=== PATIENT | female | born 1990 | race Hispanic/Latino ===

== ENCOUNTER 2022-01-20 06:42 | Emergency (ER) | payer MEDICARE, MEDICAID, SELFPAY ==
[2022-01-20 06:52] VITALS: BMI 19.4
== END 2022-01-20 08:37 | disposition left against medical advice (07) ==
PROVIDERS: Emergency Provider Emergency Medicine
CPT/HCPCS: 99281

== ENCOUNTER 2022-01-28 07:53 | Inpatient (IN) | payer MEDICARE, MEDICAID, SELFPAY ==
[2022-01-28] VITALS (86 sets, daily range): BP systolic 76–117; BP diastolic 44–73; PULSE 63–123; RESP 16–63; TEMP 35.8–38.8; O2SAT 95–100; BMI 17.4
--- NOTE | 2022-01-28 08:09 | DI.RAD.S_ITS ---
PROCEDURE: XR CHEST 1V INDICATIONS: fever TECHNIQUE: One view of the chest was acquired. COMPARISON: [facility], CR, XR CHEST 1 VIEW, 11/21/2018, 14:33. FINDINGS: Surgical changes and devices: None. Lungs and pleura: Diffuse interstitial prominence. No focal consolidation. No pneumothorax or substantial pleural effusion. Mediastinum: Mediastinal contours appear normal. Heart size is normal. Bones and chest wall: No suspicious bony lesions. Overlying soft tissues appear unremarkable. IMPRESSION: Diffuse interstitial prominence without focal consolidation. Findings are nonspecific and may represent an infectious or inflammatory process with viral etiology most likely. Recommend follow up chest radiograph 4-6 weeks after treatment to document resolution of findings and/or return to baseline examination. Dictated by: Fransisco Montez M.D. on 01/28/2022 at 9:08 Approved by: Fransisco Montez M.D. on 01/28/2022 at 9:09
[2022-01-28 08:38] LABS: Add Manual Diff / Slide Review NO; Basophils Absolute Auto 0 /uL (0-100); Basophils Percent Auto 0.5 % (0-2); Eosinophils Absolute Auto 0 /uL (0-450); Hematocrit 32.5 % (36-46); Hemoglobin 10.9 g/dL (12.0-16.0); Lymphocytes Absolute Auto 900 /uL (1100-4500); Lymphocytes Percent Auto 20.7 % (25-40); Mean Corpuscular HGB Conc 33.5 % (30-36); Mean Corpuscular Hemoglobin 28.7 PG (26-34); Mean Corpuscular Volume 85.7 fL (80-100); Monocytes Absolute Auto 500 /uL (0-900); Monocytes Percent Auto 10.1 % (3-14); Neutrophils Absolute Auto 3100 /uL (1500-7000); Neutrophils Percent Auto 68.7 % (50-75); Platelet Count 155 X10^3/uL (150-400); Red Blood Cell Count 3.79 X10^6/uL (4.0-5.2); Red Cell Distribution Width 14.1 % (11.6-14.8); White Blood Cell Count 4.5 X10^3/uL (4.5-11.0)
--- NOTE | 2022-01-28 08:38 | ED_ITS ---
HPI - Fever General Chief Complaint: Altered Mental Status Stated Complaint: she has wounds on head, not eating, mucas in nose Time Seen by Provider: 01/28/22 08:08 Source: patient Mode of arrival: Wheelchair History of Present Illness HPI Narrative: Patient is a 31-year-old female history of schizophrenia language barrier primary history is taken from mom using language line. Patient has severe poorly controled schizophrenia she has frequent itching/picking she has scratched her head so often the wounds on her head are actually getting worse and her face. They went to [facility] last week she said she got an IV, blood work and doxepin for the itching. It was recommended that patient be placed for psychiatric hospitalization but after a long wait parents reconsidered and wanted to take her home. She developed a fever last night she is not eating she continues to drink some. She started spitting more. Her behavior has changed some in regards to she is spitting more. They do not report worsening hallucinations although patient really does not seem verbal difficult to tell. They state that her communication has not changed. She sniffing. She denies any pain. Mom reports cough. Patient remote history of DVT mom states that she previously had surgery in her right leg not sure she is no longer on anticoagulation they said she only needed at for a short time and now has been off it. Related Data Previous Rx's Medication Instructions Recorded olanzapine 15 mg tablet 15 mg PO BEDTIME #90 tabs 09/13/20 Allergies Allergy/AdvReac Type Severity Reaction Status Date / Time mirtazapine AdvReac Intermediate Rash severe Verified 01/20/22 06:52 Review of Systems Review of Systems ROS Unobtainable: All systems reviewed & are unremarkable except as noted in HPI and below, Unobtainable due to medical condition and Unobtainable due to mental condition Patient History Medical History (Updated 01/28/22 @ 20:57 by Cindy Nolen DO) History of DVT (deep vein thrombosis) History of pulmonary embolism Schizophrenia Social History household members: family Smoking Status: Never smoker Smoking Status: Never smoker Substance Use Type: does not use Exam Initial Vital Signs Initial Vital Signs: Vital Signs Temperature 101.8 F H 01/28/22 08:10 Pulse Rate 121 H 01/28/22 08:10 Respiratory Rate 33 H 01/28/22 08:10 Blood Pressure 100/57 L 01/28/22 08:10 Pulse Oximetry 97 01/28/22 08:10 Oxygen Delivery Method 01/28/22 08:10 GENERAL: Thin 31-year-old female HEENT: Head atraumatic,EOMI, pupils reactive, multiple face scratches mostly on the right cheek CARDIOVASCULAR: Regular rate and rhythm without murmurs, rubs or gallops. RESPIRATORY: Breath sounds equal bilaterally, no wheezes rales or rhonchi. ABDOMEN: Soft, nontender. Normoactive bowel sounds all 4 quadrants. No gu arding or rebound. : Incontinent of urine EXTREMITIES: Normal range of motion, no clubbing or edema. Neurovascularly intact NEUROLOGICAL: Moving all extremities SKIN: Severe scalp abrasions not growing hair mild drainage erythema facial scratches Course Orders Ordered: ED Orders 01/29/22 03:00 BMP [Basic Metabolic Panel] DAILY CBC Auto Diff [Complete Blood Count AUTO DIFF] DAILY Procalcitonin Urgent 01/30/22 05:00 BMP [Basic Metabolic Panel] DAILY CBC Auto Diff [Complete Blood Count AUTO DIFF] DAILY 01/31/22 05:00 BMP [Basic Metabolic Panel] DAILY CBC Auto Diff [Complete Blood Count AUTO DIFF] DAILY Acetaminophen (Acetaminophen 325 Mg Tablet) 650 mg PO Q6H PRN PRN Reason: Fever/Mild Pain (1-3) Diphenhydramine HCl (Diphenhydramine 50 Mg/Ml Vial) 25 mg IV Q4HR PRN PRN Reason: Itching Last Admin: 01/29/22 05:27 Dose: 25 mg Documented By: Admin: 01/29/22 02:00 Dose: 25 mg Documented By: Admin: 01/28/22 23:14 Dose: 25 mg Documented By: DL Enoxaparin Sodium (Enoxaparin 40 Mg/0.4 Ml Syringe) 40 mg SUBCUT DAILY ESTEVAN Fluoxetine HCl (Fluoxetine 10 Mg Capsule) 20 mg PO DAILY ESTEVAN NOREPINEPHRINE BITARTRATE/D5W (Levophed) 4 mg in 250 mls @ 30 mls/hr IV TITRATE ESTEVAN; Protocol Last Titration: 01/29/22 02:08 Dose: 0 mcg/min, 0 mls/hr Documented By: Titration: 01/28/22 22:00 Dose: 2 mcg/min, 7.5 mls/hr Documented By: Titration: 01/28/22 13:24 Dose: 3 mcg/min, 11.25 mls/hr Documented By: Admin: 01/28/22 12:59 Dose: 2 mcg/min, 7.5 mls/hr Documented By: BRANDON Azithromycin 500 mg/ Dextrose 250 mls @ 250 mls/hr IV Q24H [facility] Last Infusion: 01/28/22 17:27 Dose: 0 mls/hr Documented By: Admin: 01/28/22 16:26 Dose: 250 mls/hr Documented By: BRANDON Vancomycin HCl (Vancomycin) 750 mg in 150 mls @ 150 mls/hr IV Q8H [facility] Last Infusion: 01/29/22 03:04 Dose: 0 mls/hr Documented By: Admin: 01/29/22 01:54 Dose: 150 mls/hr Documented By: Infusion: 01/28/22 19:45 Dose: 0 mls/hr Documented By: Admin: 01/28/22 18:30 Dose: 150 mls/hr Documented By: NORMA Piperacillin Sod/Tazobactam (Sod 3.375 gm/ Sodium Chloride) 100 mls @ 25 mls/hr IV Q8H [facility] Last Admin: 01/29/22 04:46 Dose: 25 mls/hr Documented By: Infusion: 01/29/22 02:08 Dose: 0 mls/hr Documented By: Admin: 01/28/22 21:54 Dose: 25 mls/hr Documented By: LA Influenza Virus Vaccine (Influenza Vaccine Qiv 0.5 Ml Syringe) 0.5 ml IM .ONCE ONE Stop: 01/30/22 18:57 Melatonin (Melatonin 3 Mg Tablet) 6 mg PO BEDTIME PRN PRN Reason: Insomnia Naloxone HCl (Naloxone 0.4 Mg/Ml Vial) 0.2 mg IV Q2MIN PRN PRN Reason: Opiate Reversal Olanzapine (Olanzapine Odt 10 Mg Tab) 20 mg PO BEDTIME [facility] Last Admin: 01/28/22 21:50 Dose: Not Given Documented By: LA Polyethylene Glycol (Polyethylene Glycol 3350 17 Gm Powd.Pack) 17 gm PO DAILY PRN PRN Reason: Constipation Sennosides (Sennosides 8.6 Mg Tablet) 8.6 mg PO BID PRN PRN Reason: Constipation Vancomycin HCl (Vancomycin Trough) 1 request MISC NOW ONE Stop: 01/29/22 09:31 Vancomycin HCl (Vancomycin Peak) 1 request MIS NOW ONE Stop: 01/29/22 12:01 Discontinued Medications Acetaminophen (Acetaminophen 325 Mg Tablet) 975 mg PO NOW ONE Stop: 01/28/22 11:07 Last Admin: 01/28/22 11:11 Dose: 975 mg Documented By: BRANDON Aripiprazole (Aripiprazole 10 Mg Tablet) 10 mg PO DAILY ESTEVAN Haloperidol (Haloperidol 5 Mg/Ml Vial) 5 mg IV Q4HR PRN PRN Reason: Agitation Sodium Chloride (Normal Saline 0.9%) 1,000 mls @ 1,000 mls/hr IV BOLUS ONE Stop: 01/28/22 09:44 Last Infusion: 01/28/22 09:57 Dose: 0 mls/hr Documented By: Admin: 01/28/22 09:00 Dose: 1,000 mls/hr Documented By: BRANDON Ceftriaxone Sodium 2,000 mg/ (Sodium Chloride) 100 mls @ 200 mls/hr IV NOW ONE Stop: 01/28/22 08:48 Last Infusion: 01/28/22 09:57 Dose: 0 mls/hr Documented By: Admin: 01/28/22 09:08 Dose: 200 mls/hr Documented By: BRANDON Vancomycin HCl (Vancomycin) 750 mg in 150 mls @ 150 mls/hr IV NOW ONE Stop: 01/28/22 09:48 Last Infusion: 01/28/22 11:17 Dose: 0 mls/hr Documented By: Admin: 01/28/22 09:51 Dose: 150 mls/hr Documented By: BRANDON Sodium Chloride (Normal Saline 0.9%) 1,146 mls @ 382 mls/hr 30 ml/kg infuse over 3 hr (1146 ml) IV NOW ONE Stop: 01/28/22 13:07 Last Infusion: 01/28/22 13:16 Dose: 0 mls/hr Documented By: Admin: 01/28/22 10:34 Dose: 382 mls/hr Documented By: BRANDON Ceftriaxone Sodium 1,000 mg/ (Sodium Chloride) 100 mls @ 200 mls/hr IV Q24H ESTEVAN Stop: 02/01/22 08:59 Piperacillin Sod/Tazobactam (Sod 4.5 gm/ Sodium Chloride) 100 mls @ 200 mls/hr IV NOW ONE Stop: 01/28/22 12:56 Last Infusion: 01/28/22 15:53 Dose: 0 mls/hr Documented By: Admin: 01/28/22 13:11 Dose: 200 mls/hr Documented By: BRANDON Piperacillin Sod/Tazobactam (Sod 3.375 gm/ Sodium Chloride) 100 mls @ 25 mls/hr IV Q8H ESTEVAN Piperacillin Sod/Tazobactam (Sod 4.5 gm/ Sodium Chloride) 100 mls @ 25 mls/hr IV Q8H EST[facility]AN Piperacillin Sod/Tazobactam (Sod 3.375 gm/ Sodium Chloride) 100 mls @ 25 mls/hr IV Q8H ESTEVAN Last Admin: 01/28/22 18:15 Dose: Not Given Documented By: NORMA Ketorolac Tromethamine (Ketorolac 30 Mg/Ml Vial) 15 mg IV NOW ONE Stop: 01/28/22 08:50 Last Admin: 01/28/22 09:07 Dose: 15 mg Documented By: BRANDON Olanzapine (Olanzapine Odt 10 Mg Tab) 20 mg PO NOW ONE Stop: 01/28/22 11:06 Last Admin: 01/28/22 11:11 Dose: 20 mg Documented By: BRANDON Olanzapine (Olanzapine 2.5 Mg Tablet) 5 mg PO BEDTIME ESTEVAN Vancomycin HCl (Vancomycin Per Pharmacy) 1 request MISC NOW ONE Stop: 01/28/22 11:16 Last Admin: 01/28/22 15:53 Dose: Not Given Documented By: BRANDON Vancomycin HCl (Vancomycin Per Pharmacy) 1 request MISC NOW ONE Stop: 01/28/22 15:39 Last Admin: 01/28/22 17:26 Dose: Not Given Documented By: NORMA Vital Signs Vital signs: Vital Signs - 8 hr 01/28/22 11:30 01/28/22 11:30 Temperature 100.6 F H Pulse Rate 93 H Respiratory Rate 32 H Blood Pressure 100/62 Pulse Oximetry 98 MDM - Fever Lab Data Result diagrams: 01/29/22 03:00 01/29/22 03:00 Labs: Lab Results 01/28/22 01/28/22 01/28/22 Range/Units 08:22 08:22 08:22 WBC (4.5-11.0) X10^3/uL RBC (4.0-5.2) X10^6/uL Hgb (12.0-16.0) g/dL Hct (36-46) % MCV (80-100) fL MCH (26-34) PG MCHC (30-36) % RDW (11.6-14.8) % Plt Count (150-400) X10^3/uL Neut % (Auto) (50-75) % Lymph % (Auto) (25-40) % Ness % (Auto) (3-14) % Eos % (Auto) (2-4) % Baso % (Auto) (0-2) % Neut # (Auto) (6649-3704) /uL Lymph # (Auto) (8954-0663) /uL Ness # (Auto) (0-900) /uL Eos # (Auto) (0-450) /uL Baso # (Auto) (0-100) /uL D-Dimer (<500) ng/ml Sodium (137-145) mmol/L Potassium (3.4-5.1) mmol/L Chloride (98-107) mmol/L Carbon Dioxide (22-32) mmol/L BUN (7-17) mg/dL Creatinine (0.52-1.04) mg/dL Estimated GFR (>60) mL/min BUN/Creatinine Ratio (6-22) Glucose (70-100) mg/dL Lactate (0.7-2.1) mmol/L Calcium (8.4-10.2) mg/dL Magnesium 2.1 (1.6-2.3) mg/dL Total Bilirubin (0.2-1.3) mg/dL AST (14-36) IU/L ALT (<35) IU/L Alkaline Phosphatase (38-126) U/L Total Creatine Kinase 825 H (30-135) U/L CK-MB (CK-2) 2.02 (<2.37) ng/mL CK-MB (CK-2) Rel Index 0.2 L (1.5-5.0) % Troponin I < 0.012 (0.01-0.034) ng/mL Total Protein (6.3-8.2) g/dL Albumin (3.5-5.0) g/dL Globulin (1.7-4.1) g/dL Albumin/Globulin Ratio (1.0-2.8) Procalcitonin 1.08 H (<0.5) ng/mL Urine RBC (0-5/HPF) Urine WBC (0-5/HPF) Ur Squamous Epith Cells (0-5/HPF) Ur Transition Epith Cell (0-5/HPF) Urine Bacteria (None) Ur Culture Indicated? Urine Test (Negative) U Opiates 300ng/mL cut (Negative) Ur Oxycodone Screen (Negative) Urine Methadone Screen (Negative) Ur Barbiturates Screen (Negative) U Tricyclic Antidepress (Negative) Ur Phencyclidine Scrn (Negative) Ur Amphetamines Screen (Negative) U Methamphetamines Scrn (Negative) Ur MDMA Scrn (Ecstasy) (Negative) U Benzodiazepines Scrn (Negative) Urine Cocaine Screen (Negative) U Marijuana (THC) Screen (Negative) SARS-CoV-2 (PCR) (Negative) Influenza A (RT-PCR) (NEGATIVE) Influenza B (RT-PCR) (NEGATIVE) RSV (PCR) (Negative) 01/28/22 01/28/22 01/28/22 Range/Units 08:27 08:27 08:27 WBC 4.5 (4.5-11.0) X10^3/uL RBC 3.79 L (4.0-5.2) X10^6/uL Hgb 10.9 L (12.0-16.0) g/dL Hct 32.5 L (36-46) % MCV 85.7 (80-100) fL MCH 28.7 (26-34) PG MCHC 33.5 (30-36) % RDW 14.1 (11.6-14.8) % Plt Count 155 (150-400) X10^3/uL Neut % (Auto) 68.7 (50-75) % Lymph % (Auto) 20.7 L (25-40) % Ness % (Auto) 10.1 (3-14) % Eos % (Auto) 0.0 L (2-4) % Baso % (Auto) 0.5 (0-2) % Neut # (Auto) 3100 (9198-7030) /uL Lymph # (Auto) 900 L (3924-5736) /uL Ness # (Auto) 500 (0-900) /uL Eos # (Auto) 0 (0-450) /uL Baso # (Auto) 0 (0-100) /uL D-Dimer (<500) ng/ml Sodium 134 L (137-145) mmol/L Potassium 3.6 (3.4-5.1) mmol/L Chloride 99 (98-107) mmol/L Carbon Dioxide 23 (22-32) mmol/L BUN 14 (7-17) mg/dL Creatinine 0.64 (0.52-1.04) mg/dL Estimated GFR > 60 (>60) mL/min BUN/Creatinine Ratio 21.9 (6-22) Glucose 113 H (70-100) mg/dL Lactate 1.6 (0.7-2.1) mmol/L Calcium 8.3 L (8.4-10.2) mg/dL Magnesium (1.6-2.3) mg/dL Total Bilirubin 0.5 (0.2-1.3) mg/dL AST 87 H (14-36) IU/L ALT 33 (<35) IU/L Alkaline Phosphatase 46 (38-126) U/L Total Creatine Kinase (30-135) U/L CK-MB (CK-2) (<2.37) ng/mL CK-MB (CK-2) Rel Index (1.5-5.0) % Troponin I (0.01-0.034) ng/mL Total Protein 7.9 (6.3-8.2) g/dL Albumin 3.6 (3.5-5.0) g/dL Globulin 4.3 H (1.7-4.1) g/dL Albumin/Globulin Ratio 0.8 L (1.0-2.8) Procalcitonin (<0.5) ng/mL Urine RBC (0-5/HPF) Urine WBC (0-5/HPF) Ur Squamous Epith Cells (0-5/HPF) Ur Transition Epith Cell (0-5/HPF) Urine Bacteria (None) Ur Culture Indicated? Urine Test (Negative) U Opiates 300ng/mL cut (Negative) Ur Oxycodone Screen (Negative) Urine Methadone Screen (Negative) Ur Barbiturates Screen (Negative) U Tricyclic Antidepress (Negative) Ur Phencyclidine Scrn (Negative) Ur Amphetamines Screen (Negative) U Methamphetamines Scrn (Negative) Ur MDMA Scrn (Ecstasy) (Negative) U Benzodiazepines Scrn (Negative) Urine Cocaine Screen (Negative) U Marijuana (THC) Screen (Negative) SARS-CoV-2 (PCR) (Negative) Influenza A (RT-PCR) (NEGATIVE) Influenza B (RT-PCR) (NEGATIVE) RSV (PCR) (Negative) 01/28/22 01/28/22 01/28/22 Range/Units 08:27 08:42 09:20 WBC (4.5-11.0) X10^3/uL RBC (4.0-5.2) X10^6/uL Hgb (12.0-16.0) g/dL Hct (36-46) % MCV (80-100) fL MCH (26-34) PG MCHC (30-36) % RDW (11.6-14.8) % Plt Count (150-400) X10^3/uL Neut % (Auto) (50-75) % Lymph % (Auto) (25-40) % Ness % (Auto) (3-14) % Eos % (Auto) (2-4) % Baso % (Auto) (0-2) % Neut # (Auto) (4760-7215) /uL Lymph # (Auto) (1378-6551) /uL Ness # (Auto) (0-900) /uL Eos # (Auto) (0-450) /uL Baso # (Auto) (0-100) /uL D-Dimer 2351 H (<500) ng/ml Sodium (137-145) mmol/L Potassium (3.4-5.1) mmol/L Chloride (98-107) mmol/L Carbon Dioxide (22-32) mmol/L BUN (7-17) mg/dL Creatinine (0.52-1.04) mg/dL Estimated GFR (>60) mL/min BUN/Creatinine Ratio (6-22) Glucose (70-100) mg/dL Lactate (0.7-2.1) mmol/L Calcium (8.4-10.2) mg/dL Magnesium (1.6-2.3) mg/dL Total Bilirubin (0.2-1.3) mg/dL AST (14-36) IU/L ALT (<35) IU/L Alkaline Phosphatase (38-126) U/L Total Creatine Kinase (30-135) U/L CK-MB (CK-2) (<2.37) ng/mL CK-MB (CK-2) Rel Index (1.5-5.0) % Troponin I (0.01-0.034) ng/mL Total Protein (6.3-8.2) g/dL Albumin (3.5-5.0) g/dL Globulin (1.7-4.1) g/dL Albumin/Globulin Ratio (1.0-2.8) Procalcitonin (<0.5) ng/mL Urine RBC None seen (0-5/HPF) Urine WBC 1-5/hpf (0-5/HPF) Ur Squamous Epith Cells 1-5 /hpf (0-5/HPF) Ur Transition Epith Cell 0-1/hpf (0-5/HPF) Urine Bacteria None seen (None) Ur Culture Indicated? Cult not indicated Urine Test (Negative) U Opiates 300ng/mL cut (Negative) Ur Oxycodone Screen (Negative) Urine Methadone Screen (Negative) Ur Barbiturates Screen (Negative) U Tricyclic Antidepress (Negative) Ur Phencyclidine Scrn (Negative) Ur Amphetamines Screen (Negative) U Methamphetamines Scrn (Negative) Ur MDMA Scrn (Ecstasy) (Negative) U Benzodiazepines Scrn (Negative) Urine Cocaine Screen (Negative) U Marijuana (THC) Screen (Negative) SARS-CoV-2 (PCR) Negative (Negative) Influenza A (RT-PCR) Flu a negative (NEGATIVE) Influenza B (RT-PCR) Flu b negative (NEGATIVE) RSV (PCR) Negative (Negative) 01/28/22 01/28/22 Range/Units 09:20 09:20 WBC (4.5-11.0) X10^3/uL RBC (4.0-5.2) X10^6/uL Hgb (12.0-16.0) g/dL Hct (36-46) % MCV (80-100) fL MCH (26-34) PG MCHC (30-36) % RDW (11.6-14.8) % Plt Count (150-400) X10^3/uL Neut % (Auto) (50-75) % Lymph % (Auto) (25-40) % Ness % (Auto) (3-14) % Eos % (Auto) (2-4) % Baso % (Auto) (0-2) % Neut # (Auto) (2425-4944) /uL Lymph # (Auto) (8790-3578) /uL Ness # (Auto) (0-900) /uL Eos # (Auto) (0-450) /uL Baso # (Auto) (0-100) /uL D-Dimer (<500) ng/ml Sodium (137-145) mmol/L Potassium (3.4-5.1) mmol/L Chloride (98-107) mmol/L Carbon Dioxide (22-32) mmol/L BUN (7-17) mg/dL Creatinine (0.52-1.04) mg/dL Estimated GFR (>60) mL/min BUN/Creatinine Ratio (6-22) Glucose (70-100) mg/dL Lactate (0.7-2.1) mmol/L Calcium (8.4-10.2) mg/dL Magnesium (1.6-2.3) mg/dL Total Bilirubin (0.2-1.3) mg/dL AST (14-36) IU/L ALT (<35) IU/L Alkaline Phosphatase (38-126) U/L Total Creatine Kinase (30-135) U/L CK-MB (CK-2) (<2.37) ng/mL CK-MB (CK-2) Rel Index (1.5-5.0) % Troponin I (0.01-0.034) ng/mL Total Protein (6.3-8.2) g/dL Albumin (3.5-5.0) g/dL Globulin (1.7-4.1) g/dL Albumin/Globulin Ratio (1.0-2.8) Procalcitonin (<0.5) ng/mL Urine RBC (0-5/HPF) Urine WBC (0-5/HPF) Ur Squamous Epith Cells (0-5/HPF) Ur Transition Epith Cell (0-5/HPF) Urine Bacteria (None) Ur Culture Indicated? Urine Test Negative (Negative) U Opiates 300ng/mL cut Negative (Negative) Ur Oxycodone Screen Negative (Negative) Urine Methadone Screen Negative (Negative) Ur Barbiturates Screen Negative (Negative) U Tricyclic Antidepress Negative (Negative) Ur Phencyclidine Scrn Negative (Negative) Ur Amphetamines Screen Negative (Negative) U Methamphetamines Scrn Negative (Negative) Ur MDMA Scrn (Ecstasy) Negative (Negative) U Benzodiazepines Scrn Negative (Negative) Urine Cocaine Screen Negative (Negative) U Marijuana (THC) Screen Negative (Negative) SARS-CoV-2 (PCR) (Negative) Influenza A (RT-PCR) (NEGATIVE) Influenza B (RT-PCR) (NEGATIVE) RSV (PCR) (Negative) Point of Care Testing Test Results Negative Urine Dip Bedside Urine Glucose Negative Bedside Urine Bilirubin - Negative Bedside Urine Ketone - Negative Urine Specific [place] 1.015 Bedside Urine Occult Blood - Negative Bedside Urine pH 6 Bedside Urine Protein + 30 Bedside Urine Urobilinogen - Negative Bedside Urine Nitrite - Negative Bedside Urine Leukocytes - Negative Esterase Imaging Data Chest x-ray: Radiologist's Impression: XRay Report Signed Patient: Tracey Holcomb MR#: [id number] : 1990 Acct:[id number] Age/Sex: 31 / F Date of Service: 01/28/22 Loc: ED Accession Number: [id number] ?? Procedure: XR chest 1V Ordering Provider: Cindy Nolen D.O. PROCEDURE:? XR CHEST 1V ? INDICATIONS:? fever ? TECHNIQUE:? One view of the chest was acquired.? ? COMPARISON:? [facility], , XR CHEST 1 VIEW, 11/21/2018, 14:33. ? FINDINGS:? ? Surgical changes and devices:? None.? ? Lungs and pleura:? Diffuse interstitial prominence.? No focal consolidation.? No pneumothorax or substantial pleural effusion. ? Mediastinum:? Mediastinal contours appear normal.? Heart size is normal.? ? Bones and chest wall:? No suspicious bony lesions.? Overlying soft tissues appear unremarkable.? ? IMPRESSION:? Diffuse interstitial prominence without focal consolidation.? Findings are nonspecific and may represent an infectious or inflammatory process with viral etiology most likely. ? Recommend follow up chest radiograph 4-6 weeks after treatment to document resolution of findings and/or return to baseline examination. ? ? ? Dictated by: Fransisco Montez M.D. on 01/28/2022 at 9:08 ? ? Approved by: Fransisco Montez M.D. on 01/28/2022 at 9:09 ? ECG Data Interpretation: Sinus rhythm rate 113 ME interval 132 QRS [address] changes or T-wave inversions MDM Narrative Medical decision making narrative: Patient presents today with fever, decreased appetite decreased oral intake and change in behavior. He is found to be sepsis with septic shock requiring vasopressors. Probable infection is cellulitis from her multiple sores on her scalp. Viral panel is negative no evidence of UTI or pneumonia. Central line is required anesthesia was called to place central line. She was empirically started on antibiotics Zosyn and vancomycin. No fever in the ED no leukocytosis but does have an elevated procalcitonin. She received sepsis fluids and continue to have hypotension therefore vasopressors were started. Translating services were used for consent for central line and updating on patient's condition. Code status was also discussed and she is a full code Respiratory panel is also Negative. Dr. Ragsdale updated on patient's symptoms test results and kindly accepts patient to the ICU. Critical Care Time Critical Care Time Critical Care Time: Yes Total Critical Care Time: 60 Attestation: The high probability of a clinically significant, sudden or life threatening deterioration of the [cardiovascular] system(s) required my full and direct attention, intervention and personal management. The aggregate critical care time was 60 minutes. This time is in addition to time spent performing reported procedures but includes the following: [x] Data Review and interpretation [x] Patient assessment and monitoring of vital signs [x] Documentation [x] Medication orders and management Discharge Plan Departure Patient Disposition: Admitted As Inpatient Clinical Impression: Septic shock Admit Date/Time: 01/28/22 11:54 Admit Provider: Shahriar Ragsdale
[2022-01-28 08:56] LABS: Alanine Aminotransferase 33 IU/L (<35); Albumin 3.6 g/dL (3.5-5.0); Albumin Globulin Ratio 0.8 (1.0-2.8); Alkaline Phosphatase 46 U/L (38-126); BUN Creatinine Ratio 21.9 (6-22); Bilirubin Total 0.5 mg/dL (0.2-1.3); Blood Urea Nitrogen 14 mg/dL (7-17); Calcium 8.3 mg/dL (8.4-10.2); Carbon Dioxide 23 mmol/L (22-32); Chloride 99 mmol/L (98-107); Estimated Glomerular Filt Rate > 60 mL/min (>60); Globulin 4.3 g/dL (1.7-4.1); Glucose 113 mg/dL (70-100); Sodium 134 mmol/L (137-145); Total Protein 7.9 g/dL (6.3-8.2)
[2022-01-28 08:57] LABS: Aspartate Aminotransferase 87 IU/L (14-36); HEMOLYSIS 60 (0-50); Lactate (Lactic Acid) 1.6 mmol/L (0.7-2.1); Potassium 3.6 mmol/L (3.4-5.1)
[2022-01-28] MEDS: SODIUM CHLORIDE 0.9% 1,000 ML 1000 ML IV (09:00)
[2022-01-28 09:02] LABS: Creatine Kinase 825 U/L (30-135)
[2022-01-28] MEDS: KETOROLAC 30 MG/ML VIAL 15 MG IV (09:07)
[2022-01-28] MEDS: cefTRIAXone 2,000 MG in SODIUM CHLORIDE 0.9% 100 ML 200 MG IV (09:08)
[2022-01-28 09:15] LABS: Troponin I < 0.012 ng/mL (0.01-0.034)
[2022-01-28 09:18] LABS: CKMB % Relative Index 0.2 % (1.5-5.0); Creatine Kinase MB 2.02 ng/mL (<2.37)
[2022-01-28 09:21] LABS: Procalcitonin 1.08 ng/mL (<0.5)
[2022-01-28] MEDS: VANCOMYCIN 750 MG/150 ML PIGGYBACK 150 MG IV ×2 (09:51→18:30)
[2022-01-28 09:58] LABS: Bacteria Urine None Seen; Culture Indicated Urine Cult Not Indicated; RBC Urine None Seen (0-5/HPF); Squamous Epithelial Cell Urine 1-5 /HPF (0-5/HPF); Transitional Epi Cells Urine 0-1/HPF (0-5/HPF); WBC Urine 1-5/HPF (0-5/HPF)
[2022-01-28 10:17] LABS: Influenza A - CEPHEID Flu A NEGATIVE (NEGATIVE); Influenza B - CEPHEID Flu B NEGATIVE (NEGATIVE); Respiratory Syncytial Virus Negative (Negative)
[2022-01-28 10:18] LABS: COVID-19 CEPHEID 4-PLEX PCR Negative (Negative)
[2022-01-28] MEDS: SODIUM CHLORIDE 0.9% 382 ML IV (10:34)
[2022-01-28] MEDS: ACETAMINOPHEN 325 MG TABLET 975 MG PO (11:11)
[2022-01-28] MEDS: OLANZapine ODT 10 MG TAB 20 MG PO (11:11)
[2022-01-28 12:06] LABS: Magnesium 2.1 mg/dL (1.6-2.3)
--- NOTE | 2022-01-28 12:53 | CM.SWNOTE ---
ED SW Note Patient is a 31-year-old female history of schizophrenia w/ language barrier. Primary history is taken from mom using language line. Patient has severe poorly controlled schizophrenia she has frequent itching/picking she has scratched her head so often the wounds on her head are actually getting worse and her face. Pt has Medicare A+B and Medicaid. SW consulted to complete MH assessment. SW met pt and her mother in the room and initiated assessment using phone hourly sign language interpreter. Pt's mom reports that she initially brought pt into [facility] last week due to increased itchiness on head wound that was made worse by patient's scratching. Pt's mother reports that she only scratches her head if it is itchy. Pt has learning disability in addition to schizophrenia diagnosis. Pt is unable to participate in interview due to poor medical condition. Pt is difficult to understand and has not been using full sentences in the ED. Per mother, at baseline, pt is able to dress and feed herself. Pt requires some supervision in shower because she stays in bathroom for long periods and uses too much shampoo. Pt does not drive. Pt is prescribed olanzipine for her schizophrenia. Pt's mother reports that pt is not always compliant with medication and will take on average 4-5 times a week. Pt's mother reports that pt's former psychiatrist retired and they are currently looking for a new one. Pt's mother reports that pt is connected with [facility] and gets 129 BINTA hours a month. Pt's mother is her paid [employer]IN[employer] caregiver. Pt's mother reports that pt has not been behaviorally acting out at home. Pt's mother denies that her daughter has ever been suicidal or homicidal. Pt was previously hospitalized at a psychiatric facility in [place] for approximately one year in 2009 because she was breaking things at home. Per mother, pt no longer breaks things at home. Pt's mother denies violent behaviors at home. Pt is currently laying calm in bed. Orientation, memory, and affect not tested due to poor medical condition. Plan: Pt needs to be medically cleared and then establish new outpatient psychiatrist to help manage symptoms of schizophrenia, such as skin picking. NIALL King
[2022-01-28 12:57] LABS: Adenovirus Not Detected (Not Detect); B. parapertussis Not Detected (Not Detecte); Bordetella pertussis Not Detected (Not Detecte); Chlamydophila pneumoniae Not Detected (Not Detect); Coronavirus 229E Not Detected (Not Detect); Coronavirus HKU1 Not Detected (Not Detect); Coronavirus NL 63 Not Detected (Not Detect); Coronavirus OC43 Not Detected (Not Detect); Human Metapneumovirus Not Detected (Not Detect); Human Rhinovirus/Enterovirus Not Detected (Not Detect); Influenza A Not Detected (Not Detect); Influenza B Not Detected (Not Detect); Mycoplasma pneumoniae Not Detected (Not Detect); Parainfluenza Virus 1 Not Detected (Not Detect); Parainfluenza Virus 2 Not Detected (Not Detect); Parainfluenza Virus 3 Not Detected (Not Detect); Parainfluenza Virus 4 Not Detected (Not Detect); Respiratory Syncytial Virus Not Detected (Not Detect); SARS- CoV-2 Not Detected (Not Detecte)
[2022-01-28] MEDS: NOREPINEPHRINE BITARTRATE/D5W 4 MG/250 ML PLAST..BAG 7.5 MG IV (12:59)
[2022-01-28] MEDS: PIPERACILLIN/TAZO 4.5 GM in SODIUM CHLORIDE 0.9% 100 ML IV (13:11)
[2022-01-28 13:46] LABS: Pregnancy Test Urine Negative (Negative)
--- NOTE | 2022-01-28 14:11 | DI.RAD.S_ITS ---
PROCEDURE: XR CHEST 1V INDICATIONS: central line placement TECHNIQUE: One view of the chest was acquired. COMPARISON: [facility], CR, XR CHEST 1V, 01/28/2022, 8:50. FINDINGS: Surgical changes and devices: Right internal jugular central venous catheter tip is in SVC. Lungs and pleura: There is mild pulmonary edema and pulmonary vascular congestion. No definite focal infiltrate. No pleural effusions or pneumothorax. Mediastinum: Mediastinal contours appear normal. Heart size is normal. Bones and chest wall: No suspicious bony lesions. Overlying soft tissues appear unremarkable. IMPRESSION: Right internal jugular central venous catheter tip is in SVC. Mild congestion and pulmonary edema. No definite focal infiltrate. No pneumothorax. Dictated by: Lev Ramos M.D. on 01/28/2022 at 14:47 Approved by: Lev Ramos M.D. on 01/28/2022 at 14:48
--- NOTE | 2022-01-28 14:57 | PM.PROC.1 ---
Procedures Date/Time Date of procedure: 01/28/22 Time of procedure: 13:55 Central Line Placement Time out performed: Yes Patient placed on monitor/pulse ox: Yes MD prep: mask, gown and gloves Central line prep: Chlorhexidine scrub and sterile drapes applied Local anesthesia used: lidocaine 1% Amount of anesthesia used (ml): 3 Ultrasound used for placement: Yes Central line lumen inserted: triple Post procedure: sutured in place, good blood return, all ports aspirated, flushed, capped and sterile dressing applied Post procedure x-ray: tip of catheter in good position and no pneumothorax seen Patient tolerated procedure: well and no complications Complications: none Additional comments: Patient was given procedural sedation of 50mcg fentanyl and a 75mcg/kg/min propofol infusion. ASA monitoring applied including EtCO2/O2 nasalcannula monitor.
--- NOTE | 2022-01-28 15:39 | PM.HP.1 ---
History of Present Illness History of Present Illness Date Patient Seen: 01/28/22 Time Patient Seen: 15:00 Chief complaint: she has wounds on head, not eating, mucas in nose Narrative: 31-year-old female with history of poorly controlled schizophrenia presented to ED due to development of fever last night. Patient is reportedly nonverbal at baseline secondary to schizophrenia and history was obtained from mom via [employer]. Patient is reported to have frequent itching/picking on head and face areas. She was seen at [facility] and started on cephalexin about 10 days ago. On ED evaluation, patient was tachypneic, tachycardic and febrile with temp 101.8?. Initially normotensive, got fluid bolus 30 milliliters/kilogram for sepsis protocol, and subsequently dropped her blood pressure to 87/55. She then got started on Levophed, currently on 3 mcg with map of 65. She had right IJ central line put in while in the ER. EKG showed sinus rhythm with PACs, normal intervals. Apparently she was also screaming and having uncontrollable behavior in the ER but calm down nicely after given 20 mg Zyprexa. 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 She is no longer on blood thinne and unknown whether IVC filter was removed. Family has not noticed patient having a cough, or complaining of abdominal pain. Patient History Medical History (Updated 01/28/22 @ 15:57 by Mike Dunn MD) History of DVT (deep vein thrombosis) History of pulmonary embolism Schizophrenia Family & Social History Safety & Behavioral: Feels Safe in Current Yes Environment Tobacco & Substance use: Smoking Status Never smoker Substance Use Type does not use Meds Home Medications and Allergies Home Medications Medication Instructions Recorded Confirmed Type apixaban 5 mg tablet (Eliquis) 5 mg PO BID 08/04/18 03/12/19 History fluoxetine 10 mg capsule 10 mg PO DAILY #90 caps 08/18/19 Rx olanzapine 15 mg tablet 15 mg PO BEDTIME #90 tabs 09/13/20 Rx Allergies Allergy/AdvReac Type Severity Reaction Status Date / Time mirtazapine AdvReac Intermediate Rash severe Verified 01/20/22 06:52 Review of Systems Review of Systems Narrative: Further ROS unable to obtain due to patient's baseline altered mental status Exam Vital Signs (past 8 hours): - 01/28/22 08:10 01/28/22 08:11 01/28/22 08:30 Temperature 101.8 F H Pulse Rate 121 H 117 H Respiratory Rate 33 H 36 H Blood Pressure 100/57 L 97/56 L Pulse Oximetry 97 Oxygen Delivery Method Room Air 01/28/22 08:30 01/28/22 08:41 01/28/22 08:41 Temperature Pulse Rate 110 H 110 H Respiratory Rate 37 H 37 H Blood Pressure 103/61 Pulse Oximetry 98 97 Oxygen Delivery Method 01/28/22 08:50 01/28/22 08:50 01/28/22 09:00 Temperature Pulse Rate 109 H Respiratory Rate Blood Pressure 98/61 103/63 Pulse Oximetry 97 Oxygen Delivery Method 01/28/22 09:00 01/28/22 09:20 01/28/22 09:20 Temperature Pulse Rate 111 H 104 H Respiratory Rate 46 H 35 H Blood Pressure 96/57 L Pulse Oximetry 97 97 Oxygen Delivery Method 01/28/22 09:30 01/28/22 09:40 01/28/22 09:40 Temperature 100.8 F H Pulse Rate 117 H Respiratory Rate 33 H Blood Pressure 92/55 L 95/60 Pulse Oximetry 97 Oxygen Delivery Method 01/28/22 09:50 01/28/22 09:50 01/28/22 10:00 Temperature 100.8 F H Pulse Rate 123 H Respiratory Rate Blood Pressure 103/61 87/54 L Pulse Oximetry 98 Oxygen Delivery Method 01/28/22 10:00 01/28/22 10:13 01/28/22 10:13 Temperature 101.7 F H 101.3 F H Pulse Rate 96 H 102 H Respiratory Rate Blood Pressure 100/58 L Pulse Oximetry 96 95 Oxygen Delivery Method 01/28/22 10:30 01/28/22 10:30 01/28/22 11:00 Temperature 100.8 F H Pulse Rate 112 H Respiratory Rate 31 H Blood Pressure 105/68 117/73 Pulse Oximetry 98 Oxygen Delivery Method 01/28/22 11:00 01/28/22 11:30 01/28/22 11:30 Temperature 101.1 F H 100.6 F H Pulse Rate 105 H 93 H Respiratory Rate 38 H 32 H Blood Pressure 100/62 Pulse Oximetry 98 98 Oxygen Delivery Method 01/28/22 12:00 01/28/22 12:00 01/28/22 12:30 Temperature 100.4 F H Pulse Rate 89 Respiratory Rate 34 H Blood Pressure 113/61 76/44 L Pulse Oximetry 98 Oxygen Delivery Method 01/28/22 12:30 01/28/22 12:33 01/28/22 12:33 Temperature 100.0 F H 99.9 F H Pulse Rate 79 91 H Respiratory Rate 20 28 H Blood Pressure 85/54 L Pulse Oximetry 96 98 Oxygen Delivery Method 01/28/22 12:37 01/28/22 12:37 01/28/22 12:40 Temperature 99.9 F H 99.7 F H Pulse Rate 99 H 100 H Respiratory Rate 16 17 Blood Pressure 89/56 L Pulse Oximetry 99 98 Oxygen Delivery Method 01/28/22 12:40 01/28/22 12:52 01/28/22 12:52 Temperature 99.3 F Pulse Rate 95 H Respiratory Rate Blood Pressure 90/58 L 96/58 L Pulse Oximetry 99 Oxygen Delivery Method 01/28/22 13:00 01/28/22 13:00 01/28/22 13:01 Temperature 99.1 F 99.1 F Pulse Rate 90 90 Respiratory Rate 27 H 29 H Blood Pressure 97/58 L Pulse Oximetry 98 98 Oxygen Delivery Method 01/28/22 13:01 01/28/22 13:05 01/28/22 13:05 Temperature 99.1 F Pulse Rate 89 Respiratory Rate 27 H Blood Pressure 98/59 L 98/60 Pulse Oximetry 98 Oxygen Delivery Method 01/28/22 13:10 01/28/22 13:10 01/28/22 13:15 Temperature 99.0 F 99.0 F Pulse Rate 89 80 Respiratory Rate 31 H 26 H Blood Pressure 97/59 L Pulse Oximetry 98 99 Oxygen Delivery Method 01/28/22 13:15 01/28/22 13:20 01/28/22 13:20 Temperature 98.8 F Pulse Rate 77 Respiratory Rate 30 H Blood Pressure 98/61 98/62 Pulse Oximetry 99 Oxygen Delivery Method 01/28/22 13:25 01/28/22 13:25 01/28/22 13:30 Temperature 98.8 F Pulse Rate 74 Respiratory Rate 34 H Blood Pressure 99/64 97/65 Pulse Oximetry 99 Oxygen Delivery Method 01/28/22 13:30 01/28/22 13:35 01/28/22 13:35 Temperature 98.6 F 98.6 F Pulse Rate 74 83 Respiratory Rate 18 32 H Blood Pressure 106/70 Pulse Oximetry 99 99 Oxygen Delivery Method 01/28/22 13:40 01/28/22 13:40 01/28/22 13:45 Temperature 98.4 F Pulse Rate 78 Respiratory Rate 25 H Blood Pressure 99/62 114/72 Pulse Oximetry 98 Oxygen Delivery Method 01/28/22 13:45 01/28/22 13:50 01/28/22 13:50 Temperature 98.6 F 98.6 F Pulse Rate 63 69 Respiratory Rate 36 H Blood Pressure 103/62 Pulse Oximetry 100 100 Oxygen Delivery Method 01/28/22 13:55 01/28/22 13:55 01/28/22 14:00 Temperature 98.6 F Pulse Rate 67 Respiratory Rate Blood Pressure 99/63 99/61 Pulse Oximetry 100 Oxygen Delivery Method 01/28/22 14:00 01/28/22 14:05 01/28/22 14:05 Temperature 98.6 F Pulse Rate 77 70 Respiratory Rate Blood Pressure 101/67 Pulse Oximetry 100 100 Oxygen Delivery Method 01/28/22 14:10 01/28/22 14:10 01/28/22 14:15 Temperature 98.6 F Pulse Rate 72 68 Respiratory Rate Blood Pressure 96/63 Pulse Oximetry 99 100 Oxygen Delivery Method 01/28/22 14:15 01/28/22 14:20 01/28/22 14:20 Temperature Pulse Rate 81 Respiratory Rate 31 H Blood Pressure 98/65 99/65 Pulse Oximetry 99 Oxygen Delivery Method 01/28/22 14:25 01/28/22 14:25 01/28/22 14:30 Temperature Pulse Rate 70 Respiratory Rate 28 H Blood Pressure 100/66 101/67 Pulse Oximetry 99 Oxygen Delivery Method 01/28/22 14:30 01/28/22 14:35 01/28/22 14:35 Temperature Pulse Rate 69 67 Respiratory Rate 24 29 H Blood Pressure 101/68 Pulse Oximetry 100 100 Oxygen Delivery Method 01/28/22 14:40 01/28/22 14:40 01/28/22 14:45 Temperature 98.6 F Pulse Rate 64 73 Respiratory Rate 26 H 24 Blood Pressure 102/70 Pulse Oximetry 100 100 Oxygen Delivery Method 01/28/22 14:45 Temperature Pulse Rate Respiratory Rate Blood Pressure 98/64 Pulse Oximetry Oxygen Delivery Method Oxygen Delivery Method Room Air Narrative Exam Narrative: General: Presently patient is alert, calm, nonverbal and appearing comfortable HEENT: There is extensive areas macular erythema and scabbing on the top and back of scalp, paranasal areas, nape of neck. Also there is some crusting and drainage from bilateral external ear areas. No erythema or tenderness over the mastoids. No periorbital or facial edema. Pupils equal and reactive. Conjunctiva clear. No drainage from eyes. Neck: Trachea midline, supple, no thyromegaly Lungs: Clear to auscultation Heart: Regular rate and rhythm, no murmur Abdomen: Soft and nontender, no HSM Extremities: No skin lesions on arms or legs, no edema or rash Neurological: Nonverbal, no localizing signs Objective Labs Result Diagrams: 01/28/22 08:27 01/28/22 08:27 Labs: Laboratory Results - last 24 hr 01/28/22 01/28/22 01/28/22 08:22 08:22 08:22 WBC RBC Hgb Hct MCV MCH MCHC RDW Plt Count Neut % (Auto) Lymph % (Auto) [place] % (Auto) Eos % (Auto) Baso % (Auto) Neut # (Auto) Lymph # (Auto) [place] # (Auto) Eos # (Auto) Baso # (Auto) Sodium Potassium Chloride Carbon Dioxide BUN Creatinine Estimated GFR BUN/Creatinine Ratio Glucose Lactate Calcium Magnesium 2.1 Total Bilirubin AST ALT Alkaline Phosphatase Total Creatine Kinase 825 H CK-MB (CK-2) 2.02 CK-MB (CK-2) Rel Index 0.2 L Troponin I < 0.012 Total Protein Albumin Globulin Albumin/Globulin Ratio Procalcitonin 1.08 H Urine RBC Urine WBC Ur Squamous Epith Cells Ur Transition Epith Cell Urine Bacteria Ur Culture Indicated? Urine Test Chlamy pneumoniae PCR Adenovirus (PCR) B. pertussis DNA (PCR) B.parapertussis DNA PCR Coronavirus OC43 (PCR) Coronavirus HKU1 (PCR) Coronavirus 229E (PCR) SARS-CoV-2 (PCR) Coronavirus NL63 (PCR) Human Metapneumovir PCR Influenza A (RT-PCR) Influenza Type A (PCR) Influenza B (RT-PCR) Influenza Type B (PCR) M. pneumoniae (PCR) Parainfluenza 1 (PCR) Parainfluenza 2 (PCR) Parainfluenza 3 (PCR) Parainfluenza 4 (PCR) RSV (PCR) Entero/Rhino (PCR) 01/28/22 01/28/22 01/28/22 08:27 08:27 08:27 WBC 4.5 RBC 3.79 L Hgb 10.9 L Hct 32.5 L MCV 85.7 MCH 28.7 MCHC 33.5 RDW 14.1 Plt Count 155 Neut % (Auto) 68.7 Lymph % (Auto) 20.7 L [place] % (Auto) 10.1 Eos % (Auto) 0.0 L Baso % (Auto) 0.5 Neut # (Auto) 3100 Lymph # (Auto) 900 L [place] # (Auto) 500 Eos # (Auto) 0 Baso # (Auto) 0 Sodium 134 L Potassium 3.6 Chloride 99 Carbon Dioxide 23 BUN 14 Creatinine 0.64 Estimated GFR > 60 BUN/Creatinine Ratio 21.9 Glucose 113 H Lactate 1.6 Calcium 8.3 L Magnesium Total Bilirubin 0.5 AST 87 H ALT 33 Alkaline Phosphatase 46 Total Creatine Kinase CK-MB (CK-2) CK-MB (CK-2) Rel Index Troponin I Total Protein 7.9 Albumin 3.6 Globulin 4.3 H Albumin/Globulin Ratio 0.8 L Procalcitonin Urine RBC Urine WBC Ur Squamous Epith Cells Ur Transition Epith Cell Urine Bacteria Ur Culture Indicated? Urine Test Chlamy pneumoniae PCR Adenovirus (PCR) B. pertussis DNA (PCR) B.parapertussis DNA PCR Coronavirus OC43 (PCR) Coronavirus HKU1 (PCR) Coronavirus 229E (PCR) SARS-CoV-2 (PCR) Coronavirus NL63 (PCR) Human Metapneumovir PCR Influenza A (RT-PCR) Influenza Type A (PCR) Influenza B (RT-PCR) Influenza Type B (PCR) M. pneumoniae (PCR) Parainfluenza 1 (PCR) Parainfluenza 2 (PCR) Parainfluenza 3 (PCR) Parainfluenza 4 (PCR) RSV (PCR) Entero/Rhino (PCR) 01/28/22 01/28/22 01/28/22 08:42 09:20 09:20 WBC RBC Hgb Hct MCV MCH MCHC RDW Plt Count Neut % (Auto) Lymph % (Auto) [place] % (Auto) Eos % (Auto) Baso % (Auto) Neut # (Auto) Lymph # (Auto) [place] # (Auto) Eos # (Auto) Baso # (Auto) Sodium Potassium Chloride Carbon Dioxide BUN Creatinine Estimated GFR BUN/Creatinine Ratio Glucose Lactate Calcium Magnesium Total Bilirubin AST ALT Alkaline Phosphatase Total Creatine Kinase CK-MB (CK-2) CK-MB (CK-2) Rel Index Troponin I Total Protein Albumin Globulin Albumin/Globulin Ratio Procalcitonin Urine RBC None seen Urine WBC 1-5/hpf Ur Squamous Epith Cells 1-5 /hpf Ur Transition Epith Cell 0-1/hpf Urine Bacteria None seen Ur Culture Indicated? Cult not indicated Urine Test Negative Chlamy pneumoniae PCR Adenovirus (PCR) B. pertussis DNA (PCR) B.parapertussis DNA PCR Coronavirus OC43 (PCR) Coronavirus HKU1 (PCR) Coronavirus 229E (PCR) SARS-CoV-2 (PCR) Negative Coronavirus NL63 (PCR) Human Metapneumovir PCR Influenza A (RT-PCR) Flu a negative Influenza Type A (PCR) Influenza B (RT-PCR) Flu b negative Influenza Type B (PCR) M. pneumoniae (PCR) Parainfluenza 1 (PCR) Parainfluenza 2 (PCR) Parainfluenza 3 (PCR) Parainfluenza 4 (PCR) RSV (PCR) Negative Entero/Rhino (PCR) 01/28/22 12:00 WBC RBC Hgb Hct MCV MCH MCHC RDW Plt Count Neut % (Auto) Lymph % (Auto) [place] % (Auto) Eos % (Auto) Baso % (Auto) Neut # (Auto) Lymph # (Auto) [place] # (Auto) Eos # (Auto) Baso # (Auto) Sodium Potassium Chloride Carbon Dioxide BUN Creatinine Estimated GFR BUN/Creatinine Ratio Glucose Lactate Calcium Magnesium Total Bilirubin AST ALT Alkaline Phosphatase Total Creatine Kinase CK-MB (CK-2) CK-MB (CK-2) Rel Index Troponin I Total Protein Albumin Globulin Albumin/Globulin Ratio Procalcitonin Urine RBC Urine WBC Ur Squamous Epith Cells Ur Transition Epith Cell Urine Bacteria Ur Culture Indicated? Urine Test Chlamy pneumoniae PCR Not detected Adenovirus (PCR) Not detected B. pertussis DNA (PCR) Not detected B.parapertussis DNA PCR Not detected Coronavirus OC43 (PCR) Not detected Coronavirus HKU1 (PCR) Not detected Coronavirus 229E (PCR) Not detected SARS-CoV-2 (PCR) Not detected Coronavirus NL63 (PCR) Not detected Human Metapneumovir PCR Not detected Influenza A (RT-PCR) Influenza Type A (PCR) Not detected Influenza B (RT-PCR) Influenza Type B (PCR) Not detected M. pneumoniae (PCR) Not detected Parainfluenza 1 (PCR) Not detected Parainfluenza 2 (PCR) Not detected Parainfluenza 3 (PCR) Not detected Parainfluenza 4 (PCR) Not detected RSV (PCR) Not detected Entero/Rhino (PCR) Not detected Assessment & Plan Assessment & Plan narrative: 1. Septic shock -patient presents febrile, tachycardic and tachypneic and became hypotensive in the ED after standard fluid resuscitation -possible source is bacteremia due to skin lesions on scalp and neck, no mastoid tenderness or erythema to suggest mastoiditis, no meningeal signs -chest x-ray personally reviewed and shows nonspecific diffuse interstitial infiltrate -differential diagnosis includes non infectious source of fever and hypotension such as drug overdose, serotonin syndrome or acute PE (see below) -normal urinalysis, respiratory panel PCR, normal WBC without left shift but procalcitonin is elevated -currently on low-dose Levophed to maintain map greater than 65 -right IJ central line placed in the ED -wound culture obtained from right ear drainage -blood cultures x2 pending -continue on vancomycin and Zosyn started in the ED -IV azithromycin added for atypical coverage due to interstitial infiltrates on x-ray -nasal MRSA swab -urine tox screen -reviewed case workup and management with Dr Guillermo, tele ICU 2. History of DVT/PE and IVC filter -event was reportedly in 2018, unknown whether IVC filter was ever removed, patient not currently on anticoagulant -per discussion with tele ICU, order D-dimer-if D-dimer elevated and patient meets Wells criteria then obtain angio CT -modified Wells score is 3 based on tachycardia and history of PE 3. Schizophrenia -patient got Zyprexa in the ED -per discussion with Psychiatry, increased olanzapine from 50 mg to 20 mg at bedtime and increase fluoxetine from 10 mg to 20 mg daily DVT prophylaxis: Enoxaparin Surrogate decisionmaker: Mom Code status: Full code Patient meets ICU criteria due to septic shock. Total time of at least 60 minutes in critical care management. Time Spent With Patient Critical Care time: I spent a total of [] minutes of critical care time on this patient's care today; this time is exclusive of procedural time.
[2022-01-28 16:02] LABS: D Dimer 2351 ng/ml (<500)
[2022-01-28] MEDS: AZITHROMYCIN 500 MG in DEXTROSE 5% IN WATER 250 ML 250 MG IV (16:26)
--- NOTE | 2022-01-28 17:03 | DI.CT.S_ITS ---
PROCEDURE: CT ANGIO CHEST PE PROTOCOL INDICATIONS: r/o p.e TECHNIQUE: After the administration of intravenous contrast, 2 mm thick sections acquired from the pulmonary apices to the posterior costophrenic angles. 3-dimensional maximum intensity projection (MIP) coronal and sagittal reformats were then acquired through the thorax. For radiation dose reduction, the following was used: automated exposure control, adjustment of mA and/or kV according to patient size. COMPARISON: None. FINDINGS: Image quality: Slightly motion degraded Lungs and pleura: Lung volumes are relatively low. Minimal basilar opacities. No dense consolidation or pleural effusion. Small nodules are seen on maximum intensity projection images, for example in the right Mediastinum, heart, and esophagus: Distal arteries are not well evaluated due to some motion artifact, particularly in the bases. There is a small eccentric filling defect in the right middle lobe (). Nonspecific thickening of the distal esophagus, not well evaluated on this study. No aortic dissection is identified. A right central line is seen terminating at the cavoatrial junction. No pathologic adenopathy by size criteria. Chest wall and thyroid: Small breast calcifications are present, indeterminate on CT. Prominent axillary and supraclavicular lymph nodes of uncertain etiology. Upper abdomen: No gross abnormality identified in the upper abdomen, limited evaluation on this arterial phase study. Bones: No acute or suspicious osseous abnormality. IMPRESSION: No definitely acute pulmonary embolism. There might be nonacute eccentric filling defect in the right middle lobe pulmonary artery. Evaluation of distal arteries is degraded by motion. Mild basilar pulmonary airspace disease and tiny nodules, possibly infectious or inflammatory. Fleischner follow-up criteria do not apply for this demographic. Consider future imaging surveillance to assess for resolution. Prominent supraclavicular and axillary lymph nodes, partially seen, of uncertain etiology. Other findings as above. Dictated by: Aldo Barraza M.D. on 01/28/2022 at 18:13 Approved by: Aldo Barraza M.D. on 01/28/2022 at 18:22
--- NOTE | 2022-01-28 19:23 | P.TELICUCN_ITS ---
History of Present Illness Consult details IF CAMERA ACTIVATED, patient seen via real-time interactive audiovisual communication: Camera activated Date Patient Seen: 01/28/22 Chief complaint: she has wounds on head, not eating, mucas in nose Consent obtained for tele-education general manager care: Yes Patient Location: ICU Provider location (State): [place] Other participants/roles: RN Narrative: Patient is a 31F with a PMH of Schizophrenia (non-verbal), PE (previously on AC many years ago, IVC filter - unclear if removed) who was admitted to the ICU this evening with c/f septic shock. Per Hospitalist report, patient presented with fevers and skin infection. Had recently been placed on Keflex by outside hospital/ENT? In the ER, after receiving IVFs had a drop in her BP thus was placed on Levophed. A RIJ CVC was placed. 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 Patient received Vanc, Zosyn, Azithromycin. CTA w/o PE. UA without infection. Lactate WNL. On Levophed 3 at time of ICU arrival. [facility] Medical History (Updated 01/28/22 @ 19:40 by Dayna Guillermo) History of DVT (deep vein thrombosis) History of pulmonary embolism Schizophrenia Social History household members: family Smoking Status: Never smoker Current Medications Current Medications Medications: Home Medications olanzapine 15 mg tablet 15 mg PO BEDTIME #90 tabs 09/13/20 [Rx Confirmed 01/28/22] Visit Medications (administered) Generic Name Dose Route Start Last Admin Trade Name Freq PRN Reason Stop Dose Admin NOREPINEPHRINE BITARTRATE/D5W 4 mg in 250 mls @ 30 mls/hr 01/28/22 12:34 01/28/22 13:24 Levophed IV 3 mcg/min TITRATE ESTEVAN 11.25 mls/hr Titration Protocol 8 MCG/MIN Azithromycin 500 mg/ Dextrose 250 mls @ 250 mls/hr 01/28/22 15:45 01/28/22 17:27 IV Infused Q24H ESTEVAN Infusion Vancomycin HCl 750 mg in 150 mls @ 150 mls/hr 01/28/22 18:00 01/28/22 18:30 Vancomycin IV 150 mls/hr Q8H ESTEVAN Administration Exam Vital Signs (past 8 hours): - 01/28/22 11:30 01/28/22 11:30 01/28/22 12:00 Temperature 100.6 F H Pulse Rate 93 H Respiratory Rate 32 H Blood Pressure 100/62 113/61 Pulse Oximetry 98 Oxygen Delivery Method Oxygen Flow Rate 01/28/22 12:00 01/28/22 12:30 01/28/22 12:30 Temperature 100.4 F H 100.0 F H Pulse Rate 89 79 Respiratory Rate 34 H 20 Blood Pressure 76/44 L Pulse Oximetry 98 96 Oxygen Delivery Method Oxygen Flow Rate 01/28/22 12:33 01/28/22 12:33 01/28/22 12:37 Temperature 99.9 F H 99.9 F H Pulse Rate 91 H 99 H Respiratory Rate 28 H 16 Blood Pressure 85/54 L Pulse Oximetry 98 99 Oxygen Delivery Method Oxygen Flow Rate 01/28/22 12:37 01/28/22 12:40 01/28/22 12:40 Temperature 99.7 F H Pulse Rate 100 H Respiratory Rate 17 Blood Pressure 89/56 L 90/58 L Pulse Oximetry 98 Oxygen Delivery Method Oxygen Flow Rate 01/28/22 12:52 01/28/22 12:52 01/28/22 13:00 Temperature 99.3 F Pulse Rate 95 H Respiratory Rate Blood Pressure 96/58 L 97/58 L Pulse Oximetry 99 Oxygen Delivery Method Oxygen Flow Rate 01/28/22 13:00 01/28/22 13:01 01/28/22 13:01 Temperature 99.1 F 99.1 F Pulse Rate 90 90 Respiratory Rate 27 H 29 H Blood Pressure 98/59 L Pulse Oximetry 98 98 Oxygen Delivery Method Oxygen Flow Rate 01/28/22 13:05 01/28/22 13:05 01/28/22 13:10 Temperature 99.1 F Pulse Rate 89 Respiratory Rate 27 H Blood Pressure 98/60 97/59 L Pulse Oximetry 98 Oxygen Delivery Method Oxygen Flow Rate 01/28/22 13:10 01/28/22 13:15 01/28/22 13:15 Temperature 99.0 F 99.0 F Pulse Rate 89 80 Respiratory Rate 31 H 26 H Blood Pressure 98/61 Pulse Oximetry 98 99 Oxygen Delivery Method Oxygen Flow Rate 01/28/22 13:20 01/28/22 13:20 01/28/22 13:25 Temperature 98.8 F Pulse Rate 77 Respiratory Rate 30 H Blood Pressure 98/62 99/64 Pulse Oximetry 99 Oxygen Delivery Method Oxygen Flow Rate 01/28/22 13:25 01/28/22 13:30 01/28/22 13:30 Temperature 98.8 F 98.6 F Pulse Rate 74 74 Respiratory Rate 34 H 18 Blood Pressure 97/65 Pulse Oximetry 99 99 Oxygen Delivery Method Oxygen Flow Rate 01/28/22 13:35 01/28/22 13:35 01/28/22 13:40 Temperature 98.6 F Pulse Rate 83 Respiratory Rate 32 H Blood Pressure 106/70 99/62 Pulse Oximetry 99 Oxygen Delivery Method Oxygen Flow Rate 01/28/22 13:40 01/28/22 13:45 01/28/22 13:45 Temperature 98.4 F 98.6 F Pulse Rate 78 63 Respiratory Rate 25 H 36 H Blood Pressure 114/72 Pulse Oximetry 98 100 Oxygen Delivery Method Oxygen Flow Rate 01/28/22 13:50 01/28/22 13:50 01/28/22 13:55 Temperature 98.6 F Pulse Rate 69 Respiratory Rate Blood Pressure 103/62 99/63 Pulse Oximetry 100 Oxygen Delivery Method Oxygen Flow Rate 01/28/22 13:55 01/28/22 14:00 01/28/22 14:00 Temperature 98.6 F 98.6 F Pulse Rate 67 77 Respiratory Rate Blood Pressure 99/61 Pulse Oximetry 100 100 Oxygen Delivery Method Oxygen Flow Rate 01/28/22 14:05 01/28/22 14:05 01/28/22 14:10 Temperature Pulse Rate 70 72 Respiratory Rate Blood Pressure 101/67 Pulse Oximetry 100 99 Oxygen Delivery Method Oxygen Flow Rate 01/28/22 14:10 01/28/22 14:15 01/28/22 14:15 Temperature 98.6 F Pulse Rate 68 Respiratory Rate Blood Pressure 96/63 98/65 Pulse Oximetry 100 Oxygen Delivery Method Oxygen Flow Rate 01/28/22 14:20 01/28/22 14:20 01/28/22 14:25 Temperature Pulse Rate 81 70 Respiratory Rate 31 H 28 H Blood Pressure 99/65 Pulse Oximetry 99 99 Oxygen Delivery Method Oxygen Flow Rate 01/28/22 14:25 01/28/22 14:30 01/28/22 14:30 Temperature Pulse Rate 69 Respiratory Rate 24 Blood Pressure 100/66 101/67 Pulse Oximetry 100 Oxygen Delivery Method Oxygen Flow Rate 01/28/22 14:35 01/28/22 14:35 01/28/22 14:40 Temperature Pulse Rate 67 64 Respiratory Rate 29 H 26 H Blood Pressure 101/68 Pulse Oximetry 100 100 Oxygen Delivery Method Oxygen Flow Rate 01/28/22 14:40 01/28/22 14:45 01/28/22 14:45 Temperature 98.6 F Pulse Rate 73 Respiratory Rate 24 Blood Pressure 102/70 98/64 Pulse Oximetry 100 Oxygen Delivery Method Oxygen Flow Rate 01/28/22 14:50 01/28/22 14:50 01/28/22 14:55 Temperature 98.6 F 98.6 F Pulse Rate 68 69 Respiratory Rate 28 H 26 H Blood Pressure 103/68 Pulse Oximetry 100 100 Oxygen Delivery Method Oxygen Flow Rate 01/28/22 14:55 01/28/22 15:00 01/28/22 15:00 Temperature 98.6 F Pulse Rate 71 Respiratory Rate 29 H Blood Pressure 105/71 102/71 Pulse Oximetry 100 Oxygen Delivery Method Oxygen Flow Rate 01/28/22 15:05 01/28/22 15:05 01/28/22 15:10 Temperature 98.4 F 98.4 F Pulse Rate 77 71 Respiratory Rate 30 H 28 H Blood Pressure 104/67 Pulse Oximetry 99 98 Oxygen Delivery Method Oxygen Flow Rate 01/28/22 15:10 01/28/22 15:15 01/28/22 15:15 Temperature 98.4 F Pulse Rate 69 Respiratory Rate 25 H Blood Pressure 104/67 102/67 Pulse Oximetry 98 Oxygen Delivery Method Oxygen Flow Rate 01/28/22 15:20 01/28/22 15:20 01/28/22 15:25 Temperature 98.4 F 98.4 F Pulse Rate 67 65 Respiratory Rate 25 H 20 Blood Pressure 97/66 Pulse Oximetry 98 98 Oxygen Delivery Method Oxygen Flow Rate 01/28/22 15:25 01/28/22 15:30 01/28/22 15:30 Temperature 98.4 F Pulse Rate 65 Respiratory Rate 21 Blood Pressure 97/66 98/68 Pulse Oximetry 98 Oxygen Delivery Method Oxygen Flow Rate 01/28/22 15:35 01/28/22 15:35 01/28/22 15:40 Temperature 98.4 F Pulse Rate 70 Respiratory Rate 19 Blood Pressure 99/68 103/72 Pulse Oximetry 98 Oxygen Delivery Method Oxygen Flow Rate 01/28/22 15:40 01/28/22 15:45 01/28/22 15:45 Temperature 98.4 F 98.4 F Pulse Rate 72 71 Respiratory Rate 28 H 29 H Blood Pressure 101/71 Pulse Oximetry 99 98 Oxygen Delivery Method Oxygen Flow Rate 01/28/22 15:50 01/28/22 15:50 01/28/22 15:55 Temperature 98.4 F 98.4 F Pulse Rate 72 72 Respiratory Rate 28 H 28 H Blood Pressure 103/71 Pulse Oximetry 98 98 Oxygen Delivery Method Oxygen Flow Rate 01/28/22 15:55 01/28/22 16:00 01/28/22 16:00 Temperature 98.4 F Pulse Rate 75 Respiratory Rate 30 H Blood Pressure 101/68 102/68 Pulse Oximetry 98 Oxygen Delivery Method Oxygen Flow Rate 01/28/22 16:05 01/28/22 16:05 01/28/22 16:10 Temperature 98.4 F 98.4 F Pulse Rate 73 79 Respiratory Rate 30 H 31 H Blood Pressure 104/70 Pulse Oximetry 99 98 Oxygen Delivery Method Oxygen Flow Rate 01/28/22 16:10 01/28/22 17:05 01/28/22 16:15 Temperature 99.0 F Pulse Rate 78 Respiratory Rate Blood Pressure 106/69 103/63 106/70 Pulse Oximetry 98 Oxygen Delivery Method Oxygen Flow Rate 0 01/28/22 16:15 01/28/22 16:20 01/28/22 16:20 Temperature 98.4 F 98.4 F Pulse Rate 79 79 Respiratory Rate 32 H 30 H Blood Pressure 106/69 Pulse Oximetry 99 99 Oxygen Delivery Method Oxygen Flow Rate 01/28/22 16:25 01/28/22 16:25 01/28/22 16:30 Temperature 98.4 F Pulse Rate 80 Respiratory Rate 31 H Blood Pressure 108/70 110/71 Pulse Oximetry 98 Oxygen Delivery Method Oxygen Flow Rate 01/28/22 16:30 01/28/22 16:35 01/28/22 16:35 Temperature 98.4 F 98.4 F Pulse Rate 80 79 Respiratory Rate 30 H 32 H Blood Pressure 105/72 Pulse Oximetry 98 98 Oxygen Delivery Method Oxygen Flow Rate 01/28/22 16:40 01/28/22 16:40 01/28/22 16:45 Temperature 98.4 F 98.2 F Pulse Rate 80 81 Respiratory Rate 31 H 30 H Blood Pressure 106/71 Pulse Oximetry 98 99 Oxygen Delivery Method Oxygen Flow Rate 01/28/22 16:45 01/28/22 16:50 01/28/22 16:50 Temperature 98.2 F Pulse Rate 79 Respiratory Rate 29 H Blood Pressure 106/71 103/70 Pulse Oximetry 98 Oxygen Delivery Method Oxygen Flow Rate 01/28/22 17:17 01/28/22 18:58 Temperature 98.4 F Pulse Rate 77 Respiratory Rate 26 H Blood Pressure Pulse Oximetry 98 Oxygen Delivery Method Room Air Oxygen Flow Rate Oxygen Delivery Method Room Air Oxygen Flow Rate 0 Narrative Exam Narrative: Patient is awake and alert but is non-verbal. VS are WNL, Levophed is @ 3, MAP is 70. Breathing comfortably on RA. Objective Labs Result Diagrams: 01/28/22 08:27 01/28/22 08:27 Labs: Laboratory Results - last 24 hr 01/28/22 01/28/22 01/28/22 08:22 08:22 08:22 WBC RBC Hgb Hct MCV MCH MCHC RDW Plt Count Neut % (Auto) Lymph % (Auto) [place] % (Auto) Eos % (Auto) Baso % (Auto) Neut # (Auto) Lymph # (Auto) [place] # (Auto) Eos # (Auto) Baso # (Auto) D-Dimer Sodium Potassium Chloride Carbon Dioxide BUN Creatinine Estimated GFR BUN/Creatinine Ratio Glucose Lactate Calcium Magnesium 2.1 Total Bilirubin AST ALT Alkaline Phosphatase Total Creatine Kinase 825 H CK-MB (CK-2) 2.02 CK-MB (CK-2) Rel Index 0.2 L Troponin I < 0.012 Total Protein Albumin Globulin Albumin/Globulin Ratio Procalcitonin 1.08 H Urine RBC Urine WBC Ur Squamous Epith Cells Ur Transition Epith Cell Urine Bacteria Ur Culture Indicated? Urine Test Chlamy pneumoniae PCR Adenovirus (PCR) B. pertussis DNA (PCR) B.parapertussis DNA PCR Coronavirus OC43 (PCR) Coronavirus HKU1 (PCR) Coronavirus 229E (PCR) SARS-CoV-2 (PCR) Coronavirus NL63 (PCR) Human Metapneumovir PCR Influenza A (RT-PCR) Influenza Type A (PCR) Influenza B (RT-PCR) Influenza Type B (PCR) M. pneumoniae (PCR) Parainfluenza 1 (PCR) Parainfluenza 2 (PCR) Parainfluenza 3 (PCR) Parainfluenza 4 (PCR) RSV (PCR) Entero/Rhino (PCR) 01/28/22 01/28/22 01/28/22 08:27 08:27 08:27 WBC 4.5 RBC 3.79 L Hgb 10.9 L Hct 32.5 L MCV 85.7 MCH 28.7 MCHC 33.5 RDW 14.1 Plt Count 155 Neut % (Auto) 68.7 Lymph % (Auto) 20.7 L [place] % (Auto) 10.1 Eos % (Auto) 0.0 L Baso % (Auto) 0.5 Neut # (Auto) 3100 Lymph # (Auto) 900 L [place] # (Auto) 500 Eos # (Auto) 0 Baso # (Auto) 0 D-Dimer Sodium 134 L Potassium 3.6 Chloride 99 Carbon Dioxide 23 BUN 14 Creatinine 0.64 Estimated GFR > 60 BUN/Creatinine Ratio 21.9 Glucose 113 H Lactate 1.6 Calcium 8.3 L Magnesium Total Bilirubin 0.5 AST 87 H ALT 33 Alkaline Phosphatase 46 Total Creatine Kinase CK-MB (CK-2) CK-MB (CK-2) Rel Index Troponin I Total Protein 7.9 Albumin 3.6 Globulin 4.3 H Albumin/Globulin Ratio 0.8 L Procalcitonin Urine RBC Urine WBC Ur Squamous Epith Cells Ur Transition Epith Cell Urine Bacteria Ur Culture Indicated? Urine Test Chlamy pneumoniae PCR Adenovirus (PCR) B. pertussis DNA (PCR) B.parapertussis DNA PCR Coronavirus OC43 (PCR) Coronavirus HKU1 (PCR) Coronavirus 229E (PCR) SARS-CoV-2 (PCR) Coronavirus NL63 (PCR) Human Metapneumovir PCR Influenza A (RT-PCR) Influenza Type A (PCR) Influenza B (RT-PCR) Influenza Type B (PCR) M. pneumoniae (PCR) Parainfluenza 1 (PCR) Parainfluenza 2 (PCR) Parainfluenza 3 (PCR) Parainfluenza 4 (PCR) RSV (PCR) Entero/Rhino (PCR) 01/28/22 01/28/22 01/28/22 08:27 08:42 09:20 WBC RBC Hgb Hct MCV MCH MCHC RDW Plt Count Neut % (Auto) Lymph % (Auto) [place] % (Auto) Eos % (Auto) Baso % (Auto) Neut # (Auto) Lymph # (Auto) [place] # (Auto) Eos # (Auto) Baso # (Auto) D-Dimer 2351 H Sodium Potassium Chloride Carbon Dioxide BUN Creatinine Estimated GFR BUN/Creatinine Ratio Glucose Lactate Calcium Magnesium Total Bilirubin AST ALT Alkaline Phosphatase Total Creatine Kinase CK-MB (CK-2) CK-MB (CK-2) Rel Index Troponin I Total Protein Albumin Globulin Albumin/Globulin Ratio Procalcitonin Urine RBC None seen Urine WBC 1-5/hpf Ur Squamous Epith Cells 1-5 /hpf Ur Transition Epith Cell 0-1/hpf Urine Bacteria None seen Ur Culture Indicated? Cult not indicated Urine Test Chlamy pneumoniae PCR Adenovirus (PCR) B. pertussis DNA (PCR) B.parapertussis DNA PCR Coronavirus OC43 (PCR) Coronavirus HKU1 (PCR) Coronavirus 229E (PCR) SARS-CoV-2 (PCR) Negative Coronavirus NL63 (PCR) Human Metapneumovir PCR Influenza A (RT-PCR) Flu a negative Influenza Type A (PCR) Influenza B (RT-PCR) Flu b negative Influenza Type B (PCR) M. pneumoniae (PCR) Parainfluenza 1 (PCR) Parainfluenza 2 (PCR) Parainfluenza 3 (PCR) Parainfluenza 4 (PCR) RSV (PCR) Negative Entero/Rhino (PCR) 01/28/22 01/28/22 09:20 12:00 WBC RBC Hgb Hct MCV MCH MCHC RDW Plt Count Neut % (Auto) Lymph % (Auto) [place] % (Auto) Eos % (Auto) Baso % (Auto) Neut # (Auto) Lymph # (Auto) [place] # (Auto) Eos # (Auto) Baso # (Auto) D-Dimer Sodium Potassium Chloride Carbon Dioxide BUN Creatinine Estimated GFR BUN/Creatinine Ratio Glucose Lactate Calcium Magnesium Total Bilirubin AST ALT Alkaline Phosphatase Total Creatine Kinase CK-MB (CK-2) CK-MB (CK-2) Rel Index Troponin I Total Protein Albumin Globulin Albumin/Globulin Ratio Procalcitonin Urine RBC Urine WBC Ur Squamous Epith Cells Ur Transition Epith Cell Urine Bacteria Ur Culture Indicated? Urine Test Negative Chlamy pneumoniae PCR Not detected Adenovirus (PCR) Not detected B. pertussis DNA (PCR) Not detected B.parapertussis DNA PCR Not detected Coronavirus OC43 (PCR) Not detected Coronavirus HKU1 (PCR) Not detected Coronavirus 229E (PCR) Not detected SARS-CoV-2 (PCR) Not detected Coronavirus NL63 (PCR) Not detected Human Metapneumovir PCR Not detected Influenza A (RT-PCR) Influenza Type A (PCR) Not detected Influenza B (RT-PCR) Influenza Type B (PCR) Not detected M. pneumoniae (PCR) Not detected Parainfluenza 1 (PCR) Not detected Parainfluenza 2 (PCR) Not detected Parainfluenza 3 (PCR) Not detected Parainfluenza 4 (PCR) Not detected RSV (PCR) Not detected Entero/Rhino (PCR) Not detected Assessment & Plan Assessment and plan (1) Septic shock: Problem details: Presumed due to soft tissue infection. CTA negative for PE, possible viral pneumonia? Viral panel negative. UA negative. CXs pending. Had received 30cc/kg IVF bolus in ER. Levo @ 3 currently. Status: Acute Plan: - Continue Levophed, titrated to MAP goal >65 - Monitor UOP, goal is >0.5cc/kg/hour - If remains on Levophed tomorrow, would obtain TTE - Consider additional IVF bolus if unable to get off of Levophed by morning (2) Soft tissue infection: Problem details: History of picking skin. Significant erythema/rash of face/neck. Drainage noted from external ear per bedside team. Status: Acute Plan: - Follow up cultures, MRSA swab - Continue Vanc, Zosyn, Azithromycin - If persistent sepsis, may need to further explore sinusitis/abscesses in head/neck given c/f soft-tissue infection in this area (3) Schizophrenia: Status: Acute Plan: - Continue home Psych meds - PRN Zyprexa v Haldol for severe agitation. Would monitor EKG/QTc - Psychiatry was consulted in the ER Assessment & Plan narrative: - VTE PPx with Lovenox - Regular diet - DC R IJ CVC when off pressors Please contact Tele-ICU if any change in status. We will continue to follow along. Time Spent With Patient Critical Care time: I spent a total of [35] minutes of critical care time on this patient's care today; this time is exclusive of procedural time.
[2022-01-28] MEDS: PIPERACILLIN/TAZO 3.375 GM in SODIUM CHLORIDE 0.9% 100 ML IV (21:54)
[2022-01-28] MEDS: diphenhydrAMINE 50 MG/ML VIAL 25 MG IV (23:14)
[2022-01-29] VITALS (43 sets, daily range): BP systolic 82–110; BP diastolic 51–67; PULSE 54–119; RESP 17–44; TEMP 35.9–38.6; O2SAT 82–100
--- NOTE | 2022-01-29 00:28 | PC.NURSE ---
Patient scratching back of head and face, until pulling at iv line. Patient unable to understand to leave lines alone, severe schizophrenia. Family at bedside and unable to help pt. not scratch. Medicated with benadryl and hands restrained. Weaning levophed slowly and blood pressure stable.
[2022-01-29] MEDS: VANCOMYCIN 750 MG/150 ML PIGGYBACK 150 MG IV ×3 (01:54→18:03)
[2022-01-29] MEDS: diphenhydrAMINE 50 MG/ML VIAL 25 MG IV ×5 (02:00→22:34)
[2022-01-29 03:19] LABS: UR Morphine/Opiate cutoff 300 Negative (Negative); Ur Creatinine Normal (Normal); Ur Specific Gravity Normal (Normal); Urine Amphetamines Negative (Negative); Urine Barbiturates Negative (Negative); Urine Benzodiazepines Negative (Negative); Urine Cocaine Negative (Negative); Urine MDMA Negative (Negative); Urine Methadone Negative (Negative); Urine Methamphetamines Negative (Negative); Urine Oxycodone Negative (Negative); Urine Phencyclidine Negative (Negative); Urine Tetrahydrocannabinol Negative (Negative); Urine Tricyclic Antidepressant Negative (Negative); Urine pH Normal (Normal)
[2022-01-29 03:26] LABS: Add Manual Diff / Slide Review NO; Basophils Absolute Auto 0 /uL (0-100); Basophils Percent Auto 0.3 % (0-2); Eosinophils Absolute Auto 0 /uL (0-450); Lymphocytes Absolute Auto 1000 /uL (1100-4500); Lymphocytes Percent Auto 21.3 % (25-40); Mean Corpuscular HGB Conc 33.3 % (30-36); Mean Corpuscular Volume 87.1 fL (80-100); Monocytes Absolute Auto 300 /uL (0-900); Monocytes Percent Auto 7.2 % (3-14); Neutrophils Absolute Auto 3400 /uL (1500-7000); Neutrophils Percent Auto 71.2 % (50-75); Red Blood Cell Count 3.22 X10^6/uL (4.0-5.2); Red Cell Distribution Width 14.7 % (11.6-14.8); White Blood Cell Count 4.7 X10^3/uL (4.5-11.0)
[2022-01-29 03:35] LABS: BUN Creatinine Ratio 14.8 (6-22); Blood Urea Nitrogen 8 mg/dL (7-17); Carbon Dioxide 23 mmol/L (22-32); Chloride 107 mmol/L (98-107); Estimated Glomerular Filt Rate > 60 mL/min (>60); Glucose 64 mg/dL (70-100); HEMOLYSIS < 15 (0-50); Sodium 137 mmol/L (137-145)
[2022-01-29 03:39] LABS: Calcium 6.6 mg/dL (8.4-10.2)
[2022-01-29 03:41] LABS: Hemoglobin 9.3 g/dL (12.0-16.0); Platelet Count 115 X10^3/uL (150-400)
[2022-01-29 03:51] LABS: Prolactin 33.7 ng/mL (3.0-18.6)
[2022-01-29 03:52] LABS: Procalcitonin 0.87 ng/mL (<0.5)
[2022-01-29] MEDS: PIPERACILLIN/TAZO 3.375 GM in SODIUM CHLORIDE 0.9% 100 ML IV ×3 (04:46→20:57)
--- NOTE | 2022-01-29 08:17 | P.TELICUPN_ITS ---
Subjective Subjective IF CAMERA ACTIVATED, patient seen via real-time interactive audiovisual communication: Camera activated Consent obtained for tele-adventure challenge instructor care: Yes Patient Location: ICU Provider location (State): [place] Other participants/roles: RN, hospitalist Interval history: Patient Summary: 31 yo W with PMH of Schizophrenia (non-verbal), PE (prevniously on AC many years ago, s/p IVC filter, unclear if removed) was admitted 01/28/22 with septic shock from skin infection (from picking?). Pt. placed on antibiotics and Levophed drip. CTA neg for PE. Recent events: Patient off Levophed drip since 2 am. BP 90s/50s Current Medications Current Medications Medications: Home Medications olanzapine 15 mg tablet 15 mg PO BEDTIME #90 tabs 09/13/20 [Rx Confirmed ] Visit Medications (administered) Generic Name Dose Route Start Last Admin Trade Name Freq PRN Reason Stop Dose Admin Diphenhydramine HCl 25 mg 01/28/22 22:50 01/29/22 05:27 Diphenhydramine 50 Mg/Ml Vial IV 25 mg Q4HR PRN Administration Itching NOREPINEPHRINE BITARTRATE/D5W 4 mg in 250 mls @ 30 mls/hr 01/28/22 12:34 01/29/22 02:08 Levophed IV 0 mcg/min TITRATE ESTEVAN 0 mls/hr Titration Protocol 8 MCG/MIN Azithromycin 500 mg/ Dextrose 250 mls @ 250 mls/hr 01/28/22 15:45 01/28/22 17:27 IV Infused Q24H ESTEVAN Infusion Vancomycin HCl 750 mg in 150 mls @ 150 mls/hr 01/28/22 18:00 01/29/22 03:04 Vancomycin IV Infused Q8H ESTEVAN Infusion Piperacillin Sod/Tazobactam 100 mls @ 25 mls/hr 01/28/22 21:00 01/29/22 04:46 Sod 3.375 gm/ Sodium Chloride IV 25 mls/hr Q8H ESTEVAN Administration Olanzapine 20 mg 01/28/22 21:00 01/28/22 21:50 Olanzapine Odt 10 Mg Tab PO Not Given BEDTIME ESTEVAN Objective Labs Result Diagrams: 01/29/22 03:00 01/29/22 03:00 Labs: Laboratory Results - last 24 hr 01/28/22 01/28/2222 08:22 08:22 08:22 WBC RBC Hgb Hct MCV MCH MCHC RDW Plt Count Neut % (Auto) Lymph % (Auto) [place] % (Auto) Eos % (Auto) Baso % (Auto) Neut # (Auto) Lymph # (Auto) [place] # (Auto) Eos # (Auto) Baso # (Auto) D-Dimer Sodium Potassium Chloride Carbon Dioxide BUN Creatinine Estimated GFR BUN/Creatinine Ratio Glucose Lactate Calcium Magnesium 2.1 Total Bilirubin AST ALT Alkaline Phosphatase Total Creatine Kinase 825 H CK-MB (CK-2) 2.02 CK-MB (CK-2) Rel Index 0.2 L Troponin I < 0.012 Total Protein Albumin Globulin Albumin/Globulin Ratio Procalcitonin 1.08 H Prolactin Urine RBC Urine WBC Ur Squamous Epith Cells Ur Transition Epith Cell Urine Bacteria Ur Culture Indicated? Urine Test Nasal Screen MRSA (PCR) U Opiates 300ng/mL cut Ur Oxycodone Screen Urine Methadone Screen Ur Barbiturates Screen U Tricyclic Antidepress Ur Phencyclidine Scrn Ur Amphetamines Screen U Methamphetamines Scrn Ur MDMA Scrn (Ecstasy) U Benzodiazepines Scrn Urine Cocaine Screen U Marijuana (THC) Screen Chlamy pneumoniae PCR Adenovirus (PCR) B. pertussis DNA (PCR) B.parapertussis DNA PCR Coronavirus OC43 (PCR) Coronavirus HKU1 (PCR) Coronavirus 229E (PCR) SARS-CoV-2 (PCR) Coronavirus NL63 (PCR) Human Metapneumovir PCR Influenza A (RT-PCR) Influenza Type A (PCR) Influenza B (RT-PCR) Influenza Type B (PCR) M. pneumoniae (PCR) Parainfluenza 1 (PCR) Parainfluenza 2 (PCR) Parainfluenza 3 (PCR) Parainfluenza 4 (PCR) RSV (PCR) Entero/Rhino (PCR) 01/28/22 01/28/22 01/28/22 08:27 08:27 08:27 WBC 4.5 RBC 3.79 L Hgb 10.9 L Hct 32.5 L MCV 85.7 MCH 28.7 MCHC 33.5 RDW 14.1 Plt Count 155 Neut % (Auto) 68.7 Lymph % (Auto) 20.7 L [place] % (Auto) 10.1 Eos % (Auto) 0.0 L Baso % (Auto) 0.5 Neut # (Auto) 3100 Lymph # (Auto) 900 L [place] # (Auto) 500 Eos # (Auto) 0 Baso # (Auto) 0 D-Dimer Sodium 134 L Potassium 3.6 Chloride 99 Carbon Dioxide 23 BUN 14 Creatinine 0.64 Estimated GFR > 60 BUN/Creatinine Ratio 21.9 Glucose 113 H Lactate 1.6 Calcium 8.3 L Magnesium Total Bilirubin 0.5 AST 87 H ALT 33 Alkaline Phosphatase 46 Total Creatine Kinase CK-MB (CK-2) CK-MB (CK-2) Rel Index Troponin I Total Protein 7.9 Albumin 3.6 Globulin 4.3 H Albumin/Globulin Ratio 0.8 L Procalcitonin Prolactin Urine RBC Urine WBC Ur Squamous Epith Cells Ur Transition Epith Cell Urine Bacteria Ur Culture Indicated? Urine Test Nasal Screen MRSA (PCR) U Opiates 300ng/mL cut Ur Oxycodone Screen Urine Methadone Screen Ur Barbiturates Screen U Tricyclic Antidepress Ur Phencyclidine Scrn Ur Amphetamines Screen U Methamphetamines Scrn Ur MDMA Scrn (Ecstasy) U Benzodiazepines Scrn Urine Cocaine Screen U Marijuana (THC) Screen Chlamy pneumoniae PCR Adenovirus (PCR) B. pertussis DNA (PCR) B.parapertussis DNA PCR Coronavirus OC43 (PCR) Coronavirus HKU1 (PCR) Coronavirus 229E (PCR) SARS-CoV-2 (PCR) Coronavirus NL63 (PCR) Human Metapneumovir PCR Influenza A (RT-PCR) Influenza Type A (PCR) Influenza B (RT-PCR) Influenza Type B (PCR) M. pneumoniae (PCR) Parainfluenza 1 (PCR) Parainfluenza 2 (PCR) Parainfluenza 3 (PCR) Parainfluenza 4 (PCR) RSV (PCR) Entero/Rhino (PCR) 01/28/22 01/28/22 01/28/22 08:27 08:42 09:20 WBC RBC Hgb Hct MCV MCH MCHC RDW Plt Count Neut % (Auto) Lymph % (Auto) [place] % (Auto) Eos % (Auto) Baso % (Auto) Neut # (Auto) Lymph # (Auto) [place] # (Auto) Eos # (Auto) Baso # (Auto) D-Dimer 2351 H Sodium Potassium Chloride Carbon Dioxide BUN Creatinine Estimated GFR BUN/Creatinine Ratio Glucose Lactate Calcium Magnesium Total Bilirubin AST ALT Alkaline Phosphatase Total Creatine Kinase CK-MB (CK-2) CK-MB (CK-2) Rel Index Troponin I Total Protein Albumin Globulin Albumin/Globulin Ratio Procalcitonin Prolactin Urine RBC None seen Urine WBC 1-5/hpf Ur Squamous Epith Cells 1-5 /hpf Ur Transition Epith Cell 0-1/hpf Urine Bacteria None seen Ur Culture Indicated? Cult not indicated Urine Test Nasal Screen MRSA (PCR) U Opiates 300ng/mL cut Ur Oxycodone Screen Urine Methadone Screen Ur Barbiturates Screen U Tricyclic Antidepress Ur Phencyclidine Scrn Ur Amphetamines Screen U Methamphetamines Scrn Ur MDMA Scrn (Ecstasy) U Benzodiazepines Scrn Urine Cocaine Screen U Marijuana (THC) Screen Chlamy pneumoniae PCR Adenovirus (PCR) B. pertussis DNA (PCR) B.parapertussis DNA PCR Coronavirus OC43 (PCR) Coronavirus HKU1 (PCR) Coronavirus 229E (PCR) SARS-CoV-2 (PCR) Negative Coronavirus NL63 (PCR) Human Metapneumovir PCR Influenza A (RT-PCR) Flu a negative Influenza Type A (PCR) Influenza B (RT-PCR) Flu b negative Influenza Type B (PCR) M. pneumoniae (PCR) Parainfluenza 1 (PCR) Parainfluenza 2 (PCR) Parainfluenza 3 (PCR) Parainfluenza 4 (PCR) RSV (PCR) Negative Entero/Rhino (PCR) 01/28/22 01/28/22 01/28/22 09:20 09:20 12:00 WBC RBC Hgb Hct MCV MCH MCHC RDW Plt Count Neut % (Auto) Lymph % (Auto) [place] % (Auto) Eos % (Auto) Baso % (Auto) Neut # (Auto) Lymph # (Auto) [place] # (Auto) Eos # (Auto) Baso # (Auto) D-Dimer Sodium Potassium Chloride Carbon Dioxide BUN Creatinine Estimated GFR BUN/Creatinine Ratio Glucose Lactate Calcium Magnesium Total Bilirubin AST ALT Alkaline Phosphatase Total Creatine Kinase CK-MB (CK-2) CK-MB (CK-2) Rel Index Troponin I Total Protein Albumin Globulin Albumin/Globulin Ratio Procalcitonin Prolactin Urine RBC Urine WBC Ur Squamous Epith Cells Ur Transition Epith Cell Urine Bacteria Ur Culture Indicated? Urine Test Negative Nasal Screen MRSA (PCR) U Opiates 300ng/mL cut Negative Ur Oxycodone Screen Negative Urine Methadone Screen Negative Ur Barbiturates Screen Negative U Tricyclic Antidepress Negative Ur Phencyclidine Scrn Negative Ur Amphetamines Screen Negative U Methamphetamines Scrn Negative Ur MDMA Scrn (Ecstasy) Negative U Benzodiazepines Scrn Negative Urine Cocaine Screen Negative U Marijuana (THC) Screen Negative Chlamy pneumoniae PCR Not detected Adenovirus (PCR) Not detected B. pertussis DNA (PCR) Not detected B.parapertussis DNA PCR Not detected Coronavirus OC43 (PCR) Not detected Coronavirus HKU1 (PCR) Not detected Coronavirus 229E (PCR) Not detected SARS-CoV-2 (PCR) Not detected Coronavirus NL63 (PCR) Not detected Human Metapneumovir PCR Not detected Influenza A (RT-PCR) Influenza Type A (PCR) Not detected Influenza B (RT-PCR) Influenza Type B (PCR) Not detected M. pneumoniae (PCR) Not detected Parainfluenza 1 (PCR) Not detected Parainfluenza 2 (PCR) Not detected Parainfluenza 3 (PCR) Not detected Parainfluenza 4 (PCR) Not detected RSV (PCR) Not detected Entero/Rhino (PCR) Not detected 01/28/22 01/29/22 01/29/22 15:39 03:00 03:00 WBC 4.7 RBC 3.22 L Hgb 9.3 L Hct 28.0 L MCV 87.1 MCH 29.0 MCHC 33.3 RDW 14.7 Plt Count 115 L Neut % (Auto) 71.2 Lymph % (Auto) 21.3 L [place] % (Auto) 7.2 Eos % (Auto) 0.0 L Baso % (Auto) 0.3 Neut # (Auto) 3400 Lymph # (Auto) 1000 L [place] # (Auto) 300 Eos # (Auto) 0 Baso # (Auto) 0 D-Dimer Sodium Potassium Chloride Carbon Dioxide BUN Creatinine Estimated GFR BUN/Creatinine Ratio Glucose Lactate Calcium Magnesium Total Bilirubin AST ALT Alkaline Phosphatase Total Creatine Kinase CK-MB (CK-2) CK-MB (CK-2) Rel Index Troponin I Total Protein Albumin Globulin Albumin/Globulin Ratio Procalcitonin Prolactin 33.7 H Urine RBC Urine WBC Ur Squamous Epith Cells Ur Transition Epith Cell Urine Bacteria Ur Culture Indicated? Urine Test Nasal Screen MRSA (PCR) Negative for mrsa U Opiates 300ng/mL cut Ur Oxycodone Screen Urine Methadone Screen Ur Barbiturates Screen U Tricyclic Antidepress Ur Phencyclidine Scrn Ur Amphetamines Screen U Methamphetamines Scrn Ur MDMA Scrn (Ecstasy) U Benzodiazepines Scrn Urine Cocaine Screen U Marijuana (THC) Screen Chlamy pneumoniae PCR Adenovirus (PCR) B. pertussis DNA (PCR) B.parapertussis DNA PCR Coronavirus OC43 (PCR) Coronavirus HKU1 (PCR) Coronavirus 229E (PCR) SARS-CoV-2 (PCR) Coronavirus NL63 (PCR) Human Metapneumovir PCR Influenza A (RT-PCR) Influenza Type A (PCR) Influenza B (RT-PCR) Influenza Type B (PCR) M. pneumoniae (PCR) Parainfluenza 1 (PCR) Parainfluenza 2 (PCR) Parainfluenza 3 (PCR) Parainfluenza 4 (PCR) RSV (PCR) Entero/Rhino (PCR) 01/29/22 03:00 WBC RBC Hgb Hct MCV MCH MCHC RDW Plt Count Neut % (Auto) Lymph % (Auto) [place] % (Auto) Eos % (Auto) Baso % (Auto) Neut # (Auto) Lymph # (Auto) [place] # (Auto) Eos # (Auto) Baso # (Auto) D-Dimer Sodium 137 Potassium 3.0 L Chloride 107 Carbon Dioxide 23 BUN 8 Creatinine 0.54 Estimated GFR > 60 BUN/Creatinine Ratio 14.8 Glucose 64 L Lactate Calcium 6.6 L Magnesium Total Bilirubin AST ALT Alkaline Phosphatase Total Creatine Kinase CK-MB (CK-2) CK-MB (CK-2) Rel Index Troponin I Total Protein Albumin Globulin Albumin/Globulin Ratio Procalcitonin 0.87 H Prolactin Urine RBC Urine WBC Ur Squamous Epith Cells Ur Transition Epith Cell Urine Bacteria Ur Culture Indicated? Urine Test Nasal Screen MRSA (PCR) U Opiates 300ng/mL cut Ur Oxycodone Screen Urine Methadone Screen Ur Barbiturates Screen U Tricyclic Antidepress Ur Phencyclidine Scrn Ur Amphetamines Screen U Methamphetamines Scrn Ur MDMA Scrn (Ecstasy) U Benzodiazepines Scrn Urine Cocaine Screen U Marijuana (THC) Screen Chlamy pneumoniae PCR Adenovirus (PCR) B. pertussis DNA (PCR) B.parapertussis DNA PCR Coronavirus OC43 (PCR) Coronavirus HKU1 (PCR) Coronavirus 229E (PCR) SARS-CoV-2 (PCR) Coronavirus NL63 (PCR) Human Metapneumovir PCR Influenza A (RT-PCR) Influenza Type A (PCR) Influenza B (RT-PCR) Influenza Type B (PCR) M. pneumoniae (PCR) Parainfluenza 1 (PCR) Parainfluenza 2 (PCR) Parainfluenza 3 (PCR) Parainfluenza 4 (PCR) RSV (PCR) Entero/Rhino (PCR) Exam Vital Signs (past 8 hours): - 01/29/22 00:30 01/29/22 00:30 01/29/22 01:00 Temperature 96.6 F L 98.1 F Pulse Rate 92 H Respiratory Rate 36 H Blood Pressure 98/60 99/62 Pulse Oximetry 99 Oxygen Flow Rate 01/29/22 01:00 01/29/22 01:30 01/29/22 01:30 Temperature 98.6 F 98.1 F 98.6 F Pulse Rate 89 93 H Respiratory Rate 34 H 34 H Blood Pressure 105/63 Pulse Oximetry 99 98 Oxygen Flow Rate 01/29/22 02:00 01/29/22 02:00 01/29/22 03:00 Temperature 98.6 F 98.4 F Pulse Rate 95 H 79 Respiratory Rate 40 H 19 Blood Pressure 98/60 98/60 Pulse Oximetry 100 99 Oxygen Flow Rate 0 01/29/22 02:30 01/29/22 02:30 01/29/22 03:00 Temperature 98.8 F Pulse Rate 92 H Respiratory Rate 41 H Blood Pressure 96/60 89/58 L Pulse Oximetry 98 Oxygen Flow Rate 01/29/22 03:00 01/29/22 03:30 01/29/22 03:30 Temperature 98.4 F 98.4 F Pulse Rate 80 78 Respiratory Rate 25 H 20 Blood Pressure 82/53 L Pulse Oximetry 99 98 Oxygen Flow Rate 01/29/22 04:00 01/29/22 04:00 01/29/22 05:00 Temperature 98.2 F 98.4 F Pulse Rate 86 Respiratory Rate 29 H Blood Pressure 89/57 L 99/60 Pulse Oximetry 99 99 Oxygen Flow Rate 0 01/29/22 04:30 01/29/22 04:30 01/29/22 05:00 Temperature 98.4 F 98.2 F Pulse Rate 81 Respiratory Rate 24 Blood Pressure 88/57 L 99/61 Pulse Oximetry 100 Oxygen Flow Rate 01/29/22 05:00 01/29/22 05:30 01/29/22 05:30 Temperature 98.6 F 99.0 F Pulse Rate 97 H 86 Respiratory Rate 43 H 36 H Blood Pressure 98/61 Pulse Oximetry 100 90 L Oxygen Flow Rate 01/29/22 06:00 01/29/22 06:00 01/29/22 06:30 Temperature 98.1 F 99.1 F Pulse Rate 87 Respiratory Rate 43 H Blood Pressure 98/60 99/61 Pulse Oximetry 82 L Oxygen Flow Rate 01/29/22 06:30 01/29/22 07:00 01/29/22 07:00 Temperature 99.5 F 99.7 F H Pulse Rate 88 96 H Respiratory Rate 39 H 44 H Blood Pressure 97/62 Pulse Oximetry 97 99 Oxygen Flow Rate 01/29/22 07:30 01/29/22 07:30 01/29/22 08:00 Temperature 100.0 F H Pulse Rate 106 H Respiratory Rate 42 H Blood Pressure 101/67 104/62 Pulse Oximetry 92 Oxygen Flow Rate 01/29/22 08:00 Temperature 100.2 F H Pulse Rate 87 Respiratory Rate 38 H Blood Pressure Pulse Oximetry Oxygen Flow Rate Oxygen Delivery Method Room Air Oxygen Flow Rate 0 Narrative Exam Narrative: Patient seen through two way audio/visual system. Pt is awake and sitting calmly in bed Quality TeleICU VTE Deep Vein Thrombosis/Pulmonary Embolism Present on Admission: No Assessment & Plan Assessment & Plan narrative: Assessment: Septic Shock from skin infection from picking Schizophrenia Plan -continue home olanzapine for schizophrenia -Continue Zosyn and Vancomycin -wound doctor consult -since no evidence of PNA will d/c azithromycin PPx: lovenox If patient's BP remains stable off Pressors can consider transferring brynn out of ICU this evening CCT spent 45 min Time Spent With Patient Critical Care time: I spent a total of [] minutes of critical care time on this patient's care today; this time is exclusive of procedural time.
[2022-01-29] MEDS: OLANZapine ODT 10 MG TAB 20 MG PO ×2 (08:39→23:40)
--- NOTE | 2022-01-29 09:11 | P.PN_ITS ---
Subjective Subjective Date Patient Seen: 01/29/22 Interval history: Patient intermittently agitated and shaking in bed restraints. Yells out in [place] language as well. Parents at bedside and requesting her central line be removed. Continued to have fevers throughout the day. Exam Vital Signs (past 8 hours): - 01/29/22 01:30 01/29/22 01:30 01/29/22 02:00 Temperature 98.1 F 98.6 F Pulse Rate 93 H Respiratory Rate 34 H Blood Pressure 105/63 98/60 Pulse Oximetry 98 Oxygen Flow Rate 01/29/22 02:00 01/29/22 03:00 01/29/22 02:30 Temperature 98.6 F 98.4 F Pulse Rate 95 H 79 Respiratory Rate 40 H 19 Blood Pressure 98/60 96/60 Pulse Oximetry 100 99 Oxygen Flow Rate 0 01/29/22 02:30 01/29/22 03:00 01/29/22 03:00 Temperature 98.8 F 98.4 F Pulse Rate 92 H 80 Respiratory Rate 41 H 25 H Blood Pressure 89/58 L Pulse Oximetry 98 99 Oxygen Flow Rate 01/29/22 03:30 01/29/22 03:30 01/29/22 04:00 Temperature 98.4 F Pulse Rate 78 Respiratory Rate 20 Blood Pressure 82/53 L 89/57 L Pulse Oximetry 98 Oxygen Flow Rate 01/29/22 04:00 01/29/22 05:00 01/29/22 04:30 Temperature 98.2 F 98.4 F 98.4 F Pulse Rate 86 Respiratory Rate 29 H Blood Pressure 99/60 88/57 L Pulse Oximetry 99 99 Oxygen Flow Rate 0 01/29/22 04:30 01/29/22 05:00 01/29/22 05:00 Temperature 98.2 F 98.6 F Pulse Rate 81 97 H Respiratory Rate 24 43 H Blood Pressure 99/61 Pulse Oximetry 100 100 Oxygen Flow Rate 01/29/22 05:30 01/29/22 05:30 01/29/22 06:00 Temperature 99.0 F 98.1 F Pulse Rate 86 Respiratory Rate 36 H Blood Pressure 98/61 98/60 Pulse Oximetry 90 L Oxygen Flow Rate 01/29/22 06:00 01/29/22 06:30 01/29/22 06:30 Temperature 99.1 F 99.5 F Pulse Rate 87 88 Respiratory Rate 43 H 39 H Blood Pressure 99/61 Pulse Oximetry 82 L 97 Oxygen Flow Rate 01/29/22 07:00 01/29/22 07:00 01/29/22 07:30 Temperature 99.7 F H Pulse Rate 96 H Respiratory Rate 44 H Blood Pressure 97/62 101/67 Pulse Oximetry 99 Oxygen Flow Rate 01/29/22 07:30 01/29/22 08:00 01/29/22 08:00 Temperature 100.0 F H 100.2 F H Pulse Rate 106 H 87 Respiratory Rate 42 H 38 H Blood Pressure 104/62 Pulse Oximetry 92 Oxygen Flow Rate 01/29/22 08:30 01/29/22 08:30 01/29/22 09:00 Temperature 100.4 F H Pulse Rate 83 Respiratory Rate 36 H Blood Pressure 101/67 96/60 Pulse Oximetry Oxygen Flow Rate 01/29/22 09:00 Temperature 100.6 F H Pulse Rate 83 Respiratory Rate 37 H Blood Pressure Pulse Oximetry Oxygen Flow Rate Oxygen Delivery Method Room Air Oxygen Flow Rate 0 Narrative Exam Narrative: General: Presently patient is alert and intermittently agitated HEENT: There is extensive areas of erythema and scabbing on the top and back of scalp, paranasal areas, nape of neck. Also there is some crusting and drainage from bilateral external ear areas. No erythema or tenderness over the mastoids. No periorbital or facial edema. Pupils equal and reactive. Conjunctiva clear. No drainage from eyes. Neck: Trachea midline, supple, no thyromegaly Lungs: Clear to auscultation Heart: Regular rate and rhythm, no murmur Abdomen: Soft and nontender, no HSM Extremities: No skin lesions on arms or legs, no edema or rash Neurological: Nonverbal, no localizing signs Objective Labs Result Diagrams: 01/29/22 03:00 01/29/22 03:00 Labs: Laboratory Results - last 24 hr 01/28/22 01/28/22 01/28/22 08:22 08:22 08:22 WBC RBC Hgb Hct MCV MCH MCHC RDW Plt Count Neut % (Auto) Lymph % (Auto) [place] % (Auto) Eos % (Auto) Baso % (Auto) Neut # (Auto) Lymph # (Auto) [place] # (Auto) Eos # (Auto) Baso # (Auto) D-Dimer Sodium Potassium Chloride Carbon Dioxide BUN Creatinine Estimated GFR BUN/Creatinine Ratio Glucose Calcium Magnesium 2.1 CK-MB (CK-2) 2.02 CK-MB (CK-2) Rel Index 0.2 L Troponin I < 0.012 Procalcitonin 1.08 H Prolactin Urine RBC Urine WBC Ur Squamous Epith Cells Ur Transition Epith Cell Urine Bacteria Ur Culture Indicated? Urine Test Nasal Screen MRSA (PCR) U Opiates 300ng/mL cut Ur Oxycodone Screen Urine Methadone Screen Ur Barbiturates Screen U Tricyclic Antidepress Ur Phencyclidine Scrn Ur Amphetamines Screen U Methamphetamines Scrn Ur MDMA Scrn (Ecstasy) U Benzodiazepines Scrn Urine Cocaine Screen U Marijuana (THC) Screen Chlamy pneumoniae PCR Adenovirus (PCR) B. pertussis DNA (PCR) B.parapertussis DNA PCR Coronavirus OC43 (PCR) Coronavirus HKU1 (PCR) Coronavirus 229E (PCR) SARS-CoV-2 (PCR) Coronavirus NL63 (PCR) Human Metapneumovir PCR Influenza A (RT-PCR) Influenza Type A (PCR) Influenza B (RT-PCR) Influenza Type B (PCR) M. pneumoniae (PCR) Parainfluenza 1 (PCR) Parainfluenza 2 (PCR) Parainfluenza 3 (PCR) Parainfluenza 4 (PCR) RSV (PCR) Entero/Rhino (PCR) 01/28/22 01/28/22 01/28/22 08:27 08:42 09:20 WBC RBC Hgb Hct MCV MCH MCHC RDW Plt Count Neut % (Auto) Lymph % (Auto) [place] % (Auto) Eos % (Auto) Baso % (Auto) Neut # (Auto) Lymph # (Auto) [place] # (Auto) Eos # (Auto) Baso # (Auto) D-Dimer 2351 H Sodium Potassium Chloride Carbon Dioxide BUN Creatinine Estimated GFR BUN/Creatinine Ratio Glucose Calcium Magnesium CK-MB (CK-2) CK-MB (CK-2) Rel Index Troponin I Procalcitonin Prolactin Urine RBC None seen Urine WBC 1-5/hpf Ur Squamous Epith Cells 1-5 /hpf Ur Transition Epith Cell 0-1/hpf Urine Bacteria None seen Ur Culture Indicated? Cult not indicated Urine Test Nasal Screen MRSA (PCR) U Opiates 300ng/mL cut Ur Oxycodone Screen Urine Methadone Screen Ur Barbiturates Screen U Tricyclic Antidepress Ur Phencyclidine Scrn Ur Amphetamines Screen U Methamphetamines Scrn Ur MDMA Scrn (Ecstasy) U Benzodiazepines Scrn Urine Cocaine Screen U Marijuana (THC) Screen Chlamy pneumoniae PCR Adenovirus (PCR) B. pertussis DNA (PCR) B.parapertussis DNA PCR Coronavirus OC43 (PCR) Coronavirus HKU1 (PCR) Coronavirus 229E (PCR) SARS-CoV-2 (PCR) Negative Coronavirus NL63 (PCR) Human Metapneumovir PCR Influenza A (RT-PCR) Flu a negative Influenza Type A (PCR) Influenza B (RT-PCR) Flu b negative Influenza Type B (PCR) M. pneumoniae (PCR) Parainfluenza 1 (PCR) Parainfluenza 2 (PCR) Parainfluenza 3 (PCR) Parainfluenza 4 (PCR) RSV (PCR) Negative Entero/Rhino (PCR) 01/28/22 01/28/22 01/28/22 09:20 09:20 12:00 WBC RBC Hgb Hct MCV MCH MCHC RDW Plt Count Neut % (Auto) Lymph % (Auto) [place] % (Auto) Eos % (Auto) Baso % (Auto) Neut # (Auto) Lymph # (Auto) [place] # (Auto) Eos # (Auto) Baso # (Auto) D-Dimer Sodium Potassium Chloride Carbon Dioxide BUN Creatinine Estimated GFR BUN/Creatinine Ratio Glucose Calcium Magnesium CK-MB (CK-2) CK-MB (CK-2) Rel Index Troponin I Procalcitonin Prolactin Urine RBC Urine WBC Ur Squamous Epith Cells Ur Transition Epith Cell Urine Bacteria Ur Culture Indicated? Urine Test Negative Nasal Screen MRSA (PCR) U Opiates 300ng/mL cut Negative Ur Oxycodone Screen Negative Urine Methadone Screen Negative Ur Barbiturates Screen Negative U Tricyclic Antidepress Negative Ur Phencyclidine Scrn Negative Ur Amphetamines Screen Negative U Methamphetamines Scrn Negative Ur MDMA Scrn (Ecstasy) Negative U Benzodiazepines Scrn Negative Urine Cocaine Screen Negative U Marijuana (THC) Screen Negative Chlamy pneumoniae PCR Not detected Adenovirus (PCR) Not detected B. pertussis DNA (PCR) Not detected B.parapertussis DNA PCR Not detected Coronavirus OC43 (PCR) Not detected Coronavirus HKU1 (PCR) Not detected Coronavirus 229E (PCR) Not detected SARS-CoV-2 (PCR) Not detected Coronavirus NL63 (PCR) Not detected Human Metapneumovir PCR Not detected Influenza A (RT-PCR) Influenza Type A (PCR) Not detected Influenza B (RT-PCR) Influenza Type B (PCR) Not detected M. pneumoniae (PCR) Not detected Parainfluenza 1 (PCR) Not detected Parainfluenza 2 (PCR) Not detected Parainfluenza 3 (PCR) Not detected Parainfluenza 4 (PCR) Not detected RSV (PCR) Not detected Entero/Rhino (PCR) Not detected 01/28/22 01/29/22 01/29/22 15:39 03:00 03:00 WBC 4.7 RBC 3.22 L Hgb 9.3 L Hct 28.0 L MCV 87.1 MCH 29.0 MCHC 33.3 RDW 14.7 Plt Count 115 L Neut % (Auto) 71.2 Lymph % (Auto) 21.3 L [place] % (Auto) 7.2 Eos % (Auto) 0.0 L Baso % (Auto) 0.3 Neut # (Auto) 3400 Lymph # (Auto) 1000 L [place] # (Auto) 300 Eos # (Auto) 0 Baso # (Auto) 0 D-Dimer Sodium Potassium Chloride Carbon Dioxide BUN Creatinine Estimated GFR BUN/Creatinine Ratio Glucose Calcium Magnesium CK-MB (CK-2) CK-MB (CK-2) Rel Index Troponin I Procalcitonin Prolactin 33.7 H Urine RBC Urine WBC Ur Squamous Epith Cells Ur Transition Epith Cell Urine Bacteria Ur Culture Indicated? Urine Test Nasal Screen MRSA (PCR) Negative for mrsa U Opiates 300ng/mL cut Ur Oxycodone Screen Urine Methadone Screen Ur Barbiturates Screen U Tricyclic Antidepress Ur Phencyclidine Scrn Ur Amphetamines Screen U Methamphetamines Scrn Ur MDMA Scrn (Ecstasy) U Benzodiazepines Scrn Urine Cocaine Screen U Marijuana (THC) Screen Chlamy pneumoniae PCR Adenovirus (PCR) B. pertussis DNA (PCR) B.parapertussis DNA PCR Coronavirus OC43 (PCR) Coronavirus HKU1 (PCR) Coronavirus 229E (PCR) SARS-CoV-2 (PCR) Coronavirus NL63 (PCR) Human Metapneumovir PCR Influenza A (RT-PCR) Influenza Type A (PCR) Influenza B (RT-PCR) Influenza Type B (PCR) M. pneumoniae (PCR) Parainfluenza 1 (PCR) Parainfluenza 2 (PCR) Parainfluenza 3 (PCR) Parainfluenza 4 (PCR) RSV (PCR) Entero/Rhino (PCR) 01/29/22 03:00 WBC RBC Hgb Hct MCV MCH MCHC RDW Plt Count Neut % (Auto) Lymph % (Auto) [place] % (Auto) Eos % (Auto) Baso % (Auto) Neut # (Auto) Lymph # (Auto) [place] # (Auto) Eos # (Auto) Baso # (Auto) D-Dimer Sodium 137 Potassium 3.0 L Chloride 107 Carbon Dioxide 23 BUN 8 Creatinine 0.54 Estimated GFR > 60 BUN/Creatinine Ratio 14.8 Glucose 64 L Calcium 6.6 L Magnesium CK-MB (CK-2) CK-MB (CK-2) Rel Index Troponin I Procalcitonin 0.87 H Prolactin Urine RBC Urine WBC Ur Squamous Epith Cells Ur Transition Epith Cell Urine Bacteria Ur Culture Indicated? Urine Test Nasal Screen MRSA (PCR) U Opiates 300ng/mL cut Ur Oxycodone Screen Urine Methadone Screen Ur Barbiturates Screen U Tricyclic Antidepress Ur Phencyclidine Scrn Ur Amphetamines Screen U Methamphetamines Scrn Ur MDMA Scrn (Ecstasy) U Benzodiazepines Scrn Urine Cocaine Screen U Marijuana (THC) Screen Chlamy pneumoniae PCR Adenovirus (PCR) B. pertussis DNA (PCR) B.parapertussis DNA PCR Coronavirus OC43 (PCR) Coronavirus HKU1 (PCR) Coronavirus 229E (PCR) SARS-CoV-2 (PCR) Coronavirus NL63 (PCR) Human Metapneumovir PCR Influenza A (RT-PCR) Influenza Type A (PCR) Influenza B (RT-PCR) Influenza Type B (PCR) M. pneumoniae (PCR) Parainfluenza 1 (PCR) Parainfluenza 2 (PCR) Parainfluenza 3 (PCR) Parainfluenza 4 (PCR) RSV (PCR) Entero/Rhino (PCR) FORMERLY [facility], [facility]1983 Medical History History of DVT (deep vein thrombosis) History of pulmonary embolism Schizophrenia Social History household members: family Smoking Status: Never smoker Assessment & Plan Assessment & Plan narrative: 1. Septic shock, shock now resolved -patient presents febrile, tachycardic and tachypneic and became hypotensive in the ED after standard fluid resuscitation -possible source is bacteremia due to skin lesions on scalp and neck, no mastoid tenderness or erythema to suggest mastoiditis, no meningeal signs -chest x-ray personally reviewed and shows nonspecific diffuse interstitial infiltrate -differential diagnosis includes non infectious source of fever and hypotension such as drug overdose, serotonin syndrome or acute PE (see below) -normal urinalysis, respiratory panel PCR, normal WBC without left shift but procalcitonin is elevated -able to wean off levophed on 01/29 -right IJ central line placed in the ED, will remove today per parents request -wound culture obtained from right ear drainage, currently only mixed skin cynthia -blood cultures x2 no growth to date -continue on vancomycin and Zosyn started in the ED -IV azithromycin added for atypical coverage due to interstitial infiltrates on x-ray -nasal MRSA swab negative, will consider stopping vanco -urine tox screen negative 2. History of DVT/PE and IVC filter -event was reportedly in 2018, unknown whether IVC filter was ever removed, patient not currently on anticoagulant -dimer 2351 -CTA chest on 01/28 negative for PE 3. Schizophrenia -patient got Zyprexa in the ED -per discussion with Psychiatry, increased olanzapine from 50 mg to 20 mg at bedtime and increase fluoxetine from 10 mg to 20 mg daily -continue restraints due to pulling at lines DVT prophylaxis: Enoxaparin Surrogate decisionmaker: Mom Code status: Full code Dispo: 1-2 more days until fevers improve and cultures negative at 48 hours. Time Spent With Patient Critical Care time: I spent a total of [] minutes of critical care time on this patient's care t brando; this time is exclusive of procedural time. Quality VTE Deep Vein Thrombosis/Pulmonary Embolism Present on Admission: No
[2022-01-29] MEDS: POTASSIUM CHLORIDE IN WATER 10 MEQ/100 ML PIGGYBACK 100 MEQ IV ×6 (09:56→14:44)
[2022-01-29 10:16] LABS: Vancomycin Trough 13.1 ug/mL (10-20)
[2022-01-29 12:56] LABS: Vancomycin Peak 31.2 ug/mL (20-40)
[2022-01-29] MEDS: ACETAMINOPHEN 325 MG TABLET 650 MG PO (14:43)
--- NOTE | 2022-01-29 15:08 | DIET.CONS ---
Dietary Consultation Note Admission Date: 01/28/2022 11:54 Assessment: 31y F admitted for wound care and sepsis referred to nutrition for MNA 7 (malnourished). Pt [place] decent cared for by parents secondary to severe schizophrenia, mainly non-verbal. RD visited pt and caregivers. Pt with extensive wounds to face and head at various levels of healing. Pt currently in restraints to keep her from scratching and pulling out lines. Chart review shows pt established with Ambika Chavez at prior to global pandemic. At that time pt was 50-55kg. Pt currently 42kg with BMI 17.5. RD unable to complete full NPFE due to pt being restrained. Ht: 154.94 cm Wt: 42 kg BMI: 17.4 UBW: 50-55kg Last BM: 01/28/22 (01/28/22 18:36) MNA: 7 Shaggy Score: 19 Diet: 01/28/22 Lunch General (Regular) Diet Diet Modifications: soft diet, easy to chew, likes milk and coffee Labs: RBC 3.22 X10^6/uL (4.0-5.2) L 01/29/22 03:00 Hgb 9.3 g/dL (12.0-16.0) L 01/29/22 03:00 Hct 28.0 % (36-46) L 01/29/22 03:00 Creatinine 0.54 mg/dL (0.52-1.04) 01/29/22 03:00 Lactate 1.6 mmol/L (0.7-2.1) 01/28/22 08:27 Nutrition Diagnosis: Moderate Malnutrition r/t poor oral intake aeb MNA score 7 (malnourished), BMI 17.5, pt 20% below UBW unintentionally, pt with Hgb 9.3 L, and extensive wounds to face and scalp resulting in sepsis. Interventions: 1. Discussed pts preferred foods with parents- pt like HB eggs, bananas, oranges, milk and relayed this information to kitchen. 2. To support pts malnourished state, sending ONS Ensure Enlive bid in addition to meal trays. Pt enjoys milk, pt would benefit from ONS for wound healing. EER: 1260-1500kcals (30-35kcal/kg) and 60-65g PRO (1.3-1.5g/kg per PCM) Monitoring/Evaluations: monitoring PO intake, ONS tolerance. Electronically Signed by: Kaila Osullivan 01/29/22 15:08 Clinical Dietitian [address] [address]
--- NOTE | 2022-01-29 15:47 | CM.DPNOTE ---
Discharge Planning Note: See Elisabeth TRAFFIC CONTROL OPERATOR ED note for CM Assessment. Parents are in room with patient and require health education coordinator to interact with. They are standing at bedside trying to calm patient as she is calling out, and looks in psychological distress. Patient is schizophrenic and developmentally disabled. According to notes, patient does not currently have a psychiatrist and needs to establish with one. Plan: When medically cleared, dc home to care of parents. Daja Cruz RN/DCP
[2022-01-29 15:50] LABS: Albumin 2.5 g/dL (3.5-5.0)
--- NOTE | 2022-01-29 16:38 | P.CONS_ITS ---
History of Present Illness Consult details Date Patient Seen: 01/29/22 Time Patient Seen: 16:00 Chief complaint: she has wounds on head, not eating, mucas in nose Narrative: The patient is a 31-year-old female with poorly controlled schizophrenia who was admitted January 28, 2022 with sepsis in multiple self inflicted wounds on face, scalp, and neck. Patient reportedly frequently scratches these areas and they result in open wounds. According to the patient's family they have had considerable difficulty trying to keep her from scratching and have tried put ting socks over her hands. Upon admission she showed evidence for sepsis and was started on IV antibiotic therapy and also required a brief course of vassopressors. Blood cultures have been obtained but results are still pending at this time. She is not currently receiving any specific wound care. The patient does have a low-grade fever, white count this morning was 4.7. Wound care consult was obtained for recommendations regarding management of facial, scalp, and neck wounds. Meds Home Medications and Allergies Home Medications Medication Instructions Recorded Confirmed Type olanzapine 15 mg tablet 15 mg PO BEDTIME #90 tabs 09/13/20 01/28/22 Rx Allergies Allergy/AdvReac Type Severity Reaction Status Date / Time mirtazapine AdvReac Intermediate Rash severe Verified 01/20/22 06:52 Review of Systems Review of Systems Narrative: Unable to obtain Exam Vital Signs (past 8 hours): - 01/29/22 09:00 01/29/22 09:00 01/29/22 09:30 Temperature 100.6 F H Pulse Rate 83 Respiratory Rate 37 H Blood Pressure 96/60 96/58 L 01/29/22 09:30 01/29/22 10:00 01/29/22 10:00 Temperature 100.8 F H 100.9 F H Pulse Rate 84 86 Respiratory Rate 35 H 33 H Blood Pressure 98/64 01/29/22 10:30 01/29/22 10:30 01/29/22 11:00 Temperature 100.9 F H Pulse Rate 86 Respiratory Rate 18 Blood Pressure 96/59 L 102/65 01/29/22 11:00 01/29/22 11:30 01/29/22 11:30 Temperature 100.9 F H 100.9 F H Pulse Rate 102 H 83 Respiratory Rate 30 H 32 H Blood Pressure 110/57 L 01/29/22 12:00 01/29/22 12:00 01/29/22 12:30 Temperature 100.9 F H Pulse Rate 90 Respiratory Rate 25 H Blood Pressure 97/58 L 91/53 L 01/29/22 12:30 01/29/22 13:00 01/29/22 13:00 Temperature 100.9 F H 100.9 F H Pulse Rate 82 82 Respiratory Rate 22 23 Blood Pressure 92/52 L 01/29/22 13:30 01/29/22 13:30 01/29/22 14:00 Temperature 100.9 F H Pulse Rate 84 Respiratory Rate 24 Blood Pressure 93/56 L 96/58 L 01/29/22 14:00 01/29/22 14:43 01/29/22 14:30 Temperature 100.9 F H 101.3 F H Pulse Rate 89 Respiratory Rate 32 H Blood Pressure 100/55 L 01/29/22 14:30 01/29/22 15:00 01/29/22 15:00 Temperature 101.1 F H 101.3 F H Pulse Rate 94 H 94 H Respiratory Rate 32 H 38 H Blood Pressure 104/55 L 01/29/22 15:30 01/29/22 15:30 01/29/22 16:00 Temperature 101.5 F H Pulse Rate 88 Respiratory Rate 28 H Blood Pressure 97/56 L 102/51 L 01/29/22 16:00 01/29/22 16:37 Temperature 101.5 F H 100.8 F H Pulse Rate 101 H Respiratory Rate 36 H Blood Pressure Oxygen Delivery Method Room Air Oxygen Flow Rate 0 Narrative Exam Narrative: Patient is restrained, does not respond verbally but is awake and in no apparent distress [facility] Head: normocephalic Eyes EOM: EOM intact bilaterally Neck Other: No tenderness Skin Wounds: wounds noted Other: Scattered eschars along the nasolabial fold on each side with mild erythema, scattered eschars on scalp and ears, scarring on the apex of scalp, partial- thickness open wound involving the entire posterior neck without signs of active infection Objective Labs Result Diagrams: 01/29/22 03:00 01/29/22 03:00 Labs: Laboratory Results - last 24 hr 01/28/22 01/28/22 01/29/22 09:20 16:00 03:00 WBC RBC Hgb Hct MCV MCH MCHC RDW Plt Count Neut % (Auto) Lymph % (Auto) [place] % (Auto) Eos % (Auto) Baso % (Auto) Neut # (Auto) Lymph # (Auto) [place] # (Auto) Eos # (Auto) Baso # (Auto) Sodium Potassium Chloride Carbon Dioxide BUN Creatinine Estimated GFR BUN/Creatinine Ratio Glucose Calcium Albumin Procalcitonin Prolactin 33.7 H Nasal Screen MRSA (PCR) Negative for mrsa Vancomycin Peak Vancomycin Trough U Opiates 300ng/mL cut Negative Ur Oxycodone Screen Negative Urine Methadone Screen Negative Ur Barbiturates Screen Negative U Tricyclic Antidepress Negative Ur Phencyclidine Scrn Negative Ur Amphetamines Screen Negative U Methamphetamines Scrn Negative Ur MDMA Scrn (Ecstasy) Negative U Benzodiazepines Scrn Negative Urine Cocaine Screen Negative U Marijuana (THC) Screen Negative 01/29/22 01/29/22 01/29/22 03:00 03:00 09:30 WBC 4.7 RBC 3.22 L Hgb 9.3 L Hct 28.0 L MCV 87.1 MCH 29.0 MCHC 33.3 RDW 14.7 Plt Count 115 L Neut % (Auto) 71.2 Lymph % (Auto) 21.3 L [place] % (Auto) 7.2 Eos % (Auto) 0.0 L Baso % (Auto) 0.3 Neut # (Auto) 3400 Lymph # (Auto) 1000 L [place] # (Auto) 300 Eos # (Auto) 0 Baso # (Auto) 0 Sodium 137 Potassium 3.0 L Chloride 107 Carbon Dioxide 23 BUN 8 Creatinine 0.54 Estimated GFR > 60 BUN/Creatinine Ratio 14.8 Glucose 64 L Calcium 6.6 L Albumin Procalcitonin 0.87 H Prolactin Nasal Screen MRSA (PCR) Vancomycin Peak Vancomycin Trough 13.1 U Opiates 300ng/mL cut Ur Oxycodone Screen Urine Methadone Screen Ur Barbiturates Screen U Tricyclic Antidepress Ur Phencyclidine Scrn Ur Amphetamines Screen U Methamphetamines Scrn Ur MDMA Scrn (Ecstasy) U Benzodiazepines Scrn Urine Cocaine Screen U Marijuana (THC) Screen 01/29/22 01/29/22 12:00 14:24 WBC RBC Hgb Hct MCV MCH MCHC RDW Plt Count Neut % (Auto) Lymph % (Auto) [place] % (Auto) Eos % (Auto) Baso % (Auto) Neut # (Auto) Lymph # (Auto) [place] # (Auto) Eos # (Auto) Baso # (Auto) Sodium Potassium Chloride Carbon Dioxide BUN Creatinine Estimated GFR BUN/Creatinine Ratio Glucose Calcium Albumin 2.5 L Procalcitonin Prolactin Nasal Screen MRSA (PCR) Vancomycin Peak 31.2 Vancomycin Trough U Opiates 300ng/mL cut Ur Oxycodone Screen Urine Methadone Screen Ur Barbiturates Screen U Tricyclic Antidepress Ur Phencyclidine Scrn Ur Amphetamines Screen U Methamphetamines Scrn Ur MDMA Scrn (Ecstasy) U Benzodiazepines Scrn Urine Cocaine Screen U Marijuana (THC) Screen [facility] Medical History History of DVT (deep vein thrombosis) History of pulmonary embolism Schizophrenia Social History household members: family Tobacco & Substance Use Smoking Status: Never smoker Assessment & Plan Assessment and plan (1) Skin ulcer: Status: Acute (2) Multiple open wounds of face: Status: Acute (3) Scalp wound: Status: Acute Plan Patient has multiple superficial wounds caused by uncontrolled scratching. Recommend treating the eschars on the face, scalp, and ears with mupirocin ointment b.i.d., daily dressing changes to the large ulcer posterior neck with Xeroform gauze. Follow up in wound clinic after discharge. Time Spent With Patient Time with patient: 30 to 49 minutes with 50% spent counseling/coordinating care Critical Care time: I spent a total of [] minutes of critical care time on this patient's care today; this time is exclusive of procedural time.
[2022-01-29] MEDS: MUPIROCIN 22 GM OINT 1 APPLIC TOP (18:01)
[2022-01-30] VITALS (23 sets, daily range): BP systolic 79–106; BP diastolic 50–55; PULSE 69–117; RESP 15–18; TEMP 35.9–38.4; O2SAT 97–99
[2022-01-30] MEDS: VANCOMYCIN 750 MG/150 ML PIGGYBACK 150 MG IV ×2 (03:27→10:51)
[2022-01-30 05:01] LABS: Add Manual Diff / Slide Review NO; Basophils Absolute Auto 0 /uL (0-100); Basophils Percent Auto 1.1 % (0-2); Eosinophils Absolute Auto 0 /uL (0-450); Eosinophils Percent Auto 0.2 % (2-4); Hematocrit 27.9 % (36-46); Hemoglobin 9.2 g/dL (12.0-16.0); Lymphocytes Absolute Auto 1100 /uL (1100-4500); Lymphocytes Percent Auto 27.9 % (25-40); Mean Corpuscular HGB Conc 33.1 % (30-36); Mean Corpuscular Hemoglobin 28.7 PG (26-34); Mean Corpuscular Volume 86.7 fL (80-100); Monocytes Absolute Auto 300 /uL (0-900); Neutrophils Absolute Auto 2400 /uL (1500-7000); Neutrophils Percent Auto 63.8 % (50-75); Platelet Count 106 X10^3/uL (150-400); Red Blood Cell Count 3.22 X10^6/uL (4.0-5.2); Red Cell Distribution Width 14.9 % (11.6-14.8); White Blood Cell Count 3.8 X10^3/uL (4.5-11.0)
[2022-01-30 05:41] LABS: BUN Creatinine Ratio 9.4 (6-22); Blood Urea Nitrogen 6 mg/dL (7-17); Calcium 7.1 mg/dL (8.4-10.2); Carbon Dioxide 18 mmol/L (22-32); Chloride 112 mmol/L (98-107); Estimated Glomerular Filt Rate > 60 mL/min (>60); Glucose 60 mg/dL (70-100); HEMOLYSIS < 15 (0-50); Potassium 3.7 mmol/L (3.4-5.1); Sodium 138 mmol/L (137-145)
[2022-01-30] MEDS: PIPERACILLIN/TAZO 3.375 GM in SODIUM CHLORIDE 0.9% 100 ML IV ×3 (06:35→21:03)
[2022-01-30] MEDS: ENOXAPARIN 40 MG/0.4 ML SYRINGE SUBCUT (08:54)
[2022-01-30] MEDS: MUPIROCIN 22 GM OINT 1 APPLIC TOP ×2 (08:54→21:02)
--- NOTE | 2022-01-30 08:54 | P.PN_ITS ---
Subjective Subjective Date Patient Seen: 01/30/22 Interval history: Patient still quite agitated and restrained to the bed. Yells out occasionally in foreign language. Parents at bedside and their questions were answered. Exam Vital Signs (past 8 hours): - 01/30/22 02:00 01/30/22 04:00 01/30/22 06:00 Temperature Blood Pressure 88/50 L 90/53 L 90/51 L Pulse Oximetry 01/30/22 08:00 01/30/22 08:41 Temperature 99.8 F H Blood Pressure 95/54 L Pulse Oximetry 99 Oxygen Delivery Method Room Air Oxygen Flow Rate 0 Narrative Exam Narrative: General: Presently patient is alert and intermittently agitated HEENT: There is extensive areas of erythema and scabbing on the top and back of scalp, paranasal areas, nape of neck with xeroform guaze on back of scalp. Also there is some crusting and drainage from bilateral external ear areas. No erythema or tenderness over the mastoids. No periorbital or facial edema. Pupils equal and reactive. Conjunctiva clear. No drainage from eyes. Neck: Trachea midline, supple, no thyromegaly Lungs: Clear to auscultation Heart: Regular rate and rhythm, no murmur Abdomen: Soft and nontender, no HSM Extremities: No skin lesions on arms or legs, no edema or rash Neurological: Nonverbal, no localizing signs Objective Labs Result Diagrams: 01/30/22 04:56 01/30/22 04:56 Labs: Laboratory Results - last 24 hr 01/28/22 01/29/22 01/29/22 16:00 09:30 12:00 WBC RBC Hgb Hct MCV MCH MCHC RDW Plt Count Neut % (Auto) Lymph % (Auto) [place] % (Auto) Eos % (Auto) Baso % (Auto) Neut # (Auto) Lymph # (Auto) [place] # (Auto) Eos # (Auto) Baso # (Auto) Sodium Potassium Chloride Carbon Dioxide BUN Creatinine Estimated GFR BUN/Creatinine Ratio Glucose Calcium Albumin Nasal Screen MRSA (PCR) Negative for mrsa Vancomycin Peak 31.2 Vancomycin Trough 13.1 01/29/22 01/30/22 01/30/22 14:24 04:56 04:56 WBC 3.8 L RBC 3.22 L Hgb 9.2 L Hct 27.9 L MCV 86.7 MCH 28.7 MCHC 33.1 RDW 14.9 H Plt Count 106 L Neut % (Auto) 63.8 Lymph % (Auto) 27.9 [place] % (Auto) 7.0 Eos % (Auto) 0.2 L Baso % (Auto) 1.1 Neut # (Auto) 2400 Lymph # (Auto) 1100 [place] # (Auto) 300 Eos # (Auto) 0 Baso # (Auto) 0 Sodium 138 Potassium 3.7 Chloride 112 H Carbon Dioxide 18 L BUN 6 L Creatinine 0.64 Estimated GFR > 60 BUN/Creatinine Ratio 9.4 Glucose 60 L Calcium 7.1 L Albumin 2.5 L Nasal Screen MRSA (PCR) Vancomycin Peak Vancomycin Trough [facility] Medical History History of DVT (deep vein thrombosis) History of pulmonary embolism Schizophrenia Social History household members: family Smoking Status: Never smoker Assessment & Plan Assessment & Plan narrative: 1. Septic shock, shock now resolved but persistently febrile -patient presents febrile, tachycardic and tachypneic and became hypotensive in the ED after standard fluid resuscitation -possible source is bacteremia due to skin lesions on scalp and neck, no mastoid tenderness or erythema to suggest mastoiditis, no meningeal signs -chest x-ray personally reviewed and shows nonspecific diffuse interstitial infiltrate -differential diagnosis includes non infectious source of fever and hypotension such as drug overdose, serotonin syndrome or acute PE (see below) -normal urinalysis, respiratory panel PCR, normal WBC without left shift but procalcitonin is elevated at 1.08, now down to 0.87 and will continue to trend -able to wean off levophed on 01/29 -right IJ central line placed in the ED, will remove today per parents request -wound culture obtained from right ear drainage, currently only mixed skin cynthia -blood cultures x2 no growth to date -continue on vancomycin and Zosyn started in the ED -IV azithromycin added for atypical coverage due to interstitial infiltrates on x-ray -nasal MRSA swab negative, will consider stopping vanco -urine tox screen negative -continues to have fevers despite being on broad spectrum abx for over 48 hours, will need to consider potential other sources of infection such as sinusitis or intrabdominal. Or DVT as pt has history of this. -CT sinus and CT abd pelvis ordered -LE doppler bilateral to rule out PE -will consider NMS vs serotonin syndrome given patient on SSRI and zyprexa if all infectious workup negative, patient has lupus history but doubt this is contributing 2. History of DVT/PE and IVC filter -event was reportedly in 2018, unknown whether IVC filter was ever removed, patient not currently on anticoagulant -dimer 2351 -CTA chest on 01/28 negative for PE -LE doppler as above 3. Schizophrenia -patient got Zyprexa in the ED -per discussion with Psychiatry, increased olanzapine from 50 mg to 20 mg at bedtime and increase fluoxetine from 10 mg to 20 mg daily -continue restraints due to pulling at lines -ativan IV PRN for agitation DVT prophylaxis: Enoxaparin Surrogate decisionmaker: Mom Code status: Full code Dispo: Pending improvement of fevers. Time Spent With Patient Critical Care time: I spent a total of [] minutes of critical care time on this patient's care today; this time is exclusive of procedural time. Quality VTE Deep Vein Thrombosis/Pulmonary Embolism Present on Admission: No
[2022-01-30] MEDS: diphenhydrAMINE 50 MG/ML VIAL 25 MG IV ×2 (12:45→15:34)
[2022-01-30] MEDS: ACETAMINOPHEN 325 MG TABLET 650 MG PO (12:45)
--- NOTE | 2022-01-30 12:46 | PC.NURSE ---
Pt noted to be rigorous. temp taken and 101.0. Pt given PO tylenol for fever and IV benadryl for itching. Pt encouraged to drink water. Pt refusing meals. HR 117, 97% RA, and BP 90's/systolic which appears to be normal for her.
--- NOTE | 2022-01-30 14:39 | DI.US.S_ITS ---
PROCEDURE: US PERIPH VENOUS LOW EXTREM BI INDICATIONS: HISTORY OF DEEP VEIN THROMBOSIS AND ELEVATED D-DIMER TECHNIQUE: Real-time imaging, as well as color and pulse Doppler interrogation, were performed of the deep veins of both legs from the inguinal ligament to the popliteal fossa. COMPARISON: None. FINDINGS: This is a somewhat limited study given patient motion during the exam. Right: The common femoral, femoral and popliteal veins are normally compressible, and free of intraluminal thrombus. Color and pulse Doppler demonstrate normal phasic intravascular flow. There is normal augmentation response to distal compression maneuver. Left: The common femoral, femoral and popliteal veins are normally compressible, and free of intraluminal thrombus. Color and pulse Doppler demonstrate normal phasic intravascular flow. There is normal augmentation response to distal compression maneuver. IMPRESSION: No deep vein thrombosis of the bilateral lower extremities. Dictated by: Deb Mercedes M.D. on 01/31/2022 at 8:20 Approved by: Deb Mercedes M.D. on 01/31/2022 at 8:21
--- NOTE | 2022-01-30 14:40 | DI.CT.S_ITS ---
PROCEDURE: CT SINUS W CON INDICATIONS: fever of unknown origin, having ear drainage TECHNIQUE: After the administration of intravenous contrast, 3.0 mm axial images acquired from the frontal sinuses to the mid-sella, with coronal and sagittal reformats. For radiation dose reduction, the following was used: automated exposure control, adjustment of mA and/or kV according to patient size. COMPARISON: None. FINDINGS: Image quality: Excellent. Maxillary Sinuses: No bony remodeling or destruction. Sinuses are clear. Ethmoid Air Cells: No bony remodeling or destruction. Sinuses are clear. Sphenoid Sinuses: No bony remodeling or destruction. Sinuses are clear. Frontal Sinuses: No bony remodeling or destruction. Sinuses are clear. Ostiomeatal Complexes: Ostiomeatal complexes are patent. No Gee cells. Miscellaneous: Fluid in both mastoids present with air-fluid level on the right. No septal erosions resorption. The middle ears not well depicted. IMPRESSION: 1. Fluid in the mastoids may be inflammatory or postinflammatory. Approved by: Shukri Mcgowan M.D. on 01/30/2022 at 16:35
--- NOTE | 2022-01-30 14:44 | DI.CT.S_ITS ---
PROCEDURE: CT ABDOMEN PELVIS W CON INDICATIONS: fever of unknown origin TECHNIQUE: After the administration of intravenous contrast, axial sections acquired from the lung bases to the pubic symphysis. Coronal and sagittal reformats were performed. For radiation dose reduction, the following was used: automated exposure control, adjustment of mA and/or kV according to patient size. COMPARISON: [facility], CT, CT ABDOMEN PELVIS WITH CONTRAST, 07/17/2018, 18:11. FINDINGS: Image quality: Suboptimal due to motion artifact and streak artifact from the patient's arms. Lung bases: No pleural effusion. ABDOMEN: Liver: Unremarkable. Gallbladder: Unremarkable. Biliary ducts: Unremarkable. Pancreas: Unremarkable. Spleen: Unremarkable. Adrenal Glands: Unremarkable. Kidneys and Ureters: Unremarkable. Stomach and Bowel: No bowel obstruction. Liquid stool is present in the colon. No evidence of acute appendicitis. Peritoneum: No free air or substantial free fluid. Abdominal Nodes: No retroperitoneal or mesenteric adenopathy by size criteria. Vessels: Aorta and inferior vena cava are normal in size. PELVIS: Pelvic Organs: Unremarkable CT appearance Bladder: A Martinez catheter is present. Pelvic Nodes: No enlarged lymph nodes. Bones: Sclerosis present at both iliac bones adjacent to the SI joints as before. IMPRESSION: 1. Liquid stool is present in the colon, suggestive of a nonspecific diarrheal state. 2. Otherwise, no definite acute abnormality identified within the abdomen or pelvis. Dictated by: Blake Hernandez M.D. on 01/30/2022 at 16:56 Approved by: Blake Hernandez M.D. on 01/30/2022 at 17:15
[2022-01-30] MEDS: IBUPROFEN 600 MG TABLET PO (15:34)
[2022-01-30] MEDS: LORazepam 2 MG/ML INJ 1 MG IV (15:34)
--- NOTE | 2022-01-30 20:31 | PC.NURSE ---
Addendum entered by Dinorah Doss R.N. 01/31/22 02:58: 0230- Patient awake and calm. Afebrile. Sips of water given without difficulty. BP remains soft but mean is above 60. Patient is in no distress. Good uop, clear yellow. All other vitals WNL. Addendum entered by Dinorah Doss R.N. 01/30/22 22:47: 2230- Discussed with SINGH Daly patients soft BP. Mean remains at 60 and patient has good uop. Patient has been medicated throughout the day for agitation. Heart rate, respirations and temp are WNL. Will monitor closely. Original Note: 2029- Blood Glucose checked. Result 67. SINGH Daly notified order rec.
[2022-01-30] MEDS: DEXTROSE 5%-0.9% NS 500 ML 42 ML IV (21:01)
[2022-01-31] VITALS (7 sets, daily range): BP systolic 79–105; BP diastolic 52–63; PULSE 66–93; RESP 14–20; TEMP 35.6–37.2; O2SAT 90–100
[2022-01-31 06:23] LABS: Add Manual Diff / Slide Review NO; Basophils Absolute Auto 0 /uL (0-100); Basophils Percent Auto 0.4 % (0-2); Eosinophils Absolute Auto 0 /uL (0-450); Eosinophils Percent Auto 0.8 % (2-4); Hematocrit 28.3 % (36-46); Hemoglobin 9.3 g/dL (12.0-16.0); Lymphocytes Absolute Auto 900 /uL (1100-4500); Lymphocytes Percent Auto 23.5 % (25-40); Mean Corpuscular HGB Conc 32.9 % (30-36); Mean Corpuscular Hemoglobin 28.5 PG (26-34); Mean Corpuscular Volume 86.7 fL (80-100); Monocytes Absolute Auto 200 /uL (0-900); Neutrophils Absolute Auto 2600 /uL (1500-7000); Neutrophils Percent Auto 69.3 % (50-75); Platelet Count 102 X10^3/uL (150-400); Red Blood Cell Count 3.27 X10^6/uL (4.0-5.2); Red Cell Distribution Width 15.1 % (11.6-14.8); White Blood Cell Count 3.8 X10^3/uL (4.5-11.0)
[2022-01-31 06:40] LABS: BUN Creatinine Ratio 11.1 (6-22); Blood Urea Nitrogen 7 mg/dL (7-17); Calcium 7.2 mg/dL (8.4-10.2); Carbon Dioxide 19 mmol/L (22-32); Chloride 110 mmol/L (98-107); Estimated Glomerular Filt Rate > 60 mL/min (>60); Glucose 83 mg/dL (70-100); HEMOLYSIS < 15 (0-50); Potassium 3.1 mmol/L (3.4-5.1); Sodium 138 mmol/L (137-145)
[2022-01-31 06:55] LABS: Procalcitonin 0.23 ng/mL (<0.5)
[2022-01-31] MEDS: PIPERACILLIN/TAZO 3.375 GM in SODIUM CHLORIDE 0.9% 100 ML IV ×3 (08:00→20:53)
--- NOTE | 2022-01-31 10:58 | P.PN_ITS ---
Subjective Subjective Date Patient Seen: 01/31/22 Interval history: Afebrile now for 24 hours. Parents eager to take her home tomorrow. Explained we will setup home health for them. Exam Vital Signs (past 8 hours): - 01/31/22 04:00 01/31/22 08:00 Temperature 96.6 F L 98.6 F Pulse Rate 72 93 H Respiratory Rate 14 19 Blood Pressure 84/55 L 91/63 Pulse Oximetry 100 94 Oxygen Delivery Method Room Air Oxygen Flow Rate 0 Narrative Exam Narrative: General: Presently patient is alert and intermittently agitated, screams out HEENT: There is extensive areas of erythema and scabbing on the top and back of scalp, paranasal areas, nape of neck with xeroform guaze on back of scalp. Also there is some crusting and drainage from bilateral external ear areas. No erythema or tenderness over the mastoids. No periorbital or facial edema. Pupils equal and reactive. Conjunctiva clear. No drainage from eyes. Neck: Trachea midline, supple, no thyromegaly Lungs: Clear to auscultation Heart: Regular rate and rhythm, no murmur Abdomen: Soft and nontender, no HSM Extremities: No skin lesions on arms or legs, no edema or rash Neurological: Nonverbal, no localizing signs Objective Labs Result Diagrams: 01/31/22 05:55 01/31/22 05:55 Labs: Laboratory Results - last 24 hr 01/31/22 01/31/22 01/31/22 05:55 05:55 05:55 WBC 3.8 L RBC 3.27 L Hgb 9.3 L Hct 28.3 L MCV 86.7 MCH 28.5 MCHC 32.9 RDW 15.1 H Plt Count 102 L Neut % (Auto) 69.3 Lymph % (Auto) 23.5 L [place] % (Auto) 6.0 Eos % (Auto) 0.8 L Baso % (Auto) 0.4 Neut # (Auto) 2600 Lymph # (Auto) 900 L [place] # (Auto) 200 Eos # (Auto) 0 Baso # (Auto) 0 Sodium 138 Potassium 3.1 L Chloride 110 H Carbon Dioxide 19 L BUN 7 Creatinine 0.63 Estimated GFR > 60 BUN/Creatinine Ratio 11.1 Glucose 83 Calcium 7.2 L Procalcitonin 0.23 [facility] Medical History History of DVT (deep vein thrombosis) History of pulmonary embolism Schizophrenia Social History household members: family Smoking Status: Never smoker Assessment & Plan Assessment & Plan narrative: 1. Septic shock, shock now resolved but persistently febrile -patient presents febrile, tachycardic and tachypneic and became hypotensive in the ED after standard fluid resuscitation -possible source is bacteremia due to skin lesions on scalp and neck, no mastoid tenderness or erythema to suggest mastoiditis, no meningeal signs -chest x-ray personally reviewed and shows nonspecific diffuse interstitial infiltrate -differential diagnosis includes non infectious source of fever and hypotension such as drug overdose, serotonin syndrome or acute PE (see below) -normal urinalysis, respiratory panel PCR, normal WBC without left shift but procalcitonin is elevated at 1.08, now down to 0.87 and will continue to trend -able to wean off levophed on 01/29 -right IJ central line placed in the ED, can remove -wound culture obtained from right ear drainage, growing harini -give dose 150mg fluconazole -blood cultures x2 no growth to date -continue on vancomycin and Zosyn started in the ED -IV azithromycin added for atypical coverage due to interstitial infiltrates on x-ray -nasal MRSA swab negative, will consider stopping vanco -urine tox screen negative -CT sinus and CT abd pelvis ordered and unrevealing -LE doppler bilateral to rule out PE negative -now afebrile for 24 hours 2. History of DVT/PE and IVC filter -event was reportedly in 2018, unknown whether IVC filter was ever removed, patient not currently on anticoagulant -dimer 2351 -CTA chest on 01/28 negative for PE -LE doppler as above 3. Schizophrenia -patient got Zyprexa in the ED -per discussion with Psychiatry, increased olanzapine from 15 mg to 20 mg at bedtime -per family they don't want her to take prozac because she gets too sleepy on it -continue restraints due to pulling at lines -ativan IV PRN for agitation DVT prophylaxis: Enoxaparin Surrogate decisionmaker: Mom Code status: Full code Dispo: Home with for dressing changes on 02/01. Time Spent With Patient Critical Care time: I spent a total of [] minutes of critical care time on this patient's care today; this time is exclusive of procedural time. Quality VTE Deep Vein Thrombosis/Pulmonary Embolism Present on Admission: No
[2022-01-31] MEDS: MUPIROCIN 22 GM OINT 1 APPLIC TOP ×2 (11:24→20:54)
[2022-01-31] MEDS: POTASSIUM CHLORIDE 20 MEQ TAB 40 MEQ PO (11:27)
[2022-01-31] MEDS: FLUCONAZOLE 100 MG TABLET 200 MG PO (11:27)
[2022-01-31] MEDS: ENOXAPARIN 40 MG/0.4 ML SYRINGE SUBCUT (11:27)
[2022-01-31] MEDS: diphenhydrAMINE 50 MG/ML VIAL 25 MG IV (13:59)
[2022-01-31] MEDS: ACETAMINOPHEN 325 MG TABLET 650 MG PO (17:16)
[2022-01-31] MEDS: OLANZapine ODT 10 MG TAB 20 MG PO (20:54)
[2022-01-31] MEDS: SODIUM CHLORIDE 0.9% FLUSH 10 ML IV (21:53)
[2022-02-01 04:00] VITALS: BP 94/53; PULSE 88; RESP 16; TEMP 37.7; O2SAT 96
[2022-02-01] MEDS: PIPERACILLIN/TAZO 3.375 GM in SODIUM CHLORIDE 0.9% 100 ML IV (06:16)
[2022-02-01] MEDS: diphenhydrAMINE 50 MG/ML VIAL 25 MG IV (07:58)
[2022-02-01] MEDS: SODIUM CHLORIDE 0.9% FLUSH 10 ML IV (07:59)
[2022-02-01 08:00] VITALS: BP 114/57; PULSE 96; RESP 17; TEMP 37.3; O2SAT 99
[2022-02-01 08:24] LABS: Procalcitonin 0.13 ng/mL (<0.5)
[2022-02-01] MEDS: MUPIROCIN 22 GM OINT 1 APPLIC TOP (10:18)
[2022-02-01 12:26] LABS: HIV 1 & 2 Ab/Ag 4th Gen Combo NEGATIVE (NEGATIVE)
--- NOTE | 2022-02-01 12:26 | PC.NURSE ---
Pt is received awake and intermittently screaming and tyring to grab at her face. She is in soft wrist restraints to prevent pulling and grabbing the skin on the top of her head, back of her head, ears and face.She has multiple wounds from impulsively picking and grabbing. She is yelling out for a shower this morning and although, reassured that this morning after breakfast we would be able to get her a shower she repeatedly yells out, with anxiety and repeats phrases or just yells as loud as she can until she grasps for breath. She has very dry skin and is given benadryl to help with c/o itching. She does have pus colored yellow drainage from her Right ear.MD at bedside this a.m. evaluates her ear and instructs patient that the antibiotic she will be receiving will treat this and that she needs to keep the ear canal as dry as possible. MD clears patient for discharge home. SW at bedside this morning explaining home health with an interpreter translator phone. Mother asks appropriate questions in Yi and demonstrates she understands the medications, activity, and instructions for follow up care with her daughter. She is escorted by w/ch to private vehicle for discharge home with her parents this a.m. with all of her belongings.
--- NOTE | 2022-02-01 19:52 | P.DS_ITS ---
History of Present Illness History of Present Illness Chief complaint: she has wounds on head, not eating, mucas in nose Narrative: Per history and physical: 31-year-old female with history of poorly controlled schizophrenia presented to ED due to development of fever last night.? Patient is reportedly nonverbal at baseline secondary to schizophrenia and history was obtained from mom via nonprofit manager.? Patient is reported to have frequent itching/picking on head and face areas.? She was seen at [facility] and started on cephalexin about 10 days ago.? On ED evaluation, patient was tachypneic, tachycardic and febrile with temp 101.8?.? Initially normotensive, got fluid bolus 30 milliliters/kilogram for sepsis protocol, and subsequently dropped her blood pressure to 87/55.? She then got started on Levophed, currently on 3 mcg with map of 65.? She had right IJ central line put in while in the ER.? EKG showed sinus rhythm with PACs, normal intervals.? Apparently she was also screaming and having uncontrollable behavior in the ER but calm down nicely after given 20 mg Zyprexa.? She has history of DVT/PE back in 2018 for which she had IVC filter and was on apixaban.? She is no longer on blood thinne and unknown whether IVC filter was removed.? Family has not noticed patient having a cough, or com plaining of abdominal pain. Discharge Providers Provider Date of admission: 01/28/22 11:54 Discharge Date: 02/01/22 Primary care physician: Doctor Odalys MD Consults: 01/28/22 09:45 Consult to CARE MANAGEMENT ASSOCIATE - Controls Technician Stat Comment: psych placement 01/28/22 11:22 Consult to Wound Care Stat Comment: scalp and face lesions from picking Consulting Provider: [facility] 01/28/22 11:24 Consult to Dietitian, Adult Routine Comment: Reason For Exam: multiple skin wounds Consult to Discharge Planning Routine Comment: 01/28/22 18:56 Consult to Dietitian, Adult Routine Comment: Reason For Exam: assessed at high risk, no eating much at home 01/28/22 20:10 Consult to Tele-smoking tobacco cutter operator Routine Comment: Consulting Provider: [employer] Reason for consultation: [employer] Has provider been notified: Yes 01/29/22 12:40 Consult to Wound Care Routine Comment: Consulting Provider: Jose [facility] 02/01/22 12:38 Consult to Home Health Routine Comment: Reason For Exam: Home health RN upon discharge Discharge provider: Tanesha Saavedra MD Summary Hospital Course Discharge Diagnosis: Septic shock, now resolved Possible otitis externa, right ear, candidal in nature Possible right tympanic membrane spontaneous rupture based on exam on the date of discharge Interstitial infiltrates on chest x-ray, status post azithromycin treatment Prior DVT/PE with IVC filter placement, negative workup for thromboembolism this admission Schizophrenia, chronic 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 Etiology was not entirely clear. She was placed on broad-spectrum antibiotics. Tele smoking tobacco cutter operator consult was obtained and it was felt septic shock was secondary to soft tissue infection, possible viral pneumonia. Respiratory cultures were negative. Patient did require pressors due to hypotension from her shock. Wound care consult was obtained secondary to her significant wounds from her skin picking. Wound care physician recommended mupirocin b.i.d. as well as Xeroform gauze to the ulcer to the back of her neck. Patient gradually improved. She was successfully weaned off of pressors. Zyprexa was increased from 15 mg to 20 mg at bedtime. There was also recommendation to increase fluoxetine, but patient's family felt she became too sedated with it. By January 31, patient had been afebrile for 24 hours. Family was hopeful to be able to take her home. Parents are her full-time caregivers. Previously had been established with Psychiatry here in [place]. However, during the pandemic she would not been seen by Psychiatry. She was ultimately discharged as Dr. Chavez her psychiatrist retired this summer. They are now hopeful to get established with a new psychiatrist. Care management was working with them on coordinating that at the time of discharge. Patient was refusing food during her hospitalization. However, she typically eats well at home. She was drinking adequate fluids. Family felt they would be able to meet her needs at home. Due to concern for possible tympanic membrane rupture, encouraged him to try to keep her right ear dry particularly if she showers. If they are unable to do so given her limited ability to comply, encouraged him to use a blow dryer at the lowest setting to help keep water out of her ear canal. Status at Discharge Cognitive/behavioral status at discharge: at baseline, confused and agitated (Parents report this is her baseline, she does frequently scream out in Tagalog, her [place] language) Functional status at discharge: independent ambulation Time Spent with Patient Time spent: Greater than 30 minutes (45 minutes spent coordinating discharge) Exam Vital Signs (past 8 hours): Oxygen Delivery Method Room Air Oxygen Flow Rate 0 Narrative Exam Narrative: GEN: Alert and oriented x 1, frequently yells out but will stop with redirection HEENT:NC, Face symmetric, evaluation of the right ear reveals significant thick drainage from the ear, upon further investigation it does appear she has a small perforation along the inferior aspect of the tympanic membrane CHEST: Respiratory excursions symmetric, CTAB CV: RRR, no M/R/G ABD: Soft, NT/ND, BT present in all 4 quadrants, no organomegaly or masses EXTR: warm, well perfused, no C/C/E SKIN: warm and dry, large ulceration to the crown of her scalp, multiple dry lesions noted to the bilateral medial cheeks as well as the nose NEURO: Alert and oriented x 1 Objective Labs Result Diagrams: 01/31/22 05:55 01/31/22 05:55 Labs: Laboratory Results - last 24 hr 02/01/22 02/01/22 07:45 07:45 Procalcitonin 0.13 HIV 1&2 Ab/P24 Ag 4thGn Negative [facility] Medical History History of DVT (deep vein thrombosis) History of pulmonary embolism Schizophrenia Social History household members: family Smoking Status: Never smoker Discharge Plan Discharge Plan Patient Disposition: Home Health Service Transfer to: Home Health, Other Provider Discharge Comment: Follow-up with your psychiatrist locally or contact [facility] for new provider. Home health for wound care Please give family Xeroform to use until home health assumes care next week You can continue to use benadryl (over the counter) for itching, 25 mg every 4 hours as needed Discharge orders & Medications Prescriptions: New olanzapine [Zyprexa Zydis] 10 mg Tablet,Disintegrating 20 mg PO BEDTIME Qty: 60 0RF mupirocin 2 % Ointment 1 applic topical BID Qty: 45 0RF amoxicillin-pot clavulanate 875-125 mg tablet 1 tab PO Q12H Qty: 10 0RF Discontinued olanzapine 15 mg tablet 15 mg PO BEDTIME Qty: 90 1RF Follow up/Referrals: Layton Stahl MD [Physician] - MiscellaneousDoctor MD [Primary Care Provider] - Diet/Activity/Treatments Diet: Diet as Tolerated Activity: As tolerated Discharge Data Primary Care Provider: Doctor Odalys Quality VTE Deep Vein Thrombosis/Pulmonary Embolism Present on Admission: No
--- NOTE | 2022-02-02 13:00 | CM.DPNOTE ---
Addendum entered by Eliza LilliamNIALL 02/02/22 13:31: ADD: Additional calls to psychiatrists and/or psych ARNPs limited d/t demands of the caseload yesterday Original Note: DC Note- Late Entry Patient discharged yesterday; This was a time consuming coordination with some complication as outlined below: Used aircraft magneto mechanic phone to speak with patient's mother and father at bedside (Rick) ; discussed DCP and both agreed that securing a new psychiatrist for patient was their priority. In the room- Patient went from breathing shallow breaths to spitting to escalating vocally with screams and hollers, hands were retrained so that patient could not pick at wounds. Family explained patient behaves like this at home as well, because she wants to itch/scratch her face, neck and scalp and they will not allow her to Placed call to [facility] (patient formerly saw Ambika Chavez). Amelia at the lockstitch front maker explained that patient had been discharged from the clinic this last summer and people who are not established with a PCP at [facility] cannot establish w/a new provider . Amelia agreed to ask the clinical supervisor molding about patient on Friday Then placed call to [facility] and [facility] who referred this DOUBLE HEAD MACHINE OPERATOR to [facility] [place] Placed call to [facility] and had to LM for the clinical supervisor molding, did not hear back Referral sent to [facility] for RN to assist family with wound care once patient got home. Received call back from Fransisco/Maria R MOREIRA who explained they do not have psychiatric nurses to assist patient. Explained that patient doesn't need a psychiatric nurse at home, family needs help with patient's wound care. Fransisco agreed to k with his supervisor molding, never heard back Placed call to Wound care, spoke w/ RN Marilu who is holding a spot for patient on February 13 or (?) Marilu agreed to call family re this appt Then attempted to call family and all the numbers were wrong. Got a hold of family friend Temo P# [phone] who updated family cell as P# [phone]. Chart now updated with this information Lastly, placed call to patient's [facility]/Disability services ALMA DELIA Villareal P# [phone], had to leave detailed message outlining all DCP efforts listed above; explained not much success today in coordination of care. Hoping that CM Tia can continue above efforts as it appeared patient and family were in desperate need of: new automatic dry starch operator/prescriber to help manage patient's severe Schizophrenia, nursing to assist in wound care, coordination of outpatient services and transportation NIALL Rush
== END 2022-02-01 11:09 | disposition home or self-care (01) | DRG 871 ==
LOC: ED 08:08 → AC 11:55 → ICU 17:15
PROVIDERS: Internal Medicine; Admitting Provider Student in an Organized Health Care Education/Training Program; Emergency Provider Emergency Medicine; Referring Provider Emergency Medicine; Visit Provider Student in an Organized Health Care Education/Training Program
DX: A41.9 Sepsis, unspecified organism (principal); J12.89 Other viral pneumonia; R65.21 Severe sepsis with septic shock; L08.9 Local infection of the skin and subcutaneous tissue, unspecified; F20.9 Schizophrenia, unspecified; F63.3 Trichotillomania; H60.91 Unspecified otitis externa, right ear; H72.91 Unspecified perforation of tympanic membrane, right ear; F42.9 Obsessive-compulsive disorder, unspecified; S00.80XA Unspecified superficial injury of other part of head, initial encounter; S00.00XA Unspecified superficial injury of scalp, initial encounter; X58.XXXA Exposure to other specified factors, initial encounter; Z86.718 Personal history of other venous thrombosis and embolism; Z86.711 Personal history of pulmonary embolism; Z20.822 Contact with and (suspected) exposure to COVID-19
CPT/HCPCS: 0241U; 36415; 36592; 70487; 71045; 71275; 74177; 80048; 80053; 80202; 80305; 81003; 81015; 81025; 82040; 82550; 82553; 83605; 83735; 84145; 84146; 84484; 85025; 85379; 87040; 87070; 87077; 87205; 87389; 87633; 87797; 93005; 93010; 93970; 96365; 96366; 96367; 96368; 96375; 99232; 99284; 99291; J0696; J1200; J1650; J1885; J2060; J2543; J2704; J3010; Q9967

== ENCOUNTER 2022-02-07 06:11 | Emergency (ER) | payer MEDICARE, MEDICAID, SELFPAY ==
[2022-01-28 18:36] VITALS: BMI 17.4
[2022-02-07] VITALS (60 sets, daily range): BP systolic 82–108; BP diastolic 50–66; PULSE 82–112; RESP 18; TEMP 37.3; O2SAT 94–100
[2022-02-07] MEDS: SODIUM CHLORIDE 0.9% 1,000 ML 1000 ML IV ×2 (07:03→09:57)
[2022-02-07 07:17] LABS: Add Manual Diff / Slide Review NO; Basophils Absolute Auto 100 /uL (0-100); Basophils Percent Auto 1.2 % (0-2); Eosinophils Absolute Auto 0 /uL (0-450); Hemoglobin 10.6 g/dL (12.0-16.0); Lymphocytes Absolute Auto 900 /uL (1100-4500); Lymphocytes Percent Auto 18.2 % (25-40); Mean Corpuscular HGB Conc 32.9 % (30-36); Mean Corpuscular Hemoglobin 28.1 PG (26-34); Mean Corpuscular Volume 85.3 fL (80-100); Monocytes Absolute Auto 500 /uL (0-900); Monocytes Percent Auto 10.3 % (3-14); Neutrophils Absolute Auto 3400 /uL (1500-7000); Neutrophils Percent Auto 70.3 % (50-75); Platelet Count 99 X10^3/uL (150-400); Red Blood Cell Count 3.75 X10^6/uL (4.0-5.2); Red Cell Distribution Width 15.2 % (11.6-14.8); White Blood Cell Count 4.8 X10^3/uL (4.5-11.0)
[2022-02-07 07:25] LABS: Acetaminophen < 10 ug/mL (10-30); Alanine Aminotransferase 33 IU/L (<35); Albumin 3.6 g/dL (3.5-5.0); Albumin Globulin Ratio 0.9 (1.0-2.8); Alkaline Phosphatase 55 U/L (38-126); Aspartate Aminotransferase 64 IU/L (14-36); BUN Creatinine Ratio 6.6 (6-22); Bilirubin Total 0.5 mg/dL (0.2-1.3); Blood Urea Nitrogen 4 mg/dL (7-17); Calcium 8.5 mg/dL (8.4-10.2); Carbon Dioxide 29 mmol/L (22-32); Chloride 97 mmol/L (98-107); Estimated Glomerular Filt Rate > 60 mL/min (>60); Ethanol (ETOH) < 10 mg/dL; Globulin 4.2 g/dL (1.7-4.1); Glucose 130 mg/dL (70-100); HEMOLYSIS < 15 (0-50); Lactate (Lactic Acid) 1.5 mmol/L (0.7-2.1); Lipase 33 U/L (23-300); Magnesium 2.1 mg/dL (1.6-2.3); Phosphorous 4.8 mg/dL (2.5-4.5); Potassium 2.8 mmol/L (3.4-5.1); Salicylate < 1.0 mg/dL (<20); Sodium 136 mmol/L (137-145); Total Protein 7.8 g/dL (6.3-8.2)
[2022-02-07 07:29] LABS: Pregnancy Test Serum,Qual Negative (Negative)
[2022-02-07 07:40] LABS: Procalcitonin 0.08 ng/mL (<0.5)
[2022-02-07] MEDS: POTASSIUM CHLORIDE 20 MEQ TAB 40 MEQ PO ×2 (08:08→09:02)
[2022-02-07 08:14] LABS: Thyroid Stimulating Hormone 3.58 uIU/mL (0.47-4.68)
--- NOTE | 2022-02-07 08:27 | ED_ITS ---
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 Patient had a recent hospitalization for sepsis likely thought to be from soft tissue infection secondary from scratching in open wounds from keshia ent's obsessive-compulsive activities and possible viral pneumonia. She was discharged on 02/01/2022. Patient is not really able to participate in examination she does talk to her parents but does not interact much with me she will sort of follow commands. Patient parents state that she has been doing better since she returned home the wounds on her face have open back up in the last 2 days she is been itching and scratching at them a lot, they state that she has not been eating for the past 6 days she has been taking some liquids. They states she sometimes is taking her medications but sometimes spits out she is supposed to be taking her Zyprexa and Prozac. They have not appreciated ot her changes she has not been altered in other ways or had new changes from her typical. They have not appreciated redness or swelling. No other new difficulty with breathing, no complaints of chest pain, no nausea or vomiting, GI or urinary symptoms. They note that she does tend to eat and drink better when she is taking her medications more consistently. Discharge no also notes that she was drinking adequate fluids but not taking food during her hospitalization. Discussed with parents she is had 1 prior inpatient psychiatric hospitalization quite some time ago but more for aggressive hitting behaviors they do not feel that she necessarily needs inpatient psychiatric placement their main concern today is getting her to eat and drink more consistently. Related Data Previous Rx's Medication Instructions Recorded amoxicillin 875 mg-potassium 1 tab PO Q12H #10 tabs 02/01/22 clavulanate 125 mg tablet mupirocin 2 % topical ointment 1 applic topical BID #45 grams 02/01/22 olanzapine 10 mg disintegrating 20 mg PO BEDTIME #60 tabs 02/01/22 tablet (Zyprexa Zydis) fluoxetine 20 mg capsule (Prozac) 20 mg PO DAILY #30 caps 02/07/22 olanzapine 15 mg tablet 15 mg PO BEDTIME #30 tabs 02/07/22 Allergies Allergy/AdvReac Type Severity Reaction Status Date / Time mirtazapine AdvReac Intermediate Rash severe Verified 01/20/22 06:52 Review of Systems Review of Systems ROS Unobtainable: All systems reviewed & are unremarkable except as noted in HPI and below Patient History Medical History History of DVT (deep vein thrombosis) History of pulmonary embolism Schizophrenia Social History household members: family Smoking Status: Never smoker Smoking Status: Never smoker Substance Use Type: does not use Exam Narrative Exam Narrative: GEN: Female in mild distress, alert and oriented, patient appears to be in mild distress. Patient is conversant with her parents. HEENT: Atraumatic, pupils are equal round reactive to light, extraocular movements are intact, nares are clear, right TM is clear with no fluid, Left TM is perforated, no drainage, no erythema, patient has scabbing and dried abrasions bilateral externa auricles but none internally, there is no conjunctival pallor. Throat is clear without any exudates, erythema, tonsillar enlargement or uvular deviation, patient has patches of hair missing on her posterior scalp top of her scalp and abrasions no deep wounds passed the superficial skin layer. Patient's chin the most superficial layer of skin has been abraded quite a bit and there is also some scabbing and abrasions on the left lateral side of her nose, I do not appreciate swelling, drainage, foul odor. HEART: Regular rate and rhythm without murmur, clicks, rubs. No carotid bruits, pulses are equal in upper and lower extremities LUNGS:Lungs clear to auscultation, no wheezes, rales, crackles, chest moves symmetrically ABD:bowel sounds normal, soft, non-tender, no guarding, rebound, rigidity, no masses noted, no hepatosplenomegaly :No CVA tenderness MSCL: Non-tender, no muscle atrophy, muscles strength 5/5 upper and lower extremities, full range of motion. Patient was able to remove her brief completely herself in the room and handed it to her parents. NEURO:CN 2-12 intact, sensation normal SKIN: Majority of patients skin changes are on her scalp and face she does have some small areas of ecchymosis on her wrist and consistent with prior IV placement as well as lower shins. No significant abrasions or ecchymosis or other skin changes noted on the torso or pelvis anterior or posteriorly. PSYCH: Patient describes halluciations auditory and visual to parents including that her food is being poisoned, snakes in the mirrors. Initial Vital Signs Initial Vital Signs: Vital Signs Temperature 99.2 F 02/07/22 06:15 Pulse Rate 107 H 02/07/22 06:15 Respiratory Rate 18 02/07/22 06:15 Blood Pressure 82/52 L 02/07/22 06:15 Pulse Oximetry 100 02/07/22 06:15 Oxygen Delivery Method 02/07/22 06:15 Course Orders Ordered: ED Orders 02/07/22 12:09 EKG-12 Lead Stat Discontinued Medications Diphenhydramine HCl (Diphenhydramine 25 Mg Tablet) 25 mg PO NOW ONE Stop: 02/07/22 08:49 Last Admin: 02/07/22 09:02 Dose: 25 mg Documented By: AT Sodium Chloride (Normal Saline 0.9%) 1,000 mls @ 1,000 mls/hr IV BOLUS ONE Stop: 02/07/22 07:31 Last Infusion: 02/07/22 08:10 Dose: 0 mls/hr Documented By: Admin: 02/07/22 07:03 Dose: 1,000 mls/hr Documented By: MARY JO Sodium Chloride (Normal Saline 0.9%) 1,000 mls @ 1,000 mls/hr IV BOLUS ONE Stop: 02/07/22 09:45 Last Infusion: 02/07/22 11:53 Dose: 0 mls/hr Documented By: Admin: 02/07/22 09:57 Dose: 1,000 mls/hr Documented By: MEDARDO Lorazepam (Lorazepam 0.5 Mg Tablet) 2 mg PO NOW ONE Stop: 02/07/22 10:45 Last Admin: 02/07/22 10:56 Dose: Not Given Documented By: HUSSEIN Lorazepam (Lorazepam 2 Mg/Ml Inj) 1 mg IM NOW ONE Stop: 02/07/22 10:54 Last Admin: 02/07/22 10:57 Dose: 1 mg Documented By: HUSSEIN Olanzapine (Olanzapine Odt 10 Mg Tab) 20 mg PO NOW ONE Stop: 02/07/22 08:47 Last Admin: 02/07/22 09:01 Dose: 20 mg Documented By: MARY JO Potassium Chloride (Potassium Chloride 20 Meq Tab) 40 meq PO NOW ONE Stop: 02/07/22 07:53 Last Admin: 02/07/22 08:08 Dose: 40 meq Documented By: HUSSEIN Potassium Chloride (Potassium Chloride 20 Meq Tab) 40 meq PO NOW ONE Stop: 02/07/22 08:47 Last Admin: 02/07/22 09:02 Dose: 40 meq Documented By: AT Consultations Consultation #1: Dr. Stahl saw patient in department. He did use recharger. She is no longer actually taking the Prozac, he recommends restarting at 20 mg daily, olanzapine 15 mg in the, pushing parents to make sure patient is eating some form. He will see the patient in the office to facilitate follow-up as she may be a candidate for long-acting Depo injections but is going to require being on oral medications for certain amount of time to make sure these are on board. He agrees patient does not meet appropriate criteria for inpatient psych placement as this would likely be detrimental to her care. Consultation #2: Dr. Myers, patient has hypokalemia is not taking solids but is drinking fluids, does not have significant electrolyte abnormalities otherwise. Patient did already take oral potassium supplementation here in the department he states does not meet criteria based on this. Blood pressures are low but consistently low from prior visits well and parents also indicates that this is normal. Vital Signs Vital signs: Vital Signs - 8 hr 02/07/22 11:39 02/07/22 11:40 02/07/22 11:40 Pulse Rate 96 H 92 H Blood Pressure 91/56 L Pulse Oximetry 94 Oxygen Delivery Method 02/07/22 11:45 02/07/22 11:45 02/07/22 11:50 Pulse Rate 87 85 Blood Pressure 97/60 Pulse Oximetry 97 98 Oxygen Delivery Method 02/07/22 11:50 02/07/22 11:55 02/07/22 11:55 Pulse Rate 85 Blood Pressure 97/61 98/61 Pulse Oximetry 98 Oxygen Delivery Method 02/07/22 12:00 02/07/22 12:00 02/07/22 12:05 Pulse Rate 85 89 Blood Pressure 96/57 L Pulse Oximetry 99 99 Oxygen Delivery Method 02/07/22 12:05 02/07/22 12:10 02/07/22 12:10 Pulse Rate 89 Blood Pressure 100/61 99/61 Pulse Oximetry 99 Oxygen Delivery Method Room Air 02/07/22 12:15 02/07/22 12:15 02/07/22 12:20 Pulse Rate 89 85 Blood Pressure 95/61 Pulse Oximetry 99 99 Oxygen Delivery Method Room Air Room Air 02/07/22 12:20 02/07/22 12:25 02/07/22 12:25 Pulse Rate 84 Blood Pressure 97/62 98/63 Pulse Oximetry 99 Oxygen Delivery Method 02/07/22 12:30 02/07/22 12:30 02/07/22 12:35 Pulse Rate 85 84 Blood Pressure 98/61 Pulse Oximetry 99 99 Oxygen Delivery Method Room Air Room Air 02/07/22 12:35 02/07/22 12:40 02/07/22 12:40 Pulse Rate 82 Blood Pressure 99/63 98/59 L Pulse Oximetry 100 Oxygen Delivery Method Room Air 02/07/22 12:45 02/07/22 12:45 02/07/22 12:50 Pulse Rate 84 84 Blood Pressure 97/57 L Pulse Oximetry 99 99 Oxygen Delivery Method Room Air 02/07/22 12:50 02/07/22 12:55 02/07/22 12:55 Pulse Rate 85 Blood Pressure 98/57 L 99/58 L Pulse Oximetry 99 Oxygen Delivery Method Room Air 02/07/22 13:00 02/07/22 13:00 02/07/22 13:05 Pulse Rate 84 88 Blood Pressure 97/61 Pulse Oximetry 100 99 Oxygen Delivery Method Room Air Room Air 02/07/22 13:05 02/07/22 13:10 02/07/22 13:10 Pulse Rate 89 Blood Pressure 100/58 L 96/61 Pulse Oximetry 99 Oxygen Delivery Method Room Air 02/07/22 13:15 02/07/22 13:15 02/07/22 13:20 Pulse Rate 90 92 H Blood Pressure 99/61 Pulse Oximetry 99 99 Oxygen Delivery Method Room Air 02/07/22 13:20 02/07/22 13:25 02/07/22 13:25 Pulse Rate 91 H Blood Pressure 100/59 L 98/56 L Pulse Oximetry 99 Oxygen Delivery Method Room Air 02/07/22 13:30 02/07/22 13:30 02/07/22 13:35 Pulse Rate 90 91 H Blood Pressure 99/59 L Pulse Oximetry 99 99 Oxygen Delivery Method Room Air 02/07/22 13:35 02/07/22 13:40 02/07/22 13:40 Pulse Rate 92 H Blood Pressure 98/59 L 95/57 L Pulse Oximetry 99 Oxygen Delivery Method Room Air 02/07/22 13:45 02/07/22 13:45 02/07/22 13:50 Pulse Rate 89 87 Blood Pressure 98/58 L Pulse Oximetry 99 100 Oxygen Delivery Method Room Air 02/07/22 13:50 02/07/22 13:55 02/07/22 13:55 Pulse Rate 84 Blood Pressure 100/59 L 100/61 Pulse Oximetry 99 Oxygen Delivery Method Room Air 02/07/22 14:00 02/07/22 14:00 02/07/22 14:05 Pulse Rate 86 Blood Pressure 101/64 103/62 Pulse Oximetry 99 Oxygen Delivery Method Room Air 02/07/22 14:05 02/07/22 14:10 02/07/22 14:10 Pulse Rate 84 84 Blood Pressure 97/57 L Pulse Oximetry 99 99 Oxygen Delivery Method Room Air 02/07/22 14:15 02/07/22 14:15 02/07/22 14:20 Pulse Rate 83 Blood Pressure 100/60 97/58 L Pulse Oximetry 99 Oxygen Delivery Method 02/07/22 14:20 02/07/22 14:25 02/07/22 14:25 Pulse Rate 83 92 H Blood Pressure 98/65 Pulse Oximetry 99 99 Oxygen Delivery Method 02/07/22 14:30 02/07/22 14:30 02/07/22 14:35 Pulse Rate 91 H 94 H Blood Pressure 101/66 Pulse Oximetry 98 98 Oxygen Delivery Method Room Air 02/07/22 14:35 Pulse Rate Blood Pressure 103/66 Pulse Oximetry Oxygen Delivery Method Medical Decision Making Lab Data Result diagrams: 02/07/22 06:55 02/07/22 06:55 Labs: Lab Results 02/07/22 02/07/22 02/07/22 Range/Units 06:55 06:55 06:55 WBC 4.8 (4.5-11.0) X10^3/uL RBC 3.75 L (4.0-5.2) X10^6/uL Hgb 10.6 L (12.0-16.0) g/dL Hct 32.0 L (36-46) % MCV 85.3 (80-100) fL MCH 28.1 (26-34) PG MCHC 32.9 (30-36) % RDW 15.2 H (11.6-14.8) % Plt Count 99 L (150-400) X10^3/uL Neut % (Auto) 70.3 (50-75) % Lymph % (Auto) 18.2 L (25-40) % [place] % (Auto) 10.3 (3-14) % Eos % (Auto) 0.0 L (2-4) % Baso % (Auto) 1.2 (0-2) % Neut # (Auto) 3400 (7184-2872) /uL Lymph # (Auto) 900 L (7434-5764) /uL [place] # (Auto) 500 (0-900) /uL Eos # (Auto) 0 (0-450) /uL Baso # (Auto) 100 (0-100) /uL Sodium 136 L (137-145) mmol/L Potassium 2.8 L (3.4-5.1) mmol/L Chloride 97 L (98-107) mmol/L Carbon Dioxide 29 (22-32) mmol/L BUN 4 L (7-17) mg/dL Creatinine 0.61 (0.52-1.04) mg/dL Estimated GFR > 60 (>60) mL/min BUN/Creatinine Ratio 6.6 (6-22) Glucose 130 H (70-100) mg/dL Lactate 1.5 (0.7-2.1) mmol/L Calcium 8.5 (8.4-10.2) mg/dL Phosphorus 4.8 H (2.5-4.5) mg/dL Magnesium 2.1 (1.6-2.3) mg/dL Total Bilirubin 0.5 (0.2-1.3) mg/dL AST 64 H (14-36) IU/L ALT 33 (<35) IU/L Alkaline Phosphatase 55 (38-126) U/L Total Protein 7.8 (6.3-8.2) g/dL Albumin 3.6 (3.5-5.0) g/dL Globulin 4.2 H (1.7-4.1) g/dL Albumin/Globulin Ratio 0.9 L (1.0-2.8) Lipase 33 (23-300) U/L Procalcitonin 0.08 (<0.5) ng/mL TSH (0.47-4.68) uIU/mL Serum , Qual (Negative) Urine Color Urine Appearance Urine pH (4.5-8.0) Ur Specific [place] (1.000-1.035) Urine Protein (Negative) Urine Glucose (UA) (Negative) g/dL Urine Ketones (NEGATIVE) Urine Occult Blood (Negative) Urine Nitrate (Negative) Urine Bilirubin (NEGATIVE) Urine Urobilinogen (0.2) E.U./dL Ur Leukocyte Esterase (NEGATIVE) Urine RBC (0-5/HPF) Urine WBC (0-5/HPF) Ur Squamous Epith Cells (0-5/HPF) Urine Bacteria (None) Ur Culture Indicated? Salicylates < 1.0 (<20) mg/dL U Opiates 300ng/mL cut (Negative) Ur Oxycodone Screen (Negative) Urine Methadone Screen (Negative) Acetaminophen (10-30) ug/mL Ur Barbiturates Screen (Negative) U Tricyclic Antidepress (Negative) Ur Phencyclidine Scrn (Negative) Ur Amphetamines Screen (Negative) U Methamphetamines Scrn (Negative) Ur MDMA Scrn (Ecstasy) (Negative) U Benzodiazepines Scrn (Negative) Urine Cocaine Screen (Negative) U Marijuana (THC) Screen (Negative) Ethyl Alcohol < 10 ( - 10) mg/dL 02/07/22 02/07/22 02/07/22 Range/Units 06:55 06:55 06:55 WBC (4.5-11.0) X10^3/uL RBC (4.0-5.2) X10^6/uL Hgb (12.0-16.0) g/dL Hct (36-46) % MCV (80-100) fL MCH (26-34) PG MCHC (30-36) % RDW (11.6-14.8) % Plt Count (150-400) X10^3/uL Neut % (Auto) (50-75) % Lymph % (Auto) (25-40) % [place] % (Auto) (3-14) % Eos % (Auto) (2-4) % Baso % (Auto) (0-2) % Neut # (Auto) (9988-6691) /uL Lymph # (Auto) (4912-6085) /uL [place] # (Auto) (0-900) /uL Eos # (Auto) (0-450) /uL Baso # (Auto) (0-100) /uL Sodium (137-145) mmol/L Potassium (3.4-5.1) mmol/L Chloride (98-107) mmol/L Carbon Dioxide (22-32) mmol/L BUN (7-17) mg/dL Creatinine (0.52-1.04) mg/dL Estimated GFR (>60) mL/min BUN/Creatinine Ratio (6-22) Glucose (70-100) mg/dL Lactate (0.7-2.1) mmol/L Calcium (8.4-10.2) mg/dL Phosphorus (2.5-4.5) mg/dL Magnesium (1.6-2.3) mg/dL Total Bilirubin (0.2-1.3) mg/dL AST (14-36) IU/L ALT (<35) IU/L Alkaline Phosphatase (38-126) U/L Total Protein (6.3-8.2) g/dL Albumin (3.5-5.0) g/dL Globulin (1.7-4.1) g/dL Albumin/Globulin Ratio (1.0-2.8) Lipase (23-300) U/L Procalcitonin (<0.5) ng/mL TSH 3.58 (0.47-4.68) uIU/mL Serum , Qual Negative (Negative) Urine Color Urine Appearance Urine pH (4.5-8.0) Ur Specific [place] (1.000-1.035) Urine Protein (Negative) Urine Glucose (UA) (Negative) g/dL Urine Ketones (NEGATIVE) Urine Occult Blood (Negative) Urine Nitrate (Negative) Urine Bilirubin (NEGATIVE) Urine Urobilinogen (0.2) E.U./dL Ur Leukocyte Esterase (NEGATIVE) Urine RBC (0-5/HPF) Urine WBC (0-5/HPF) Ur Squamous Epith Cells (0-5/HPF) Urine Bacteria (None) Ur Culture Indicated? Salicylates (<20) mg/dL U Opiates 300ng/mL cut (Negative) Ur Oxycodone Screen (Negative) Urine Methadone Screen (Negative) Acetaminophen < 10 (10-30) ug/mL Ur Barbiturates Screen (Negative) U Tricyclic Antidepress (Negative) Ur Phencyclidine Scrn (Negative) Ur Amphetamines Screen (Negative) U Methamphetamines Scrn (Negative) Ur MDMA Scrn (Ecstasy) (Negative) U Benzodiazepines Scrn (Negative) Urine Cocaine Screen (Negative) U Marijuana (THC) Screen (Negative) Ethyl Alcohol ( - 10) mg/dL 02/07/22 02/07/22 Range/Units 09:11 09:11 WBC (4.5-11.0) X10^3/uL RBC (4.0-5.2) X10^6/uL Hgb (12.0-16.0) g/dL Hct (36-46) % MCV (80-100) fL MCH (26-34) PG MCHC (30-36) % RDW (11.6-14.8) % Plt Count (150-400) X10^3/uL Neut % (Auto) (50-75) % Lymph % (Auto) (25-40) % [place] % (Auto) (3-14) % Eos % (Auto) (2-4) % Baso % (Auto) (0-2) % Neut # (Auto) (0085-8590) /uL Lymph # (Auto) (6769-3094) /uL [place] # (Auto) (0-900) /uL Eos # (Auto) (0-450) /uL Baso # (Auto) (0-100) /uL Sodium (137-145) mmol/L Potassium (3.4-5.1) mmol/L Chloride (98-107) mmol/L Carbon Dioxide (22-32) mmol/L BUN (7-17) mg/dL Creatinine (0.52-1.04) mg/dL Estimated GFR (>60) mL/min BUN/Creatinine Ratio (6-22) Glucose (70-100) mg/dL Lactate (0.7-2.1) mmol/L Calcium (8.4-10.2) mg/dL Phosphorus (2.5-4.5) mg/dL Magnesium (1.6-2.3) mg/dL Total Bilirubin (0.2-1.3) mg/dL AST (14-36) IU/L ALT (<35) IU/L Alkaline Phosphatase (38-126) U/L Total Protein (6.3-8.2) g/dL Albumin (3.5-5.0) g/dL Globulin (1.7-4.1) g/dL Albumin/Globulin Ratio (1.0-2.8) Lipase (23-300) U/L Procalcitonin (<0.5) ng/mL TSH (0.47-4.68) uIU/mL Serum , Qual (Negative) Urine Color Straw Urine Appearance Clear Urine pH 7.0 (4.5-8.0) Ur Specific [place] <=1.005 (1.000-1.035) Urine Protein Negative (Negative) Urine Glucose (UA) Negative (Negative) g/dL Urine Ketones Negative (NEGATIVE) Urine Occult Blood Negative (Negative) Urine Nitrate Negative (Negative) Urine Bilirubin Negative (NEGATIVE) Urine Urobilinogen 0.2 (0.2) E.U./dL Ur Leukocyte Esterase Negative (NEGATIVE) Urine RBC None seen (0-5/HPF) Urine WBC 0-1/hpf (0-5/HPF) Ur Squamous Epith Cells 0-1 /hpf (0-5/HPF) Urine Bacteria Occasional (0-1) (None) Ur Culture Indicated? Cult not indicated Salicylates (<20) mg/dL U Opiates 300ng/mL cut Negative (Negative) Ur Oxycodone Screen Negative (Negative) Urine Methadone Screen Negative (Negative) Acetaminophen (10-30) ug/mL Ur Barbiturates Screen Negative (Negative) U Tricyclic Antidepress Negative (Negative) Ur Phencyclidine Scrn Negative (Negative) Ur Amphetamines Screen Negative (Negative) U Methamphetamines Scrn Negative (Negative) Ur MDMA Scrn (Ecstasy) Negative (Negative) U Benzodiazepines Scrn Negative (Negative) Urine Cocaine Screen Negative (Negative) U Marijuana (THC) Screen Negative (Negative) Ethyl Alcohol ( - 10) mg/dL ECG Data Attestation: I personally reviewed and interpreted this ECG as follows: Interpretation: Sinus rhythm nonspecific change rate 86 KS 186 QRS [address] QTC [address] No acute [address] changes no sinusoidal changes. Patient because of language barriers and her psychiatric issues does not follow commands well and there was delay in getting EKG. MDM Narrative Medical decision making narrative: This is a 31-year-old female with known psychiatric disorder likely prompting her not to eat much food was noted this was a problem during her hospitalization recently for sepsis and infection, parents state her wounds or significantly better she does not appear to be septic today her blood pressure is on the lower end but looks like she was persistently low with systolic Vmax in the 100 range even at discharge. Patient's labs show hypokalemia at 2.8, otherwise bicarb is 29, chloride 97, BUN 4 with a creatinine 0.61 not showing any renal dysfunction today, phosphorus is 4.8 with a glucose of 130 lactate normal at 1.5 with otherwise normal LFTs, TSH and serum is negative. Patient is anemic with a hemoglobin of 10 which appears similar to her earlier stay this month, white count is 4.8 with platelets of 99 no leftward shift or bandemia. UA today is negative. Mother did express concern is she still has drainage from her ear we did discuss that because she has a perfect TM she will have some persistent drainage and she is taking antibiotics. . Patient took oral potassium x 2 here in the department was given additional dose, home olanzapine of 20mg given, 1L fluids given. Patient did take all of these, patient does continue to pull at the scabs and wounds on her head, was given a dose of Ativan she was not willing to take this orally so was given as an IV form. Discussed with Dr. Myers regarding admission for hypokalemia and decreased oral intake. At this time defers she is taking oral potassium. Patient does continue to pull and scratch it the we could try mittens but patient is quite strong and will likely pull these off. Given additional dose of Ativan. I do have a call out to Dr. Stahl with psychiatry to see if we can get her follow-up, social work is meeting with patient and family. Discussed with family about inpatient psychiatric so that patient can get her medications regularly but based on language barriers this might actually be more traumatizing for the patient and not helpful. Family is not interested in this at this time. They did ask about admission to the hospital I did discuss with them that so far hospitalist has declined. Furrier Apprentice was used by myself, Dr. Stahl, medical social consultant. All questions answered. They are comfortable with current plan. Discharge Plan Departure Patient Disposition: Home Clinical Impression: Schizophrenia, Multiple open wounds of face, Hypokalemia Activity Restrictions/Additional Instructions: Follow up with Dr. Stahl our local psychiatrist on February 20 thing in the morning. Call to verify an appointment time. Continue to encourage hydration and whatever form of food she is willing to take. Please restart Prozac 20 mg daily Continue with olanzapine 15 mg in the evening. Prescription sent to [facility]. Please return for worsening changes if patient is having new signs of infection or fevers, increasing redness swelling or drainage from the sores, if she is vomiting, if she is having black or bloody stools, if she is not making urine or having decreased urine output, increasing weakness, passing out or other changes. Prescriptions: New fluoxetine [Prozac] 20 mg capsule 20 mg PO DAILY Qty: 30 0RF olanzapine 15 mg tablet 15 mg PO BEDTIME Qty: 30 0RF No Action olanzapine [Zyprexa Zydis] 10 mg Tablet,Disintegrating 20 mg PO BEDTIME Qty: 60 0RF mupirocin 2 % Ointment 1 applic topical BID Qty: 45 0RF amoxicillin-pot clavulanate 875-125 mg tablet 1 tab PO Q12H Qty: 10 0RF Referrals: Layton Stahl MD [Physician] - Miscellaneous,MD Veronica [Primary Care Provider] - Visit Report Forms: Patient Portal/API
[2022-02-07] MEDS: OLANZapine ODT 10 MG TAB 20 MG PO (09:01)
[2022-02-07] MEDS: diphenhydrAMINE 25 MG TABLET PO (09:02)
[2022-02-07 09:19] LABS: Appearance Urine UA CLEAR; Bilirubin Urine UA NEGATIVE (NEGATIVE); Glucose Urine UA NEGATIVE (Negative); Ketones Urine UA NEGATIVE (NEGATIVE); Leukocyte Esterase Urine UA NEGATIVE (NEGATIVE); Nitrite Urine UA NEGATIVE (Negative); Occult Blood Urine UA NEGATIVE (Negative); Protein Urine UA NEGATIVE (Negative); Specific Gravity Urine UA <=1.005 (1.000-1.035); Urobilinogen Urine UA 0.2 E.U./dL (0.2)
--- NOTE | 2022-02-07 09:19 | PC.NURSE ---
Parents at bedside assisting with patient. Patient pulled off blood pressure cuff and pulse oximetry. Patient continuously attempting to pull self out of bed, pulling clothes and blankets off. RN continuously assisting with repositioning and attempting to meet pt needs. Assisted pt to use bedpan and applied diaper. New blankets applied.
[2022-02-07 09:26] LABS: UR Morphine/Opiate cutoff 300 Negative (Negative); Ur Creatinine Normal (Normal); Ur Specific Gravity Normal (Normal); Urine Amphetamines Negative (Negative); Urine Cocaine Negative (Negative); Urine MDMA Negative (Negative); Urine Methamphetamines Negative (Negative); Urine Phencyclidine Negative (Negative); Urine Tetrahydrocannabinol Negative (Negative); Urine pH Normal (Normal)
[2022-02-07 09:27] LABS: Color Urine UA STRAW; Urine Barbiturates Negative (Negative); Urine Benzodiazepines Negative (Negative); Urine Methadone Negative (Negative); Urine Oxycodone Negative (Negative); Urine Tricyclic Antidepressant Negative (Negative)
[2022-02-07 09:34] LABS: Bacteria Urine Occasional (0-1); RBC Urine None Seen (0-5/HPF); Squamous Epithelial Cell Urine 0-1 /HPF (0-5/HPF); WBC Urine 0-1/HPF (0-5/HPF)
[2022-02-07 09:35] LABS: Culture Indicated Urine Cult Not Indicated
[2022-02-07] MEDS: LORazepam 2 MG/ML INJ 1 MG IM (10:57)
--- NOTE | 2022-02-07 11:09 | PC.NURSE ---
Patient continuously picking at skin despite education and attempts by parents to stop her. Pt has various skin peals on her chin, nose, top of her head, back of her head, and belly button. Vasaline gauze placed on back of head by parent, pt immediately removed. Dressing placed over belly button in attempt to protect.
--- NOTE | 2022-02-07 12:00 | PC.NURSE ---
Education provided at time of Ativan administration and pt mother agreed, pt mother pulled RN into room and is on phone with pt father, expresses concern that pt received Ativan during a past admission and it made her weak, mother further states she is here for weakness. Pt is breathing even and unlabored, eyes closed, moving freely. Re-educated parents on the indication for the Ativan and the relatively short acting nature of the medication r/t the weakness the pt is experiencing today. wood heel attacher notified and further educated pt parent. Dr. Cristian jacobs.
--- NOTE | 2022-02-07 12:12 | CM.SWNOTE ---
SW Note This is a 31-year-old female with known schizophrenia, trichotillomania, OCD female with history of IVC filter and prior DVT PE in 2018 who's primary language is [place], patient lives full [place] with her parents who the her caregivers, she has schizophrenia and obsessive-compulsive behaviors. Pt is brought in by parents who are concerned that her infection is not resolving and patient has not eaten in 6 days. Pt has Medicaid and Medicare A+B. Pt's mother reports that pt has an appointment with a new PCP on 02/22/22 but she cannot recall the name of the provider. SW meets with pt and her mother using [place] healthcare interpreter. Pt is non-responsive and not able to meaningfully participate in interview. Pt's mother reports that she is most concerned that pt is not eating because she believes that her noodles are snakes. SW asked if pt has been compliant with psychiatric medication and mother reports that she usually is but misses it occasionally. SW explains the importance of medication compliance and explains that the obsessive picking and subsequent infections are due to psychosis. SW also explains that pt's delusional thoughts regarding her food are likely due to uncontrolled schizophrenia. Pt's mother got pt's father on phone to discuss further. Pt's mom and dad want to take care of her psychiatric needs at home but have a major concern about the unresolved infection. SW discussed with ED Provider and agreed parents need more medical education and instruction. SW will provide mental health resources as well. NIALL King
--- NOTE | 2022-02-07 15:07 | P.CONS_ITS ---
History of Present Illness Consult details Date Patient Seen: 02/07/22 Time Patient Seen: 12:45 Chief complaint: hasnt eaten in 6 days Reason for consult: Schizophrenia, OCD, skin picking Requesting provider: Disha Foster Narrative: REFERRAL INFORMATION This is the latest of many psychiatric evaluations for this 31-year-old filipina female (Tagalog speaking only) referred from the emergency department for evaluation of psychosis and chronic skin picking as well as refusing to eat for the past 6 days.. RECORDS REVIEW The patient?s referral documents, medical records and intake questionnaire were reviewed as part of this evaluation. The patient was previously seen in this clinic for several years by KAE Aguirre as far back as 2015. I reviewed several of her record going back to 2018 in the current EHR. Attention is directed to those documents for complete details not repeated here. CHIEF COMPLAINT The patient is unable to articulate a chief complaint. ED staff spoke with the patient's mother and father to obtain history. I spoke with the patient's mother. HISTORY OF PRESENT ILLNESS The patient has a long history of psychotic symptoms, behavioral outbursts, and compulsive behaviors that date back many years. She can be verbal at times but meaningful conversation is extremely limited. She apparently was diagnosed with lupus sometime around 2019 but it is unclear if the patient has continued any treatment for this. She was also hospitalized at the [facility] for 6 days in December of 2018 when she presented with a red blotchy rash over her entire body. She was treated with prednisone and topical steroids, diagnosed with lupus in sent home. The patient has a long history of scratching various body parts but mostly head and face and skin picking around her face. In addition she also has a very long history of profoundly poor appetite and frequently refusing to eat for long periods of time. The patient has a number of compulsive behaviors in addition to scratching her skin such as hair pulling and chronic masturbation. The patient has also been noted in the past to have persistent and severe auditory, visual, and tactile hallucinations. Frequently in previous notes she appeared to often respond to internal stimuli with little to no meaningful conversation. The patient had not been seen in our clinic since February of 2019 possibly due to precautions related to the COVID pandemic. The family traveled to the [facility] in 2018 for a family visit and when they returned, the patient had a DVT from the long plane flight. Somewhere around the time of traveling the [facility], the patient's parents have intermittently discontinued fluoxetine with possible subsequent worsening of the patient's skin picking, hair pulling, and OCD behavior. They have also intermittently discontinued or adjusted the dose of olanzapine down from 20 mg to 10 or 15 mg depending upon how sedated the patient is. They have been managing this with minimal assistance from a local PCP who has provided medication prescriptions for them. In the last month or so, the patient's condition has deteriorated significantly. She began to refuse to eat and on 28 January was seen in this emergency department with fever and septic shock. The patient was admitted and appropriately treated but later discharged as it was impossible to find any stable placement for her in the psychiatric unit given her severe limitations of language, medical issues, and acuity of illness. After being discharged from the hospital on 02/01/2022, they returned today (02/07/2022) continuing to note that the patient refuses to eat and only drinks water. Mother suspects that there may be some sort of dental issue going on and has tried to have her seen by a dentist in the past but she refuses to open her mouth. PAST PSYCHIATRIC HISTORY * Diagnoses: Chronic history of schizophrenia and OCD as well as intellectual deficits * Inpatient: Unknown whether or not the patient has been an inpatient in the past but we suspect so * Outpatient: Was seen in this clinic for roughly 4-5 years for being lost to follow-up due to COVID. * Suicide Attempts: None known PREVIOUS PSYCHIATRIC MEDICATION TRIALS Has been treated with fluoxetine and olanzapine for the past several years. Unclear if other antipsychotic medications have been tried. CURRENT PSYCHOTROPIC MEDICATIONS Most recently fluoxetine 20 mg daily and olanzapine 20 mg nightly. FAMILY HISTORY * Maternal: None known * Paternal: None known * Siblings: None known SUBSTANCE USE HISTORY * Tobacco: The patient does not smoke. * Alcohol: The patient does not drink. No history of abuse. * Drugs: The patient does not use drugs. DEVELOPMENTAL AND SOCIAL HISTORY * Family Constellation/Environment: Unclear regarding patient's siblings. * Childhood Trauma: None known * Developmental milestones: Developmental delay. * Education: Unknown * Employment: Never employed * Relationships: No relationship * Current Living: Currently lives with parents on [facility] and they are primary caregivers. * Support: Supported by parents * Legal: No current legal difficulties. HISTORY * None. * Deployments: N/A * Combat Exposure: N/A * Blast Exposure: N/A SIGNIFICANT MEDICAL HISTORY * PCP: Unclear * Allergies: Mirtazapine as listed in chart. * Medical Problems: Recent history of sepsis. * Current Medications: See list above. * Herbals/Supplements: None. Meds Home Medications and Allergies Home Medications Medication Instructions Recorded Confirmed Type amoxicillin 875 mg-potassium 1 tab PO Q12H #10 tabs 02/01/22 Rx clavulanate 125 mg tablet mupirocin 2 % topical ointment 1 applic topical BID #45 grams 02/01/22 Rx olanzapine 10 mg disintegrating 20 mg PO BEDTIME #60 tabs 02/01/22 Rx tablet (Zyprexa Zydis) fluoxetine 20 mg capsule (Prozac) 20 mg PO DAILY #30 caps 02/07/22 Rx olanzapine 15 mg tablet 15 mg PO BEDTIME #30 tabs 02/07/22 Rx Allergies Allergy/AdvReac Type Severity Reaction Status Date / Time mirtazapine AdvReac Intermediate Rash severe Verified 01/20/22 06:52 Review of Systems Review of Systems ROS: Yes unobtainable due to mental condition Exam Vital Signs (past 8 hours): - 02/07/22 07:10 02/07/22 07:10 02/07/22 07:15 Pulse Rate 97 H Blood Pressure 101/52 L 106/51 L Pulse Oximetry 98 Oxygen Delivery Method 02/07/22 07:15 02/07/22 07:20 02/07/22 07:20 Pulse Rate 92 H 90 Blood Pressure 108/53 L Pulse Oximetry 100 100 Oxygen Delivery Method Room Air 02/07/22 07:25 02/07/22 07:25 02/07/22 07:30 Pulse Rate 89 Blood Pressure 105/54 L 102/53 L Pulse Oximetry 100 Oxygen Delivery Method Room Air 02/07/22 07:30 02/07/22 07:35 02/07/22 07:35 Pulse Rate 89 89 Blood Pressure 100/51 L Pulse Oximetry 100 99 Oxygen Delivery Method Room Air Room Air 02/07/22 07:40 02/07/22 07:40 02/07/22 07:45 Pulse Rate 86 85 Blood Pressure 101/52 L Pulse Oximetry 99 99 Oxygen Delivery Method Room Air Room Air 02/07/22 07:45 02/07/22 07:50 02/07/22 07:50 Pulse Rate 86 Blood Pressure 101/50 L 101/54 L Pulse Oximetry 99 Oxygen Delivery Method Room Air 02/07/22 07:55 02/07/22 07:55 02/07/22 08:00 Pulse Rate 85 Blood Pressure 102/50 L 107/55 L Pulse Oximetry 100 Oxygen Delivery Method Room Air 02/07/22 08:00 02/07/22 08:05 02/07/22 08:05 Pulse Rate 97 H 91 H Blood Pressure 100/55 L Pulse Oximetry 100 100 Oxygen Delivery Method Room Air Room Air 02/07/22 08:10 02/07/22 08:10 02/07/22 08:20 Pulse Rate 89 Blood Pressure 101/56 L 108/55 L Pulse Oximetry 100 Oxygen Delivery Method Room Air 02/07/22 08:20 02/07/22 08:26 02/07/22 08:26 Pulse Rate 91 H 103 H Blood Pressure 99/58 L Pulse Oximetry 100 100 Oxygen Delivery Method Room Air Room Air 02/07/22 08:30 02/07/22 10:00 02/07/22 10:00 Pulse Rate 95 H 107 H Blood Pressure 97/52 L Pulse Oximetry 100 98 Oxygen Delivery Method Room Air Room Air 02/07/22 10:30 02/07/22 11:39 02/07/22 11:40 Pulse Rate 96 H 92 H Blood Pressure Pulse Oximetry 99 94 Oxygen Delivery Method Room Air 02/07/22 11:40 02/07/22 11:45 02/07/22 11:45 Pulse Rate 87 Blood Pressure 91/56 L 97/60 Pulse Oximetry 97 Oxygen Delivery Method 02/07/22 11:50 02/07/22 11:50 02/07/22 11:55 Pulse Rate 85 85 Blood Pressure 97/61 Pulse Oximetry 98 98 Oxygen Delivery Method 02/07/22 11:55 02/07/22 12:00 02/07/22 12:00 Pulse Rate 85 Blood Pressure 98/61 96/57 L Pulse Oximetry 99 Oxygen Delivery Method 02/07/22 12:05 02/07/22 12:05 02/07/22 12:10 Pulse Rate 89 Blood Pressure 100/61 99/61 Pulse Oximetry 99 Oxygen Delivery Method 02/07/22 12:10 02/07/22 12:15 02/07/22 12:15 Pulse Rate 89 89 Blood Pressure 95/61 Pulse Oximetry 99 99 Oxygen Delivery Method Room Air Room Air 02/07/22 12:20 02/07/22 12:20 02/07/22 12:25 Pulse Rate 85 Blood Pressure 97/62 98/63 Pulse Oximetry 99 Oxygen Delivery Method Room Air 02/07/22 12:25 02/07/22 12:30 02/07/22 12:30 Pulse Rate 84 85 Blood Pressure 98/61 Pulse Oximetry 99 99 Oxygen Delivery Method Room Air 02/07/22 12:35 02/07/22 12:35 02/07/22 12:40 Pulse Rate 84 Blood Pressure 99/63 98/59 L Pulse Oximetry 99 Oxygen Delivery Method Room Air 02/07/22 12:40 02/07/22 12:45 02/07/22 12:45 Pulse Rate 82 84 Blood Pressure 97/57 L Pulse Oximetry 100 99 Oxygen Delivery Method Room Air 02/07/22 12:50 02/07/22 12:50 02/07/22 12:55 Pulse Rate 84 Blood Pressure 98/57 L 99/58 L Pulse Oximetry 99 Oxygen Delivery Method Room Air 02/07/22 12:55 02/07/22 13:00 02/07/22 13:00 Pulse Rate 85 84 Blood Pressure 97/61 Pulse Oximetry 99 100 Oxygen Delivery Method Room Air Room Air 02/07/22 13:05 02/07/22 13:05 02/07/22 13:10 Pulse Rate 88 89 Blood Pressure 100/58 L Pulse Oximetry 99 99 Oxygen Delivery Method Room Air Room Air 02/07/22 13:10 02/07/22 13:15 02/07/22 13:15 Pulse Rate 90 Blood Pressure 96/61 99/61 Pulse Oximetry 99 Oxygen Delivery Method Room Air 02/07/22 13:20 02/07/22 13:20 02/07/22 13:25 Pulse Rate 92 H 91 H Blood Pressure 100/59 L Pulse Oximetry 99 99 Oxygen Delivery Method Room Air 02/07/22 13:25 02/07/22 13:30 02/07/22 13:30 Pulse Rate 90 Blood Pressure 98/56 L 99/59 L Pulse Oximetry 99 Oxygen Delivery Method 02/07/22 13:35 02/07/22 13:35 02/07/22 13:40 Pulse Rate 91 H Blood Pressure 98/59 L 95/57 L Pulse Oximetry 99 Oxygen Delivery Method Room Air 02/07/22 13:40 02/07/22 13:45 02/07/22 13:45 Pulse Rate 92 H 89 Blood Pressure 98/58 L Pulse Oximetry 99 99 Oxygen Delivery Method Room Air Room Air 02/07/22 13:50 02/07/22 13:50 02/07/22 13:55 Pulse Rate 87 84 Blood Pressure 100/59 L Pulse Oximetry 100 99 Oxygen Delivery Method Room Air 02/07/22 13:55 02/07/22 14:00 02/07/22 14:00 Pulse Rate 86 Blood Pressure 100/61 101/64 Pulse Oximetry 99 Oxygen Delivery Method Room Air 02/07/22 14:05 02/07/22 14:05 02/07/22 14:10 Pulse Rate 84 84 Blood Pressure 103/62 Pulse Oximetry 99 99 Oxygen Delivery Method Room Air 02/07/22 14:10 02/07/22 14:15 02/07/22 14:15 Pulse Rate 83 Blood Pressure 97/57 L 100/60 Pulse Oximetry 99 Oxygen Delivery Method 02/07/22 14:20 02/07/22 14:20 02/07/22 14:25 Pulse Rate 83 Blood Pressure 97/58 L 98/65 Pulse Oximetry 99 Oxygen Delivery Method 02/07/22 14:25 02/07/22 14:30 02/07/22 14:30 Pulse Rate 92 H 91 H Blood Pressure 101/66 Pulse Oximetry 99 98 Oxygen Delivery Method Room Air 02/07/22 14:35 02/07/22 14:35 Pulse Rate 94 H Blood Pressure 103/66 Pulse Oximetry 98 Oxygen Delivery Method Oxygen Delivery Method Room Air Narrative Exam Narrative: MENTAL STATUS EXAM * Appearance: Thin, ill appearing filipina female seen lying in her hospital bed with numerous sores and wounds on face and scalp with several areas of hair missing. * Grooming: Dressed in hospital attire. * Behavior: Asleep sedated from recent administration of Ativan. * Eye contact: None * Gait: Not tested * Speech: Not tested * Mood: Unable to state * Affect: Sleeping * Thought Process: Not tested * Thought Content: Not tested * Attention: Asleep * Orientation: Unable to examine * Memory: Unable to examine * Insight: Poor by history * Judgment: Poor by history Objective Labs Result Diagrams: 02/07/22 06:55 02/07/22 06:55 Labs: Laboratory Results - last 24 hr 02/07/22 02/07/22 02/07/22 06:55 06:55 06:55 WBC 4.8 RBC 3.75 L Hgb 10.6 L Hct 32.0 L MCV 85.3 MCH 28.1 MCHC 32.9 RDW 15.2 H Plt Count 99 L Neut % (Auto) 70.3 Lymph % (Auto) 18.2 L Lyman % (Auto) 10.3 Eos % (Auto) 0.0 L Baso % (Auto) 1.2 Neut # (Auto) 3400 Lymph # (Auto) 900 L Lyman # (Auto) 500 Eos # (Auto) 0 Baso # (Auto) 100 Sodium 136 L Potassium 2.8 L Chloride 97 L Carbon Dioxide 29 BUN 4 L Creatinine 0.61 Estimated GFR > 60 BUN/Creatinine Ratio 6.6 Glucose 130 H Lactate 1.5 Calcium 8.5 Phosphorus 4.8 H Magnesium 2.1 Total Bilirubin 0.5 AST 64 H ALT 33 Alkaline Phosphatase 55 Total Protein 7.8 Albumin 3.6 Globulin 4.2 H Albumin/Globulin Ratio 0.9 L Lipase 33 Procalcitonin 0.08 TSH Serum , Qual Urine Color Urine Appearance Urine pH Ur Specific Dix Urine Protein Urine Glucose (UA) Urine Ketones Urine Occult Blood Urine Nitrate Urine Bilirubin Urine Urobilinogen Ur Leukocyte Esterase Urine RBC Urine WBC Ur Squamous Epith Cells Urine Bacteria Ur Culture Indicated? Salicylates < 1.0 U Opiates 300ng/mL cut Ur Oxycodone Screen Urine Methadone Screen Acetaminophen Ur Barbiturates Screen U Tricyclic Antidepress Ur Phencyclidine Scrn Ur Amphetamines Screen U Methamphetamines Scrn Ur MDMA Scrn (Ecstasy) U Benzodiazepines Scrn Urine Cocaine Screen U Marijuana (THC) Screen Ethyl Alcohol < 10 02/07/22 02/07/22 02/07/22 06:55 06:55 06:55 WBC RBC Hgb Hct MCV MCH MCHC RDW Plt Count Neut % (Auto) Lymph % (Auto) Lyman % (Auto) Eos % (Auto) Baso % (Auto) Neut # (Auto) Lymph # (Auto) Lyman # (Auto) Eos # (Auto) Baso # (Auto) Sodium Potassium Chloride Carbon Dioxide BUN Creatinine Estimated GFR BUN/Creatinine Ratio Glucose Lactate Calcium Phosphorus Magnesium Total Bilirubin AST ALT Alkaline Phosphatase Total Protein Albumin Globulin Albumin/Globulin Ratio Lipase Procalcitonin TSH 3.58 Serum , Qual Negative Urine Color Urine Appearance Urine pH Ur Specific Dix Urine Protein Urine Glucose (UA) Urine Ketones Urine Occult Blood Urine Nitrate Urine Bilirubin Urine Urobilinogen Ur Leukocyte Esterase Urine RBC Urine WBC Ur Squamous Epith Cells Urine Bacteria Ur Culture Indicated? Salicylates U Opiates 300ng/mL cut Ur Oxycodone Screen Urine Methadone Screen Acetaminophen < 10 Ur Barbiturates Screen U Tricyclic Antidepress Ur Phencyclidine Scrn Ur Amphetamines Screen U Methamphetamines Scrn Ur MDMA Scrn (Ecstasy) U Benzodiazepines Scrn Urine Cocaine Screen U Marijuana (THC) Screen Ethyl Alcohol 02/07/22 02/07/22 09:11 09:11 WBC RBC Hgb Hct MCV MCH MCHC RDW Plt Count Neut % (Auto) Lymph % (Auto) Lyman % (Auto) Eos % (Auto) Baso % (Auto) Neut # (Auto) Lymph # (Auto) Lyman # (Auto) Eos # (Auto) Baso # (Auto) Sodium Potassium Chloride Carbon Dioxide BUN Creatinine Estimated GFR BUN/Creatinine Ratio Glucose Lactate Calcium Phosphorus Magnesium Total Bilirubin AST ALT Alkaline Phosphatase Total Protein Albumin Globulin Albumin/Globulin Ratio Lipase Procalcitonin TSH Serum , Qual Urine Color Straw Urine Appearance Clear Urine pH 7.0 Ur Specific Dix <=1.005 Urine Protein Negative Urine Glucose (UA) Negative Urine Ketones Negative Urine Occult Blood Negative Urine Nitrate Negative Urine Bilirubin Negative Urine Urobilinogen 0.2 Ur Leukocyte Esterase Negative Urine RBC None seen Urine WBC 0-1/hpf Ur Squamous Epith Cells 0-1 /hpf Urine Bacteria Occasional (0-1) Ur Culture Indicated? Cult not indicated Salicylates U Opiates 300ng/mL cut Negative Ur Oxycodone Screen Negative Urine Methadone Screen Negative Acetaminophen Ur Barbiturates Screen Negative U Tricyclic Antidepress Negative Ur Phencyclidine Scrn Negative Ur Amphetamines Screen Negative U Methamphetamines Scrn Negative Ur MDMA Scrn (Ecstasy) Negative U Benzodiazepines Scrn Negative Urine Cocaine Screen Negative U Marijuana (THC) Screen Negative Ethyl Alcohol [facility] Medical History History of DVT (deep vein thrombosis) History of pulmonary embolism Schizophrenia Social History household members: family Tobacco & Substance Use Smoking Status: Never smoker Assessment & Plan Assessment and plan (1) Schizophrenia: Status: Acute (2) Compulsive behaviors: Status: Acute (3) Multiple open wounds of face: Status: Acute (4) Soft tissue infection: Problem details: History of picking skin. Significant erythema/rash of face/neck. Drainage noted from external ear per bedside team. Status: Acute Assessment & Plan narrative: ASSESSMENT/MEDICAL DECISION MAKING The patient is a 31-year-old filipina with a very long history of psychotic illness complicated by obsessive-compulsive disorder manifested by extremely treatment resistant hair pulling, skin picking, scratching, that may be possibly related to delusional content. In speaking with the patient's mother, it appears that she is not been consistently adherent with fluoxetine for at least the past 2 years. In addition, it seems that adherence with olanzapine may also be problematic. Parents apparently have some concerns about over-sedation which are likely quite legitimate. Given patient's history of non adherence she needs to be transitioned over to a long-acting injectable antipsychotic medication, but this will require cross tapering olanzapine with another medication and consistent follow-up. RECOMMENDATIONS: 1. Although patient could benefit from inpatient admission, with no beds currently available, severe language barrier, and ongoing medical issues, it is not likely that she will be accepted for admission. Long-term stay in the emergency department is also seen as counter productive and possibly harmful, so I recommend the patient be discharged family and home. 2. Instruct parents to resume previous medications of fluoxetine 20 mg daily and olanzapine 15 mg nightly. 3. Recommend using Zyprexa Zydis (dissolving lozenges) in order to ensure medication adherence. 4. Recommend continued antibiotic treatment for soft tissue infection from skin picking. Would also nutrition counselor parents to be observant regarding possible dental abscess as well. 5. Mother encouraged to improve nutrition with any means possible including, but not limited to, ensure or boost, coordination instant breakfast, ice cream, milk shakes, milk, soft foods, trials of anything and everything that she might be willing to eat in order to maintain adequate nutrition and not allow her to drink only water. 6. Patient to follow-up with [facility] an [facility] at 8:00 a.m. on FridayFebruary 20. Time Spent With Patient Time with patient: 70 minutes or more, with 50% spent counseling/coordinating Critical Care time: I spent a total of 80 minutes of critical care time on this patient's care today; this time is exclusive of procedural time.
== END 2022-02-07 15:00 | disposition home or self-care (01) ==
PROVIDERS: Emergency Medicine; Emergency Provider Emergency Medicine
DX: F20.9 Schizophrenia, unspecified (principal); S01.80XA Unspecified open wound of other part of head, initial encounter; E87.6 Hypokalemia; D64.9 Anemia, unspecified
CPT/HCPCS: 36415; 80053; 80305; 80320; 80329; 81001; 83605; 83690; 83735; 84100; 84145; 84443; 84703; 85025; 93005; 96360; 96361; 96372; 99284; 99285; G0480; J2060

== ENCOUNTER 2022-02-20 09:10 | Inpatient (IN) | payer MEDICARE, MEDICAID, SELFPAY ==
[2022-01-28 18:36] VITALS: BMI 17.4
[2022-02-20] VITALS (50 sets, daily range): BP systolic 82–126; BP diastolic 45–67; PULSE 59–120; RESP 19–52; TEMP 37.2–38.7; O2SAT 97–100; BMI 19.4
--- NOTE | 2022-02-20 09:24 | DI.RAD.S_ITS ---
PROCEDURE: XR CHEST 1V INDICATIONS: Sepsis TECHNIQUE: One view of the chest was acquired. COMPARISON: [facility], CT, CT ANGIO CHEST PE PROTOCOL, 01/28/2022, 17:42. [facility], CR, XR CHEST 1V, 01/28/2022, 14:13. [facility], CR, XR CHEST 1V, 01/28/2022, 8:50. FINDINGS: Surgical changes and devices: Previous right IJ central venous line has been removed. Lungs and pleura: No consolidation. Hazy opacity bilaterally. No pleural effusions or pneumothorax. Mediastinum: Mediastinal contours appear normal. Heart size is normal. Bones and chest wall: No suspicious bony lesions. Overlying soft tissues appear unremarkable. IMPRESSION: Hazy opacity bilaterally is similar. This could represent pulmonary edema. Infectious/inflammatory etiology could have a similar appearance. No consolidation. Dictated by: Guilherme Henderson M.D. on 02/20/2022 at 10:31 Approved by: Guilherme Henderson M.D. on 02/20/2022 at 10:34
[2022-02-20] MEDS: LORazepam 2 MG/ML INJ 4 MG (09:30)
--- NOTE | 2022-02-20 09:31 | ED_ITS ---
HPI - Fever General Chief Complaint: Altered Mental Status Stated Complaint: Psych Time Seen by Provider: 02/20/22 09:24 Source: EMS Mode of arrival: EMS Limitations: altered mental status History of Present Illness HPI Narrative: The patient has very limited history. She arrives with paramedics. She was at psychiatric clinic nearby. She has history of schizophrenia, trichotillomania and OCD. There are many picking lesions, particularly on her face, and head. She developed fever. She was combative when paramedics arrived. She is given ketamine 200 mg by paramedics. She was having seizure upon arrival, she is obviously sedated, she is having contractures and flinching in both hands. Limited past medical records indicate a history of picking, and multiple skin lesions. There is a history of violent behavior. There is no history of seizures. Per psychiatrist came to the ER after she was transferred here. Apparently she was very violent in the clinic prior to paramedics coming in. This is part of her history. Her management includes Prozac and Zyprexa. Although her parents assist with her care, Dr. Stahl suspect she is noncompliant with medications. His intent was to start her on injectable Zyprexa. Related Data Previous Rx's Medication Instructions Recorded amoxicillin 875 mg-potassium 1 tab PO Q12H #10 tabs 02/01/22 clavulanate 125 mg tablet mupirocin 2 % topical ointment 1 applic topical BID #45 grams 02/01/22 olanzapine 10 mg disintegrating 20 mg PO BEDTIME #60 tabs 02/01/22 tablet (Zyprexa Zydis) fluoxetine 20 mg capsule (Prozac) 20 mg PO DAILY #30 caps 02/07/22 olanzapine 15 mg tablet 15 mg PO BEDTIME #30 tabs 02/07/22 Allergies Allergy/AdvReac Type Severity Reaction Status Date / Time mirtazapine AdvReac Intermediate Rash severe Verified 02/20/22 08:10 Review of Systems Review of Systems ROS Unobtainable: Unobtainable due to mental status/LOC Patient History Medical History History of DVT (deep vein thrombosis) History of pulmonary embolism Schizophrenia Social History household members: family Smoking Status: Never smoker Smoking Status: Never smoker Substance Use Type: does not use Exam Initial Vital Signs Initial Vital Signs: Vital Signs Temperature 101.7 F H 02/20/22 09:15 Pulse Rate 120 H 02/20/22 09:15 Respiratory Rate 52 H 02/20/22 09:15 Blood Pressure 126/64 02/20/22 09:15 Pulse Oximetry 97 02/20/22 09:15 Oxygen Delivery Method 02/20/22 09:15 Const General: other (Sedated. Nonresponsive. Seizure activity. Normal respiratory effort.) HENOR Head: other (Extensive skin lesions from picking on her face, neck and scalp.) Ears: TM's normal bilaterally Nose: nares normal Face and sinus: other (Deep, large skin lesions.) Mouth: oral mucosae normal Throat: posterior oropharynx normal Eyes General: Yes appearance normal, both eyes and all related structures Pupils: PERRL Neck Neck: other (No suggestive rigidity or tenderness.) Chest Chest: normal inspection of the chest Resp Effort & Inspection: normal respiratory effort and other (Bibasilar rales.) Cardio Rate: regular rate Rhythm: regular rhythm Heart Sounds: S1 normal, S2 normal and no murmurs GI Inspection: normal to inspection Palpation: soft Auscultation: normal bowel sounds and other (No distension.) Rectal Exam: normal sphincter tone Other: Stool is heme-negative. Back/Spine/Pelvis Back: normal to inspection Skin Other: Large lesions on her head and neck as noted above. This is from extensive picking. There is no oozing from either site, no pus. There is no distinct areas of erythema. There is no suggestion of cellulitis despite the extensive lesions. Extrem Other: Heavily sedated. Nonresponsive. Course Course Course Narrative: The patient had been sedated with ketamine. She is having a seizure. Seizure activity was arrested with IV Ativan. Ativan drip was established. Zyprexa 10 mg IM was administered. Labs included H/H of 7.1/21.8, a notable drop compared to prior CBCs. No obvious source for hemorrhage was noted. It was suspected that she has bled that much from the many skin lesions on her scalp. WBC count is normal, lactate last cells 4.1. She received Zosyn, IV boluses. She rece ived 2 units PRBCs. Lactic acid level has improved to 1.0. Her case was discussed with hospitalist, Dr. Ragsdale. Dr. Ragsdale is with this patient. He tells me he is personally aware that she has a tremor, possibly interpreted here as a seizure. She is been weaned off Ativan, she remains sedated, assumed due to the Zyprexa injection. She is admitted to hospitalist services for ongoing care. Dr. Stahl, psychiatry, has made himself available for consultation regarding the patient's mental health needs. Orders Ordered: ED Orders 02/20/22 09:15 Covid-19 + FLU A/B + RSV - PCR Stat Wound Culture and Gram Stain Stat 02/20/22 09:24 XR chest 1V Stat 02/20/22 09:25 Blood Culture Stat Complete Blood Count AUTO DIFF Stat Comprehensive Metabolic Panel Stat Lactate (Lactic Acid) Stat Procalcitonin Stat Troponin & CK Cardiac Panel Stat 02/20/22 09:50 Urinalysis and Microscopic Stat 02/20/22 10:31 EKG-12 Lead Stat 02/20/22 10:39 PRBC [Packed Cells] Stat Type and Screen Stat 02/20/22 12:17 CT head/brain wo con Stat 02/20/22 13:50 Ionized Calcium Stat Lorazepam 20 mg/ Sodium (Chloride) 100 mls @ 5 mls/hr IV TITRATE ESTEVAN; Protocol Last Titration: 02/20/22 14:49 Dose: 0 mg/kg/hr, 0 mls/hr Documented By: Titration: 02/20/22 13:05 Dose: 0.02 mg/kg/hr, 4.52 mls/hr Documented By: Titration: 02/20/22 11:25 Dose: 0.05 mg/kg/hr, 11.3 mls/hr Documented By: Admin: 02/20/22 10:00 Dose: 0.1 mg/kg/hr, 22.6 mls/hr Documented By: BRANDON Discontinued Medications Acetaminophen (Acetaminophen Susp 650 Mg/20.3 Ml Udc) 650 mg PO NOW ONE Stop: 02/20/22 09:30 Last Admin: 02/20/22 10:24 Dose: Not Given Documented By: BRANDON Acetaminophen (Acetaminophen 650 Mg Supp) 650 mg MO NOW ONE Stop: 02/20/22 09:36 Last Admin: 02/20/22 10:12 Dose: 650 mg Documented By: BRANDON Piperacillin Sod/Tazobactam (Sod 4.5 gm/ Sodium Chloride) 100 mls @ 200 mls/hr IV NOW ONE Stop: 02/20/22 09:25 Last Infusion: 02/20/22 10:43 Dose: 0 mls/hr Documented By: Admin: 02/20/22 09:53 Dose: 200 mls/hr Documented By: BRANDON Sodium Chloride (Normal Saline 0.9%) 1,000 mls @ 1,000 mls/hr IV BOLUS ONE Stop: 02/20/22 10:27 Last Infusion: 02/20/22 10:53 Dose: 0 mls/hr Documented By: Admin: 02/20/22 09:54 Dose: 1,000 mls/hr Documented By: BRANDON Sodium Chloride (Normal Saline 0.9%) 1,000 mls @ 1,000 mls/hr IV BOLUS ONE Stop: 02/20/22 11:23 Last Infusion: 02/20/22 11:25 Dose: 0 mls/hr Documented By: Admin: 02/20/22 10:42 Dose: 1,000 mls/hr Documented By: BRANDON POTASSIUM CHLORIDE IN WATER (Potassium Cl 10 Meq/100 Ml [place]) 10 meq in 100 mls @ 100 mls/hr IV Q1H ESTEVAN Stop: 02/20/22 12:44 Last Infusion: 02/20/22 13:00 Dose: 0 mls/hr Documented By: Admin: 02/20/22 11:47 Dose: 100 mls/hr Documented By: Infusion: 02/20/22 11:47 Dose: 0 mls/hr Documented By: Admin: 02/20/22 10:44 Dose: 100 mls/hr Documented By: BRANDON Lorazepam (Lorazepam 2 Mg/Ml Inj) 2 mg IV NOW ONE Stop: 02/20/22 09:29 Last Admin: 02/20/22 09:57 Dose: 2 mg Documented By: BRANDON Olanzapine (Olanzapine 10 Mg Vial) 10 mg IM NOW ONE Stop: 02/20/22 09:43 Last Admin: 02/20/22 10:20 Dose: 10 mg Documented By: BRANDON Vital Signs Vital signs: Vital Signs - 8 hr 02/20/22 09:15 02/20/22 10:05 02/20/22 10:18 Temperature 101.7 F H 101.7 F H Pulse Rate 120 H 119 H Respiratory Rate 52 H 41 H Blood Pressure 126/64 107/60 Pulse Oximetry 97 98 Oxygen Delivery Method Room Air 02/20/22 10:18 02/20/22 10:30 02/20/22 10:30 Temperature 101.7 F H 101.5 F H Pulse Rate 112 H 110 H Respiratory Rate 34 H 35 H Blood Pressure 90/45 L Pulse Oximetry 99 99 Oxygen Delivery Method 02/20/22 10:32 02/20/22 10:32 02/20/22 10:52 Temperature 101.5 F H 101.3 F H Pulse Rate 108 H 105 H Respiratory Rate 29 H 30 H Blood Pressure 94/50 L Pulse Oximetry 99 99 Oxygen Delivery Method 02/20/22 10:52 02/20/22 10:53 02/20/22 10:53 Temperature 101.1 F H Pulse Rate 104 H Respiratory Rate 27 H Blood Pressure 90/52 L 98/55 L Pulse Oximetry 100 Oxygen Delivery Method 02/20/22 11:00 02/20/22 11:00 02/20/22 11:10 Temperature 101.1 F H Pulse Rate 101 H Respiratory Rate 31 H Blood Pressure 91/51 L 83/45 L Pulse Oximetry 100 Oxygen Delivery Method 02/20/22 11:10 02/20/22 11:11 02/20/22 11:11 Temperature 100.8 F H 100.8 F H Pulse Rate 101 H 99 H Respiratory Rate 34 H 32 H Blood Pressure 82/45 L Pulse Oximetry 99 99 Oxygen Delivery Method 02/20/22 11:13 02/20/22 11:13 02/20/22 11:20 Temperature 100.8 F H 100.6 F H Pulse Rate 97 H 98 H Respiratory Rate 32 H 28 H Blood Pressure 88/52 L Pulse Oximetry 99 100 Oxygen Delivery Method Room Air 02/20/22 11:20 02/20/22 11:34 02/20/22 11:50 Temperature 100.6 F H 100.2 F H Pulse Rate 94 H 90 Respiratory Rate 30 H 30 H Blood Pressure 83/51 L 84/50 L 91/52 L Pulse Oximetry Oxygen Delivery Method 02/20/22 12:02 02/20/22 12:05 02/20/22 12:24 Temperature 100.0 F H 100.0 F H 100.0 F H Pulse Rate 87 89 90 Respiratory Rate 30 H 30 H 21 Blood Pressure 98/54 L 89/54 L 93/58 L Pulse Oximetry Oxygen Delivery Method 02/20/22 13:06 02/20/22 12:24 Temperature 99.5 F 99.1 F Pulse Rate 82 82 Respiratory Rate 30 H 25 H Blood Pressure 96/59 L 98/62 Pulse Oximetry Oxygen Delivery Method MDM - Fever Lab Data Result diagrams: 02/20/22 09:25 02/20/22 09:25 Labs: Lab Results 02/20/22 02/20/22 02/20/22 Range/Units 09:15 09:25 09:25 WBC 6.8 (4.5-11.0) X10^3/uL RBC 2.41 L (4.0-5.2) X10^6/uL Hgb 7.1 L (12.0-16.0) g/dL Hct 21.8 L (36-46) % MCV 90.3 (80-100) fL MCH 29.3 (26-34) PG MCHC 32.4 (30-36) % RDW 17.7 H (11.6-14.8) % Plt Count 164 (150-400) X10^3/uL Neut % (Auto) 80.4 H (50-75) % Lymph % (Auto) 12.5 L (25-40) % [place] % (Auto) 6.6 (3-14) % Eos % (Auto) 0.1 L (2-4) % Baso % (Auto) 0.4 (0-2) % Neut # (Auto) 5500 (7380-6538) /uL Lymph # (Auto) 900 L (7838-9851) /uL [place] # (Auto) 500 (0-900) /uL Eos # (Auto) 0 (0-450) /uL Baso # (Auto) 0 (0-100) /uL Sodium 137 (137-145) mmol/L Potassium 3.2 L (3.4-5.1) mmol/L Chloride 106 (98-107) mmol/L Carbon Dioxide 20 L (22-32) mmol/L BUN 10 (7-17) mg/dL Creatinine 0.52 (0.52-1.04) mg/dL Estimated GFR > 60 (>60) mL/min BUN/Creatinine Ratio 19.2 (6-22) Glucose 144 H (70-100) mg/dL Lactate (0.7-2.1) mmol/L Calcium 6.7 L (8.4-10.2) mg/dL Total Bilirubin 0.3 (0.2-1.3) mg/dL AST 71 H (14-36) IU/L ALT 28 (<35) IU/L Alkaline Phosphatase 64 (38-126) U/L Total Creatine Kinase 850 H (30-135) U/L CK-MB (CK-2) 9.68 H (<2.37) ng/mL CK-MB (CK-2) Rel Index 1.1 L (1.5-5.0) % Troponin I < 0.012 (0.01-0.034) ng/mL Total Protein 5.8 L (6.3-8.2) g/dL Albumin 2.5 L (3.5-5.0) g/dL Globulin 3.3 (1.7-4.1) g/dL Albumin/Globulin Ratio 0.8 L (1.0-2.8) Procalcitonin 0.07 (<0.5) ng/mL Urine Color Urine Appearance Urine pH (4.5-8.0) Ur Specific [place] (1.000-1.035) Urine Protein (Negative) Urine Glucose (UA) (Negative) g/dL Urine Ketones (NEGATIVE) Urine Occult Blood (Negative) Urine Nitrate (Negative) Urine Bilirubin (NEGATIVE) Urine Urobilinogen (0.2) E.U./dL Ur Leukocyte Esterase (NEGATIVE) Urine RBC (0-5/HPF) Urine WBC (0-5/HPF) Urine Bacteria (None) Ur Culture Indicated? Micro UA Comment SARS-CoV-2 (PCR) Negative (Negative) Influenza A (RT-PCR) Flu a negative (NEGATIVE) Influenza B (RT-PCR) Flu b negative (NEGATIVE) RSV (PCR) Negative (Negative) Blood Type Antibody Screen Crossmatch 02/20/22 02/20/22 02/20/22 Range/Units 09:25 09:50 10:39 WBC (4.5-11.0) X10^3/uL RBC (4.0-5.2) X10^6/uL Hgb (12.0-16.0) g/dL Hct (36-46) % MCV (80-100) fL MCH (26-34) PG MCHC (30-36) % RDW (11.6-14.8) % Plt Count (150-400) X10^3/uL Neut % (Auto) (50-75) % Lymph % (Auto) (25-40) % [place] % (Auto) (3-14) % Eos % (Auto) (2-4) % Baso % (Auto) (0-2) % Neut # (Auto) (2559-0903) /uL Lymph # (Auto) (6538-1925) /uL [place] # (Auto) (0-900) /uL Eos # (Auto) (0-450) /uL Baso # (Auto) (0-100) /uL Sodium (137-145) mmol/L Potassium (3.4-5.1) mmol/L Chloride (98-107) mmol/L Carbon Dioxide (22-32) mmol/L BUN (7-17) mg/dL Creatinine (0.52-1.04) mg/dL Estimated GFR (>60) mL/min BUN/Creatinine Ratio (6-22) Glucose (70-100) mg/dL Lactate 4.1 H* (0.7-2.1) mmol/L Calcium (8.4-10.2) mg/dL Total Bilirubin (0.2-1.3) mg/dL AST (14-36) IU/L ALT (<35) IU/L Alkaline Phosphatase (38-126) U/L Total Creatine Kinase (30-135) U/L CK-MB (CK-2) (<2.37) ng/mL CK-MB (CK-2) Rel Index (1.5-5.0) % Troponin I (0.01-0.034) ng/mL Total Protein (6.3-8.2) g/dL Albumin (3.5-5.0) g/dL Globulin (1.7-4.1) g/dL Albumin/Globulin Ratio (1.0-2.8) Procalcitonin (<0.5) ng/mL Urine Color Yellow Urine Appearance Clear Urine pH 7.0 (4.5-8.0) Ur Specific [place] 1.010 (1.000-1.035) Urine Protein Negative (Negative) Urine Glucose (UA) Negative (Negative) g/dL Urine Ketones Negative (NEGATIVE) Urine Occult Blood Negative (Negative) Urine Nitrate Negative (Negative) Urine Bilirubin Negative (NEGATIVE) Urine Urobilinogen 0.2 (0.2) E.U./dL Ur Leukocyte Esterase Negative (NEGATIVE) Urine RBC None seen (0-5/HPF) Urine WBC None seen (0-5/HPF) Urine Bacteria None seen (None) Ur Culture Indicated? Cult not indicated Micro UA Comment Microscopic normal SARS-CoV-2 (PCR) (Negative) Influenza A (RT-PCR) (NEGATIVE) Influenza B (RT-PCR) (NEGATIVE) RSV (PCR) (Negative) Blood Type A Positive Antibody Screen Negative Crossmatch See Detail 02/20/22 Range/Units 12:15 WBC (4.5-11.0) X10^3/uL RBC (4.0-5.2) X10^6/uL Hgb (12.0-16.0) g/dL Hct (36-46) % MCV (80-100) fL MCH (26-34) PG MCHC (30-36) % RDW (11.6-14.8) % Plt Count (150-400) X10^3/uL Neut % (Auto) (50-75) % Lymph % (Auto) (25-40) % [place] % (Auto) (3-14) % Eos % (Auto) (2-4) % Baso % (Auto) (0-2) % Neut # (Auto) (4775-3112) /uL Lymph # (Auto) (3320-2771) /uL [place] # (Auto) (0-900) /uL Eos # (Auto) (0-450) /uL Baso # (Auto) (0-100) /uL Sodium (137-145) mmol/L Potassium (3.4-5.1) mmol/L Chloride (98-107) mmol/L Carbon Dioxide (22-32) mmol/L BUN (7-17) mg/dL Creatinine (0.52-1.04) mg/dL Estimated GFR (>60) mL/min BUN/Creatinine Ratio (6-22) Glucose (70-100) mg/dL Lactate 1.0 (0.7-2.1) mmol/L Calcium (8.4-10.2) mg/dL Total Bilirubin (0.2-1.3) mg/dL AST (14-36) IU/L ALT (<35) IU/L Alkaline Phosphatase (38-126) U/L Total Creatine Kinase (30-135) U/L CK-MB (CK-2) (<2.37) ng/mL CK-MB (CK-2) Rel Index (1.5-5.0) % Troponin I (0.01-0.034) ng/mL Total Protein (6.3-8.2) g/dL Albumin (3.5-5.0) g/dL Globulin (1.7-4.1) g/dL Albumin/Globulin Ratio (1.0-2.8) Procalcitonin (<0.5) ng/mL Urine Color Urine Appearance Urine pH (4.5-8.0) Ur Specific [place] (1.000-1.035) Urine Protein (Negative) Urine Glucose (UA) (Negative) g/dL Urine Ketones (NEGATIVE) Urine Occult Blood (Negative) Urine Nitrate (Negative) Urine Bilirubin (NEGATIVE) Urine Urobilinogen (0.2) E.U./dL Ur Leukocyte Esterase (NEGATIVE) Urine RBC (0-5/HPF) Urine WBC (0-5/HPF) Urine Bacteria (None) Ur Culture Indicated? Micro UA Comment SARS-CoV-2 (PCR) (Negative) Influenza A (RT-PCR) (NEGATIVE) Influenza B (RT-PCR) (NEGATIVE) RSV (PCR) (Negative) Blood Type Antibody Screen Crossmatch Imaging Data Chest x-ray: Radiologist's Impression: Hazy opacity bilaterally is similar.? This could represent pulmonary edema.? Infectious/inflammatory etiology could have a similar appearance.? No consolidation. CT scan - head: Radiologist's Impression: No acute findings ECG Data Attestation: I personally reviewed and interpreted this ECG as follows: (Sinus tachycardia rate 108 beats per minute. Extensive motion artifact. No further interpretation is possible.) Critical Care Time Critical Care Time Critical Care Time: Yes Total Critical Care Time: 65 Attestation: Critical care involved initial assessment of the patient, and review of medical records. Lab, EKG, radiology data was evaluated. Multiple medical decisions required. The case was discussed with the patient's psychiatrist, as well as admitting hospitalist. Patient is not communicating. Discharge Plan Departure Patient Disposition: Admitted As Inpatient Clinical Impression: Sepsis, Schizophrenia, Hypokalemia, Soft tissue infection, Skin ulcer, Hypocalcemia Admit Date/Time: 02/20/22 14:51 Admit Provider: Shahriar Ragsdale
[2022-02-20 09:51] LABS: Add Manual Diff / Slide Review NO; Basophils Absolute Auto 0 /uL (0-100); Basophils Percent Auto 0.4 % (0-2); Eosinophils Absolute Auto 0 /uL (0-450); Eosinophils Percent Auto 0.1 % (2-4); Hematocrit 21.8 % (36-46); Hemoglobin 7.1 g/dL (12.0-16.0); Lymphocytes Absolute Auto 900 /uL (1100-4500); Lymphocytes Percent Auto 12.5 % (25-40); Mean Corpuscular HGB Conc 32.4 % (30-36); Mean Corpuscular Hemoglobin 29.3 PG (26-34); Mean Corpuscular Volume 90.3 fL (80-100); Monocytes Absolute Auto 500 /uL (0-900); Monocytes Percent Auto 6.6 % (3-14); Neutrophils Absolute Auto 5500 /uL (1500-7000); Neutrophils Percent Auto 80.4 % (50-75); Platelet Count 164 X10^3/uL (150-400); Red Blood Cell Count 2.41 X10^6/uL (4.0-5.2); Red Cell Distribution Width 17.7 % (11.6-14.8); White Blood Cell Count 6.8 X10^3/uL (4.5-11.0)
[2022-02-20] MEDS: PIPERACILLIN/TAZO 4.5 GM in SODIUM CHLORIDE 0.9% 100 ML IV (09:53)
[2022-02-20] MEDS: SODIUM CHLORIDE 0.9% 1,000 ML 1000 ML IV ×2 (09:54→10:42)
[2022-02-20] MEDS: LORazepam 2 MG/ML INJ IV (09:57)
[2022-02-20] MEDS: LORazepam 20 MG in SODIUM CHLORIDE 0.9% 90 ML 22.6 MG IV (10:00)
[2022-02-20 10:05] LABS: Alanine Aminotransferase 28 IU/L (<35); Albumin 2.5 g/dL (3.5-5.0); Albumin Globulin Ratio 0.8 (1.0-2.8); Alkaline Phosphatase 64 U/L (38-126); Aspartate Aminotransferase 71 IU/L (14-36); BUN Creatinine Ratio 19.2 (6-22); Bilirubin Total 0.3 mg/dL (0.2-1.3); Blood Urea Nitrogen 10 mg/dL (7-17); Calcium 6.7 mg/dL (8.4-10.2); Carbon Dioxide 20 mmol/L (22-32); Chloride 106 mmol/L (98-107); Creatine Kinase 850 U/L (30-135); Estimated Glomerular Filt Rate > 60 mL/min (>60); Globulin 3.3 g/dL (1.7-4.1); Glucose 144 mg/dL (70-100); HEMOLYSIS < 15 (0-50); Lactate (Lactic Acid) 4.1 mmol/L (0.7-2.1); Potassium 3.2 mmol/L (3.4-5.1); Sodium 137 mmol/L (137-145); Total Protein 5.8 g/dL (6.3-8.2)
[2022-02-20] MEDS: ACETAMINOPHEN 650 MG SUPP PR (10:12)
[2022-02-20 10:17] LABS: Troponin I < 0.012 ng/mL (0.01-0.034)
[2022-02-20 10:20] LABS: CKMB % Relative Index 1.1 % (1.5-5.0); Creatine Kinase MB 9.68 ng/mL (<2.37)
[2022-02-20] MEDS: OLANZapine 10 MG VIAL IM (10:20)
[2022-02-20 10:21] LABS: Procalcitonin 0.07 ng/mL (<0.5)
[2022-02-20 10:29] LABS: Influenza A - CEPHEID Flu A NEGATIVE (NEGATIVE); Influenza B - CEPHEID Flu B NEGATIVE (NEGATIVE); Respiratory Syncytial Virus Negative (Negative)
[2022-02-20 10:30] LABS: COVID-19 CEPHEID 4-PLEX PCR Negative (Negative)
[2022-02-20 10:33] LABS: Appearance Urine UA CLEAR; Bilirubin Urine UA NEGATIVE (NEGATIVE); Color Urine UA YELLOW; Glucose Urine UA NEGATIVE (Negative); Ketones Urine UA NEGATIVE (NEGATIVE); Leukocyte Esterase Urine UA NEGATIVE (NEGATIVE); Nitrite Urine UA NEGATIVE (Negative); Occult Blood Urine UA NEGATIVE (Negative); Protein Urine UA NEGATIVE (Negative); Urobilinogen Urine UA 0.2 E.U./dL (0.2)
[2022-02-20 10:37] LABS: Bacteria Urine None Seen; Culture Indicated Urine Cult Not Indicated; RBC Urine None Seen (0-5/HPF); Urine Comments Microscopic Normal; WBC Urine None Seen (0-5/HPF)
[2022-02-20] MEDS: POTASSIUM CHLORIDE IN WATER 10 MEQ/100 ML PIGGYBACK 100 MEQ IV ×2 (10:44→11:47)
--- NOTE | 2022-02-20 11:37 | PC.NURSE ---
Blood started at a rate of 999 due to SBP in the 80s and pt presentation
[2022-02-20 11:40] LABS: Reflexed Lactate in 2 Hours Y
--- NOTE | 2022-02-20 12:17 | DI.CT.S_ITS ---
PROCEDURE: CT HEAD/BRAIN WO CON INDICATIONS: seizure TECHNIQUE: Noncontrast 4.5 mm thick angled axial sections acquired from the foramen magnum to the vertex, with coronal and sagittal reformats. For radiation dose reduction, the following was used: automated exposure control, adjustment of mA and/or kV according to patient size. COMPARISON: None. FINDINGS: Image quality: Excellent. CSF spaces: Basal cisterns are patent. No extra-axial fluid collections. Ventricles are normal in size and shape. Brain: No midline shift. No intracranial masses or hemorrhage. [place]-white matter interface is normal. Skull and face: Calvarium and visualized facial bones are intact, without suspicious lesions. Sinuses: Visualized sinuses and mastoids are clear. IMPRESSION: No acute intracranial finding. Dictated by: Amilcar Myles M.D. on 02/20/2022 at 12:58 Approved by: Amilcar Myles M.D. on 02/20/2022 at 12:59
--- NOTE | 2022-02-20 15:56 | DI.CT.S_ITS ---
PROCEDURE: CT FACIAL BONES W CON INDICATIONS: look for dental abscess TECHNIQUE: After the administration of intravenous contrast, 2.5 mm axial sections acquired from the mid-neck to the frontal sinuses, with coronal and sagittal reformats. For radiation dose reduction, the following was used: automated exposure control, adjustment of mA and/or kV according to patient size. COMPARISON: None. FINDINGS: Maxillofacial Bones: The zygomaticomaxillary complex is intact. The pterygoid plates and skull base are unremarkable. No evidence of fracture or lytic lesion. Mandible: The mandible is intact without fracture. Unremarkable temporomandibular articulation. Dentition: Soft tissue edema noted in the subcutaneous fat overlying the left mandible without evidence of organized abscess. Advanced carious and periodontal dental disease noted involving both the maxillary and mandibular dentition. Multiple reactive appearing but nonenlarged lymph nodes noted in the deep cervical chains bilaterally. Soft tissues: As above Orbits: The osseous orbits, globes and ocular muscles unremarkable. Sinuses and Mastoid: Fluid in the left mastoid may be inflammatory or postinflammatory IMPRESSION: Soft tissue edema or cellulitis overlying the left mandible without organized abscess. Advanced dental carious and periodontal disease. Fluid in left mastoid may be inflammatory or postinflammatory Approved by: Shukri Mcgowan M.D. on 02/20/2022 at 15:46
[2022-02-20 15:59] LABS: Add Manual Diff / Slide Review NO; Basophils Absolute Auto 0 /uL (0-100); Basophils Percent Auto 0.6 % (0-2); Eosinophils Absolute Auto 0 /uL (0-450); Eosinophils Percent Auto 0.1 % (2-4); Hematocrit 31.8 % (36-46); Hemoglobin 10.3 g/dL (12.0-16.0); Lymphocytes Absolute Auto 1100 /uL (1100-4500); Lymphocytes Percent Auto 18.9 % (25-40); Mean Corpuscular HGB Conc 32.5 % (30-36); Mean Corpuscular Hemoglobin 28.2 PG (26-34); Mean Corpuscular Volume 86.8 fL (80-100); Monocytes Absolute Auto 300 /uL (0-900); Monocytes Percent Auto 5.4 % (3-14); Neutrophils Absolute Auto 4400 /uL (1500-7000); Platelet Count 129 X10^3/uL (150-400); Red Blood Cell Count 3.66 X10^6/uL (4.0-5.2); Red Cell Distribution Width 16.2 % (11.6-14.8); White Blood Cell Count 5.8 X10^3/uL (4.5-11.0)
[2022-02-20] MEDS: PIPERACILLIN/TAZO 3.375 GM in SODIUM CHLORIDE 0.9% 100 ML IV (17:19)
--- NOTE | 2022-02-20 19:27 | PM.HP.1 ---
History of Present Illness History of Present Illness Date Patient Seen: 02/20/22 Chief complaint: Psych Narrative: 31-year-old female with history of poorly controlled schizophrenia presented to ED from psych clinic where she was seen attempting to remove clothes and clawing at her facial wounds and scalp in the waiting room. Sent to ED for management of agitation and likely infected wounds. Patient currently on ativan drip with parents at the bedside. They say since she left the hospital on 02/07 she had difficulty taking her po augmentin. They also mentioned they had her restrained to the couch and she would fight to escape. The mitts they applied to both hands at home in attempt to prevent her from scratching herself did not work and she would rip them off. In the ED patient febrile to 101.7F with lactate 4.1. Had severe agitation and shaking and there was concern for seizure so put on ativan drip. Patient History Medical History History of DVT (deep vein thrombosis) History of pulmonary embolism Schizophrenia Family & Social History Social History: household members family Safety & Behavioral: Feels Safe in Current Unwilling to Answer Environment Tobacco & Substance use: Smoking Status Never smoker Substance Use Type does not use Meds Home Medications and Allergies Home Medications Medication Instructions Recorded Confirmed Type amoxicillin 875 mg-potassium 1 tab PO Q12H #10 tabs 02/01/22 Rx clavulanate 125 mg tablet mupirocin 2 % topical ointment 1 applic topical BID #45 grams 02/01/22 Rx olanzapine 10 mg disintegrating 20 mg PO BEDTIME #60 tabs 02/01/22 Rx tablet (Zyprexa Zydis) fluoxetine 20 mg capsule (Prozac) 20 mg PO DAILY #30 caps 02/07/22 Rx olanzapine 15 mg tablet 15 mg PO BEDTIME #30 tabs 02/07/22 Rx Allergies Allergy/AdvReac Type Severity Reaction Status Date / Time mirtazapine AdvReac Intermediate Rash severe Verified 02/20/22 08:10 Review of Systems Review of Systems Narrative: All other systems reviewed with the patient and are negative unless otherwise stated. Exam Vital Signs (past 8 hours): - 02/20/22 11:34 02/20/22 11:50 02/20/22 12:02 Temperature 100.6 F H 100.2 F H 100.0 F H Pulse Rate 94 H 90 87 Respiratory Rate 30 H 30 H 30 H Blood Pressure 84/50 L 91/52 L 98/54 L Pulse Oximetry Oxygen Delivery Method 02/20/22 12:05 02/20/22 12:24 02/20/22 13:06 Temperature 100.0 F H 100.0 F H 99.5 F Pulse Rate 89 90 82 Respiratory Rate 30 H 21 30 H Blood Pressure 89/54 L 93/58 L 96/59 L Pulse Oximetry Oxygen Delivery Method 02/20/22 12:24 02/20/22 12:10 02/20/22 12:10 Temperature 99.1 F 100.0 F H Pulse Rate 82 87 Respiratory Rate 25 H 29 H Blood Pressure 98/62 91/59 L Pulse Oximetry 100 Oxygen Delivery Method 02/20/22 12:20 02/20/22 12:20 02/20/22 12:30 Temperature 100.0 F H Pulse Rate 89 Respiratory Rate 27 H Blood Pressure 93/58 L 90/51 L Pulse Oximetry 99 Oxygen Delivery Method 02/20/22 12:30 02/20/22 12:40 02/20/22 12:40 Temperature 99.9 F H 99.7 F H Pulse Rate 91 H 91 H Respiratory Rate 27 H 28 H Blood Pressure 89/51 L Pulse Oximetry 99 98 Oxygen Delivery Method 02/20/22 12:49 02/20/22 12:49 02/20/22 12:50 Temperature 99.5 F Pulse Rate 89 Respiratory Rate 27 H Blood Pressure 90/55 L 92/52 L Pulse Oximetry 98 Oxygen Delivery Method 02/20/22 12:50 02/20/22 12:57 02/20/22 12:57 Temperature 99.5 F 99.5 F Pulse Rate 87 86 Respiratory Rate 25 H 25 H Blood Pressure 97/60 Pulse Oximetry 99 100 Oxygen Delivery Method 02/20/22 13:00 02/20/22 13:00 02/20/22 13:10 Temperature 99.3 F Pulse Rate 86 Respiratory Rate 24 Blood Pressure 96/59 L 98/61 Pulse Oximetry 100 Oxygen Delivery Method 02/20/22 13:10 02/20/22 13:20 02/20/22 13:20 Temperature 99.5 F 99.5 F Pulse Rate 81 81 Respiratory Rate 24 24 Blood Pressure 96/60 Pulse Oximetry 100 100 Oxygen Delivery Method 02/20/22 13:30 02/20/22 13:30 02/20/22 13:40 Temperature 99.3 F 99.1 F Pulse Rate 81 80 Respiratory Rate 25 H 25 H Blood Pressure 97/60 Pulse Oximetry 100 100 Oxygen Delivery Method 02/20/22 13:40 02/20/22 13:50 02/20/22 13:50 Temperature 99.1 F Pulse Rate 80 Respiratory Rate 25 H Blood Pressure 95/60 97/60 Pulse Oximetry 100 Oxygen Delivery Method 02/20/22 14:00 02/20/22 14:00 02/20/22 14:10 Temperature 99.1 F 99.1 F Pulse Rate 82 82 Respiratory Rate 23 24 Blood Pressure 99/62 Pulse Oximetry 100 100 Oxygen Delivery Method 02/20/22 14:10 02/20/22 14:20 02/20/22 14:20 Temperature 99.1 F Pulse Rate 81 Respiratory Rate 22 Blood Pressure 98/62 96/61 Pulse Oximetry 100 Oxygen Delivery Method 02/20/22 14:30 02/20/22 14:30 02/20/22 14:40 Temperature 99.1 F 99.1 F Pulse Rate 81 84 Respiratory Rate 22 25 H Blood Pressure 94/61 Pulse Oximetry 100 100 Oxygen Delivery Method 02/20/22 14:40 02/20/22 14:51 02/20/22 14:51 Temperature 99.1 F Pulse Rate 89 Respiratory Rate 32 H Blood Pressure 94/62 115/58 L Pulse Oximetry 99 Oxygen Delivery Method 02/20/22 15:00 02/20/22 15:00 02/20/22 15:10 Temperature 99.1 F 99.1 F Pulse Rate 91 H 91 H Respiratory Rate 32 H 27 H Blood Pressure 97/50 L Pulse Oximetry 98 98 Oxygen Delivery Method 02/20/22 15:10 02/20/22 15:20 02/20/22 15:20 Temperature 99.1 F Pulse Rate 90 Respiratory Rate 37 H Blood Pressure 96/60 114/56 L Pulse Oximetry 98 Oxygen Delivery Method 02/20/22 15:30 02/20/22 15:30 02/20/22 15:50 Temperature 99.1 F 99.3 F Pulse Rate 91 H 84 Respiratory Rate 30 H 24 Blood Pressure 117/63 Pulse Oximetry 99 100 Oxygen Delivery Method 02/20/22 15:50 02/20/22 16:00 02/20/22 16:00 Temperature 99.3 F Pulse Rate 82 Respiratory Rate 24 Blood Pressure 98/64 97/66 Pulse Oximetry 100 Oxygen Delivery Method 02/20/22 16:47 02/20/22 16:47 02/20/22 17:00 Temperature 99.0 F Pulse Rate 90 Respiratory Rate 32 H Blood Pressure 106/67 97/55 L Pulse Oximetry 100 Oxygen Delivery Method 02/20/22 17:00 02/20/22 17:30 02/20/22 17:30 Temperature 99.0 F 99.0 F Pulse Rate 92 H 84 Respiratory Rate 26 H 24 Blood Pressure 100/65 Pulse Oximetry 100 100 Oxygen Delivery Method 02/20/22 18:00 02/20/22 18:00 02/20/22 18:30 Temperature 99.1 F Pulse Rate 82 Respiratory Rate 24 Blood Pressure 100/66 94/57 L Pulse Oximetry 100 Oxygen Delivery Method Room Air 02/20/22 18:30 Temperature 99.0 F Pulse Rate 86 Respiratory Rate 26 H Blood Pressure Pulse Oximetry 99 Oxygen Delivery Method Oxygen Delivery Method Room Air Narrative Exam Narrative: GEN: sleeping HEENT: moist mucous membranes, PERRL NECK: trachea midline, no JVD CV: regular rate and rhythm, no murmurs PULM: clear bilaterally SKIN: Multiple full thickness wounds/scabbing of chin, top of scalp and occipital areas, swelling of lower face and jaw present ABD: soft, nontender, nondistended, no organomegaly EXT: warm and well perfused with no edema NEURO: unable to assess due to mental status Objective Labs Result Diagrams: 02/20/22 15:45 02/20/22 09:25 Labs: Laboratory Results - last 24 hr 02/20/22 02/20/22 02/20/22 09:15 09:25 09:25 WBC 6.8 RBC 2.41 L Hgb 7.1 L Hct 21.8 L MCV 90.3 MCH 29.3 MCHC 32.4 RDW 17.7 H Plt Count 164 Neut % (Auto) 80.4 H Lymph % (Auto) 12.5 L [place] % (Auto) 6.6 Eos % (Auto) 0.1 L Baso % (Auto) 0.4 Neut # (Auto) 5500 Lymph # (Auto) 900 L [place] # (Auto) 500 Eos # (Auto) 0 Baso # (Auto) 0 Sodium 137 Potassium 3.2 L Chloride 106 Carbon Dioxide 20 L BUN 10 Creatinine 0.52 Estimated GFR > 60 BUN/Creatinine Ratio 19.2 Glucose 144 H Lactate Calcium 6.7 L Total Bilirubin 0.3 AST 71 H ALT 28 Alkaline Phosphatase 64 Total Creatine Kinase 850 H CK-MB (CK-2) 9.68 H CK-MB (CK-2) Rel Index 1.1 L Troponin I < 0.012 Total Protein 5.8 L Albumin 2.5 L Globulin 3.3 Albumin/Globulin Ratio 0.8 L Procalcitonin 0.07 Urine Color Urine Appearance Urine pH Ur Specific [place] Urine Protein Urine Glucose (UA) Urine Ketones Urine Occult Blood Urine Nitrate Urine Bilirubin Urine Urobilinogen Ur Leukocyte Esterase Urine RBC Urine WBC Urine Bacteria Ur Culture Indicated? Micro UA Comment SARS-CoV-2 (PCR) Negative Influenza A (RT-PCR) Flu a negative Influenza B (RT-PCR) Flu b negative RSV (PCR) Negative Blood Type Antibody Screen Crossmatch 02/20/22 02/20/22 02/20/22 09:25 09:50 10:39 WBC RBC Hgb Hct MCV MCH MCHC RDW Plt Count Neut % (Auto) Lymph % (Auto) [place] % (Auto) Eos % (Auto) Baso % (Auto) Neut # (Auto) Lymph # (Auto) [place] # (Auto) Eos # (Auto) Baso # (Auto) Sodium Potassium Chloride Carbon Dioxide BUN Creatinine Estimated GFR BUN/Creatinine Ratio Glucose Lactate 4.1 H* Calcium Total Bilirubin AST ALT Alkaline Phosphatase Total Creatine Kinase CK-MB (CK-2) CK-MB (CK-2) Rel Index Troponin I Total Protein Albumin Globulin Albumin/Globulin Ratio Procalcitonin Urine Color Yellow Urine Appearance Clear Urine pH 7.0 Ur Specific [place] 1.010 Urine Protein Negative Urine Glucose (UA) Negative Urine Ketones Negative Urine Occult Blood Negative Urine Nitrate Negative Urine Bilirubin Negative Urine Urobilinogen 0.2 Ur Leukocyte Esterase Negative Urine RBC None seen Urine WBC None seen Urine Bacteria None seen Ur Culture Indicated? Cult not indicated Micro UA Comment Microscopic normal SARS-CoV-2 (PCR) Influenza A (RT-PCR) Influenza B (RT-PCR) RSV (PCR) Blood Type A Positive Antibody Screen Negative Crossmatch See Detail 02/20/22 02/20/22 12:15 15:45 WBC 5.8 RBC 3.66 L Hgb 10.3 L Hct 31.8 L MCV 86.8 D MCH 28.2 MCHC 32.5 RDW 16.2 H Plt Count 129 L Neut % (Auto) 75.0 Lymph % (Auto) 18.9 L [place] % (Auto) 5.4 Eos % (Auto) 0.1 L Baso % (Auto) 0.6 Neut # (Auto) 4400 Lymph # (Auto) 1100 [place] # (Auto) 300 Eos # (Auto) 0 Baso # (Auto) 0 Sodium Potassium Chloride Carbon Dioxide BUN Creatinine Estimated GFR BUN/Creatinine Ratio Glucose Lactate 1.0 Calcium Total Bilirubin AST ALT Alkaline Phosphatase Total Creatine Kinase CK-MB (CK-2) CK-MB (CK-2) Rel Index Troponin I Total Protein Albumin Globulin Albumin/Globulin Ratio Procalcitonin Urine Color Urine Appearance Urine pH Ur Specific [place] Urine Protein Urine Glucose (UA) Urine Ketones Urine Occult Blood Urine Nitrate Urine Bilirubin Urine Urobilinogen Ur Leukocyte Esterase Urine RBC Urine WBC Urine Bacteria Ur Culture Indicated? Micro UA Comment SARS-CoV-2 (PCR) Influenza A (RT-PCR) Influenza B (RT-PCR) RSV (PCR) Blood Type Antibody Screen Crossmatch Assessment & Plan Assessment & Plan narrative: # Sepsis, present on admission -multiple wounds present on face and scalp due to chronic picking and scratching -blood and wound cultures pending, source likely cellulitis per face CT, no abscess present -continue zosyn and vanc, check MRSA swab -wound care consulted for dressing changes # Schizophrenia with acute psychosis -parents note worsening psychosis and agitation for past 2 months, previously hospitalized at inpatient psych in 2009. Suspect medication noncompliance is a factor. -patient on ativan drip in ED, now off -Dr. Stahl psych consulted and following. Attempting to do long-acting Invega as outpatient. -continue 10mg zyprexa BID and start prozac 20mg liquid daily per psych -ativan IV PRN for agitation -may need inpatient psych, BASKETBALLS AND FOOTBALLS REVERSER consulted # Lactic acidosis, now resolved -LA 4.1 in ED, resolved to 1 with fluids # Concern for seizure -patient had shaking episodes in the ED, although these episodes were present during her last admission -highly doubt seizure # History of DVT/PE and IVC filter -event was reportedly in 2018, unknown whether IVC filter was ever removed, patient not currently on anticoagulant Code status is full code. COVID negative. DVT prophylaxis not needed. Proxy is her parents. I have reviewed home meds and used all available resources to reconcile the home meds. This patient will be admitted as inpatient and will require greater than 2 midnights of hospital time to treat sepsis and psychosis. Time Spent With Patient Critical Care time: I spent a total of [] minutes of critical care time on this patient's care today; this time is exclusive of procedural time.
[2022-02-20] MEDS: VANCOMYCIN 1,000 MG/200 ML PIGGYBACK 200 MG IV (19:35)
[2022-02-21] MEDS: PIPERACILLIN/TAZO 3.375 GM in SODIUM CHLORIDE 0.9% 100 ML IV ×3 (00:01→17:01)
[2022-02-21 02:28] VITALS: BP 101/53; PULSE 112; RESP 20; TEMP 38.6; O2SAT 100
--- NOTE | 2022-02-21 04:30 | PC.NURSE ---
Pt is sleepy most of the time and sometimes moanes or says something in Tagalog. VSS, except T-101 around 0300 but pt is unable to take any oral med. Pt is too sleepy and not following command or open her mouth. Started in non-violent restraints from 2214 due to self harm by pulling hair or scratching her wound. Monitoring s/s injury closely and offering fluid. Parent are in the room. Martinez is draining clear and yellow urine. No other changes.
[2022-02-21 06:30] LABS: Add Manual Diff / Slide Review NO; Basophils Absolute Auto 100 /uL (0-100); Basophils Percent Auto 1.1 % (0-2); Eosinophils Absolute Auto 0 /uL (0-450); Hematocrit 33.7 % (36-46); Hemoglobin 11.2 g/dL (12.0-16.0); Lymphocytes Absolute Auto 500 /uL (1100-4500); Lymphocytes Percent Auto 6.8 % (25-40); Mean Corpuscular HGB Conc 33.3 % (30-36); Mean Corpuscular Hemoglobin 29.3 PG (26-34); Mean Corpuscular Volume 87.8 fL (80-100); Monocytes Absolute Auto 300 /uL (0-900); Neutrophils Absolute Auto 6200 /uL (1500-7000); Neutrophils Percent Auto 88.1 % (50-75); Platelet Count 117 X10^3/uL (150-400); Red Blood Cell Count 3.84 X10^6/uL (4.0-5.2); Red Cell Distribution Width 17.6 % (11.6-14.8)
[2022-02-21 06:38] LABS: BUN Creatinine Ratio 12.3 (6-22); Blood Urea Nitrogen 7 mg/dL (7-17); Calcium 6.8 mg/dL (8.4-10.2); Carbon Dioxide 21 mmol/L (22-32); Chloride 107 mmol/L (98-107); Estimated Glomerular Filt Rate > 60 mL/min (>60); Glucose 78 mg/dL (70-100); HEMOLYSIS 23 (0-50); Potassium 3.4 mmol/L (3.4-5.1); Sodium 137 mmol/L (137-145)
--- NOTE | 2022-02-21 07:54 | CM.DANOTE ---
Addendum entered by NIALL Carter 02/21/22 08:20: ADD: Additional known dx include trichotillomania, obsessive compulsive behaviors, DVT PE in 2018 Addtl review of chart indicates hx hallucination sec to Schizophrenia Original Note: Initial DCP Assessment Note Pt is a 31 yo female, resident of [place], hx of poorly controlled, severe Schizophrenia with learning disability and suspected medication non compliance; arrives from the waiting room of [facility] health after becoming belligerent and combative waiting to see Dr Stahl; this visit,02.20.22, was scheduled after ER visit 02.07.22 PCP: Need to confirm with family Payer: MCR/SERAFIN Reviewed chart, pt familiar to this DESIGN ANALYST from prior admission. Language line needed to communicate as patient/family speak Tagalog, some Bengali. Patient lives with mom Orly and Dad Lenin. Mom had reported that at patient's baseline she can bathe, dress and toilet independently but when patient is unmedicated requires full care. D/t patient's tendency to pick at wounds on scalp and face, patient had been restrained here in the ICU during last admission and family reports they try mitts and restraints at home. According to family, Patient becomes particularly hysterical when she wants wants to pick, scratch at wounds and family will not allow Patient has 129 hours allotted from [facility], mom is paid caregiver. ALMA DELIA is Elizabeth Villareal P# [phone] Patient had spent one year at an inpatient psychiatric unit in [place] in 2009 for hx of violent outbursts This initial DCP assessment started w/information available on patient's chart. CM/DESIGN ANALYST team will plan to follow closely. It's critical that coordination of discharge plan be in collaboration between Hospitalist, psychiatrist and family and DESIGN ANALYST team NIALL Rush Discharge Planning/Care Management CM Discharge Assessment Start: 02/21/22 07:48 Freq: Status: Active Protocol: Document 02/21/22 07:48 GORGE (Rec: 02/21/22 07:54 GORGE [id number]) Discharge Planning Assessment Assigned Exchange Mechanic NIALL Oconnell DPOA/Assigned Designee Name Lenin Holcomb, father Contact Information [phone] or [phone] Advance Directives? No History Provided By Medical Record Has Patient been admitted in last 30 Yes days? Comment Admitted from 01.28.22- ER Visits: 12.4, 02.07, admission 1.4 Prior Living Arrangements House Household Members family Type of transporation used prior to Relies on Others admit Independent with ADL's No Is patient alert and oriented? No Needs Assistance With Bathing,Eating,Grooming,Meal Prep,Toileting,Managing Medications,Home Chores / Shopping Comment Disability Services, [facility] (?) Family members are paid caregivers Barriers to Discharge Yes Comment Uncontrolled, severe schizophrenia with acute psychosis, picking, does not eat or drink off and on. Speaks Tagalog. Often non verbal, makes noises, screams when upset Transportation Arrangement TBD
--- NOTE | 2022-02-21 07:55 | PM.PN.1 ---
Subjective Subjective Interval history: Patient remains restrained. Discussion was had with parents about Exam Vital Signs (past 8 hours): - 02/21/22 02:28 Temperature 101.5 F H Pulse Rate 112 H Respiratory Rate 20 Blood Pressure 101/53 L Pulse Oximetry 100 Oxygen Flow Rate 2 Fraction of Inspired Oxygen 24 SaO2/FiO2 Ratio 408 Oxygen Delivery Method Nasal Cannula Oxygen Flow Rate 2 Narrative Exam Narrative: GEN: agitated and restrained HEENT: moist mucous membranes, PERRL, inner ears with scabbing and purulent drainage from left ear, tympanic membranes appear normal bilaterally NECK: trachea midline, no JVD CV: regular rate and rhythm, no murmurs PULM: clear bilaterally SKIN: Multiple full thickness wounds/scabbing of chin, top of scalp and occipital areas, swelling of lower face and jaw present ABD: soft, nontender, nondistended, no organomegaly EXT: warm and well perfused with no edema NEURO: unable to assess due to mental status Objective Labs Result Diagrams: 02/21/22 05:58 02/21/22 05:58 Labs: Laboratory Results - last 24 hr 02/20/22 02/20/22 02/20/22 09:15 09:25 09:25 WBC 6.8 RBC 2.41 L Hgb 7.1 L Hct 21.8 L MCV 90.3 MCH 29.3 MCHC 32.4 RDW 17.7 H Plt Count 164 Neut % (Auto) 80.4 H Lymph % (Auto) 12.5 L [place] % (Auto) 6.6 Eos % (Auto) 0.1 L Baso % (Auto) 0.4 Neut # (Auto) 5500 Lymph # (Auto) 900 L [place] # (Auto) 500 Eos # (Auto) 0 Baso # (Auto) 0 Sodium 137 Potassium 3.2 L Chloride 106 Carbon Dioxide 20 L BUN 10 Creatinine 0.52 Estimated GFR > 60 BUN/Creatinine Ratio 19.2 Glucose 144 H Lactate Calcium 6.7 L Total Bilirubin 0.3 AST 71 H ALT 28 Alkaline Phosphatase 64 Total Creatine Kinase 850 H CK-MB (CK-2) 9.68 H CK-MB (CK-2) Rel Index 1.1 L Troponin I < 0.012 Total Protein 5.8 L Albumin 2.5 L Globulin 3.3 Albumin/Globulin Ratio 0.8 L Procalcitonin 0.07 Urine Color Urine Appearance Urine pH Ur Specific [place] Urine Protein Urine Glucose (UA) Urine Ketones Urine Occult Blood Urine Nitrate Urine Bilirubin Urine Urobilinogen Ur Leukocyte Esterase Urine RBC Urine WBC Urine Bacteria Ur Culture Indicated? Micro UA Comment Nasal Screen MRSA (PCR) SARS-CoV-2 (PCR) Negative Influenza A (RT-PCR) Flu a negative Influenza B (RT-PCR) Flu b negative RSV (PCR) Negative Blood Type Antibody Screen Crossmatch 02/20/22 02/20/22 02/20/22 09:25 09:50 10:39 WBC RBC Hgb Hct MCV MCH MCHC RDW Plt Count Neut % (Auto) Lymph % (Auto) [place] % (Auto) Eos % (Auto) Baso % (Auto) Neut # (Auto) Lymph # (Auto) [place] # (Auto) Eos # (Auto) Baso # (Auto) Sodium Potassium Chloride Carbon Dioxide BUN Creatinine Estimated GFR BUN/Creatinine Ratio Glucose Lactate 4.1 H* Calcium Total Bilirubin AST ALT Alkaline Phosphatase Total Creatine Kinase CK-MB (CK-2) CK-MB (CK-2) Rel Index Troponin I Total Protein Albumin Globulin Albumin/Globulin Ratio Procalcitonin Urine Color Yellow Urine Appearance Clear Urine pH 7.0 Ur Specific [place] 1.010 Urine Protein Negative Urine Glucose (UA) Negative Urine Ketones Negative Urine Occult Blood Negative Urine Nitrate Negative Urine Bilirubin Negative Urine Urobilinogen 0.2 Ur Leukocyte Esterase Negative Urine RBC None seen Urine WBC None seen Urine Bacteria None seen Ur Culture Indicated? Cult not indicated Micro UA Comment Microscopic normal Nasal Screen MRSA (PCR) SARS-CoV-2 (PCR) Influenza A (RT-PCR) Influenza B (RT-PCR) RSV (PCR) Blood Type A Positive Antibody Screen Negative Crossmatch See Detail 02/20/22 02/20/22 02/20/22 12:15 15:45 22:16 WBC 5.8 RBC 3.66 L Hgb 10.3 L Hct 31.8 L MCV 86.8 D MCH 28.2 MCHC 32.5 RDW 16.2 H Plt Count 129 L Neut % (Auto) 75.0 Lymph % (Auto) 18.9 L [place] % (Auto) 5.4 Eos % (Auto) 0.1 L Baso % (Auto) 0.6 Neut # (Auto) 4400 Lymph # (Auto) 1100 [place] # (Auto) 300 Eos # (Auto) 0 Baso # (Auto) 0 Sodium Potassium Chloride Carbon Dioxide BUN Creatinine Estimated GFR BUN/Creatinine Ratio Glucose Lactate 1.0 Calcium Total Bilirubin AST ALT Alkaline Phosphatase Total Creatine Kinase CK-MB (CK-2) CK-MB (CK-2) Rel Index Troponin I Total Protein Albumin Globulin Albumin/Globulin Ratio Procalcitonin Urine Color Urine Appearance Urine pH Ur Specific [place] Urine Protein Urine Glucose (UA) Urine Ketones Urine Occult Blood Urine Nitrate Urine Bilirubin Urine Urobilinogen Ur Leukocyte Esterase Urine RBC Urine WBC Urine Bacteria Ur Culture Indicated? Micro UA Comment Nasal Screen MRSA (PCR) Negative for mrsa SARS-CoV-2 (PCR) Influenza A (RT-PCR) Influenza B (RT-PCR) RSV (PCR) Blood Type Antibody Screen Crossmatch 02/21/22 02/21/22 05:58 05:58 WBC 7.0 RBC 3.84 L Hgb 11.2 L Hct 33.7 L MCV 87.8 MCH 29.3 MCHC 33.3 RDW 17.6 H Plt Count 117 L Neut % (Auto) 88.1 H Lymph % (Auto) 6.8 L [place] % (Auto) 4.0 Eos % (Auto) 0.0 L Baso % (Auto) 1.1 Neut # (Auto) 6200 Lymph # (Auto) 500 L [place] # (Auto) 300 Eos # (Auto) 0 Baso # (Auto) 100 Sodium 137 Potassium 3.4 Chloride 107 Carbon Dioxide 21 L BUN 7 Creatinine 0.57 Estimated GFR > 60 BUN/Creatinine Ratio 12.3 Glucose 78 Lactate Calcium 6.8 L Total Bilirubin AST ALT Alkaline Phosphatase Total Creatine Kinase CK-MB (CK-2) CK-MB (CK-2) Rel Index Troponin I Total Protein Albumin Globulin Albumin/Globulin Ratio Procalcitonin Urine Color Urine Appearance Urine pH Ur Specific [place] Urine Protein Urine Glucose (UA) Urine Ketones Urine Occult Blood Urine Nitrate Urine Bilirubin Urine Urobilinogen Ur Leukocyte Esterase Urine RBC Urine WBC Urine Bacteria Ur Culture Indicated? Micro UA Comment Nasal Screen MRSA (PCR) SARS-CoV-2 (PCR) Influenza A (RT-PCR) Influenza B (RT-PCR) RSV (PCR) Blood Type Antibody Screen Crossmatch [facility] Medical History History of DVT (deep vein thrombosis) History of pulmonary embolism Schizophrenia Social History household members: family Smoking Status: Never smoker alcohol intake: never Assessment & Plan Assessment & Plan narrative: # Sepsis, present on admission -multiple wounds present on face and scalp due to chronic picking and scratching -blood and wound cultures pending, source likely cellulitis per face CT, no abscess present -switch zosyn to cefepime for PAINT ROLLER WINDER penetration, MRSA swab negative can stop vanc -wound care consulted for dressing changes -need to rule out PAINT ROLLER WINDER pathology given ongoing agitation, fevers. IR-guided LP ordered due to need for sedation. # Schizophrenia with acute psychosis -parents note worsening psychosis and agitation for past 2 months, previously hospitalized at inpatient psych in 2009. Suspect medication noncompliance is a factor. -patient on ativan drip in ED, now off -Dr. Stahl psych consulted and following. Attempting to do long-acting Invega as outpatient. -continue 10mg zyprexa BID and start prozac 20mg liquid daily per psych -ativan IV PRN for agitation -may need inpatient psych, WATER GAS OPERATOR consulted -continue restraints due to self-harm tendencies # Lactic acidosis, now resolved -LA 4.1 in ED, resolved to 1 with fluids # Concern for seizure -patient had shaking episodes in the ED, although these episodes were present during her last admission -highly doubt seizure # History of DVT/PE and IVC filter -event was reportedly in 2018, unknown whether IVC filter was ever removed, patient not currently on anticoagulant # Acute on Chronic Moderate Malnutrition r/t poor PO intake aeb pt 20% below UBW from 2020, pt with poor medication compliance leading to refusal of PO intake, MNA 7, increased nutrient needs for healing r/t scratching. -Malnutrition increases risk of morbidity and mortality in hospitalized patients, contributes to poor wound healing. Code status is full code. COVID negative. DVT prophylaxis not needed. Proxy is her parents. Dispo: TBD Time Spent With Patient Critical Care time: I spent a total of [] minutes of critical care time on this patient's care today; this time is exclusive of procedural time. Quality VTE Deep Vein Thrombosis/Pulmonary Embolism Present on Admission: No
[2022-02-21 08:36] LABS: Lactate Dehydrogenase 492 U/L (120-246)
[2022-02-21 08:40] LABS: Monotest Negative (Negative); Rheumatoid Factor < 8.6 IU/mL (<12.0)
[2022-02-21 08:45] VITALS: BP 101/65; PULSE 101; RESP 20; TEMP 37; O2SAT 100
[2022-02-21] MEDS: VANCOMYCIN 750 MG/150 ML PIGGYBACK 150 MG IV ×2 (08:46→15:17)
--- NOTE | 2022-02-21 11:35 | DIET.CONS ---
Dietary Consultation Note Admission Date: 02/20/2022 14:51 Assessment: 31y F with poorly controlled schizophrenia admitted for psychiatric concerns and significant wound scratching to face screened by RD for MNA 7 (malnourished). Per interview with parents last admission, pt often refusing foods and fluids. Chart review shows pt is 80% of her UBW from 2019. Pt lives at home with parents who are paid caregivers. They report she eats when she is adequately medicated but refuses otherwise. Pt with OCD and trichotillomania- scratches and wounds on face, neck and scalp. Parents restrain her at home to keep her from scratching. Ht: 152.4 cm Wt: 45.2 kg (20% below UBW) BMI: 19.4 UBW: 55kg Last BM: 02/19/22 (02/20/22 15:10) MNA: 7 Shaggy Score: 17 Diet: 02/21/22 Breakfast Regular [General (Regular) Diet] Diet Modifications: Nutrition Percent Meal Consumed 0% 02/20/22 18:00 Labs: RBC 3.84 X10^6/uL (4.0-5.2) L 02/21/22 05:58 Hgb 11.2 g/dL (12.0-16.0) L 02/21/22 05:58 Hct 33.7 % (36-46) L 02/21/22 05:58 Creatinine 0.57 mg/dL (0.52-1.04) 02/21/22 05:58 Lactate 1.0 mmol/L (0.7-2.1) 02/20/22 12:15 Nutrition Diagnosis: Acute on Chronic Moderate Malnutrition r/t poor PO intake aeb pt 20% below UBW from 2019, pt with poor medication compliance leading to refusal of PO intake, MNA 7, increased nutrient needs for healing r/t scratching. -Malnutrition increases risk of morbidity and mortality in hospitalized patients, contributes to poor wound healing. Interventions: 1. While hospitalized, recc ONS Deondre in applesauce bid to support wound healing. 2. Pt may benefit from more structured living environment as food refusal related to medication non-compliance. 3. Pt may benefit from dermatology/allergy consultation if wounds related to psoriasis or eczema as food allergies can contribute and lead to itching. EER: 1575kcals (35kcal/kg per PCM), 65-70g PRO (1.3-1.5g/kg per PCM and wounds) Monitoring/Evaluations: ONS tolerance, PO intake Electronically Signed by: Kaila Osullivan 02/21/22 11:35 Clinical Dietitian [address] [address]
[2022-02-21 12:27] VITALS: BP 103/63; PULSE 111; RESP 20; TEMP 38.1; O2SAT 98
[2022-02-21 13:38] VITALS: TEMP 38.8
[2022-02-21] MEDS: ACETAMINOPHEN 325 MG TABLET 650 MG PO (13:38)
[2022-02-21 14:04] LABS: Ionized Calcium 4.2 mg/dL (4.5-5.6)
--- NOTE | 2022-02-21 15:11 | PC.NURSE ---
Pt alert, moving around in bed frequently. Wrist restraints intact; removed q 2 hr ROM provided Eatting well w/family help. Tele D/C'd as per orders. Martinez cath patent clear urine. Call light w/in reach, bed alarm on for pt safety. Continue w\plan of care.
[2022-02-21 19:50] VITALS: BP 91/54; PULSE 97; RESP 17; TEMP 36.7; O2SAT 99
[2022-02-21] MEDS: FLUoxetine 20 MG CAPSULE PO (21:21)
[2022-02-21] MEDS: OLANZapine ODT 10 MG TAB PO (21:21)
[2022-02-21] MEDS: MUPIROCIN 22 GM OINT 1 APPLIC TOP ×2 (21:22→21:44)
[2022-02-21 23:25] VITALS: BP 99/64; PULSE 64; RESP 17; TEMP 37.3; O2SAT 97
--- NOTE | 2022-02-22 04:12 | PC.NURSE ---
Pt is AxOx1-2, only speak Tagalog with her parents. Continued non-violent 2 pt restraints due to self harm. Although pt has restraints, pt still pulled out her last IV line and núñez catheter twice today. Thus, pt is on brief and no IV ABO given. Midline order is placed and hoping it will get place in the morning. SHIP/REC/DOC CONTROL unable to insert Iv in her. pt is very hard stick. Pt had BM today. Pt ate well and slept throughout the night. While pt is awake, pt always tried to pull her hair or scratch her wound. Pt is very flexible and tend to put her hand into the hair or face. Parents are in the room. No other changes.
[2022-02-22 05:00] VITALS: BP 104/55; PULSE 101; RESP 18; TEMP 37.2; O2SAT 97
--- NOTE | 2022-02-22 08:27 | PC.NURSE ---
Addendum entered by Britni Escoto R.N. 02/22/22 18:13: Patient started on benadryl, first dose just given. IV antibiotic infusing and patient is tolerating this well. Patient states that she would like to go home. Addendum entered by Britni Escoto R.N. 02/22/22 16:43: Patients bedding changed and soft wrist restraints are in place. Patient tries to scratch at her chin because she sais that it itches. She is redirected with some encouragement, patient has been incontinent of urine x2. Father is in room and will be going home later and patients mother will be back later on. Addendum entered by Britni Escoto R.N. 02/22/22 14:35: Patients mom just left to get some rest and shower. We are checking patients wrist restraints every two hours, her wrists are wnl and her head, ears, face, and chin remain scratched and she has a large open wound to her chin which we applied mupirocin ointment to area, of course she did not like this. Patient does calm down occasionally and will close her eyes. She enjoys eating food throughout the day that her parents bring to her. She was incontinent of urine earlier, and bedding was just changed. Labs drawn from ml and flushed well after with saline. Original Note: Patient is awake and conversing with her parents, she speaks some Panamanian but understands more. Patient speaks tagalog with her family. Patient has multiple scratches on her face, ears, head, and a large wound that is open on her chin. We are applying ointment to the area's. She scratches at her wounds frequently so patient has wrist restraints on. We are checking her circulation and motion in her wrists. She has also pulled out all of her iv's and núñez catheter, needed for iv antibiotics, and i&O. This is another reason for soft wrist restraints. We are checking the restraints every two hours, her mentation, and her care.
[2022-02-22] MEDS: OLANZapine ODT 10 MG TAB PO (08:47)
--- NOTE | 2022-02-22 08:49 | P.CONS_ITS ---
History of Present Illness Consult details Date Patient Seen: 02/22/22 Time Patient Seen: 08:25 Chief complaint: Psych Reason for consult: Compulsive skin picking and mental status changes Requesting provider: Shahriar Ragsdale Narrative: REFERRAL INFORMATION This is the latest of many psychiatric evaluations for this 31-year-old filipina female (Tagalog speaking only) referred from the inpatient medical services following admission for possible sepsis due to excessive compulsive skin picking. ? RECORDS REVIEW The patient?s referral documents, medical records and intake questionnaire were reviewed as part of this evaluation.? The patient was previously seen in this clinic for several years by KAE Aguirre as far back as 2015, but then was lost to follow-up from 2019 to January 2022. I reviewed several of her record going back to 2017 in the current EHR.? Attention is directed to those documents for complete details not repeated here as well as her previous consultation completed in January of 2022. CHIEF COMPLAINT The patient is unable to articulate a chief complaint. Most of history is obtained by speaking with mother and father who were primary caregivers. HISTORY OF PRESENT ILLNESS The patient has a long history of psychotic symptoms, behavioral outbursts, and compulsive behaviors that date back many years.? The patient also has a significant history of developmental delay. The patient's parents report that she is verbal at times and able to communicate for basic needs and at baseline normally takes care of her own ADLs. She apparently was diagnosed with lupus sometime around 2019 but it is unclear if the patient has continued any treatment for this.? She was also hospitalized at the [facility] for 6 days in December of 2018 when she presented with a red blotchy rash over her entire body.? She was treated with prednisone and topical steroids, diagnosed with lupus in sent home.? The patient has a long history of scratching various body parts but mostly head and face and skin picking around her face.? In addition she also has a very long history of profoundly poor appetite and frequently refusing to eat for long periods of time.? The patient has a number of compulsive behaviors in addition to scratching her skin such as hair pulling and chronic masturbation.? The patient has also been noted in the past to have persistent and severe auditory, visual, and tactile hallucinations.? Frequently in previous notes she appeared to often respond to internal stimuli with little to no meaningful conversation. The [facility] by KAE Aguirre for several years from July of 2017 until February of 2019 which was the last time the patient was seen in our clinic. Apparently, due to COVID precautions, the patient was not seen in our clinic until she presented in January of 2022 with multiple open wounds on her face, severely agitated, and excessively and compulsively picking at her skin. The family traveled to the [facility] in 2019 for a family visit and when they returned, the patient had a DVT from the long plane flight.? Somewhere around the time of traveling the [facility], the patient's parents have intermittently discontinued fluoxetine with possible subsequent worsening of the patient's skin picking, hair pulling, and OCD behavior.? They have also intermittently discontinued or adjusted the dose of olanzapine down from 20 mg to 10 or 15 mg depending upon how sedated the patient is.? They have been managing this with minimal assistance from a local PCP who has provided medication prescriptions for them. Apparently, the patient becomes quite sedated and the mother is convinced that fluoxetine is the culprit in causing her to be sedated and she has discontinued it, but insists that she is maintained olanzapine dosing. In the last couple of months, the patient's condition has continued to deteriorate significantly. She apparently refused to eat for several weeks in on 28 January was brought into the emergency department with fever and septic shock. The patient was admitted, appropriately treated, and then discharged to home as it was impossible to find any stable placement that would accept her for any psychiatric unit given limitations of her developmental state, language, medical problems, and acuity of psychiatric illness. After being discharged from the hospital on 02/01/2022, the family returned on 02/07/2022 continuing to note that the patient refuses to eat, only drinks water, and the mother expressed some concern that there might be some sort of a dental issue going on. She tried to have the patient seen by a dentist but the patient refuses to open her mouth to be examined. The patient was given antipsychotic medications and we attempted to urged the parents to continue to give her appropriate doses of both olanzapine and fluoxetine. Earlier this week, the parents reported that they brought the patient into the [facility] Emergency Department, once again with similar presentation as above. Because the patient had an appointment with me the following day, they medicated her with lorazepam to keep her calm, but then discharged her from the ED and she was brought to my appointment the morning of 02/20/2021. In the waiting room she became severely agitated, displayed multiple open wounds that were bleeding, appeared to be febrile, so she was referred to the emergency department and ultimately admitted. PAST PSYCHIATRIC HISTORY * Diagnoses:? Chronic history of schizophrenia and OCD as well as i ntellectual/developmental disorder * Inpatient:? Apparently has prior inpatient psychiatry treatment at [facility] in [place] and [facility] in [place]. * Outpatient:? Was seen in this clinic for roughly 4-5 years for being lost to follow-up due to COVID. Was also seen in the [facility] during the 2018 to 2019 timeframe and apparently successfully treated with olanzapine according to parents. * Suicide Attempts:? None known * PREVIOUS PSYCHIATRIC MEDICATION TRIALS Fluoxetine-apparently fairly effective at managing OCD and skin picking symptoms but mother reports that cause severe sedation. Olanzapine-appears to have been effective in the past, may have been helpful and improving appetite, unclear if this has also been part of the over-sedation problem. Risperidone-mother reported today that the patient was on risperidone in the past which apparently made her worse as she became quite agitated raising the question of possible akathisia. CURRENT PSYCHOTROPIC MEDICATIONS Most recently fluoxetine 20 mg daily and olanzapine 20 mg nightly. FAMILY HISTORY * Maternal:? None known * Paternal:? None known * Siblings:? None known SUBSTANCE USE HISTORY * Tobacco: The patient does not smoke. * Alcohol:? The patient does not drink.? No history of abuse. * Drugs: The patient does not use drugs. DEVELOPMENTAL AND SOCIAL HISTORY * Family Constellation/Environment:? Unclear regarding patient's siblings. * Childhood Trauma:? None known * Developmental milestones:? History of severe developmental delay. * Education:? Unknown * Employment:? Never employed * Relationships:? Never . * Current Living:? Currently lives with parents on [facility] and they are primary caregivers. Apparently at baseline is able to communicate basic needs and take care of her own basic ADLs * Support:? Supported by parents * Legal: No current legal difficulties. Meds Home Medications and Allergies Home Medications Medication Instructions Recorded Confirmed Type amoxicillin 875 mg-potassium 1 tab PO Q12H #10 tabs 02/01/22 02/21/22 Rx clavulanate 125 mg tablet mupirocin 2 % topical ointment 1 applic topical BID #45 grams 02/01/22 02/21/22 Rx olanzapine 10 mg disintegrating 20 mg PO BEDTIME #60 tabs 02/01/22 Rx tablet (Zyprexa Zydis) fluoxetine 20 mg capsule (Prozac) 20 mg PO DAILY #30 caps 02/07/22 02/21/22 Rx olanzapine 15 mg tablet 15 mg PO BEDTIME #30 tabs 02/07/22 02/21/22 Rx Allergies Allergy/AdvReac Type Severity Reaction Status Date / Time mirtazapine AdvReac Intermediate Rash severe Verified 02/20/22 08:10 Review of Systems Review of Systems ROS: Yes unobtainable due to mental condition Exam Vital Signs (past 8 hours): - 02/22/22 05:00 Temperature 99.0 F Pulse Rate 101 H Respiratory Rate 18 Blood Pressure 104/55 L Pulse Oximetry 97 Oxygen Flow Rate 0 Fraction of Inspired Oxygen 24 SaO2/FiO2 Ratio 408 Oxygen Delivery Method Room Air Oxygen Flow Rate 0 Narrative Exam Narrative: MENTAL STATUS EXAM * Appearance: Thin, ill appearing filipina female seen lying in her hospital bed with numerous sores and wounds on face and scalp with several areas of hair missing. Many of these wounds appear relatively fresh, bleeding. * Grooming: Dressed in hospital attire. * Behavior: Has removed her right arm from restraints and occasionally picks at her chin the top of her scalp, and the back of her neck. * Eye contact: None * Gait: Not tested * Speech: When nurses were tending to her wounds she spoke Tagalog with her parents. She also asked them for something to eat. * Mood: Unable to state * Affect: Initially calm but then became somewhat agitated. * Thought Process: Distracted, preoccupied with internal stimuli. * Thought Content: Unable to determine suicidal or homicidal ideation, intent, or plan. Patient is clearly preoccupied with internal stimuli of some sort. * Attention: Awake and alert * Orientation: Oriented to person, but unable to answer regarding place, time, or circumstance. * Memory: Unable to test * Insight: Very poor * Judgment: Very poor Objective Labs Result Diagrams: 02/21/22 05:58 02/21/22 05:58 Labs: Laboratory Results - last 24 hr 02/20/22 13:50 Ionized Calcium Rogerio 4.2 L [facility] Medical History History of DVT (deep vein thrombosis) History of pulmonary embolism Schizophrenia Social History marital status: unmarried,single household members: family lives independently: No caregiver/support person: Yes (Both parents) occupational status: disabled Tobacco & Substance Use Smoking Status: Never smoker alcohol intake: never Assessment & Plan Assessment and plan (1) Schizophrenia: Qualifiers: Schizophrenia type: unspecified Qualified Code(s): F20.9 - Schizophrenia, unspecified Status: Acute (2) Compulsive behaviors: Status: Acute (3) Multiple open wounds of face: Status: Inactive (4) Soft tissue infection: Problem details: History of picking skin. Significant erythema/rash of face/neck. Drainage noted from external ear per bedside team. Status: Acute Assessment & Plan narrative: ASSESSMENT/MEDICAL DECISION MAKING The patient is a 31-year-old filipina with a very long history of psychotic illness complicated by obsessive-compulsive disorder manifested by hair pulling, skin picking, and scratching. It is unclear if the patient has been consistently adherent with medication therapy with both olanzapine and fluoxetine. Mother has had some concerns about oversedation and stated that she thought this was caused by fluoxetine, so she discontinued it which may explain worsening of compulsive skin picking behavior. Parents also noted that she apparently did not do well with Risperidone as she became agitated and violent when given an injection during a prior hospitalization, possibly an attempt to switch to a long-acting injectable medication. RECOMMENDATIONS: 1. Continue work up for any causes of delirium and sepsis. 2. Continue to appropriately treat wounds and limit ability to pick at wounds. 3. Resume fluoxetine 20 mg po daily (please use liquid formulation 20 mg/5 ml) 4. Resume Olanzapine 15 mg po qhs, with an additional 5 mg as needed for severe agitation. Recommend use of Zyprexa Zydis (dissolving lozenges) or IV/IM if needed. 5. Will work with SW regarding obtaining old records from previous hospitalizations. 6. Will work with SW for possible inpatient admission for more medical terminologist treatment. 6. While we work on placement, and once she has improved, we can consider cross titrating to a long-acting injectable antipsychotic. Time Spent With Patient Time with patient: 70 minutes or more, with 50% spent counseling/coordinating Critical Care time: I spent a total of [] minutes of critical care time on this patient's care today; this time is exclusive of procedural time.
--- NOTE | 2022-02-22 08:56 | PM.PN.1 ---
Subjective Subjective Date Patient Seen: 02/22/22 Interval history: Patient still restrained. She was able to scrape some of the scab off her chin today. Initially attempted to arrange LP with IR, however due to her agitations she would need to be intubated and sedated so this was held off. Afebrile today. Dr. Stahl changed her psych meds from zyprexa to abilify. Exam Vital Signs (past 8 hours): - 02/22/22 05:00 Temperature 99.0 F Pulse Rate 101 H Respiratory Rate 18 Blood Pressure 104/55 L Pulse Oximetry 97 Oxygen Flow Rate 0 Fraction of Inspired Oxygen 24 SaO2/FiO2 Ratio 408 Oxygen Delivery Method Room Air Oxygen Flow Rate 0 Narrative Exam Narrative: GEN: agitated and restrained HEENT: moist mucous membranes, PERRL, inner ears with scabbing and purulent drainage from left ear, tympanic membranes appear normal bilaterally NECK: trachea midline, no JVD CV: regular rate and rhythm, no murmurs PULM: clear bilaterally SKIN: Multiple full thickness wounds/scabbing of chin, top of scalp and occipital areas, swelling of lower face and jaw present ABD: soft, nontender, nondistended, no organomegaly EXT: warm and well perfused with no edema NEURO: unable to assess due to mental status Objective Labs Result Diagrams: 02/22/22 12:48 02/22/22 12:48 Labs: Laboratory Results - last 24 hr 02/20/22 13:50 Ionized Calcium Rogerio 4.2 L [facility] Medical History History of DVT (deep vein thrombosis) History of pulmonary embolism Schizophrenia Social History marital status: unmarried,single household members: family lives independently: No caregiver/support person: Yes (Both parents) occupational status: disabled Smoking Status: Never smoker alcohol intake: never Assessment & Plan Assessment & Plan narrative: # Fever of unknown origin, present on admission -unclear source of fevers, febrile to 102F on 02/21. Per parents patient has history of lupus. Had negative LE US for DVT during last admission for fevers. -multiple wounds present on face and scalp due to chronic picking and scratching, CT face with soft tissue swelling over mandible which may be cellulitis. No dental abscesses. -almost malar-appearing rash on face suggestive of lupus? 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 Jarrett rec silvadene and xeroform to scalp and mupirocin to face -due to fevers and remote possbility of encephalitis, IR-guided LP was ordered however they want her intubated and sedated. Given this will hold off for now as patient has been afebrile all day on 02/22. -consider LP if fevers continue -heterophile Ab negative, RF negative, -f/u JOCE with reflex, SPEP, hepatitis panel, ESR/CRP and quant gold labs which are pending # Schizophrenia with acute psychosis -parents note worsening psychosis and agitation for past 2 months, previously hospitalized at inpatient psych in 2009. Suspect medication noncompliance is a factor. -patient on ativan drip in ED, now off -Dr. Stahl psych consulted and following. Attempting to do long-acting antipsychotic as outpatient. -change zyprexa to abilify per psych, continue prozac 20mg liquid daily -ativan IV PRN for agitation -may need inpatient psych placement, [facility] consulted -continue restraints due to self-harm # Lactic acidosis, now resolved -LA 4.1 in ED, resolved to 1 with fluids # Concern for seizure -patient had shaking episodes in the ED, although these episodes were present during her last admission and patient is awake and alert but has shakes when she's upset -highly doubt seizure # History of DVT/PE and IVC filter -event was reportedly in 2018, unknown whether IVC filter was ever removed, patient not currently on anticoagulant # Acute on Chronic Moderate Malnutrition r/t poor PO intake aeb pt 20% below UBW from 2020, pt with poor medication compliance leading to refusal of PO intake, MNA 7, increased nutrient needs for healing r/t scratching. -Malnutrition increases risk of morbidity and mortality in hospitalized patients, contributes to poor wound healing. Code status is full code. COVID negative. DVT prophylaxis not needed. Proxy is her parents. Dispo: TBD Time Spent With Patient Critical Care time: I spent a total of [] minutes of critical care time on this patient's care today; this time is exclusive of procedural time. Quality VTE Deep Vein Thrombosis/Pulmonary Embolism Present on Admission: No
[2022-02-22] MEDS: MUPIROCIN 22 GM OINT 1 APPLIC TOP ×2 (10:19→21:02)
[2022-02-22] MEDS: VANCOMYCIN 750 MG/150 ML PIGGYBACK 150 MG IV ×2 (10:22→18:41)
[2022-02-22] MEDS: ARIPiprazole 10 MG TABLET PO (12:23)
[2022-02-22 13:32] LABS: Add Manual Diff / Slide Review NO; Basophils Absolute Auto 0 /uL (0-100); Basophils Percent Auto 0.9 % (0-2); Eosinophils Absolute Auto 0 /uL (0-450); Eosinophils Percent Auto 0.6 % (2-4); Hemoglobin 10.9 g/dL (12.0-16.0); Lymphocytes Absolute Auto 700 /uL (1100-4500); Lymphocytes Percent Auto 16.3 % (25-40); Mean Corpuscular HGB Conc 33.1 % (30-36); Mean Corpuscular Hemoglobin 28.5 PG (26-34); Mean Corpuscular Volume 85.9 fL (80-100); Monocytes Absolute Auto 300 /uL (0-900); Neutrophils Absolute Auto 3400 /uL (1500-7000); Neutrophils Percent Auto 76.2 % (50-75); Platelet Count 135 X10^3/uL (150-400); Red Blood Cell Count 3.84 X10^6/uL (4.0-5.2); Red Cell Distribution Width 17.1 % (11.6-14.8); White Blood Cell Count 4.5 X10^3/uL (4.5-11.0)
[2022-02-22 13:52] LABS: INR 1.1 (0.9-1.3); Prothrombin Time 12.2 SECONDS (10.1-12.7)
[2022-02-22 13:58] LABS: BUN Creatinine Ratio 17.8 (6-22); Blood Urea Nitrogen 8 mg/dL (7-17); Carbon Dioxide 25 mmol/L (22-32); Chloride 105 mmol/L (98-107); Estimated Glomerular Filt Rate > 60 mL/min (>60); Glucose 77 mg/dL (70-100); Sodium 136 mmol/L (137-145)
[2022-02-22 14:00] LABS: HEMOLYSIS 89 (0-50); Potassium 3.8 mmol/L (3.4-5.1)
[2022-02-22] MEDS: CEFEPIME 1 GM in SODIUM CHLORIDE 0.9% 100 ML IV (17:49)
[2022-02-22] MEDS: diphenhydrAMINE 25 MG TABLET PO (18:04)
[2022-02-22] MEDS: SODIUM CHLORIDE 0.9% FLUSH 10 ML IV (20:21)
[2022-02-22 22:34] VITALS: BP 107/74; PULSE 101; RESP 18; TEMP 37.2; O2SAT 95
[2022-02-23] MEDS: VANCOMYCIN 750 MG/150 ML PIGGYBACK 150 MG IV ×2 (01:01→06:24)
[2022-02-23] MEDS: SODIUM CHLORIDE 0.9% FLUSH 10 ML IV ×3 (01:01→20:22)
--- NOTE | 2022-02-23 01:18 | PC.NURSE ---
Patient is oriented to self and birthdate but states I don't know when asked other orientation questions. Breath sounds CTA with RA sat of 95%. HRR but tachy in low 100's. BT present and abdomen is soft. Incontinent of urine. Is able to move self in bed and sit up; staff assist as needed. Currently in soft wrist restraints as keeps trying to scratch at face/head and pull at hair. Has open wounds to chin and posterior head as well as scattered abrasions on UE. Restless at start of shift but is currently asleep. Fall risk score is high and bed alarm is activated. Mom at bedside; rooming in.
[2022-02-23 02:00] VITALS: BP 113/66; PULSE 101; RESP 18; TEMP 36.3; O2SAT 96
[2022-02-23] MEDS: diphenhydrAMINE 25 MG TABLET PO ×3 (03:30→21:06)
[2022-02-23] MEDS: CEFEPIME 1 GM in SODIUM CHLORIDE 0.9% 100 ML IV ×2 (05:33→17:13)
[2022-02-23 06:00] VITALS: BP 111/64; PULSE 93; RESP 17; O2SAT 97
[2022-02-23 06:05] LABS: C-Reactive Protein Quant 4.1 mg/dL (<1.0)
[2022-02-23 06:10] LABS: Erythrocyte Sedimentation Rate 38 MM/HR (0-20)
[2022-02-23 07:53] VITALS: BP 118/69; PULSE 99; RESP 20; TEMP 36.8; O2SAT 97
--- NOTE | 2022-02-23 09:05 | PM.PN.1 ---
Subjective Subjective Interval history: Patient remains restrained at wrists. Afebrile today. Dr. Stahl is managing psych medication and patient is currently on Abilify. Mother is present at the examination. States patient is at her usual baseline of behavior. No new concerns expressed by the mother. Patient does not appear to be in any pain. Intermittently agitated with being around in the bed. Exam Vital Signs (past 8 hours): - 02/23/22 02:00 02/23/22 06:00 Temperature 97.4 F L Pulse Rate 101 H 93 H Respiratory Rate 18 17 Blood Pressure 113/66 111/64 Pulse Oximetry 96 97 Oxygen Flow Rate 0 0 Fraction of Inspired Oxygen 24 SaO2/FiO2 Ratio 408 Oxygen Delivery Method Room Air Oxygen Flow Rate 0 Narrative Exam Narrative: GEN: agitated and restrained at both wirsts to avoid scratching of wounds. HEENT: moist mucous membranes, PERRL NECK: trachea midline, no JVD and no palpable neck nodes CV: regular rate and rhythm, no murmurs. S1 and S2. PULM: clear bilaterally. No spread SKIN: Multiple full thickness wounds/scabbing of chin, top of scalp and occipital areas, swelling of lower face and jaw minimally present. Wounds do not appear to be infected. ABD: soft, nontender, nondistended, no organomegaly EXT: warm and well perfused with no edema NEURO: unable to assess due to mental status Objective Labs Result Diagrams: 02/22/22 12:48 02/22/22 12:48 Labs: Laboratory Results - last 24 hr 02/22/22 02/22/22 02/22/22 12:48 12:48 12:48 WBC 4.5 RBC 3.84 L Hgb 10.9 L Hct 33.0 L MCV 85.9 MCH 28.5 MCHC 33.1 RDW 17.1 H Plt Count 135 L Neut % (Auto) 76.2 H Lymph % (Auto) 16.3 L [place] % (Auto) 6.0 Eos % (Auto) 0.6 L Baso % (Auto) 0.9 Neut # (Auto) 3400 Lymph # (Auto) 700 L [place] # (Auto) 300 Eos # (Auto) 0 Baso # (Auto) 0 ESR PT 12.2 INR 1.1 Sodium 136 L Potassium 3.8 Chloride 105 Carbon Dioxide 25 BUN 8 Creatinine 0.45 L Estimated GFR > 60 BUN/Creatinine Ratio 17.8 Glucose 77 Calcium 7.0 L C-Reactive Protein 02/23/22 02/23/22 05:28 05:28 WBC RBC Hgb Hct MCV MCH MCHC RDW Plt Count Neut % (Auto) Lymph % (Auto) [place] % (Auto) Eos % (Auto) Baso % (Auto) Neut # (Auto) Lymph # (Auto) [place] # (Auto) Eos # (Auto) Baso # (Auto) ESR 38 H PT INR Sodium Potassium Chloride Carbon Dioxide BUN Creatinine Estimated GFR BUN/Creatinine Ratio Glucose Calcium C-Reactive Protein 4.1 H [facility] Medical History History of DVT (deep vein thrombosis) History of pulmonary embolism Schizophrenia Social History marital status: unmarried,single household members: family lives independently: No caregiver/support person: Yes (Both parents) occupational status: disabled Smoking Status: Never smoker alcohol intake: never Assessment & Plan Assessment & Plan narrative: 1. Fever of unknown origin, present on admission. Currently afebrile. The source of fevers was unclear, febrile to 102F on 02/21. Per parents patient has history of lupus. Had negative LE US for DVT during last admission for fevers. Multiple wounds present on face and scalp due to chronic picking and scratching in various stages of healing, CT face with soft tissue swelling over mandible which may be cellulitis. No dental abscesses. Malar-appearing rash on face suggestive of lupus? Blood and wound cultures negative. 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 Jarrett rec silvadene and xeroform to scalp and mupirocin to face Due to fevers and remote possbility of encephalitis, IR-guided LP was ordered however they want her intubated and sedated. Given this will hold off for now as patient has been afebrile all day on 02/22 and continues to be afebrile. Consider LP if fevers continue Heterophile Ab negative, RF negative, JOCE with reflex pending, ESR is elevate/CRP was elevated and quant gold labs which are pending. ESR and CRP are the only markers to follow at this time for infection/inflammation. These need to be followed. Continue to follow ESR and CRP. Continue to also follow CBC and comprehensive metabolic panel to ensure stability. 2. Schizophrenia with acute psychosis Parents note worsening psychosis and agitation for past 2 months, previously hospitalized at inpatient psych in 2009. Suspect medication noncompliance is a factor. Mother states her current sense of agitation is baseline. Dr. Stahl psych consulted and following. Attempting to do long-acting antipsychotic as outpatient. Currently on Abilify as well as Ativan as needed IV. Social work has been consulted. Continue restraints due to self-harm 3. Lactic acidosis, now resolved LA 4.1 in ED, resolved to 1 with fluids 4. Concern for seizure Patient had shaking episodes in the ED, although these episodes were present during her last admission and patient is awake and alert but has shakes when she's upset Not consistent with seizure 5. History of DVT/PE and IVC filter Event was reportedly in 2018, unknown whether IVC filter was ever removed, patient not currently on anticoagulant. Difficult to get information from parents. 6. Acute on Chronic Moderate Malnutrition r/t poor PO intake aeb pt 20% below UBW from 2020, pt with poor medication compliance leading to refusal of PO intake, MNA 7, increased nutrient needs for healing r/t scratching. Malnutrition increases risk of morbidity and mortality in hospitalized patients, contributes to poor wound healing. Dietitian consult to maximize nutritional intake. Code status is full code. COVID negative. DVT prophylaxis not needed. Proxy is her parents. Time Spent With Patient Critical Care time: I spent a total of [] minutes of critical care time on this patient's care today; this time is exclusive of procedural time. Quality VTE Deep Vein Thrombosis/Pulmonary Embolism Present on Admission: No
[2022-02-23] MEDS: MUPIROCIN 22 GM OINT 1 APPLIC TOP ×2 (09:46→20:22)
[2022-02-23] MEDS: ARIPiprazole 10 MG TABLET PO (09:46)
[2022-02-23] MEDS: SILVER SULFADIAZINE 1% CREAM 25 GM 1 APPLIC TOP (09:47)
[2022-02-23 10:36] LABS: HBsAg Screen Negative (Negative); Hepatitis A Antibody IgM Negative (Negative); Hepatitis B Core Antibody IgM Negative (Negative); Hepatitis C Antibody 0.1 s/co ratio (0.0-0.9)
[2022-02-23 12:39] LABS: Add Manual Diff / Slide Review NO; Basophils Absolute Auto 0 /uL (0-100); Basophils Percent Auto 0.9 % (0-2); Eosinophils Absolute Auto 0 /uL (0-450); Eosinophils Percent Auto 0.4 % (2-4); Hematocrit 32.9 % (36-46); Hemoglobin 10.7 g/dL (12.0-16.0); Lymphocytes Absolute Auto 600 /uL (1100-4500); Lymphocytes Percent Auto 17.1 % (25-40); Mean Corpuscular HGB Conc 32.4 % (30-36); Mean Corpuscular Hemoglobin 28.4 PG (26-34); Mean Corpuscular Volume 87.6 fL (80-100); Monocytes Absolute Auto 300 /uL (0-900); Monocytes Percent Auto 7.2 % (3-14); Neutrophils Absolute Auto 2800 /uL (1500-7000); Neutrophils Percent Auto 74.4 % (50-75); Platelet Count 152 X10^3/uL (150-400); Red Blood Cell Count 3.75 X10^6/uL (4.0-5.2); Red Cell Distribution Width 17.5 % (11.6-14.8); White Blood Cell Count 3.8 X10^3/uL (4.5-11.0)
[2022-02-23 12:47] LABS: BUN Creatinine Ratio 29.3 (6-22); Blood Urea Nitrogen 12 mg/dL (7-17); Carbon Dioxide 26 mmol/L (22-32); Chloride 104 mmol/L (98-107); Estimated Glomerular Filt Rate > 60 mL/min (>60); Glucose 86 mg/dL (70-100); Potassium 3.7 mmol/L (3.4-5.1); Sodium 134 mmol/L (137-145)
[2022-02-23 12:48] LABS: HEMOLYSIS 99 (0-50)
[2022-02-23] MEDS: LORazepam 2 MG/ML INJ 0.5 MG IV ×3 (12:50→20:22)
--- NOTE | 2022-02-23 16:13 | CM.DPNOTE ---
DCP NOte Spoke w/Dr Stahl 02.22.22; asked if he needed assist from CM team for any coordination? Dr Stahl requests records to review from patient's stay at [facility] in 2009. Otherwise, no needs from CM team at this time as medical POC unfolds and Dr Stahl does medication reconciliation and trials Discussed record request with [facility] care CORPORATE OPERATIONS COMPLIANCE MANAGER who then discussed with Disha Mar at [facility]- she will follow up on records on Dr Stahl's behalf Patient discussed in multidisciplinary rounds- APS report may be warranted. Family at bedside are very attentive and supportive, however, they may benefit from additional oversight and even resource referral from APS (?) this is for [facility] team to consider and discuss in team meetings Following closely as medical POC unfolds JW
[2022-02-23 17:15] VITALS: BP 106/71; PULSE 80; RESP 20; TEMP 36.6; O2SAT 98
[2022-02-23 20:24] VITALS: BP 111/74; PULSE 93; RESP 18; TEMP 36.7; O2SAT 93
[2022-02-24] MEDS: LORazepam 2 MG/ML INJ 0.5 MG IV ×4 (00:20→23:07)
[2022-02-24] MEDS: diphenhydrAMINE 50 MG/ML VIAL 12.5 MG IV ×4 (00:31→23:06)
[2022-02-24] MEDS: HALOPERIDOL 5 MG/ML VIAL IV (01:27)
[2022-02-24 02:01] VITALS: BP 99/64; PULSE 83; RESP 18; TEMP 36.3; O2SAT 96
[2022-02-24 05:41] VITALS: BP 116/63; PULSE 75; RESP 16; TEMP 37; O2SAT 96
[2022-02-24 05:44] LABS: Add Manual Diff / Slide Review NO; Basophils Absolute Auto 0 /uL (0-100); Basophils Percent Auto 0.8 % (0-2); Eosinophils Absolute Auto 0 /uL (0-450); Eosinophils Percent Auto 1.1 % (2-4); Hematocrit 35.5 % (36-46); Hemoglobin 11.7 g/dL (12.0-16.0); Lymphocytes Absolute Auto 1100 /uL (1100-4500); Lymphocytes Percent Auto 33.5 % (25-40); Mean Corpuscular HGB Conc 32.9 % (30-36); Mean Corpuscular Hemoglobin 29.2 PG (26-34); Mean Corpuscular Volume 88.5 fL (80-100); Monocytes Absolute Auto 300 /uL (0-900); Neutrophils Absolute Auto 1700 /uL (1500-7000); Neutrophils Percent Auto 53.6 % (50-75); Platelet Count 159 X10^3/uL (150-400); Red Blood Cell Count 4.01 X10^6/uL (4.0-5.2); Red Cell Distribution Width 17.2 % (11.6-14.8); White Blood Cell Count 3.1 X10^3/uL (4.5-11.0)
[2022-02-24] MEDS: CEFEPIME 1 GM in SODIUM CHLORIDE 0.9% 100 ML IV ×2 (05:45→20:07)
--- NOTE | 2022-02-24 05:53 | PC.NURSE ---
New orders for restraints requested and given as old orders were . Pt has continuously shifted down in bed or moved body to able self picking of face/head. Benadryl order changed, giving w/ ativan. One dose of haldol given, pt relaxed and slept for a little bit. Mother has been in room all night, needing multiple readvising that pt needs a quiet nonstimulating environment. Staff able to give patient a shower w/ mother's help. Nurse has been 1:1 sitting, when busy CUSTOMS COMPLIANCE MANAGER has been sitting. Pt has stated there are snakes and bugs in hair and on face.
[2022-02-24 05:59] LABS: Alanine Aminotransferase 40 IU/L (<35); Albumin 2.9 g/dL (3.5-5.0); Albumin Globulin Ratio 0.8 (1.0-2.8); Alkaline Phosphatase 80 U/L (38-126); Aspartate Aminotransferase 94 IU/L (14-36); BUN Creatinine Ratio 23.4 (6-22); Bilirubin Total 0.3 mg/dL (0.2-1.3); Blood Urea Nitrogen 11 mg/dL (7-17); C-Reactive Protein Quant 2.8 mg/dL (<1.0); Calcium 7.9 mg/dL (8.4-10.2); Carbon Dioxide 27 mmol/L (22-32); Chloride 106 mmol/L (98-107); Estimated Glomerular Filt Rate > 60 mL/min (>60); Globulin 3.8 g/dL (1.7-4.1); Glucose 100 mg/dL (70-100); HEMOLYSIS < 15 (0-50); Potassium 3.9 mmol/L (3.4-5.1); Sodium 139 mmol/L (137-145); Total Protein 6.7 g/dL (6.3-8.2)
--- NOTE | 2022-02-24 06:13 | PC.NURSE ---
After patient shower mid line drsg changed per hospital protocol. Patient tolerated well. This RN tried to draw blood from mid line for lab draw but was unable to get enough blood for sample. Lab up to draw blood for blood sample.
[2022-02-24 06:33] LABS: Erythrocyte Sedimentation Rate 40 MM/HR (0-20)
[2022-02-24 09:00] VITALS: BP 112/65; PULSE 82; RESP 18; TEMP 36.7; O2SAT 99
[2022-02-24] MEDS: ARIPiprazole 10 MG TABLET PO (10:54)
[2022-02-24] MEDS: MUPIROCIN 22 GM OINT 1 APPLIC TOP ×2 (10:57→20:08)
[2022-02-24] MEDS: SILVER SULFADIAZINE 1% CREAM 25 GM 1 APPLIC TOP (10:58)
[2022-02-24] MEDS: SODIUM CHLORIDE 0.9% FLUSH 10 ML IV ×2 (10:59→20:53)
--- NOTE | 2022-02-24 11:21 | P.PN_ITS ---
Subjective Subjective Date Patient Seen: 02/24/22 Interval history: Patient remains restrained at wrists. Afebrile today. Dr. Stahl is managing psych medication and patient is currently on Abilify.? Mother is present at the examination and treatment plan discussed with her.? States patient is at her usual baseline of behavior.? No new concerns expressed by the mother.? Patient does not appear to be in any pain.? Significantly less agitated today and talking with mother. For clarification: Discussed with the mother that the patient was a normal child when she emigrated to [place] initially and she was in 6th grade. The mother stated that she was very smart. She does know her [place] [facility] language and also Nigerian and functioned well in school in [place]. She prefers however not speaking Nigerian and she prefers to speak in only simple small sentences currently. It was in the 8th grade that the patient began to have schizophrenia and the significant disability that she currently has. Patient is very hungry and is requesting spaghetti. Apparently mother says that the father will be bringing in some spaghetti for her. She has complained to the mother that her wounds are itchy. Exam Vital Signs (past 8 hours): - 02/24/22 05:41 02/24/22 09:00 Temperature 98.6 F 98.0 F Pulse Rate 75 82 Respiratory Rate 16 18 Blood Pressure 116/63 112/65 Pulse Oximetry 96 99 Oxygen Flow Rate 0 Fraction of Inspired Oxygen 24 SaO2/FiO2 Ratio 408 Oxygen Delivery Method Room Air Oxygen Flow Rate 0 Narrative Exam Narrative: GEN: less agitated and restrained at both wrists to avoid scratching of wounds. Making eye contact, resting calmly and speaking to the mother. HEENT: moist mucous membranes, PERRL NECK: trachea midline, no JVD and no palpable neck nodes CV: regular rate and rhythm, no murmurs.? S1 and S2. PULM: clear bilaterally.? No spread SKIN: Multiple full thickness wounds/scabbing of chin, top of scalp and occipital areas, swelling of lower face and jaw minimally present.? Wounds do not appear to be infected. ABD: soft, nontender, nondistended, no organomegaly EXT: warm and well perfused with no edema NEURO: Alert and cooperative with the mother. Less agitation. Objective Labs Result Diagrams: 02/24/22 04:49 02/24/22 04:49 Labs: Laboratory Results - last 24 hr 02/23/22 02/23/22 02/24/22 05:28 05:28 04:49 WBC 3.8 L 3.1 L RBC 3.75 L 4.01 Hgb 10.7 L 11.7 L Hct 32.9 L 35.5 L MCV 87.6 88.5 MCH 28.4 29.2 MCHC 32.4 32.9 RDW 17.5 H 17.2 H Plt Count 152 159 Neut % (Auto) 74.4 53.6 D Lymph % (Auto) 17.1 L 33.5 [place] % (Auto) 7.2 11.0 Eos % (Auto) 0.4 L 1.1 L Baso % (Auto) 0.9 0.8 Neut # (Auto) 2800 1700 Lymph # (Auto) 600 L 1100 [place] # (Auto) 300 300 Eos # (Auto) 0 0 Baso # (Auto) 0 0 ESR 40 H Sodium 134 L Potassium 3.7 Chloride 104 Carbon Dioxide 26 BUN 12 Creatinine 0.41 L Estimated GFR > 60 BUN/Creatinine Ratio 29.3 H Glucose 86 Calcium 7.0 L Total Bilirubin AST ALT Alkaline Phosphatase C-Reactive Protein Total Protein Albumin Globulin Albumin/Globulin Ratio 02/24/22 04:49 WBC RBC Hgb Hct MCV MCH MCHC RDW Plt Count Neut % (Auto) Lymph % (Auto) [place] % (Auto) Eos % (Auto) Baso % (Auto) Neut # (Auto) Lymph # (Auto) [place] # (Auto) Eos # (Auto) Baso # (Auto) ESR Sodium 139 Potassium 3.9 Chloride 106 Carbon Dioxide 27 BUN 11 Creatinine 0.47 L Estimated GFR > 60 BUN/Creatinine Ratio 23.4 H Glucose 100 Calcium 7.9 L Total Bilirubin 0.3 AST 94 H ALT 40 H Alkaline Phosphatase 80 C-Reactive Protein 2.8 H Total Protein 6.7 Albumin 2.9 L Globulin 3.8 Albumin/Globulin Ratio 0.8 L [facility] Medical History History of DVT (deep vein thrombosis) History of pulmonary embolism Schizophrenia Social History marital status: unmarried,single household members: family lives independently: No caregiver/support person: Yes (Both parents) occupational status: disabled Smoking Status: Never smoker alcohol intake: never Assessment & Plan Assessment & Plan narrative: 1. Fever of unknown origin, present on admission.? Currently afebrile. The source of fevers was unclear, febrile to 102F on 02/21. Per parents patient has history of lupus. Had negative LE US for DVT during last admission for fevers. Multiple wounds present on face and scalp due to chronic picking and scratching in various stages of healing, CT face with soft tissue swelling over mandible which may be cellulitis. No dental abscesses. Malar-appearing rash on face suggestive of lupus? Blood and wound cultures negative. 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 This should continue to February 28 at 5:59 p.m. Wound care was consulted for dressing changes, Dr. Jarrett rec silvadene and xeroform to scalp and mupirocin to face Due to fevers and remote possbility of encephalitis, IR-guided LP was ordered however they want her intubated and sedated. Given this will hold off for now as patient has been afebrile since 02/22 and continues to be afebrile. Consider LP if fevers continue Heterophile Ab negative, RF negative, JOCE with reflex pending, ESR is elevate/CRP was elevated and quant gold labs which are pending.? ESR and CRP are the only markers to follow at this time for infection/inflammation.? ESR is stable at 40 and CRP has decreased to 2.8. These need to be followed.?Continue to also follow CBC and comprehensive metabolic panel to ensure stability. 2. Schizophrenia with acute psychosis Parents note worsening psychosis and agitation for past 2 months, previously hospitalized at inpatient psych in 2009. Suspect medication noncompliance is a factor.? Mother states her current sense of agitation is baseline. For today patient is much calmer, speaking with the mother, and making eye contact. Will treat with Vistaril 50 mg q.i.d. to help maintain control of agitation. A s econdary benefit of this will be decrease of itching sensation. Dr. Stahl psych consulted and following. Attempting to do long-acting antipsychotic as outpatient.? Currently on Abilify? as well as Ativan as needed IV. Social work has been consulted. Continue restraints due to self-harm. Needs to be reordered every day. 3. Lactic acidosis, now resolved LA 4.1 in ED, resolved to 1 with fluids 4. Concern for seizure Patient had shaking episodes in the ED, although these episodes were present du ring her last admission and patient is awake and alert but has shakes when she's upset Not consistent with seizure 5. History of DVT/PE and IVC filter Event was reportedly in 2018, unknown whether IVC filter was ever removed, patient not currently on anticoagulant.? Difficult to get information from parents. 6. Acute on Chronic Moderate Malnutrition r/t poor PO intake aeb pt 20% below UBW from 2020, pt with poor medication compliance leading to refusal of PO intake, MNA 7, increased nutrient needs for healing r/t scratching. Malnutrition increases risk of morbidity and mortality in hospitalized patients, contributes to poor wound healing.? Dietitian consult to maximize nutritional intake. Also to help nutrition, ordered calcium, vitamin D and multivitamin. Code status is full code. COVID negative. DVT prophylaxis not needed. Proxy is her parents. Time Spent With Patient Critical Care time: I spent a total of [] minutes of critical care time on this patient's care today; this time is exclusive of procedural time. Quality VTE Deep Vein Thrombosis/Pulmonary Embolism Present on Admission: No
[2022-02-24 13:00] VITALS: BP 117/69; PULSE 92; RESP 20; TEMP 36.8; O2SAT 98
[2022-02-24] MEDS: MULTIVITAMIN 1 TABLET 1 TAB PO (13:02)
[2022-02-24] MEDS: CHOLECALCIFEROL (VITAMIN D3) 1,000 UNIT TABLET 1000 UNIT PO (13:02)
[2022-02-24] MEDS: hydrOXYzine pamoate 25 MG CAPSULE 50 MG PO ×2 (13:02→19:09)
[2022-02-24] MEDS: CALCIUM CARBONATE 600 MG TABLET PO (13:06)
--- NOTE | 2022-02-24 14:54 | PC.NURSE ---
Prescribed cremes applied to wounds on the patients head and to her face and jaw as ordered. Pt remains in wrist restraints to prevent her from further scratching herself. She is oriented to self only. She calls out for food and is assisted to eat. She also squirms in the bed and makes repeated attempt to exit the bed. Pt is kindly directed to remain in bed and assisted to reposition when needed. She is frequently sat with or rounded on by nursing staff through the shift. Her mother remains at the bedside and is very attentive to her daughter. Pt has not rested longer than 5 mins at a time and not often. Nursing staff encourage the patient and her mother to rest and have tried to create a peaceful environment.
--- NOTE | 2022-02-24 15:28 | CM.DPC ---
DCP Cont: This DCM and Ironer went into see pt. Family present and coach driver present. Silver Chaser is good historian, he states I have been driving for family for 11 years. Obtained information re. Pt sleep pattern as RN for pt today is concerned with regards to pt need for rest and structured schedule. This DCP and Ironer, Rosalina collaborated with pt's RN and Dr. Del Angel re. further care needs. Dr. Stahl will see pt tomorrow. This DCP left a VM with Tia, State Computer Network Specialist at to return a call to ext [phone] case management director in the am at her earliest convenience to discuss a further plan for discharge when pt is medically stable. Dr. Del Angel ordered dietary consult.
[2022-02-24 20:48] VITALS: BP 102/59; PULSE 96; RESP 16; TEMP 36.2; O2SAT 97
--- NOTE | 2022-02-25 00:12 | PC.NURSE ---
Addendum entered by Gia Lerma R.N. 02/25/22 03:11: 0311, pt has been asleep since around midnight after receiving 0.5 mg ativan and benadryl 12.5 mg IVP. Mom is concerned that patient might be too sedated. respirations are 16. According to the prior nursing staff this is the first time pt has been able to sleep >than 1 hour. This nurse assured mom that patient is safe and it's good for her to get some sleep. Nursing staff at the door currently providing 1:1 until am medication pass. Original Note: aAt 1939 pt was found standing up on the side of the bed.. Pt was place back to bed, bed alarm placed. pt alert to self only, at times yelling out in what appears to be her [place] language. Pt taking sips of juice given by mom. Mom helping the staff with po medications. pt pulling on restraints when awake and even though restrains are loose they are starting to cause redness. Pt still managing to scratch her wounds. pt tried to get out of bed around around 2100 while mom was at the bedside. Pt has been medicated with ativan adn benadryl IVP. Mom has tried to close the door to the bedroom. Mom encourage to leave the door open so that staff can visualized pt at all time. At the moment pt is being monitor at all times (staffing sitting outside of the room while charting).
[2022-02-25] MEDS: hydrOXYzine pamoate 25 MG CAPSULE 50 MG PO ×3 (06:22→17:16)
[2022-02-25] MEDS: CEFEPIME 1 GM in SODIUM CHLORIDE 0.9% 100 ML IV ×2 (06:23→17:17)
[2022-02-25] MEDS: diphenhydrAMINE 50 MG/ML VIAL 12.5 MG IV ×2 (07:44→14:06)
[2022-02-25] MEDS: LORazepam 2 MG/ML INJ 0.5 MG IV ×4 (07:45→22:33)
[2022-02-25 08:00] VITALS: BP 107/65; PULSE 104; RESP 18; TEMP 37.3; O2SAT 98
[2022-02-25] MEDS: SODIUM CHLORIDE 0.9% FLUSH 10 ML IV ×2 (08:00→21:43)
[2022-02-25] MEDS: CHOLECALCIFEROL (VITAMIN D3) 1,000 UNIT TABLET 1000 UNIT PO (08:15)
[2022-02-25] MEDS: MULTIVITAMIN 1 TABLET 1 TAB PO (08:15)
[2022-02-25] MEDS: CALCIUM CARBONATE 600 MG TABLET PO (08:15)
[2022-02-25] MEDS: ARIPiprazole 10 MG TABLET PO (08:15)
[2022-02-25] MEDS: MUPIROCIN 22 GM OINT 1 APPLIC TOP ×2 (08:29→21:44)
[2022-02-25] MEDS: SILVER SULFADIAZINE 1% CREAM 25 GM 1 APPLIC TOP (08:29)
[2022-02-25 08:44] LABS: Add Manual Diff / Slide Review NO; Basophils Absolute Auto 100 /uL (0-100); Basophils Percent Auto 1.3 % (0-2); Eosinophils Absolute Auto 100 /uL (0-450); Eosinophils Percent Auto 1.2 % (2-4); Hematocrit 34.5 % (36-46); Hemoglobin 11.5 g/dL (12.0-16.0); Lymphocytes Absolute Auto 900 /uL (1100-4500); Lymphocytes Percent Auto 23.5 % (25-40); Mean Corpuscular HGB Conc 33.4 % (30-36); Mean Corpuscular Hemoglobin 28.7 PG (26-34); Mean Corpuscular Volume 86.1 fL (80-100); Monocytes Absolute Auto 400 /uL (0-900); Neutrophils Absolute Auto 2600 /uL (1500-7000); Platelet Count 158 X10^3/uL (150-400); Red Cell Distribution Width 16.9 % (11.6-14.8)
[2022-02-25 08:54] LABS: Alanine Aminotransferase 46 IU/L (<35); Albumin 2.9 g/dL (3.5-5.0); Albumin Globulin Ratio 0.7 (1.0-2.8); Alkaline Phosphatase 87 U/L (38-126); Aspartate Aminotransferase 91 IU/L (14-36); BUN Creatinine Ratio 18.4 (6-22); Bilirubin Total 0.3 mg/dL (0.2-1.3); Blood Urea Nitrogen 9 mg/dL (7-17); C-Reactive Protein Quant 1.6 mg/dL (<1.0); Calcium 7.7 mg/dL (8.4-10.2); Carbon Dioxide 25 mmol/L (22-32); Chloride 105 mmol/L (98-107); Estimated Glomerular Filt Rate > 60 mL/min (>60); Globulin 3.9 g/dL (1.7-4.1); Glucose 77 mg/dL (70-100); HEMOLYSIS 22 (0-50); Potassium 3.5 mmol/L (3.4-5.1); Sodium 137 mmol/L (137-145); Total Protein 6.8 g/dL (6.3-8.2)
[2022-02-25 09:09] LABS: Erythrocyte Sedimentation Rate 37 MM/HR (0-20)
--- NOTE | 2022-02-25 10:44 | CM.DPC ---
DCP/continued: Reviewed chart. Dr. Stahl expected to see patient today. Received return phone call from disability worker Elizaebth Flower ph#[phone]. STAMP CLASSIFIER previous notes it appears that sj has 129hrs for caregiving. Hours done by patient's mother/Tracey. At this time d/c plan unknown. Plan really depends on how family feels about new medication that was tried over the weekend. Received call back from Elizabeth with state disability's she reports that she last saw patient in October, during that visit patient was doing quite well. Currently I explained to Tia her condition. Tia in agreement that patient should be medically stabilized on medication prior to d/c. Elizabeth does not believe that an insititution is best option. especially when there are so few beds. Dr. Stahl expected today and it will be interesting to see what he recommends. Elizabeth plans to come see patient at the hospital tomorrow around 11:00AM. At this time d/c needs unknown. I anticipate once medically stable with medication and close outpatient follow up. P: Pending. DAVID
--- NOTE | 2022-02-25 11:20 | DI.CT.S_ITS ---
PROCEDURE: CT CHEST ABD PEL W CON INDICATIONS: fever of unknown source to 102F. TECHNIQUE: After the administration of oral and intravenous contrast, axial sections acquired from the supraclavicular neck to the pubic symphysis. Coronal and sagittal reformats were performed. For radiation dose reduction, the following was used: automated exposure control, adjustment of mA and/or kV according to patient size. COMPARISON: [facility], CT, CT ANGIO CHEST PE PROTOCOL, 01/28/2022, 17:42. [facility], CT, CT ABDOMEN PELVIS W CON, 01/30/2022, 16:22. FINDINGS: Image quality: Excellent. CHEST: Lower Neck: No enlarged lymph nodes. Thyroid: Within normal limits. Axillae: Borderline enlarged axillary lymph nodes are seen measures up to 1 cm in size in left axilla series 2, image 12. . Chest Wall: Unremarkable. Lungs and Airways: Masslike consolidations are noted in right apex measures up to 1.8 x 1.3 cm in size series 5, image 71. Dependent atelectasis in posterior aspect of bilateral lung st[place] are seen. Airspace opacity is also noted in posterior aspect of right lower lobe. Findings are new since previous CT angiogram of chest study. Pleura: No pneumothorax or pleural effusions. Heart: Heart size is enlarged. No pericardial effusion. Thoracic Vessels: The aorta and pulmonary arteries demonstrate normal size. Mediastinum and Gloria: No enlarged lymph nodes. Esophagus: No wall thickening. No hiatal hernia. ABDOMEN: Liver: Unremarkable. Gallbladder: Gallbladder is contracted and shows no gross abnormality. Biliary ducts: Unremarkable. Pancreas: Unremarkable. Spleen: Unremarkable. Adrenal Glands: Unremarkable. Kidneys and Ureters: Unremarkable. Stomach and Bowel: Stomach, small bowel loops, and colon are unremarkable. Fecal stasis throughout the colon is seen. No abnormal bowel wall thickening. No mesenteric fat stranding. No abscess collection. Peritoneum: No abnormal intraperitoneal fluid. No free air. Ventral Wall: No hernia. Abdominal Nodes: No retroperitoneal or mesenteric adenopathy by size criteria. Vessels: Aorta and inferior vena cava are normal in size. PELVIS: Pelvic Organs: Unremarkable. Bladder: Unremarkable. Pelvic Nodes: No enlarged lymph nodes. Miscellaneous: No inguinal hernias are seen. Bones: No suspicious bony lesion. No acute vertebral body compression fracture. IMPRESSION: 1. Ill-defined airspace opacities are noted in right apex and right lower lobe suggestive of right-sided pulmonary infiltrates. Findings are new since previous study. No pleural effusion or pneumothorax. Airway is patent. 2. Nonspecific borderline prominent axillary lymph nodes. No mediastinal or hilar lymphadenopathy. No abdominal or pelvic lymphadenopathy by size criteria. 3. Fecal stasis throughout the colon. No bowel obstruction or abnormal bowel wall thickening. No free fluid or free air. Dictated by: Lev Ramos M.D. on 02/25/2022 at 11:46 Approved by: Lev Ramos M.D. on 02/25/2022 at 11:58
[2022-02-25 13:28] VITALS: BP 99/61; PULSE 89; RESP 18; TEMP 36.6; O2SAT 100
--- NOTE | 2022-02-25 13:59 | PM.PN.1 ---
Subjective Subjective Date Patient Seen: 02/25/22 Interval history: Patient remains restrained at wrists. Afebrile today. Dr. Stahl is managing psych medication and patient is currently on Abilify.? Mother is present at the examination and treatment plan discussed with her.? States patient is at her usual baseline of behavior.? No new concerns expressed by the mother.? Patient does not appear to be in any pain.? Significantly less agitated today and talking with mother. Exam Vital Signs (past 8 hours): - 02/25/22 08:00 02/25/22 13:28 Temperature 99.1 F 98 F Pulse Rate 104 H 89 Respiratory Rate 18 18 Blood Pressure 107/65 99/61 Pulse Oximetry 98 100 Oxygen Flow Rate 0 0 Fraction of Inspired Oxygen 24 SaO2/FiO2 Ratio 408 Oxygen Delivery Method Room Air Oxygen Flow Rate 0 Narrative Exam Narrative: GEN: less agitated but squirming around a lot wanting to itch her wounds and restrained at both wrists to avoid scratching of wounds.? Making eye contact, resting calmly and speaking to the mother. Speaking to me and having a conversation with me appropriately. HEENT: moist mucous membranes, PERRL NECK: trachea midline, no JVD and no palpable neck nodes CV: regular rate and rhythm, no murmurs.? S1 and S2. PULM: clear bilaterally.? No spread SKIN: Multiple full thickness wounds/scabbing of chin, top of scalp and occipital areas, swelling of lower face and jaw minimally present.? Wounds do not appear to be infected. ABD: soft, nontender, nondistended, no organomegaly EXT: warm and well perfused with no edema NEURO:? Alert and cooperative with the mother.? Less agitation. Objective Labs Result Diagrams: 02/25/22 08:24 02/25/22 08:24 Labs: Laboratory Results - last 24 hr 02/25/22 02/25/22 08:24 08:24 WBC 4.0 L RBC 4.00 Hgb 11.5 L Hct 34.5 L MCV 86.1 MCH 28.7 MCHC 33.4 RDW 16.9 H Plt Count 158 Neut % (Auto) 65.0 Lymph % (Auto) 23.5 L [place] % (Auto) 9.0 Eos % (Auto) 1.2 L Baso % (Auto) 1.3 Neut # (Auto) 2600 Lymph # (Auto) 900 L [place] # (Auto) 400 Eos # (Auto) 100 Baso # (Auto) 100 ESR 37 H Sodium 137 Potassium 3.5 Chloride 105 Carbon Dioxide 25 BUN 9 Creatinine 0.49 L Estimated GFR > 60 BUN/Creatinine Ratio 18.4 Glucose 77 Calcium 7.7 L Total Bilirubin 0.3 AST 91 H ALT 46 H Alkaline Phosphatase 87 C-Reactive Protein 1.6 H Total Protein 6.8 Albumin 2.9 L Globulin 3.9 Albumin/Globulin Ratio 0.7 L [facility] Medical History History of DVT (deep vein thrombosis) History of pulmonary embolism Schizophrenia Social History marital status: unmarried,single household members: family lives independently: No caregiver/support person: Yes (Both parents) occupational status: disabled Smoking Status: Never smoker alcohol intake: never Assessment & Plan Assessment and plan (1) Scalp wound: Status: Acute (2) Multiple open wounds of face: Status: Acute (3) Skin ulcer: Status: Acute (4) Soft tissue infection: Problem details: History of picking skin. Significant erythema/rash of face/neck. Drainage noted from external ear per bedside team. Status: Acute Assessment & Plan narrative: 1. Fever of unknown origin, present on admission.? Currently afebrile. The source of fevers was unclear, febrile to 102F on 02/21. Per parents patient has history of lupus. Had negative LE US for DVT during last admission for fevers. Multiple wounds present on face and scalp due to chronic picking and scratching in various stages of healing, CT face with soft tissue swelling over mandible which may be cellulitis. No dental abscesses. Malar-appearing rash on face suggestive of lupus? Blood and wound cultures negative. Continues on cefepime for [employer] penetration.? This should continue to February 28 at 5:59 p.m. Wound care was consulted for dressing changes, Dr. Luiza valdovinose and xeroform to scalp and mupirocin to face Due to fevers and remote possbility of encephalitis, IR-guided LP was ordered however they want her intubated and sedated. Given this will hold off for now as patient has been afebrile since 1/6 and continues to be afebrile. Consider LP if fevers continue Heterophile Ab negative, RF negative, JOCE with reflex pending, ESR is elevate/CRP was elevated and quant gold labs which are pending.? ESR and CRP are the only markers to follow at this time for infection/inflammation.? ESR is stable at 40 and CRP has decreased to 2.8.? These need to be followed.?Continue to also follow CBC and comprehensive metabolic panel to ensure stability. CT of chest/abdomen and pelvis done today as workup of fever of unknown origin shows infiltrates in the right apex and right lower lobe as well as stasis of feces in the abdomen. Will treat empirically with Amox/Clav 500 p.o. t.i.d. for 7 days and follow ESR and CRP to see if improvement and then also treat with sennosides at night. 2. Schizophrenia with acute psychosis Parents note worsening psychosis and agitation for past 2 months, previously hospitalized at inpatient psych in 2009. Suspect medication noncompliance is a factor.? Mother states her current sense of agitation is baseline.? For today patient is much calmer, speaking with the mother, and making eye contact.? Will treat with Vistaril 50 mg q.i.d. to help maintain control of agitation.? A secondary benefit of this will be decrease of itching sensation. Dr. Stahl psych consulted and following. Attempting to do long-acting antipsychotic as outpatient.? Currently on Abilify? as well as Ativan as needed IV. Social work has been consulted. Continue restraints due to self-harm.? Needs to be reordered every day. 3. Lactic acidosis, now resolved LA 4.1 in ED, resolved to 1 with fluids 4. Concern for seizure Patient had shaking episodes in the ED, although these episodes were present during her last admission and patient is awake and alert but has shakes when she's upset Not consistent with seizure 5. History of DVT/PE and IVC filter Event was reportedly in 2018, unknown whether IVC filter was ever removed, patient not currently on anticoagulant.? Difficult to get information from parents. 6. Acute on Chronic Moderate Malnutrition r/t poor PO intake aeb pt 20% below UBW from 2020, pt with poor medication compliance leading to refusal of PO intake, MNA 7, increased nutrient needs for healing r/t scratching. Malnutrition increases risk of morbidity and mortality in hospitalized patients, contributes to poor wound healing.? Dietitian consult to maximize nutritional intake.? Also to help nutrition, ordered calcium, vitamin D and multivitamin. Code status is full code. COVID negative. DVT prophylaxis not needed. Proxy is her parents. Time Spent With Patient Critical Care time: I spent a total of [] minutes of critical care time on this patient's care today; this time is exclusive of procedural time. Quality VTE Deep Vein Thrombosis/Pulmonary Embolism Present on Admission: No
--- NOTE | 2022-02-25 14:40 | P.PN_ITS ---
Subjective Subjective Date Patient Seen: 02/25/22 Time Patient Seen: 16:15 Interval history: Patient is seen at bedside, initially sleeping but then was roused after repositioned by mother. Mother and one-to-one nursing present in the room. Patient has been conversant with mother and nursing staff and hospitalist as well as me. Speaking Lao and appropriately answering questions. Patient continues to struggle to resist restraints and try to touch in scratch various wounds on her head. Noted to be occasionally complaining of itchiness as well as stating that she has ?snakes? in her head. Exam Vital Signs (past 8 hours): - 02/25/22 08:00 02/25/22 13:28 Temperature 99.1 F 98 F Pulse Rate 104 H 89 Respiratory Rate 18 18 Blood Pressure 107/65 99/61 Pulse Oximetry 98 100 Oxygen Flow Rate 0 0 Fraction of Inspired Oxygen 24 SaO2/FiO2 Ratio 408 Oxygen Delivery Method Room Air Oxygen Flow Rate 0 Narrative Exam Narrative: MENTAL STATUS EXAM * Appearance:? Thin, filipina female seen lying in her hospital bed with numerous sores and wounds on face and scalp with several areas of hair missing.? Many now bandaged and beginning to heal. * Grooming:? Dressed in hospital attire. * Behavior:? Arms restrained, but patient is struggling somewhat against them. * Eye contact:? Good * Gait:? Not tested * Speech:? Able to speak in converse in Lao and answer basic questions. Speech unimpaired * Mood:? ?itchy? * Affect:? Calmer and much less agitated than previously. * Thought Process:? Somewhat concrete but linear logical and goal directed. Able to answer basic questions and converse appropriately. * Thought Content:? Unable to determine suicidal or homicidal ideation, intent, or plan.? Still somewhat preoccupied with internal stimuli of some type but unclear. * Attention:? Awake and alert * Orientation:? Oriented to person, month and year, and place. * Insight:? Poor * Judgment:? Poor Objective Labs Result Diagrams: 02/25/22 08:24 02/25/22 08:24 Labs: Laboratory Results - last 24 hr 02/25/22 02/25/22 08:24 08:24 WBC 4.0 L RBC 4.00 Hgb 11.5 L Hct 34.5 L MCV 86.1 MCH 28.7 MCHC 33.4 RDW 16.9 H Plt Count 158 Neut % (Auto) 65.0 Lymph % (Auto) 23.5 L [place] % (Auto) 9.0 Eos % (Auto) 1.2 L Baso % (Auto) 1.3 Neut # (Auto) 2600 Lymph # (Auto) 900 L [place] # (Auto) 400 Eos # (Auto) 100 Baso # (Auto) 100 ESR 37 H Sodium 137 Potassium 3.5 Chloride 105 Carbon Dioxide 25 BUN 9 Creatinine 0.49 L Estimated GFR > 60 BUN/Creatinine Ratio 18.4 Glucose 77 Calcium 7.7 L Total Bilirubin 0.3 AST 91 H ALT 46 H Alkaline Phosphatase 87 C-Reactive Protein 1.6 H Total Protein 6.8 Albumin 2.9 L Globulin 3.9 Albumin/Globulin Ratio 0.7 L [facility] Medical History History of DVT (deep vein thrombosis) History of pulmonary embolism Schizophrenia Social History marital status: unmarried,single household members: family lives independently: No caregiver/support person: Yes (Both parents) occupational status: disabled Smoking Status: Never smoker alcohol intake: never Assessment & Plan Assessment and plan (1) Schizophrenia: Qualifiers: Schizophrenia type: unspecified Qualified Code(s): F20.9 - Schizophrenia, unspecified Status: Acute (2) Compulsive behaviors: Status: Acute (3) Multiple open wounds of face: Status: Inactive (4) Soft tissue infection: Problem details: History of picking skin. Significant erythema/rash of face/neck. Drainage noted from external ear per bedside team. Status: Acute Assessment & Plan narrative: ASSESSMENT/MEDICAL DECISION MAKING The patient is a 31-year-old filipina with a very long history of psychotic illness complicated by obsessive-compulsive disorder manifested by extremely treatment resistant hair pulling, skin picking, scratching, that may be possibly related to delusional content. RECOMMENDATIONS: 1. Continue fluoxetine 20 mg daily 2. Continue Aripiprazole 10 mg daily, will reassess dose tomorrow to determine if we need to increase it. 3. Concur with use of hydroxyzine 50 mg QID targeting urticaria and may be helpful of anxiety and agitation. 4. Concur with discussions about clipping nails and using soft gloves to prevent scratching and skin picking. 5. Will coordinate with SW/discharge planners re disposition. Time Spent With Patient Time with patient: less than 30 minutes Critical Care time: I spent a total of [] minutes of critical care time on this patient's care today; this time is exclusive of procedural time. Quality VTE Deep Vein Thrombosis/Pulmonary Embolism Present on Admission: No
--- NOTE | 2022-02-25 15:20 | DIET.CONS2 ---
Dietary Inpatient Consultation Note Admission Date: 02/20/2022 14:51 RD reconsulted for pt with moderate malnutrition. Pt enjoys pasta and chocolate ice cream. Unit Host working with pt and parents to provide desired meals. Pts father also bringing in items preferred by patient. Pts malnutrition r/t medication non-compliance. Nutrition status will improve once pt compliant with meds. Kitchen to continue working with pt on PO intake in the meantime. Diet: 02/21/22 Breakfast Regular [General (Regular) Diet] Diet Modifications: Nutrition Percent Meal Consumed 25% 02/25/22 13:34 Percent Meal Consumed 25% 02/25/22 09:53 Electronically Signed by: Kaila Osullivan 02/25/22 15:20 Clinical Dietitian [address] [id number]
[2022-02-25] MEDS: AMOXICILLIN/CLAV 500/125 MG 1 TAB PO ×2 (15:57→21:40)
[2022-02-25 17:00] VITALS: BP 91/57; PULSE 83; RESP 16; TEMP 37.1; O2SAT 97
[2022-02-25 19:10] LABS: Albumin 2.3 g/dL (2.9-4.4); Alpha 1 Globulin 0.4 g/dL (0.0-0.4); Alpha 2 Globulin 0.8 g/dL (0.4-1.0); Beta 1 Globulin 0.7 g/dL (0.7-1.3); Gamma Globulin 1.4 g/dL (0.4-1.8); Protein, Total 5.5 g/dL (6.0-8.5)
[2022-02-25 21:00] VITALS: BP 99/56; PULSE 83; RESP 18; TEMP 36.5; O2SAT 99
[2022-02-25] MEDS: SENNOSIDES 8.6 MG TABLET 17.2 MG PO (21:41)
[2022-02-26] VITALS (9 sets, daily range): BP systolic 92–97; BP diastolic 54–59; PULSE 77–86; RESP 16–20; TEMP 36.4–36.7; O2SAT 98–100
[2022-02-26] MEDS: diphenhydrAMINE 50 MG/ML VIAL 12.5 MG IV ×2 (02:53→18:07)
[2022-02-26] MEDS: LORazepam 2 MG/ML INJ 0.5 MG IV ×3 (02:54→22:52)
[2022-02-26 06:21] LABS: Add Manual Diff / Slide Review NO; Basophils Absolute Auto 0 /uL (0-100); Basophils Percent Auto 0.8 % (0-2); Eosinophils Absolute Auto 0 /uL (0-450); Hemoglobin 11.2 g/dL (12.0-16.0); Lymphocytes Absolute Auto 1000 /uL (1100-4500); Lymphocytes Percent Auto 31.2 % (25-40); Mean Corpuscular Hemoglobin 28.5 PG (26-34); Mean Corpuscular Volume 86.4 fL (80-100); Monocytes Absolute Auto 300 /uL (0-900); Monocytes Percent Auto 10.8 % (3-14); Neutrophils Absolute Auto 1800 /uL (1500-7000); Neutrophils Percent Auto 56.2 % (50-75); Platelet Count 170 X10^3/uL (150-400); Red Blood Cell Count 3.94 X10^6/uL (4.0-5.2); Red Cell Distribution Width 17.1 % (11.6-14.8); White Blood Cell Count 3.2 X10^3/uL (4.5-11.0)
[2022-02-26] MEDS: CEFEPIME 1 GM in SODIUM CHLORIDE 0.9% 100 ML IV (06:24)
[2022-02-26 07:22] LABS: Alanine Aminotransferase 47 IU/L (<35); Albumin 2.8 g/dL (3.5-5.0); Albumin Globulin Ratio 0.8 (1.0-2.8); Alkaline Phosphatase 87 U/L (38-126); Aspartate Aminotransferase 83 IU/L (14-36); BUN Creatinine Ratio 15.1 (6-22); Bilirubin Total 0.2 mg/dL (0.2-1.3); Blood Urea Nitrogen 8 mg/dL (7-17); C-Reactive Protein Quant 1.2 mg/dL (<1.0); Calcium 7.5 mg/dL (8.4-10.2); Carbon Dioxide 26 mmol/L (22-32); Chloride 104 mmol/L (98-107); Estimated Glomerular Filt Rate > 60 mL/min (>60); Globulin 3.7 g/dL (1.7-4.1); Glucose 97 mg/dL (70-100); HEMOLYSIS < 15 (0-50); Potassium 3.3 mmol/L (3.4-5.1); Sodium 138 mmol/L (137-145); Total Protein 6.5 g/dL (6.3-8.2)
[2022-02-26 07:25] LABS: Erythrocyte Sedimentation Rate 39 MM/HR (0-20)
--- NOTE | 2022-02-26 08:54 | P.PN_ITS ---
Subjective Subjective Date Patient Seen: 02/26/22 Interval history: Sitter at bedside. Patient somewhat improving, but still restrained as she scratches her chin and scalp. Exam Vital Signs (past 8 hours): - 02/26/22 02:34 02/26/22 06:00 02/26/22 07:14 Temperature 97.8 F 97.5 F L Pulse Rate 80 77 86 Respiratory Rate 18 18 Blood Pressure 96/54 L 94/54 L 97/58 L Pulse Oximetry 98 100 Oxygen Flow Rate 0 0 Fraction of Inspired Oxygen 24 SaO2/FiO2 Ratio 408 Oxygen Delivery Method Room Air Oxygen Flow Rate 0 Narrative Exam Narrative: GEN: less agitated but squirming around a lot wanting to itch her wounds and restrained at both wrists to avoid scratching of wounds.? Making eye contact, resting calmly and speaking to the mother. Speaking to me and having a conversation with me appropriately. HEENT: moist mucous membranes, PERRL NECK: trachea midline, no JVD and no palpable neck nodes CV: regular rate and rhythm, no murmurs.? S1 and S2. PULM: clear bilaterally.? No spread SKIN: Multiple full thickness wounds/scabbing of chin, top of scalp and occipital areas, swelling of lower face and jaw minimally present.? Wounds do not appear to be infected. ABD: soft, nontender, nondistended, no organomegaly EXT: warm and well perfused with no edema, upper extremities restrained and with socks on hands NEURO:? Alert and cooperative with the mother.? Less agitation. Objective Labs Result Diagrams: 02/26/22 06:00 02/26/22 06:00 Labs: Laboratory Results - last 24 hr 02/21/22 02/25/22 02/25/22 12:48 08:24 08:24 WBC RBC Hgb Hct MCV MCH MCHC RDW Plt Count Neut % (Auto) Lymph % (Auto) [place] % (Auto) Eos % (Auto) Baso % (Auto) Neut # (Auto) Lymph # (Auto) [place] # (Auto) Eos # (Auto) Baso # (Auto) ESR 37 H Sodium 137 Potassium 3.5 Chloride 105 Carbon Dioxide 25 BUN 9 Creatinine 0.49 L Estimated GFR > 60 BUN/Creatinine Ratio 18.4 Glucose 77 Calcium 7.7 L Total Bilirubin 0.3 AST 91 H ALT 46 H Alkaline Phosphatase 87 C-Reactive Protein 1.6 H Serum Total Protein 5.5 L Total Protein 6.8 Albumin 2.3 L 2.9 L Globulin 3.9 Albumin/Globulin Ratio 0.7 0.7 L Gvsri-6-Zvkzrvkcm 0.4 Asswg-0-Cmbncjhow 0.8 Pvwl-6-Lgqlddbd 0.7 Gamma Globulins 1.4 Gamma Glob/Tot Protein 3.2 PEP Comment Comment PEP Comment 4c Comment IKE M-Branden Not observed 02/26/22 02/26/22 06:00 06:00 WBC 3.2 L RBC 3.94 L Hgb 11.2 L Hct 34.0 L MCV 86.4 MCH 28.5 MCHC 33.0 RDW 17.1 H Plt Count 170 Neut % (Auto) 56.2 Lymph % (Auto) 31.2 [place] % (Auto) 10.8 Eos % (Auto) 1.0 L Baso % (Auto) 0.8 Neut # (Auto) 1800 Lymph # (Auto) 1000 L [place] # (Auto) 300 Eos # (Auto) 0 Baso # (Auto) 0 ESR 39 H Sodium 138 Potassium 3.3 L Chloride 104 Carbon Dioxide 26 BUN 8 Creatinine 0.53 Estimated GFR > 60 BUN/Creatinine Ratio 15.1 Glucose 97 Calcium 7.5 L Total Bilirubin 0.2 AST 83 H ALT 47 H Alkaline Phosphatase 87 C-Reactive Protein 1.2 H Serum Total Protein Total Protein 6.5 Albumin 2.8 L Globulin 3.7 Albumin/Globulin Ratio 0.8 L Qujwb-7-Lpjwssrkj Cbvln-9-Xaxfqklci Tgtk-5-Vrerurvk Gamma Globulins Gamma Glob/Tot Protein PEP Comment PEP Comment 4c IKE M-Branden [facility] Medical History History of DVT (deep vein thrombosis) History of pulmonary embolism Schizophrenia Social History marital status: unmarried,single household members: family lives independently: No caregiver/support person: Yes (Both parents) occupational status: disabled Smoking Status: Never smoker alcohol intake: never Assessment & Plan Assessment & Plan narrative: 1. Fever of unknown origin, present on admission.? Currently afebrile since 02/21. The source of fevers was unclear, febrile to 102F on 02/21. Per parents patient has history of lupus. Had negative LE US for DVT during last admission for fevers. Multiple wounds present on face and scalp due to chronic picking and scratching in various stages of healing, CT face with soft tissue swelling over mandible which may be cellulitis. No dental abscesses. Malar-appearing rash on face suggestive of lupus? Blood and wound cultures negative. Continues on cefepime for [employer]OR penetration.? This should continue to February 28 at 5:59 p.m. Wound care was consulted for dressing changes, Dr. Jarrett rec silvadene and xeroform to scalp and mupirocin to face Due to fevers and remote possbility of encephalitis, IR-guided LP was ordered however they want her intubated and sedated. Given this will hold off for now as patient has been afebrile since 02/21 and continues to be afebrile. Consider LP if fevers continue Heterophile Ab negative, RF negative, hepatitis panel negative, urine drug scre en negative JOCE with reflex pending, ESR is elevate/CRP was elevated.? ESR and CRP are the only markers to follow at this time for infection/inflammation.? ESR is stable at 40 and CRP has decreased to 2.8.? These need to be followed.?Continue to also follow CBC and comprehensive metabolic panel to ensure stability. CT of chest/abdomen and pelvis done today as workup of fever of unknown origin shows infiltrates in the right apex and right lower lobe as well as stasis of feces in the abdomen. Will treat empirically with Amox/Clav 500 p.o. t.i.d. for 7 days and follow ESR and CRP to see if improvement and then also treat with sennosides at night. 2. Schizophrenia with acute psychosis, improving Parents note worsening psychosis and agitation for past 2 months, previously hospitalized at inpatient psych in 2009. Suspect medication noncompliance is a factor.? Mother states her current sense of agitation is baseline.? For today patient is much calmer, speaking with the mother, and making eye contact.? Will treat with Vistaril 50 mg q.i.d. to help maintain control of agitation.? A secondary benefit of this will be decrease of itching sensation. Dr. Stahl psych consulted and following. Attempting to do long-acting antipsychotic as outpatient.? Currently on Abilify?as well as Ativan as needed IV. Social work has been consulted. Continue restraints due to self-harm.? Needs to be reordered every day. Increase abilify to 15mg daily. 3. Lactic acidosis, now resolved LA 4.1 in ED, resolved to 1 with fluids 4. Concern for seizure Patient had shaking episodes in the ED, although these episodes were present during her last admission and patient is awake and alert but has shakes when she's upset Not consistent with seizure 5. History of DVT/PE and IVC filter Event was reportedly in 2018, unknown whether IVC filter was ever removed, patient not currently on anticoagulant.? Difficult to get information from parents. 6. Acute on Chronic Moderate Malnutrition r/t poor PO intake aeb pt 20% below UBW from 2020, pt with poor medication compliance leading to refusal of PO intake, MNA 7, increased nutrient needs for healing r/t scratching. Malnutrition increases risk of morbidity and mortality in hospitalized patients, contributes to poor wound healing.? Dietitian consult to maximize nutritional intake.? Also to help nutrition, ordered calcium, vitamin D and multivitamin. Code status is full code. COVID negative. DVT prophylaxis not needed. Proxy is her parents. Dipso: Pending improvement in self harm, hopefully with uptitrating of antipsychotic meds. Time Spent With Patient Critical Care time: I spent a total of [] minutes of critical care time on this patient's care today; this time is exclusive of procedural time. Quality VTE Deep Vein Thrombosis/Pulmonary Embolism Present on Admission: No
[2022-02-26] MEDS: SODIUM CHLORIDE 0.9% FLUSH 10 ML IV (09:13)
[2022-02-26] MEDS: AMOXICILLIN/CLAV 500/125 MG 1 TAB PO ×3 (09:14→20:18)
[2022-02-26] MEDS: MULTIVITAMIN 1 TABLET 1 TAB PO (09:15)
[2022-02-26] MEDS: CHOLECALCIFEROL (VITAMIN D3) 1,000 UNIT TABLET 1000 UNIT PO (09:15)
[2022-02-26] MEDS: MUPIROCIN 22 GM OINT 1 APPLIC TOP ×2 (09:16→20:18)
[2022-02-26] MEDS: SILVER SULFADIAZINE 1% CREAM 25 GM 1 APPLIC TOP (09:16)
[2022-02-26] MEDS: CALCIUM CARBONATE 600 MG TABLET PO (09:18)
[2022-02-26] MEDS: ARIPiprazole 10 MG TABLET PO (09:18)
[2022-02-26 10:03] LABS: Ferritin 608 ng/mL (6-137)
[2022-02-26] MEDS: hydrOXYzine pamoate 25 MG CAPSULE 50 MG PO ×3 (11:16→23:43)
[2022-02-26] MEDS: ARIPiprazole 10 MG TABLET 5 MG PO (15:57)
--- NOTE | 2022-02-26 16:17 | CM.DPNOTE ---
DCP COnt: Per MD, will consult with Psychiatry and pt making some improvements but will discuss with Psychiatry recommendations for meds and discharge. SW spoke to Dr. Stahl Psychiatrist and he continues to monitor to see if med changes are beneficial but difficult with pt still requiring restraints. Discussed possible Inpt MH tx but pt would only be able to go to [facility] if court ordered and discussed the barriers to pt not being able to make her own decisions and difficulty with Inpt MH tx facilities accepting Involuntary Placement even if parents have guardianship. Ideally, pt could possibly benefit from LTC facility with supportive staff or at home if pt's med recommendations consistently followed. Dr. Stahl will discuss further with Hospitalist. Pt's assigned DDA Social Sciences Lecturer Elizabeth navarrete bedside and met with pt, mother, and CM Site Worker Rosalina diaz but currently no other resources available at this time for pt but will continue to follow. Plan: SW to follow closely for ongoing consultation with Psychiatry and Hospitalist towards optimal improvements for pt to reduce her risk of readmission. NIALL Dueñas
--- NOTE | 2022-02-26 17:04 | P.PN_ITS ---
Subjective Subjective Date Patient Seen: 02/26/22 Time Patient Seen: 14:15 Interval history: Patient is seen at bedside, and awake. Mother and one-to-one nurse present in the room. Appears to be struggling less against restraints, but then frequently attempts t o scratch wound on her chin by shrugging her shoulder and turning her head. The patient has continues to be intermittently conversant with mother and nursing staff and able to express needs and wants. Patient continues to struggle to resist restraints and try to touch in scratch various wounds on her head. Noted to be occasionally complaining of itchiness as well as stating that she has ?snakes? in her head. Exam Vital Signs (past 8 hours): - 02/26/22 11:00 02/26/22 15:00 Pulse Rate 82 84 Respiratory Rate 20 20 Blood Pressure 92/54 L 94/56 L Pulse Oximetry 98 98 Oxygen Flow Rate 0 0 Fraction of Inspired Oxygen 24 SaO2/FiO2 Ratio 408 Oxygen Delivery Method Room Air Oxygen Flow Rate 0 Narrative Exam Narrative: MENTAL STATUS EXAM * Appearance:? Thin, filipina female seen lying in her hospital bed with numerous sores and wounds on face and scalp with several areas of hair missing.? Many now bandaged and beginning to heal. * Grooming:? Dressed in hospital attire. * Behavior:? Arms restrained, but patient occasionally struggles against restraints. * Eye contact:? Good * Gait:? Not tested * Speech:? Able to speak in converse in [place] and answer basic questions with mother and nursing staff. Speech unimpaired * Mood:? Unable to express a stated mood. * Affect:? More calm and less agitated than initial presentation, but still not back to a stable baseline. * Thought Process:? Redig but linear and logical. Less conversant today with me than yesterday. * Thought Content:? Unable to determine suicidal or homicidal ideation, intent, or plan.? Still somewhat preoccupied with internal stimuli of some type but unclear. * Attention:? Awake and alert * Orientation:? Not tested patient not talking with me today. * Insight:? Poor * Judgment:? Poor Objective Labs Result Diagrams: 02/26/22 06:00 02/26/22 06:00 Labs: Laboratory Results - last 24 hr 02/21/22 02/26/22 02/26/22 12:48 06:00 06:00 WBC 3.2 L RBC 3.94 L Hgb 11.2 L Hct 34.0 L MCV 86.4 MCH 28.5 MCHC 33.0 RDW 17.1 H Plt Count 170 Neut % (Auto) 56.2 Lymph % (Auto) 31.2 Creek % (Auto) 10.8 Eos % (Auto) 1.0 L Baso % (Auto) 0.8 Neut # (Auto) 1800 Lymph # (Auto) 1000 L Creek # (Auto) 300 Eos # (Auto) 0 Baso # (Auto) 0 ESR 39 H Sodium 138 Potassium 3.3 L Chloride 104 Carbon Dioxide 26 BUN 8 Creatinine 0.53 Estimated GFR > 60 BUN/Creatinine Ratio 15.1 Glucose 97 Calcium 7.5 L Ferritin Total Bilirubin 0.2 AST 83 H ALT 47 H Alkaline Phosphatase 87 C-Reactive Protein 1.2 H Serum Total Protein 5.5 L Total Protein 6.5 Albumin 2.3 L 2.8 L Globulin 3.7 Albumin/Globulin Ratio 0.7 0.8 L Nzvko-2-Zjrgwqior 0.4 Vwnjc-8-Ksvujgxlo 0.8 Jibv-9-Xbuzjczk 0.7 Gamma Globulins 1.4 Gamma Glob/Tot Protein 3.2 PEP Comment Comment PEP Comment 4c Comment IKE M-Branden Not observed 02/26/22 08:54 WBC RBC Hgb Hct MCV MCH MCHC RDW Plt Count Neut % (Auto) Lymph % (Auto) Creek % (Auto) Eos % (Auto) Baso % (Auto) Neut # (Auto) Lymph # (Auto) Creek # (Auto) Eos # (Auto) Baso # (Auto) ESR Sodium Potassium Chloride Carbon Dioxide BUN Creatinine Estimated GFR BUN/Creatinine Ratio Glucose Calcium Ferritin 608 H Total Bilirubin AST ALT Alkaline Phosphatase C-Reactive Protein Serum Total Protein Total Protein Albumin Globulin Albumin/Globulin Ratio Flzws-9-Ruykschxo Tdcpm-1-Kkknkemah Lmvr-4-Yrtlwxoh Gamma Globulins Gamma Glob/Tot Protein PEP Comment PEP Comment 4c IKE M-Branden [facility] Medical History History of DVT (deep vein thrombosis) History of pulmonary embolism Schizophrenia Social History marital status: unmarried,single household members: family lives independently: No caregiver/support person: Yes (Both parents) occupational status: disabled Smoking Status: Never smoker alcohol intake: never Assessment & Plan Assessment and plan (1) Schizophrenia: Qualifiers: Schizophrenia type: unspecified Qualified Code(s): F20.9 - Schizophre terry, unspecified Status: Acute (2) Compulsive behaviors: Status: Acute (3) Multiple open wounds of face: Status: Inactive (4) Soft tissue infection: Problem details: History of picking skin. Significant erythema/rash of face/neck. Drainage noted from external ear per bedside team. Status: Acute Assessment & Plan narrative: ASSESSMENT/MEDICAL DECISION MAKING The patient is a 31-year-old filipina with a very long history of psychotic illness complicated by obsessive-compulsive disorder manifested by extremely treatment resistant hair pulling, skin picking, scratching, that may be possibly related to delusional content. RECOMMENDATIONS: 1. Continue fluoxetine 20 mg daily 2. Increase aripiprazole to 15 mg daily 3. Continue use of hydroxyzine 50 mg QID targeting urticaria and may be helpful of anxiety and agitation. 4. Concur with discussions about clipping nails and using soft gloves to prevent scratching and skin picking. 5. Will coordinate with SW/discharge planners re disposition. Time Spent With Patient Time with patient: less than 30 minutes Critical Care time: I spent a total of [] minutes of critical care time on this patient's care today; this time is exclusive of procedural time. Quality VTE Deep Vein Thrombosis/Pulmonary Embolism Present on Admission: No
[2022-02-26] MEDS: SENNOSIDES 8.6 MG TABLET 17.2 MG PO (20:18)
[2022-02-27] VITALS (13 sets, daily range): BP systolic 87–106; BP diastolic 50–66; PULSE 69–94; RESP 16–18; TEMP 36.2–36.8; O2SAT 97–100
[2022-02-27] MEDS: LORazepam 2 MG/ML INJ 0.5 MG IV ×6 (02:19→21:47)
[2022-02-27] MEDS: diphenhydrAMINE 50 MG/ML VIAL 12.5 MG IV ×5 (05:23→21:48)
[2022-02-27] MEDS: hydrOXYzine pamoate 25 MG CAPSULE 50 MG PO ×3 (05:32→18:08)
--- NOTE | 2022-02-27 06:49 | PC.NURSE ---
Patient confused, restless, rubs head against bed, tries to scratch face and head. Ativan prn given x3 during the 12 hour shift, patient calmed down some after doses but slept very little. Resisted taking meds at times, but did take them all. Patient denies pain. Stevie wrist restraints remain on to prevent patient from scratching and hurting herself. Sitter at bedside.
--- NOTE | 2022-02-27 07:40 | PM.PN.1 ---
Subjective Subjective Date Patient Seen: 02/27/22 Interval history: Patient continues to be restrained. Able to take her pills last night with apple sauce but it was a struggle per the sitter. Mother is asking if her prozac could be changed from liquid to pills because it tastes bad and patient spits out the liquid. Exam Vital Signs (past 8 hours): - 02/26/22 23:55 02/26/22 23:43 02/27/22 02:57 Temperature Pulse Rate 79 79 Respiratory Rate 16 16 Blood Pressure 97/57 L 97/57 L Pulse Oximetry 98 Oxygen Flow Rate 0 02/27/22 03:39 02/27/22 06:20 02/27/22 07:25 Temperature 97.4 F L 97.9 F Pulse Rate 82 77 Respiratory Rate 18 16 18 Blood Pressure 102/66 97/55 L Pulse Oximetry 100 100 Oxygen Flow Rate 0 0 Fraction of Inspired Oxygen 24 SaO2/FiO2 Ratio 408 Oxygen Delivery Method Room Air Oxygen Flow Rate 0 Narrative Exam Narrative: GEN: less agitated but squirming around a lot wanting to itch her wounds and restrained at both wrists to avoid scratching of wounds.? Making eye contact, resting calmly and speaking to the mother occasionally. HEENT: moist mucous membranes, PERRL NECK: trachea midline, no JVD and no palpable neck nodes CV: regular rate and rhythm, no murmurs.? S1 and S2. PULM: clear bilaterally.? No spread SKIN: Multiple full thickness wounds/scabbing of chin, top of scalp and occipital areas, swelling of lower face and jaw minimally present.? Wounds do not appear to be infected. ABD: soft, nontender, nondistended, no organomegaly EXT: warm and well perfused with no edema, upper extremities restrained and with socks on hands NEURO:? Alert and cooperative with the mother.? Less agitation. Objective Labs Result Diagrams: 02/26/22 06:00 02/26/22 06:00 Labs: Laboratory Results - last 24 hr 02/26/22 08:54 Ferritin 608 H COUNTS INCLUDE 234 BEDS AT THE [facility] Medical History History of DVT (deep vein thrombosis) History of pulmonary embolism Schizophrenia Social History marital status: unmarried,single household members: family lives independently: No caregiver/support person: Yes (Both parents) occupational status: disabled Smoking Status: Never smoker alcohol intake: never Assessment & Plan Assessment & Plan narrative: 1. Fever of unknown origin, present on admission.? Currently afebrile since 02/21 and fevers resolved. The source of fevers was unclear, febrile to 102F on 02/21. Per parents patient has history of lupus. Had negative LE US for DVT during last admission for fevers. Multiple wounds present on face and scalp due to chronic picking and scratching in various stages of healing, CT face with soft tissue swelling over mandible which may be cellulitis. No dental abscesses. Malar-appearing rash on face suggestive of lupus? Blood and wound cultures negative. 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 This should continue to February 28 at 5:59 p.m. Wound care was consulted for dressing changes, Dr. Jarrett rec silvadene and xeroform to scalp and mupirocin to face Due to fevers and remote possibility of encephalitis, IR-guided LP was ordered however they want her intubated and sedated. Given this will hold off for now as patient has been afebrile since 02/21 and continues to be afebrile. Consider LP if fevers continue Heterophile Ab negative, RF negative, hepatitis panel negative, urine drug screen negative JOCE with reflex pending, ESR is elevate/CRP was elevated.? ESR and CRP are the only markers to follow at this time for infection/inflammation.? ESR is stable at 40 and CRP has decreased to 2.8.? These need to be followed.?Continue to also follow CBC and comprehensive metabolic panel to ensure stability. CT of chest/abdomen and pelvis done on 02/25 as workup of fever of unknown origin shows infiltrates in the right apex and right lower lobe as well as stasis of feces in the abdomen. Received 7 day course of antibiotics already so can stop augmentin to cut down on medication burden. 2. Schizophrenia with acute psychosis, improving Parents note worsening psychosis and agitation for past 2 months, previously hospitalized at inpatient psych in 2009. Suspect medication noncompliance is a factor.? Mother states her current sense of agitation is baseline.? For today patient is much calmer, speaking with the mother, and making eye contact.? Will treat with Vistaril 50 mg q.i.d. to help maintain control of agitation.? A secondary benefit of this will be decrease of itching sensation. Dr. Stahl psych consulted and following. Attempting to do long-acting antipsychotic as outpatient.? Currently on Abilify?as well as Ativan as needed IV. Social work has been consulted. Continue restraints due to self-harm.? Needs to be reordered every day. Increased abilify to 15mg daily on 02/27. May trial being off restraints soon. 3. Lactic acidosis, now resolved LA 4.1 in ED, resolved to 1 with fluids 4. Concern for seizure Patient had shaking episodes in the ED, although these episodes were present during her last admission and patient is awake and alert but has shakes when she's upset Not consistent with seizure 5. History of DVT/PE and IVC filter Event was reportedly in 2018, unknown whether IVC filter was ever removed, patient not currently on anticoagulant.? Difficult to get information from parents. 6. Acute on Chronic Moderate Malnutrition r/t poor PO intake aeb pt 20% below UBW from 2019, pt with poor medication compliance leading to refusal of PO intake, MNA 7, increased nutrient needs for healing r/t scratching. Malnutrition increases risk of morbidity and mortality in hospitalized patients, contributes to poor wound healing.? Dietitian consult to maximize nutritional intake.? Also to help nutrition, ordered calcium, vitamin D and multivitamin. Code status is full code. COVID negative. DVT prophylaxis not needed. Proxy is her parents. Dipso: Pending improvement in self harm, hopefully with uptitrating of antipsychotic meds. Time Spent With Patient Critical Care time: I spent a total of [] minutes of critical care time on this patient's care today; this time is exclusive of procedural time. Quality VTE Deep Vein Thrombosis/Pulmonary Embolism Present on Admission: No
[2022-02-27] MEDS: POTASSIUM CHLORIDE 20 MEQ TAB PO (08:59)
[2022-02-27] MEDS: MULTIVITAMIN 1 TABLET 1 TAB PO (08:59)
[2022-02-27] MEDS: CHOLECALCIFEROL (VITAMIN D3) 1,000 UNIT TABLET 1000 UNIT PO (08:59)
[2022-02-27] MEDS: AMOXICILLIN/CLAV 500/125 MG 1 TAB PO (08:59)
[2022-02-27] MEDS: ARIPiprazole 10 MG TABLET 15 MG PO (09:00)
[2022-02-27] MEDS: CALCIUM CARBONATE 600 MG TABLET PO (09:00)
[2022-02-27] MEDS: SILVER SULFADIAZINE 1% CREAM 25 GM 1 APPLIC TOP (09:01)
[2022-02-27] MEDS: MUPIROCIN 22 GM OINT 1 APPLIC TOP ×2 (09:01→21:50)
[2022-02-27] MEDS: SODIUM CHLORIDE 0.9% FLUSH 10 ML IV ×2 (09:03→21:49)
--- NOTE | 2022-02-27 15:11 | CM.DPNOTE ---
DCP Note Awaiting input from Dr Stahl re goal for patient's discharge readiness. There are numerous complicating factors RN note indicates patient continues to require 1:1; patient confused with agitated behaviors overnight requiring ativan Discussion in morning rounds- patient will likely return home inevitably w/parents and outpatient supports, unless physician team will not clear patient for this plan- and if discharged home, APS referral might be appropriate to assist in monitoring patient's care once home. In addition, HH services. However, during prior admission, [facility] denied this referral d/t patient's acute psychiatric needs. Will plan to discuss with any and all HH agencies available if patient's family agreeable This [employer] team will continue to follow closely for coordination of the safest plan available to patient and family at this time. Will plan to continue coordination with [facility]
--- NOTE | 2022-02-27 17:00 | P.PN_ITS ---
Subjective Subjective Date Patient Seen: 02/27/22 Time Patient Seen: 16:40 Interval history: Patient is seen at bedside, and awake. Father, Mother and one-to-one nurse present in the room. Appears to be struggling a little less each day against restraints, but then frequently attempts to scratch wound on her chin or head by shrugging her shoulder and turning her head. The patient has continues to be intermittently conversant with mother and nursing staff and able to express needs and wants. Seems to be more conversant. Still complaining of ?snakes? on her head but this seems to be less prominent. Exam Vital Signs (past 8 hours): - 02/27/22 11:13 02/27/22 11:30 02/27/22 16:15 Temperature 97.4 F L 97.2 F L Pulse Rate 79 91 H Respiratory Rate 18 18 Blood Pressure 91/56 L 92/58 L 87/50 L Pulse Oximetry 100 99 Oxygen Flow Rate 0 0 Fraction of Inspired Oxygen 24 SaO2/FiO2 Ratio 408 Oxygen Delivery Method Room Air Oxygen Flow Rate 0 Narrative Exam Narrative: MENTAL STATUS EXAM * Appearance:? Thin, filipina female seen lying in her hospital bed with numerous sores and wounds on face and scalp with several areas of hair missing.? Most in various stages of healing. * Grooming:? Dressed in hospital attire. * Behavior:? Arms restrained, but patient occasionally struggles against restraints. * Eye contact:? Good * Gait:? Not tested * Speech:? Able to speak in converse in Polish and answer basic questions with mother and nursing staff. Speech unimpaired * Mood:? Unable to express a stated mood. * Affect:? More calm and less agitated than initial presentation, but still not back to a stable baseline. * Thought Process:? Hallie but linear and logical. Less conversant today with me than yesterday. * Thought Content:? Unable to determine suicidal or homicidal ideation, intent, or plan.? Still somewhat preoccupied with internal stimuli of some type but unclear. * Attention:? Awake and alert * Orientation:? Not tested patient not talking with me today. * Insight:? Poor * Judgment:? Poor Objective Labs Result Diagrams: 02/26/22 06:00 02/26/22 06:00 [facility] Medical History History of DVT (deep vein thrombosis) History of pulmonary embolism Schizophrenia Social History marital status: unmarried,single household members: family lives independently: No caregiver/support person: Yes (Both parents) occupational status: disabled Smoking Status: Never smoker alcohol intake: never Assessment & Plan Assessment and plan (1) Schizophrenia: Qualifiers: Schizophrenia type: unspecified Qualified Code(s): F20.9 - Schizophr enia, unspecified Status: Acute (2) Compulsive behaviors: Status: Acute (3) Multiple open wounds of face: Status: Inactive (4) Soft tissue infection: Problem details: History of picking skin. Significant erythema/rash of face/neck. Drainage noted from external ear per bedside team. Status: Acute Assessment & Plan narrative: ASSESSMENT/MEDICAL DECISION MAKING The patient is a 31-year-old filipina with a very long history of psychotic illness complicated by obsessive-compulsive disorder manifested by extremely treatment resistant hair pulling, skin picking, scratching, that may be possibly related to delusional content. RECOMMENDATIONS: 1. Continue fluoxetine 20 mg daily 2. Continue aripiprazole to 15 mg daily 3. Continue use of hydroxyzine 50 mg QID targeting urticaria or diphenhydramine as appropriate. 4. Concur with discussions about clipping nails and using soft gloves to prevent scratching and skin picking. 5. Will coordinate with SW/discharge planners re disposition. Time Spent With Patient Time with patient: less than 30 minutes Critical Care time: I spent a total of [] minutes of critical care time on this patient's care today; this time is exclusive of procedural time. Quality VTE Deep Vein Thrombosis/Pulmonary Embolism Present on Admission: No
[2022-02-27] MEDS: SENNOSIDES 8.6 MG TABLET 17.2 MG PO (21:50)
[2022-02-27] MEDS: FLUoxetine 20 MG CAPSULE PO (21:52)
[2022-02-28 06:00] VITALS: BP 95/49; PULSE 92; RESP 16; TEMP 36.8; O2SAT 96
[2022-02-28] MEDS: hydrOXYzine pamoate 25 MG CAPSULE 50 MG PO ×2 (06:50→18:31)
--- NOTE | 2022-02-28 07:56 | P.PN_ITS ---
Subjective Subjective Date Patient Seen: 02/28/22 Interval history: No significant changes since yesterday. Patient attempted to scratch the back of her head per the sitter and pulled off her head bandaging. Exam Vital Signs (past 8 hours): - 02/28/22 06:00 Temperature 98.3 F Pulse Rate 92 H Respiratory Rate 16 Blood Pressure 95/49 L Pulse Oximetry 96 Oxygen Flow Rate 0 Fraction of Inspired Oxygen 24 SaO2/FiO2 Ratio 408 Oxygen Delivery Method Room Air Oxygen Flow Rate 0 Narrative Exam Narrative: GEN: less agitated but squirming around a lot wanting to itch her wounds and restrained at both wrists to avoid scratching of wounds.? Making eye contact, resting calmly and speaking to the mother occasionally. HEENT: moist mucous membranes, PERRL NECK: trachea midline, no JVD and no palpable neck nodes CV: regular rate and rhythm, no murmurs.? S1 and S2. PULM: clear bilaterally.? No spread SKIN: Multiple full thickness wounds/scabbing of chin, top of scalp and occipital areas, swelling of lower face and jaw minimally present.? Wounds do not appear to be infected. ABD: soft, nontender, nondistended, no organomegaly EXT: warm and well perfused with no edema, upper extremities restrained and with socks on hands NEURO:? Alert and cooperative with the mother.? Less agitation. Objective Labs Result Diagrams: 02/26/22 06:00 02/26/22 06:00 [facility] Medical History History of DVT (deep vein thrombosis) History of pulmonary embolism Schizophrenia Social History marital status: unmarried,single household members: family lives independently: No caregiver/support person: Yes (Both parents) occupational status: disabled Smoking Status: Never smoker alcohol intake: never Assessment & Plan Assessment & Plan narrative: 1. Fever of unknown origin, present on admission.? Currently afebrile since 02/21 and fevers resolved. The source of fevers was unclear, febrile to 102F on 02/21. Per parents patient has history of lupus. Had negative LE US for DVT during last admission for fevers. Multiple wounds present on face and scalp due to chronic picking and scratching in various stages of healing, CT face with soft tissue swelling over mandible which may be cellulitis. No dental abscesses. Malar-appearing rash on face suggestive of lupus? Blood and wound cultures negative. 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 This should continue to February 28 at 5:59 p.m. Wound care was consulted for dressing changes, Dr. Jarrett rec silvadene and xeroform to scalp and mupirocin to face Due to fevers and remote possibility of encephalitis, IR-guided LP was ordered however they want her intubated and sedated. Given this will hold off for now as patient has been afebrile since 02/21 and continues to be afebrile. Consider LP if fevers continue Heterophile Ab negative, RF negative, hepatitis panel negative, urine drug screen negative JOCE with reflex pending, ESR is elevate/CRP was elevated.? ESR and CRP are the only markers to follow at this time for infection/inflammation.? ESR is stable at 40 and CRP has decreased to 2.8.? These need to be followed.?Continue to also follow CBC and comprehensive metabolic panel to ensure stability. CT of chest/abdomen and pelvis done on 02/25 as workup of fever of unknown origin shows infiltrates in the right apex and right lower lobe as well as stasis of f eces in the abdomen. Received 7 day course of antibiotics already so can stop augmentin to cut down on medication burden. 2. Schizophrenia with acute psychosis, improving Parents note worsening psychosis and agitation for past 2 months, previously hospitalized at inpatient psych in 2009. Suspect medication noncompliance is a factor.? Mother states her current sense of agitation is baseline.? For today patient is much calmer, speaking with the mother, and making eye contact.? Will treat with Vistaril 50 mg q.i.d. to help maintain control of agitation.? A secondary benefit of this will be decrease of itching sensation. Dr. Stahl psych consulted and following. Attempting to do long-acting an tipsychotic as outpatient.? Currently on Abilify?as well as Ativan as needed IV. Social work has been consulted. Continue restraints due to self-harm.? Needs to be reordered every day. Increased abilify to 15mg daily on 02/27. May trial being off restraints soon. 3. Lactic acidosis, now resolved LA 4.1 in ED, resolved to 1 with fluids 4. Concern for seizure Patient had shaking episodes in the ED, although these episodes were present during her last admission and patient is awake and alert but has shakes when she's upset Not consistent with seizure 5. History of DVT/PE and IVC filter Event was reportedly in 2018, unknown whether IVC filter was ever removed, patient not currently on anticoagulant.? Difficult to get information from parents. 6. Acute on Chronic Moderate Malnutrition r/t poor PO intake aeb pt 20% below UBW from 2020, pt with poor medication compliance leading to refusal of PO intake, MNA 7, increased nutrient needs for healing r/t scratching. Malnutrition increases risk of morbidity and mortality in hospitalized patients, contributes to poor wound healing.? Dietitian consult to maximize nutritional intake.? Also to help nutrition, ordered calcium, vitamin D and multivitamin. Code status is full code. COVID negative. DVT prophylaxis not needed. Proxy is her parents. Dipso: Pending improvement in self harm, hopefully with uptitrating of antipsychotic meds. Time Spent With Patient Critical Care time: I spent a total of [] minutes of critical care time on this patient's care today; this time is exclusive of procedural time. Quality VTE Deep Vein Thrombosis/Pulmonary Embolism Present on Admission: No
[2022-02-28 09:00] VITALS: BP 103/56; PULSE 96; RESP 17; TEMP 36.6; O2SAT 97
[2022-02-28] MEDS: CALCIUM CARBONATE 600 MG TABLET PO (09:01)
[2022-02-28] MEDS: POTASSIUM CHLORIDE 20 MEQ TAB PO (09:02)
[2022-02-28] MEDS: ARIPiprazole 10 MG TABLET 15 MG PO (09:02)
[2022-02-28] MEDS: CHOLECALCIFEROL (VITAMIN D3) 1,000 UNIT TABLET 1000 UNIT PO (09:02)
[2022-02-28] MEDS: MULTIVITAMIN 1 TABLET 1 TAB PO (09:02)
[2022-02-28] MEDS: SILVER SULFADIAZINE 1% CREAM 25 GM 1 APPLIC TOP (09:03)
[2022-02-28] MEDS: SODIUM CHLORIDE 0.9% FLUSH 10 ML IV ×2 (09:03→21:11)
[2022-02-28] MEDS: MUPIROCIN 22 GM OINT 1 APPLIC TOP ×2 (09:03→21:14)
[2022-02-28 13:00] VITALS: BP 98/61; PULSE 93; RESP 17; TEMP 36.2; O2SAT 98
--- NOTE | 2022-02-28 16:25 | P.PN_ITS ---
Subjective Subjective Date Patient Seen: 02/28/22 Time Patient Seen: 15:00 Interval history: Patient is seen at bedside, and awake. Father, Mother and one-to-one nurse present in the room. Appears to be struggling a little less each day against restraints, but then frequently attempts to scratch wound on her chin or head by shrugging her shoulder and turning her head. The patient has continues to be intermittently conversant with mother and nursing staff and able to express needs and wants. Seems to be more conversant. Still complaining of ?snakes? on her head but this seems to be less prominent. Exam Vital Signs (past 8 hours): - 02/28/22 09:00 02/28/22 13:00 Temperature 97.8 F 97.1 F L Pulse Rate 96 H 93 H Respiratory Rate 17 17 Blood Pressure 103/56 L 98/61 Pulse Oximetry 97 98 Oxygen Flow Rate 0 0 Fraction of Inspired Oxygen 24 SaO2/FiO2 Ratio 408 Oxygen Delivery Method Room Air Oxygen Flow Rate 0 Narrative Exam Narrative: MENTAL STATUS EXAM * Appearance:? Thin, filipina female seen lying in her hospital bed with numerous sores and wounds on face and scalp with several areas of hair missing.? Most in various stages of healing, but scalp wound with some fresh seapage. * Grooming:? Dressed in hospital attire. * Behavior:? Arms restrained, but patient occasionally struggles against restraints. At one point, began obsessively-wiping her hands with part of the blanket even though they were clean. * Eye contact:? Good * Gait:? Not tested * Speech:? Able to speak in converse in Croatian and answer basic questions with mother and nursing staff. Speech unimpaired, but refuses to speak with me. * Mood:? Unable to express a stated mood. * Affect:? Arms restrained. More calm and less agitated than initial presentati on, but still not back to a stable baseline and occasionally has compulsive attempts to scratch or pick at chin, face, and scalp. * Thought Process:? [place] but linear and logical. Does not respond to me, but does communicate with parents. * Thought Content:? Unable to determine suicidal or homicidal ideation, intent, or plan.? Still somewhat preoccupied with internal stimuli and skin picking. * Attention:? Awake and alert * Orientation:? Not tested patient not talking with me today. * Insight:? Poor * Judgment:? Poor Objective Labs Result Diagrams: 02/26/22 06:00 02/26/22 06:00 Labs: Laboratory Results - last 24 hr 02/21/22 12:48 Prot Electrophor PDF [facility] Medical History History of DVT (deep vein thrombosis) History of pulmonary embolism Schizophrenia Social History marital status: unmarried,single household members: family lives independently: No caregiver/support person: Yes (Both parents) occupational status: disabled Smoking Status: Never smoker alcohol intake: never Assessment & Plan Assessment and plan (1) Schizophrenia: Qualifiers: Schizophrenia type: unspecified Qualified Code(s): F20.9 - Schizophrenia, unspecified Status: Acute (2) Compulsive behaviors: Status: Acute (3) Multiple open wounds of face: Status: Inactive (4) Soft tissue infection: Problem details: History of picking skin. Significant erythema/rash of face/neck. Drainage noted from external ear per bedside team. Status: Acute (5) Excoriation (skin-picking) disorder: Status: Acute Assessment & Plan narrative: ASSESSMENT/MEDICAL DECISION MAKING The patient is a 31-year-old filipina with a very long history of psychotic illness complicated by obsessive-compulsive disorder manifested by extremely treatment resistant hair pulling, skin picking, scratching, that may be possibly related to delusional content. In researching this topic, patients often require high doses of SSRI (none preferred over another). Since pt did well on fluoxetine in the past, was taking it intermittently pre-hospitalization, has tolerated it well so far, recommend increasing the dose as skin picking behavior does not seem to be improving. RECOMMENDATIONS: 1. Increase fluoxetine to 30 mg daily 2. Continue aripiprazole at 15 mg daily 3. Continue use of hydroxyzine 50 mg QID targeting urticaria or diphenhydramine as appropriate. 4. Continue to clip nails frequently, use gloves, arm restraints to prevent excorations. 5. Will coordinate with SW/discharge planners re disposition. Likely D/C to home when skin lesions begin to heal and pt's attempts at picking significantly subside. Time Spent With Patient Time with patient: 30 to 49 minutes with 50% spent counseling/coordinating care Critical Care time: I spent a total of [] minutes of critical care time on this patient's care today; this time is exclusive of procedural time. Quality VTE Deep Vein Thrombosis/Pulmonary Embolism Present on Admission: No
[2022-02-28 17:00] VITALS: BP 92/62; PULSE 100; RESP 17; TEMP 36.3; O2SAT 96
[2022-02-28 21:10] VITALS: BP 106/67; PULSE 99; RESP 18; TEMP 37; O2SAT 97
[2022-02-28] MEDS: SENNOSIDES 8.6 MG TABLET 17.2 MG PO (21:10)
[2022-02-28] MEDS: FLUoxetine 10 MG CAPSULE 30 MG PO (21:10)
[2022-03-01] MEDS: hydrOXYzine pamoate 25 MG CAPSULE 50 MG PO ×4 (00:50→18:34)
[2022-03-01] MEDS: diphenhydrAMINE 50 MG/ML VIAL 12.5 MG IV (00:56)
[2022-03-01 01:00] VITALS: BP 98/44; PULSE 94; RESP 18; TEMP 36.7; O2SAT 96
[2022-03-01 05:00] VITALS: BP 95/57; PULSE 101; RESP 18; TEMP 36.6; O2SAT 97
--- NOTE | 2022-03-01 07:35 | P.PN_ITS ---
Subjective Subjective Date Patient Seen: 03/01/22 Interval history: Patient more interactive today. Attempted to trim her fingernails but she was resistant and would move and pull away. Repeating labs as they haven't been checked in a few days. Exam Vital Signs (past 8 hours): - 03/01/22 01:00 03/01/22 05:00 Temperature 98.1 F 97.8 F Pulse Rate 94 H 101 H Respiratory Rate 18 18 Blood Pressure 98/44 L 95/57 L Pulse Oximetry 96 97 Oxygen Flow Rate 0 0 Fraction of Inspired Oxygen 24 SaO2/FiO2 Ratio 408 Oxygen Delivery Method Room Air Oxygen Flow Rate 0 Narrative Exam Narrative: GEN: less agitated but squirming around a lot wanting to itch her wounds and restrained at both wrists to avoid scratching of wounds.? Making eye contact, resting calmly and speaking to the mother occasionally. HEENT: moist mucous membranes, PERRL NECK: trachea midline, no JVD and no palpable neck nodes CV: regular rate and rhythm, no murmurs.? S1 and S2. PULM: clear bilaterally.? No spread SKIN: Multiple full thickness wounds/scabbing of chin, top of scalp and occipit al areas, swelling of lower face and jaw minimally present.? Wounds do not appear to be infected. ABD: soft, nontender, nondistended, no organomegaly EXT: warm and well perfused with no edema, upper extremities restrained and with socks on hands NEURO:? Alert and cooperative with the mother.? Less agitation. Objective Labs Result Diagrams: 02/26/22 06:00 02/26/22 06:00 Labs: Laboratory Results - last 24 hr 02/21/22 12:48 Prot Electrophor PDF [facility] Medical History History of DVT (deep vein thrombosis) History of pulmonary embolism Schizophrenia Social History marital status: unmarried,single household members: family lives independently: No caregiver/support person: Yes (Both parents) occupational status: disabled Smoking Status: Never smoker alcohol intake: never Assessment & Plan Assessment & Plan narrative: 1. Fever of unknown origin, present on admission.? Currently afebrile since 02/21 and fevers resolved. The source of fevers was unclear, febrile to 102F on 1/5. Per parents patient has history of lupus. Had negative LE US for DVT during last admission for fevers. Multiple wounds present on face and scalp due to chronic picking and scratching in various stages of healing, CT face with soft tissue swelling over mandible which may be cellulitis. No dental abscesses. Malar-appearing rash on face suggestive of lupus? Blood and wound cultures negative. 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 This should continue to February 28 at 5:59 p.m. Wound care was consulted for dressing changes, Dr. Jarrett rec silvadene and xeroform to scalp and mupirocin to face Due to fevers and remote possibility of encephalitis, IR-guided LP was ordered however they want her intubated and sedated. Given this will hold off for now as patient has been afebrile since 02/21 and continues to be afebrile. Consider LP if fevers continue Heterophile Ab negative, RF negative, hepatitis panel negative, urine drug screen negative JOCE with reflex pending, ESR is elevate/CRP was elevated.? ESR and CRP are the only markers to follow at this time for infection/inflammation.? ESR is stable at 40 and CRP has decreased to 2.8.? These need to be followed.?Continue to also follow CBC and comprehensive metabolic panel to ensure stability. CT of chest/abdomen and pelvis done on 02/25 as workup of fever of unknown origin shows infiltrates in the right apex and right lower lobe as well as stasis of feces in the abdomen. Received 7 day course of antibiotics already so can stop augmentin to cut down on medication burden. 2. Schizophrenia with acute psychosis resulting in chronic picking of face and scalp, improving Parents note worsening psychosis and agitation for past 2 months, previously hospitalized at inpatient psych in 2009. Suspect medication noncompliance is a factor.? Mother states her current sense of agitation is baseline.? For today patient is much calmer, speaking with the mother, and making eye contact.? Will treat with Vistaril 50 mg q.i.d. to help maintain control of agitation.? A secondary benefit of this will be decrease of itching sensation. Dr. Stahl psych consulted and following. Attempting to do long-acting antipsychotic as outpatient.? Currently on Abilify?as well as Ativan as needed IV. Social work has been consulted. Continue restraints due to self-harm.? Needs to be reordered every day. Increased abilify to 15mg daily on 02/27. Increased prozac to 30mg nightly on 02/28 May trial being off restraints soon. CHANNEL LAYER arranging possible psych placement. 3. Lactic acidosis, now resolved LA 4.1 in ED, resolved to 1 with fluids 4. Concern for seizure Patient had shaking episodes in the ED, although these episodes were present du ring her last admission and patient is awake and alert but has shakes when she's upset Not consistent with seizure 5. History of DVT/PE and IVC filter Event was reportedly in 2018, unknown whether IVC filter was ever removed, patient not currently on anticoagulant.? Difficult to get information from parents. 6. Acute on Chronic Moderate Malnutrition r/t poor PO intake aeb pt 20% below UBW from 2020, pt with poor medication compliance leading to refusal of PO intake, MNA 7, increased nutrient needs for healing r/t scratching. Malnutrition increases risk of morbidity and mortality in hospitalized patients, contributes to poor wound healing.? Dietitian consult to maximize nutritional intake.? Also to help nutrition, ordered calcium, vitamin D and multivitamin. Code status is full code. COVID negative. DVT prophylaxis not needed. Proxy is her parents. Dipso: Pending improvement in self harm, hopefully with uptitrating of antipsychotic meds. Time Spent With Patient Critical Care time: I spent a total of [] minutes of critical care time on this patient's care today; this time is exclusive of procedural time. Quality VTE Deep Vein Thrombosis/Pulmonary Embolism Present on Admission: No
[2022-03-01 09:00] VITALS: BP 97/63; PULSE 97; RESP 17; TEMP 36.2; O2SAT 100
[2022-03-01] MEDS: ARIPiprazole 10 MG TABLET 15 MG PO (09:14)
[2022-03-01] MEDS: CHOLECALCIFEROL (VITAMIN D3) 1,000 UNIT TABLET 1000 UNIT PO (09:14)
[2022-03-01] MEDS: MULTIVITAMIN 1 TABLET 1 TAB PO (09:14)
[2022-03-01] MEDS: CALCIUM CARBONATE 600 MG TABLET PO (09:14)
[2022-03-01] MEDS: SILVER SULFADIAZINE 1% CREAM 25 GM 1 APPLIC TOP (09:15)
[2022-03-01] MEDS: SODIUM CHLORIDE 0.9% FLUSH 10 ML IV ×2 (09:15→20:22)
[2022-03-01] MEDS: MUPIROCIN 22 GM OINT 1 APPLIC TOP ×2 (09:15→20:30)
[2022-03-01 15:30] VITALS: BP 99/61; PULSE 110; RESP 18; TEMP 37; O2SAT 96
[2022-03-01 15:47] LABS: Alanine Aminotransferase 57 IU/L (<35); Albumin 3.4 g/dL (3.5-5.0); Albumin Globulin Ratio 0.9 (1.0-2.8); Alkaline Phosphatase 100 U/L (38-126); Aspartate Aminotransferase 91 IU/L (14-36); BUN Creatinine Ratio 19.6 (6-22); Bilirubin Total 0.3 mg/dL (0.2-1.3); Blood Urea Nitrogen 10 mg/dL (7-17); Calcium 8.9 mg/dL (8.4-10.2); Carbon Dioxide 30 mmol/L (22-32); Chloride 99 mmol/L (98-107); Estimated Glomerular Filt Rate > 60 mL/min (>60); Globulin 3.9 g/dL (1.7-4.1); Glucose 111 mg/dL (70-100); HEMOLYSIS < 15 (0-50); Potassium 4.2 mmol/L (3.4-5.1); Sodium 139 mmol/L (137-145); Total Protein 7.3 g/dL (6.3-8.2)
--- NOTE | 2022-03-01 16:06 | CM.DPC ---
Addendum entered by NIALL Carter 03/01/22 16:28: ADD: Unfortunately, unable to meet w/patient and her parents today d/t caseload demands. Original Note: DCP Note Spoke w/EDUARDO Johnson yesterday. According to our conversation: Patient's family has chosen the program titled supplemental which provides them approx $200 additional ea month. Alternatively, there is the waiver program that Elizabeth explains could give patient access to a respite provider and a visiting nurse Elizabeth explains that she has been speaking w/family for quite some time about obtaining guardianship for patient, at this time parents do not have guardianship. In addition, mom Orly could go through training for nurse delegation if mom agreeable Elizabeth confirms this family have been pretty isolated for quite some time Elizabeth plans to make a referral to [facility] which is a program dedicated to helping service recipients navigate the outpatient medical realm - however, [facility] moves slowly so follow up unknown at this time Elizabeth advises against psychiatric placement d/t patient's unique needs, Elizabeth feels it would be more harmful to place her in another institution. Discussion with NIALL King in the ER; Most typically a person would need to be on a detention detainment/hold to be considered for transfer to [facility] . With patient's medical needs, unsure if there is another institution that would consider accepting? ALMA DELIA Johnson says patient's SERAFIN can be transitioned to funding for Adult Family Home but this will be slow moving, family may be resistant, and placement may be difficult. Elizabeth reiterated that patient has no legal guardian at this time assigned Spoke w/ DR Stahl and Dr Ragsdale yesterday to review goals for patient's discharge from [facility]? This will need to be re-evaluated next week per these physicians. Dr Stahl back Friday. the ongoing difficulty is getting patient to stop the incessant scratching which has led to her severe and non healing wounds on scalp and face. Currently, patient continues this behavior. It appears the most likely outcome is that patient returns home w/her family. This ONLINE MEDIA DIRECTOR wonders if a family conference can be held next week to go over the following: -Review medication list and reiterate that medication compliance is paramount for patient's health, safety and stability -Educate family that patient may be sleepy at times d/t medication side effects, and that this may be the only way that patient's behaviors are manageable in a home environment -Encourage mom or dad to apply for guardianship, maybe w/assist from APS vs Elizabeth Villareal w/DD services -Encourage family to welcome respite providers -Educate parents that if they are unable to provide proper medication management at home for patient, it is possible that patient may be removed from their custody -APS referral for additional monitoring in the home - referral (if available) for additional monitoring in the home This ONLINE MEDIA DIRECTOR back on shift Friday03.05.22. ONLINE MEDIA DIRECTOR team will continue to follow along closely with DR Stahl and medical team to assist in coordination of DCP NIALL Rush
[2022-03-01 16:11] LABS: Add Manual Diff / Slide Review NO; Basophils Absolute Auto 0 /uL (0-100); Basophils Percent Auto 0.6 % (0-2); Eosinophils Absolute Auto 0 /uL (0-450); Eosinophils Percent Auto 0.7 % (2-4); Hematocrit 36.4 % (36-46); Hemoglobin 12.1 g/dL (12.0-16.0); Lymphocytes Absolute Auto 1000 /uL (1100-4500); Lymphocytes Percent Auto 24.2 % (25-40); Mean Corpuscular HGB Conc 33.3 % (30-36); Mean Corpuscular Hemoglobin 28.6 PG (26-34); Mean Corpuscular Volume 85.7 fL (80-100); Monocytes Absolute Auto 500 /uL (0-900); Monocytes Percent Auto 12.2 % (3-14); Neutrophils Absolute Auto 2500 /uL (1500-7000); Neutrophils Percent Auto 62.3 % (50-75); Platelet Count 223 X10^3/uL (150-400); Red Blood Cell Count 4.25 X10^6/uL (4.0-5.2); Red Cell Distribution Width 16.5 % (11.6-14.8)
[2022-03-01] MEDS: SENNOSIDES 8.6 MG TABLET 17.2 MG PO (20:22)
[2022-03-01] MEDS: FLUoxetine 10 MG CAPSULE 30 MG PO (20:22)
[2022-03-01] MEDS: LORazepam 2 MG/ML INJ 0.5 MG IV (20:23)
[2022-03-01 20:49] VITALS: BP 103/60; PULSE 122; RESP 20; O2SAT 96
[2022-03-02] MEDS: hydrOXYzine pamoate 25 MG CAPSULE 50 MG PO ×5 (00:07→22:55)
--- NOTE | 2022-03-02 04:12 | PC.NURSE ---
Pt is AxOx1, confused and agitated sometimes. Continued non-violent 2 pt restraints due to compulsive scratching her wounds. Pt recieved 0.5mg IV Ativan for agitation. Q2 turn and offered fluid and changed her brief. Pt always finds a way to scratch her wound. No other changes. Continue monitor.
[2022-03-02 04:16] VITALS: BP 91/55; PULSE 106; RESP 17; TEMP 36.8; O2SAT 95
[2022-03-02 08:00] VITALS: BP 98/60; PULSE 102; RESP 17; TEMP 36.2; O2SAT 99
[2022-03-02] MEDS: ARIPiprazole 10 MG TABLET 15 MG PO (10:26)
[2022-03-02] MEDS: POTASSIUM CHLORIDE 20 MEQ TAB PO (10:26)
[2022-03-02] MEDS: CALCIUM CARBONATE 600 MG TABLET PO (10:27)
[2022-03-02] MEDS: CHOLECALCIFEROL (VITAMIN D3) 1,000 UNIT TABLET 1000 UNIT PO (10:27)
[2022-03-02] MEDS: MULTIVITAMIN 1 TABLET 1 TAB PO (10:27)
[2022-03-02] MEDS: MUPIROCIN 22 GM OINT 1 APPLIC TOP ×2 (10:28→23:10)
[2022-03-02] MEDS: SODIUM CHLORIDE 0.9% FLUSH 10 ML IV (10:28)
[2022-03-02] MEDS: SILVER SULFADIAZINE 1% CREAM 25 GM 1 APPLIC TOP (10:30)
--- NOTE | 2022-03-02 11:20 | PC.NURSE ---
Pt calling out, kicking at time. Took time to give meds. Tolerated dressing change. Wrist restraints intact. Loosened with supervision. wrists assessed. Mom attentive at bedside.
[2022-03-02 12:00] VITALS: BP 99/57; PULSE 97; RESP 17; TEMP 36.5; O2SAT 98
--- NOTE | 2022-03-02 14:38 | CM.DPNOTE ---
Discharge Planning Note: Met with patient's mom, Orly and patient in the room. The mother is concerned re doesn't think the new med abilify is working very well, she is very concerned regarding the patient's increased self-mutilation-- frequent picking/scratching to face, scalp, which render the wounds non-healing. The chin is reddened and somewhat raw. The patient is in soft restraints. Her facial expressions range from grimacing to smiling. She does follow with her eyes and expression in conversation but does not speak. Referring to Bessy's note yesterday regarding need to establish guardianship and the [facility] case fitter Tia has been a resource. Another concern the difficulty in placement for this patient with so many issues. See goals. Plan: Dr Stahl to return on Friday. Follow along closely with Dr Stahl and medical team to assist in coordination of discharge plan. Bessy CRYPTOLOGIC SUPPORT SPECIALIST back 03.05.22. Possibly family conference can be held next week to identify issues and how to move forward, etc. Daja Cruz RN/DCP
[2022-03-02 16:00] VITALS: BP 100/63; PULSE 103; RESP 17; TEMP 36.2; O2SAT 96
--- NOTE | 2022-03-02 16:19 | PM.PN.1 ---
Subjective Subjective Date Patient Seen: 03/02/22 Interval history: No significant changes since yesterday. Continues to attempt to scratch her head and will even move her head in attempts. Exam Vital Signs (past 8 hours): - 03/02/22 12:00 Temperature 97.7 F Pulse Rate 97 H Respiratory Rate 17 Blood Pressure 99/57 L Pulse Oximetry 98 Oxygen Flow Rate 0 Fraction of Inspired Oxygen 24 SaO2/FiO2 Ratio 408 Oxygen Delivery Method Room Air Oxygen Flow Rate 0 Narrative Exam Narrative: GEN: less agitated but squirming around a lot wanting to itch her wounds and restrained at both wrists to avoid scratching of wounds.? Making eye contact, resting calmly and speaking to the mother occasionally. HEENT: moist mucous membranes, PERRL NECK: trachea midline, no JVD and no palpable neck nodes CV: regular rate and rhythm, no murmurs.? S1 and S2. PULM: clear bilaterally.? No spread SKIN: Multiple full thickness wounds/scabbing of chin, top of scalp and occipital areas, swelling of lower face and jaw minimally present.? Wounds do not appear to be infected. ABD: soft, nontender, nondistended, no organomegaly EXT: warm and well perfused with no edema, upper extremities restrained and with socks on hands NEURO:? Alert and cooperative with the mother.? Less agitation. Objective Labs Result Diagrams: 03/01/22 15:55 03/01/22 15:10 [facility] Medical History History of DVT (deep vein thrombosis) History of pulmonary embolism Schizophrenia Social History marital status: unmarried,single household members: family lives independently: No caregiver/support person: Yes (Both parents) occupational status: disabled Smoking Status: Never smoker alcohol intake: never Assessment & Plan Assessment & Plan narrative: 1. Fever of unknown origin, present on admission.? Currently afebrile since 02/21 and fevers resolved. The source of fevers was unclear, febrile to 102F on 02/21. Per parents patient has history of lupus. Had negative LE US for DVT during last admission for fevers. Multiple wounds present on face and scalp due to chronic picking and scratching in various stages of healing, CT face with soft tissue swelling over mandible which may be cellulitis. No dental abscesses. Malar-appearing rash on face suggestive of lupus? Blood and wound cultures negative. 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 Jarrett rec silvadene and xeroform to scalp and mupirocin to face Due to fevers and remote possibility of encephalitis, IR-guided LP was ordered however they want her intubated and sedated. Given this will hold off for now as patient has been afebrile since 02/21 and continues to be afebrile. Heterophile Ab negative, RF negative, hepatitis panel negative, urine drug screen negative JOCE with reflex pending, ESR is elevate/CRP was elevated.? ESR and CRP are the only markers to follow at this time for infection/inflammation.? ESR is stable at 40 and CRP has decreased to 2.8.? These need to be followed.?Continue to also follow CBC and comprehensive metabolic panel to ensure stability. However lab evaluation requires significant effort. CT of chest/abdomen and pelvis done on 02/25 as workup of fever of unknown origin shows infiltrates in the right apex and right lower lobe as well as stasis of feces in the abdomen. Received 7 day course of antibiotics already. 2. Schizophrenia with acute psychosis resulting in chronic picking of face and scalp, improving Parents note worsening psychosis and agitation for past 2 months, previously hospitalized at inpatient psych in 2009. Suspect medication noncompliance is a factor.? Mother states her current sense of agitation is baseline.? For today patient is much calmer, speaking with the mother, and making eye contact.? Will treat with Vistaril 50 mg q.i.d. to help maintain control of agitation.? A secondary benefit of this will be decrease of itching sensation. Dr. Stahl psych consulted and following. Attempting to do long-acting antipsychotic as outpatient.? Currently on Abilify?as well as Ativan as needed IV. Social work has been consulted. Continue restraints due to self-harm.? Needs to be reordered every day. Increased abilify to 15mg daily on 02/27. 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 3. Lactic acidosis, now resolved LA 4.1 in ED, resolved to 1 with fluids 4. Concern for seizure Patient had shaking episodes in the ED, although these episodes were present during her last admission and patient is awake and alert but has shakes when she's upset Not consistent with seizure 5. History of DVT/PE and IVC filter Event was reportedly in 2018, unknown whether IVC filter was ever removed, patient not currently on anticoagulant.? Difficult to get information from parents. CT does not show a current IVC filter. 6. Acute on Chronic Moderate Malnutrition r/t poor PO intake aeb pt 20% below UBW from 2020, pt with poor medication compliance leading to refusal of PO intake, MNA 7, increased nutrient needs for healing r/t scratching. Malnutrition increases risk of morbidity and mortality in hospitalized patients, contributes to poor wound healing.? Dietitian consult to maximize nutritional intake.? Also to help nutrition, ordered calcium, vitamin D and multivitamin. Code status is full code. COVID negative. DVT prophylaxis not needed. Proxy is her parents. Dipso: Pending improvement in self harm, hopefully with uptitrating of antipsychotic meds. Time Spent With Patient Critical Care time: I spent a total of [] minutes of critical care time on this patient's care today; this time is exclusive of procedural time. Quality VTE Deep Vein Thrombosis/Pulmonary Embolism Present on Admission: No
[2022-03-02 20:13] VITALS: BP 98/54; PULSE 90; RESP 16; TEMP 36.9; O2SAT 97
[2022-03-02] MEDS: FLUoxetine 10 MG CAPSULE 30 MG PO (22:56)
[2022-03-02] MEDS: SENNOSIDES 8.6 MG TABLET 17.2 MG PO (22:56)
[2022-03-03 02:18] VITALS: BP 98/71; PULSE 103; RESP 19; O2SAT 96
[2022-03-03] MEDS: hydrOXYzine pamoate 25 MG CAPSULE 50 MG PO ×3 (06:22→18:29)
[2022-03-03 07:49] VITALS: BP 137/58; PULSE 110; RESP 18; TEMP 36.7; O2SAT 97
[2022-03-03] MEDS: MUPIROCIN 22 GM OINT 1 APPLIC TOP ×2 (08:14→22:19)
[2022-03-03] MEDS: SILVER SULFADIAZINE 1% CREAM 25 GM 1 APPLIC TOP (08:14)
[2022-03-03 11:00] VITALS: BP 130/56; PULSE 99; RESP 20; TEMP 36.9; O2SAT 97
--- NOTE | 2022-03-03 12:21 | PC.NURSE ---
Addendum entered by Vida Mitchell R.N. 03/03/22 14:06: Checked on pt she is asleep now. Addendum entered by Vida Mitchell R.N. 03/03/22 13:46: Notified Dr. Myers in person that patient is agitated, yelling and kicking legs at mother (Orly) at the bedside. Dr. Wang ordered oral Ativan, see EMAR. Addendum entered by Vida Mitchell R.N. 03/03/22 13:27: Pt yelling and kicking legs at mother (Orly) at bedside, encouraged mother to step out of room for a few minutes to take a walk. LEAD MINER BLASTING offered patient a sandwich and chocolate milk, pt ate and drank and appeared calm and cooperative. Offered for patient to get out of bed to brush her teeth and take a walk, pt grimaced, shook head side to side and states, no. Original Note: Late entry- Pt declined morning medications, pt yelling and kicking legs. Educated pt about medications. Pt still declined medications. Pt removed midline and removes gown and blankets and threw them on the floor. Notified Dr. Myers, no new orders as of now.
--- NOTE | 2022-03-03 13:44 | P.PN_ITS ---
Subjective Subjective Date Patient Seen: 03/03/22 Interval history: Patient was refusing labs and pulled out IVs. Appears more agitated with mother per staff, when mother left for a period of time she appeared more calm and ate and took medications. Exam Vital Signs (past 8 hours): - 03/03/22 07:49 03/03/22 11:00 Temperature 98.1 F 98.4 F Pulse Rate 110 H 99 H Respiratory Rate 18 20 Blood Pressure 137/58 L 130/56 L Pulse Oximetry 97 97 Oxygen Flow Rate 0 0 Fraction of Inspired Oxygen 24 SaO2/FiO2 Ratio 408 Oxygen Delivery Method Room Air Oxygen Flow Rate 0 Narrative Exam Narrative: GEN: less agitated but squirming around a lot wanting to itch her wounds and restrained at both wrists to avoid scratching of wounds.? Making eye contact, resting calmly for now. HEENT: moist mucous membranes, PERRL NECK: trachea midline, no JVD and no palpable neck nodes CV: regular rate and rhythm, no murmurs.? S1 and S2. PULM: clear bilaterally.? No spread SKIN: Multiple full thickness wounds/scabbing of chin, top of scalp and occipital areas, swelling of lower face and jaw minimally present.? Wounds do not appear to be infected. ABD: soft, nontender, nondistended, no organomegaly EXT: warm and well perfused with no edema, upper extremities restrained and with socks on hands NEURO:? Alert and cooperative with the mother.? Less agitation. Objective Labs Result Diagrams: 03/01/22 15:55 03/01/22 15:10 [facility] Medical History History of DVT (deep vein thrombosis) History of pulmonary embolism Schizophrenia Social History marital status: unmarried,single household members: family lives independently: No caregiver/support person: Yes (Both parents) occupational status: disabled Smoking Status: Never smoker alcohol intake: never Assessment & Plan Assessment & Plan narrative: 1. Fever of unknown origin, present on admission.? Currently afebrile since 02/21 and fevers resolved. The source of fevers was unclear, febrile to 102F on 02/21. Per parents patient has history of lupus. Had negative LE US for DVT during last admission for fevers. Multiple wounds present on face and scalp due to chronic picking and scratching in various stages of healing, CT face with soft tissue swelling over mandible which may be cellulitis. No dental abscesses. Malar-appearing rash on face suggestive of lupus? Blood and wound cultures negative. 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 Jarrett rec silvadene and xeroform to scalp and mupirocin to face Due to fevers and remote possibility of encephalitis, IR-guided LP was ordered however they want her intubated and sedated. Given this will hold off for now as patient has been afebrile since 02/21 and continues to be afebrile. Heterophile Ab negative, RF negative, hepatitis panel negative, urine drug screen negative JOCE with reflex pending, ESR is elevate/CRP was elevated.? ESR and CRP are the only markers to follow at this time for infection/inflammation.? ESR is stable at 40 and CRP has decreased to 2.8.? These need to be followed.?Continue to also follow CBC and comprehensive metabolic panel to ensure stability. However lab evaluation requires significant effort. CT of chest/abdomen and pelvis done on 02/25 as workup of fever of unknown origin shows infiltrates in the right apex and right lower lobe as well as stasis of feces in the abdomen. Received 7 day course of antibiotics already. 2. Schizophrenia with acute psychosis resulting in chronic picking of face and scalp, improving Parents note worsening psychosis and agitation for past 2 months, previously hospitalized at inpatient psych in 2009. Suspect medication noncompliance is a factor.? Mother states her current sense of agitation is baseline.? For today patient is much calmer, speaking with the mother, and making eye contact.? Will treat with Vistaril 50 mg q.i.d. to help maintain control of agitation.? A seco ndary benefit of this will be decrease of itching sensation. Dr. Stahl psych consulted and following. Attempting to do long-acting antipsychotic as outpatient.? Currently on Abilify?as well as Ativan as needed IV. Social work has been consulted. Continue restraints due to self-harm.? Needs to be reordered every day. Increased abilify to 15mg daily on 02/27. Increased prozac to 30mg nightly on 1/12 HOURLY SHIFT MANAGER arranging possible psych placement. 3. Lactic acidosis, now resolved LA 4.1 in ED, resolved to 1 with fluids 4. Concern for seizure Patient had shaking episodes in the ED, although these episodes were present during her last admission and patient is awake and alert but has shakes when she's upset Not consistent with seizure 5. History of DVT/PE and IVC filter Event was reportedly in 2018, unknown whether IVC filter was ever removed, patient not currently on anticoagulant.? Difficult to get information from parents. CT does not show a current IVC filter. 6. Acute on Chronic Moderate Malnutrition r/t poor PO intake aeb pt 20% below UBW from 2020, pt with poor medication compliance leading to refusal of PO intake, MNA 7, increased nutrient needs for healing r/t scratching. Malnutrition increases risk of morbidity and mortality in hospitalized patients, contributes to poor wound healing.? Dietitian consult to maximize nutritional intake.? Also to help nutrition, ordered calcium, vitamin D and multivitamin. Code status is full code. COVID negative. DVT prophylaxis not needed. Proxy is her parents. Dipso: Pending improvement in self harm, hopefully with uptitrating of antipsyc hotic meds. Time Spent With Patient Critical Care time: I spent a total of [] minutes of critical care time on this patient's care today; this time is exclusive of procedural time. Quality VTE Deep Vein Thrombosis/Pulmonary Embolism Present on Admission: No
--- NOTE | 2022-03-03 14:10 | CM.DPNOTE ---
Discharge Planning Note: Patient remains much the same, agitated at times, then calms. She still remains in soft restraints to prevent patient from repeated attempts at scratching her face and scalp which she has scratched raw in some places as she moves her head down to her hands at times. Her mother, Orly has been sleeping over and in room constantly and admits she sleeps very little. Nursing staff states she has not bathed and not taking care of herself. She admits to being fatigue. Nursing and this DCP have encouraged Orly to return home to [place] and care for herself and sleep but she states she has no ride there. The charge nurse Emiliano has spoken with her re this issue. See Nursing notes. Plan: Dr Stahl to see patient tomorrow, Friday. See Bessy's note of 03/01/22 regarding status and needs for patient. Continue to follow for discharge planning needs. Daja Cruz RN/DCP
[2022-03-03 15:00] VITALS: BP 136/64; PULSE 103; RESP 20; TEMP 36.8; O2SAT 96
--- NOTE | 2022-03-03 17:50 | PC.NURSE ---
Late entry- Patient mother Orly is at the bedside, she states, did not sleep and has not showered in days. She appears fatigued. Encouraged patient's mother to go home, get some rest, and care for herself. Patient's mother states, cannot go home because I do not have a ride from my route driver salesperson, will go home tomorrow. TEMPERATURE INSPECTOR encouraged mother to step out of the room today to take a walk. CM evaluated and had discussion with the patients mother.
[2022-03-03 20:00] VITALS: BP 106/56; PULSE 101; RESP 18; TEMP 36.6; O2SAT 97
[2022-03-03] MEDS: LORazepam 0.5 MG TABLET PO (22:18)
[2022-03-03] MEDS: FLUoxetine 10 MG CAPSULE 30 MG PO (22:18)
[2022-03-03] MEDS: SENNOSIDES 8.6 MG TABLET 17.2 MG PO (22:18)
[2022-03-04] VITALS: BP 105/63; PULSE 87; RESP 18; TEMP 37.1; O2SAT 98
[2022-03-04] MEDS: hydrOXYzine pamoate 25 MG CAPSULE 50 MG PO ×4 (05:44→23:38)
[2022-03-04] MEDS: LORazepam 0.5 MG TABLET PO ×3 (06:13→23:39)
--- NOTE | 2022-03-04 07:02 | PC.NURSE ---
Shift Note Pt continues to demonstrate self-mutilating behavior when non-violent restraints are on and when removed temporarily for care. Multiple attempts made to provide clothing, blankets, and brief but pt removed items or soiled. Per MAR, pt given PO Ativan twice during shift. Pt and mother both slept approximately 5 hours continuously. Mother did follow direction to stay seated and out of sight while providing care. Pt was comparatively more compliant with care than night previous. Pt consumed 2 chocolate pudding cups, 1/3 of turkey sandwich, and drank approx. 300 mL of water or decaf coffee. Non-violent restraints continued and netting was placed under soft wrist restraints.
[2022-03-04 08:00] VITALS: BP 102/66; PULSE 104; RESP 17; TEMP 36.7; O2SAT 97
[2022-03-04] MEDS: MULTIVITAMIN 1 TABLET 1 TAB PO (08:29)
[2022-03-04] MEDS: CHOLECALCIFEROL (VITAMIN D3) 1,000 UNIT TABLET 1000 UNIT PO (08:29)
[2022-03-04] MEDS: POTASSIUM CHLORIDE 20 MEQ TAB PO (08:29)
[2022-03-04] MEDS: ARIPiprazole 10 MG TABLET 15 MG PO (08:29)
[2022-03-04] MEDS: CALCIUM CARBONATE 600 MG TABLET PO (08:31)
[2022-03-04] MEDS: MUPIROCIN 22 GM OINT 1 APPLIC TOP (10:43)
[2022-03-04] MEDS: SILVER SULFADIAZINE 1% CREAM 25 GM 1 APPLIC TOP (10:45)
[2022-03-04 12:00] VITALS: BP 116/71; PULSE 104; RESP 17; TEMP 36.2; O2SAT 98
--- NOTE | 2022-03-04 15:26 | CM.DPC ---
DCP Cont: Per MD, pt seems to be medically stable and biggest concern is her stability with mental health/psychiatry. SW called [facility] and since today is a national holiday Psychiatrist Dr. Stahl, who has been graciously consulting and making med adjustments for the pt, will not return until tomorrow but they will alert him in the AM of the request to have final consultation with Hospitalist towards attempts at d/c. Discharge options are not very optomistic and not very many options available at this time. Pt's BINTA/DDA dehydrogenation operator head Elizabeth Flower ([phone]) has been bedside and aware of pt situation and confirms that recommendation has been for parents to get guardianship and that pt could have assessment to switch towards attempts at finding LTC facility that could accept her but pt have not yet been agreeable. SW made APS report online based on the concerns of parents' ability to adequately manage pt's behaviors and needs at home, have not yet followed through with attempting guardianship, med management non-compliance with recommendations of Psychiatrist, and pt's seeming to be less agitated and more compliant when parents are not bedside. APS report made in hope that home assessment could be made and coordination of care with Home and Community towards finding the best long chain beamer care plan for the patient. Unfortunately SW did not get the APS report number before computer shut down, but report was filed. Plan: SW to follow tomorrow after Psychiatrist consults with Hospitalist towards likely plan of return home and outpt follow up with Psychiatrist, GLENROY, BINTA, and possibly APS. NIALL Dueñas
--- NOTE | 2022-03-04 15:42 | PM.PN.1 ---
Subjective Subjective Date Patient Seen: 03/04/22 Interval history: no significant changes today, patient still not communicative with this provider. Exam Vital Signs (past 8 hours): - 03/04/22 08:00 03/04/22 12:00 Temperature 98.1 F 97.1 F L Pulse Rate 104 H 104 H Respiratory Rate 17 17 Blood Pressure 102/66 116/71 Pulse Oximetry 97 98 Oxygen Flow Rate 0 0 Fraction of Inspired Oxygen 24 SaO2/FiO2 Ratio 408 Oxygen Delivery Method Room Air Oxygen Flow Rate 0 Narrative Exam Narrative: GEN: intermittently agitated HEENT: moist mucous membranes, PERRL CV: regular rate and rhythm, no murmurs.? S1 and S2. PULM: clear bilaterally. SKIN: Multiple full thickness wounds/scabbing of chin, top of scalp and occipital areas, swelling of lower face and jaw minimally present.? Wounds do not appear to be infected. EXT: warm and well perfused with no edema, upper extremities restrained and with socks on hands NEURO:? Alert and cooperative with the mother.? Less agitation. Objective Labs Result Diagrams: 03/01/22 15:55 03/01/22 15:10 Labs: Laboratory Results - last 24 hr 02/21/22 12:48 Anti-N[facility] Antibody [facility] Medical History History of DVT (deep vein thrombosis) History of pulmonary embolism Schizophrenia Social History marital status: unmarried,single household members: family lives independently: No caregiver/support person: Yes (Both parents) occupational status: disabled Smoking Status: Never smoker alcohol intake: never Assessment & Plan Assessment & Plan narrative: 1. Fever of unknown origin, present on admission.? Currently afebrile since 02/21 and fevers resolved. The source of fevers was unclear, febrile to 102F on 02/21. Per parents patient has history of lupus. Had negative LE US for DVT during last admission for fevers. Multiple wounds present on face and scalp due to chronic picking and scratching in various stages of healing, CT face with soft tissue swelling over mandible which may be cellulitis. No dental abscesses. Malar-appearing rash on face suggestive of lupus? Blood and wound cultures negative. 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 Jarrett rec silvadene and xeroform to scalp and mupirocin to face Due to fevers and remote possibility of encephalitis, IR-guided LP was ordered however they want her intubated and sedated. Given this will hold off for now as patient has been afebrile since 02/21 and continues to be afebrile. Heterophile Ab negative, RF negative, hepatitis panel negative, urine drug screen negative JOCE with reflex pending, ESR is elevate/CRP was elevated.? ESR and CRP are the only markers to follow at this time for infection/inflammation.? ESR is stable at 40 and CRP has decreased to 2.8.? These need to be followed.?Continue to also follow CBC and comprehensive metabolic panel to ensure stability. However lab evaluation requires significant effort and patient often refuses labs. CT of chest/abdomen and pelvis done on 02/25 as workup of fever of unknown origin shows infiltrates in the right apex and right lower lobe as well as stasis of feces in the abdomen. Received 7 day course of antibiotics already. 2. Schizophrenia with acute psychosis resulting in chronic picking of face and scalp, improving Parents note worsening psychosis and agitation for past 2 months, previously hospitalized at inpatient psych in 2009. Suspect medication noncompliance is a factor.? Mother states her current sense of agitation is baseline.? For today patient is much calmer, speaking with the mother, and making eye contact.? Will treat with Vistaril 50 mg q.i.d. to help maintain control of agitation.? A secondary benefit of this will be decrease of itching sensation. Dr. Stahl psych consulted and following. Attempting to do long-acting antipsychotic as outpatient.? Currently on Abilify?as well as Ativan as needed IV. Social work has been consulted. Continue restraints due to self-harm.? Needs to be reordered every day. Increased abilify to 15mg daily on 02/27. Increased prozac to 30mg nightly on 02/28 NETWORK SOLUTIONS ARCHITECT arranging possible psych placement. 3. Lactic acidosis, now resolved LA 4.1 in ED, resolved to 1 with fluids 4. Concern for seizure resolved Patient had shaking episodes in the ED, although these episodes were present during her last admission and patient is awake and alert but has shakes when she's upset Not consistent with seizure 5. History of DVT/PE and IVC filter Event was reportedly in 2018, unknown whether IVC filter was ever removed, patient not currently on anticoagulant.? Difficult to get information from parents. CT does not show a current IVC filter. 6. Acute on Chronic Moderate Malnutrition r/t poor PO intake aeb pt 20% below UBW from 2020, pt with poor medication compliance leading to refusal of PO intake, MNA 7, increased nutrient needs for healing r/t scratching. Malnutrition increases risk of morbidity and mortality in hospitalized patients, contributes to poor wound healing.? Dietitian consult to maximize nutritional intake.? Also to help nutrition, ordered calcium, vitamin D and multivitamin. Code status is full code. COVID negative. DVT prophylaxis not needed. Proxy is her parents. Dipso: Pending improvement in self harm, hopefully with uptitrating of antipsychotic meds. Time Spent With Patient Critical Care time: I spent a total of [] minutes of critical care time on this patient's care today; this time is exclusive of procedural time. Quality VTE Deep Vein Thrombosis/Pulmonary Embolism Present on Admission: No
[2022-03-04 15:56] VITALS: BP 104/62; PULSE 116; RESP 95; TEMP 36.2; O2SAT 95
[2022-03-04 19:20] VITALS: BP 95/53; PULSE 94; RESP 18; TEMP 36.8; O2SAT 95
[2022-03-04] MEDS: FLUoxetine 10 MG CAPSULE 30 MG PO (23:39)
[2022-03-04] MEDS: SENNOSIDES 8.6 MG TABLET 17.2 MG PO (23:39)
[2022-03-05 00:28] VITALS: BP 99/57; PULSE 92; RESP 18; TEMP 36.3; O2SAT 96
[2022-03-05] MEDS: MUPIROCIN 22 GM OINT 1 APPLIC TOP ×2 (03:06→09:59)
--- NOTE | 2022-03-05 03:06 | PC.NURSE ---
PT. had got out of the hand restraints and were standing at the sink digging in her wounds on her head and she was wet, I got her clean up changed her linen after I stop her from digging in her wounds, got her back iin bed and in restraints again.
[2022-03-05] MEDS: LORazepam 1 MG TABLET PO (03:08)
[2022-03-05 04:00] VITALS: RESP 15
[2022-03-05 05:35] VITALS: BP 108/62; PULSE 91; RESP 18; TEMP 36.3; O2SAT 98
--- NOTE | 2022-03-05 09:17 | P.DS_ITS ---
History of Present Illness History of Present Illness Date Patient Seen: 03/05/22 Chief complaint: Psych Narrative: Per admitting provider, 31-year-old female with history of poorly controlled schizophrenia presented to ED from psych clinic where she was seen attempting to remove clothes and clawing at her facial wounds and scalp in the waiting room. Sent to ED for management of agitation and likely infected wounds. Patient currently on ativan drip with karin gonzalez at the bedside. They say since she left the hospital on 02/07 she had difficulty taking her po augmentin. They also mentioned they had her restrained to the couch and she would fight to escape. The mitts they applied to both hands at home in attempt to prevent her from scratching herself did not work and she would rip them off. In the ED patient febrile to 101.7F with lactate 4.1. Had severe agitation and shaking and there was concern for seizure so put on ativan drip. Discharge Providers Provider Date of admission: 02/20/22 14:51 Discharge Date: 03/05/22 Consults: 02/20/22 16:06 Consult to Physician Routine Comment: Consulting Provider: Layton Stahl Reason for consultation: psychosis Consult to Wound Care Routine Comment: Consulting Provider: Laura-CHARLES Wound [facility] 02/24/22 15:32 Consult to Dietitian, Adult Routine Comment: Reason For Exam: Please see provider and CM team Discharge provider: Enrique Myers DO Summary Hospital Course Discharge Diagnosis: Please see hospital course by problem list noted below Hospital Course: 1. Fever of unknown origin, present on admission. Currently afebrile since 02/21 and fevers resolved. Likely secondary to facial wounds or less likely pneumonia. -patient was febrile to 102? on admission. She was continued on antibiotics for multiple wounds present on the face and scalp due to chronic picking and scratching with a possible cellulitis seen on CT. Immunologic workup was obtained and her ESR and CRP were mildly elevated. Rheumatoid factor was negative. JOCE was sent but not performed due to hemolysis. Hepatitis panel was negative. Urine drug screen was negative. Blood and wound cultures were also negative. Due to fevers and remote possibility of encephalitis, IR-guided LP was ordered however they want her intubated and sedated. Given this held off from performing as patient has been afebrile since 02/21 and continued to be afebrile making the diagnosis highly unlikely. CT of chest/abdomen and pelvis done on 02/25 as workup of fever of unknown origin shows infiltrates in the right apex and right lower lobe as well as stasis of feces in the abdomen.? Received 7 day course of antibiotics with improvement and no further fever. Source likely remains pneumonia given CT or from facial wounds. Should continue to treat with mupirocin cream, follow up with PCP for ongoing wound care. 2. Schizophrenia with acute psychosis resulting in chronic picking of face and scalp, improving Parents note worsening psychosis and agitation for past 2 months, previously hospitalized at inpatient psych in 2009. Suspect medication noncompliance is a factor.? psych consultation was performed. Medications were changed to increase fluo xetine to 40 mg daily, start abilify changed to 15 mg daily. continue hydroxyzine 50 mg QID and continue lorazepam 0.5 mg as needed for agitation. -Appreciate Dr. Stahl's consultation. Patient will follow up with psychaitry as an outpatient. APS referral made by care management. Multiple attempts were made at placement. 3. Lactic acidosis, resolved LA 4.1 in ED, resolved to 1 with fluids 4. Concern for seizure resolved Patient had shaking episodes in the ED, although these episodes were present during her last admission and patient is awake and alert but has shakes when she's upset Not consistent with seizure No further evaluation necessary. 5. History of DVT/PE and IVC filter Event was reportedly in 2018, unknown whether IVC filter was ever removed, patient not currently on anticoagulant.? Difficult to get information from parents. CT does not show a current IVC filter. 6. Acute on Chronic Moderate Malnutrition - contributes to poor wound healing with patients wounds. Complicated by psychiatric issues. Appreciate dietary consultation. Patient had prolonged hospitalization in attempts to stabilize behavior, attempts at psychiatric facility placement, without success. She was discharged home with home health after extensive work with psychiatry and care management. Facial wounds are well healing at this time, but required wrist restraints to keep patient from picking. Thought is this above psychiatric medications will keep her from picking in the near future at home. Time Spent with Patient Time spent: Greater than 30 minutes Exam Vital Signs (past 8 hours): - 03/05/22 04:00 03/05/22 05:35 Temperature 97.4 F L Pulse Rate 91 H Respiratory Rate 15 18 Blood Pressure 108/62 Pulse Oximetry 98 Oxygen Flow Rate 0 Fraction of Inspired Oxygen 24 SaO2/FiO2 Ratio 408 Oxygen Delivery Method Room Air Oxygen Flow Rate 0 Narrative Exam Narrative: GEN: less agitated but squirming around a lot wanting to itch her wounds and restrained at both wrists to avoid scratching of wounds.? Making eye contact, resting calmly for now. HEENT: moist mucous membranes, PERRL NECK: trachea midline, no JVD and no palpable neck nodes CV: regular rate and rhythm, no murmurs.? S1 and S2. PULM: clear bilaterally.? No spread SKIN: Multiple full thickness wounds/scabbing of chin, top of scalp and occ ipital areas, swelling of lower face and jaw minimally present.? Wounds do not appear to be infected. ABD: soft, nontender, nondistended, no organomegaly EXT: warm and well perfused with no edema, upper extremities restrained and with socks on hands NEURO:? Alert and cooperative with the mother.? Less agitation. Objective Labs Result Diagrams: 03/01/22 15:55 03/01/22 15:10 [facility] Medical History History of DVT (deep vein thrombosis) History of pulmonary embolism Schizophrenia Social History marital status: unmarried,single household members: family lives independently: No caregiver/support person: Yes (Both parents) occupational status: disabled Smoking Status: Never smoker alcohol intake: never Discharge Plan Discharge Plan Patient Disposition: Home Health Service Provider Discharge Comment: Admitted to the hospital with infection of face. Completed antibiotics. Please follow up with primary care provider for continued monitoring of facial lesions. Follow up with Dr. Stahl for psychiatry adjustment of medications. Discharge orders & Medications Prescriptions: New lorazepam 0.5 mg Tablet 0.5 mg PO Q4HR PRN (Reason: Anxiety / agitation) 30 Days Qty: 30 0RF aripiprazole 15 mg tablet 15 mg PO DAILY 30 Days Qty: 30 0RF hydroxyzine HCl 50 mg tablet 50 mg PO QID 30 Days Qty: 120 0RF fluoxetine 40 mg capsule 40 mg PO DAILY 30 Days Qty: 30 0RF lorazepam 0.5 mg tablet 0.5 mg PO TID PRN (Reason: agitation) 7 Days Qty: 20 0RF Continued mupirocin 2 % Ointment 1 applic topical BID Qty: 45 0RF Discontinued amoxicillin-pot clavulanate 875-125 mg tablet 1 tab PO Q12H Qty: 10 0RF fluoxetine [Prozac] 20 mg capsule 20 mg PO DAILY Qty: 30 0RF olanzapine 15 mg tablet 15 mg PO BEDTIME Qty: 30 0RF Follow up/Referrals: Layton Stahl MD [Physician] - 03/12/22 11:30 am (appt:03/12 @ 11:[address] Stahl ) Miscellaneous,DoctorMD [Non-Staff] - Diet/Activity/Treatments Diet: Diet as Tolerated Activity: As tolderated Visit Report/Discharge Packet Instructions: DI for Schizophrenia Stand Alone Forms: Patient Portal/API, Stroke Signs & Symptoms Quality VTE Deep Vein Thrombosis/Pulmonary Embolism Present on Admission: No
[2022-03-05 10:00] VITALS: BP 100/54; PULSE 86; RESP 17; TEMP 36.2; O2SAT 98
[2022-03-05] MEDS: MULTIVITAMIN 1 TABLET 1 TAB PO (10:00)
[2022-03-05] MEDS: SILVER SULFADIAZINE 1% CREAM 25 GM 1 APPLIC TOP (10:00)
[2022-03-05] MEDS: POTASSIUM CHLORIDE 20 MEQ TAB PO (10:00)
[2022-03-05] MEDS: CALCIUM CARBONATE 600 MG TABLET PO (10:01)
[2022-03-05] MEDS: CHOLECALCIFEROL (VITAMIN D3) 1,000 UNIT TABLET 1000 UNIT PO (10:01)
[2022-03-05] MEDS: ARIPiprazole 10 MG TABLET 15 MG PO (10:01)
--- NOTE | 2022-03-05 10:30 | P.PN_ITS ---
Subjective Subjective Date Patient Seen: 03/05/22 Time Patient Seen: 08:15 Interval history: Patient is seen at bedside, and much more awake, alert, and present than previously. Mother present in the room and NIALL Denton was also present to discuss future treatment and discharge planning in a way ahead. The patient's struggled somewhat with her restraints, but appeared to be attempting to scratch wounds on her chin her head much less frequently. She did however pick a little bit at her ear. Was once again, minimally conversant but did express a desire to go home. Exam Vital Signs (past 8 hours): - 03/05/22 04:00 03/05/22 05:35 03/05/22 10:00 Temperature 97.4 F L 97.1 F L Pulse Rate 91 H 86 Respiratory Rate 15 18 17 Blood Pressure 108/62 100/54 L Pulse Oximetry 98 98 Oxygen Flow Rate 0 0 Fraction of Inspired Oxygen 24 SaO2/FiO2 Ratio 408 Oxygen Delivery Method Room Air Oxygen Flow Rate 0 Narrative Exam Narrative: MENTAL STATUS EXAM * Appearance:? Thin, filipina female seen lying in her hospital bed with numerous sores and wounds on face and scalp with several areas of hair missing.? Wound on her chin and various facial lesions appear to be much improved. Still has a fairly severe wound on her scalp. * Grooming:? Dressed in hospital attire. * Behavior:? 1 arm restrained and patient was working on on tying the restraint using her free left arm. Much less picking at skin on her face. * Eye contact:? Good * Gait:? Not tested * Speech:? Able to speak in converse in Sudanese and answer basic questions with mother and nursing staff. Speech unimpaired. * Mood:? Did not answer the question regarding her mood. * Affect:? Arms restrained. More calm and less agitated than initial presentation, but still not back to a stable baseline and occasionally has compulsive attempts to scratch or pick at chin, face, and scalp. * Thought Process:? Tennyson but linear and logical. Does not respond to me, but does communicate with parents. * Thought Content:? Unable to determine suicidal or homicidal ideation, intent, or plan.? Still somewhat preoccupied with internal stimuli and skin picking. * Attention:? Awake and alert * Orientation:? Not tested patient not talking with me today. * Insight:? Poor * Judgment:? Poor Objective Labs Result Diagrams: 03/01/22 15:55 03/01/22 15:10 [facility] Medical History History of DVT (deep vein thrombosis) History of pulmonary embolism Schizophrenia Social History marital status: unmarried,single household members: family lives independently: No caregiver/support person: Yes (Both parents) occupational status: disabled Smoking Status: Never smoker alcohol intake: never Assessment & Plan Assessment and plan (1) Schizophrenia: Qualifiers: Schizophrenia type: unspecified Qualified Code(s): F20.9 - Schizophrenia, unspecified Status: Acute (2) Compulsive behaviors: Status: Acute (3) Multiple open wounds of face: Status: Inactive (4) Soft tissue infection: Problem details: History of picking skin. Significant erythema/rash of face/neck. Drainage noted from external ear per bedside team. Status: Acute (5) Excoriation (skin-picking) disorder: Status: Acute Assessment & Plan narrative: ASSESSMENT/MEDICAL DECISION MAKING The patient is a 31-year-old filipina with a very long history of psychotic illness complicated by obsessive-compulsive disorder manifested by extremely treatment resistant hair pulling, skin picking, scratching, that may be possibly related to delusional content. Patient appears to have done well with increase dose of fluoxetine and aripiprazole at 15 mg daily with much less sedation than olanzapine. At this point, she appears to have made as much progress as she can in the hospital and concur with staff decision to discharge to home. RECOMMENDATIONS: 1. Increase fluoxetine to 40 mg daily 2. Continue aripiprazole at 15 mg daily 3. Continue use of hydroxyzine 50 mg QID targeting urticaria or diphenhydramine as appropriate. 4. Continue to clip nails frequently, use gloves, arm restraints to prevent excorations. 5. Recommend parents be counseled on using soothing topical creams the open wounds still present to help patient reduce and resist compulsion to scratch at them. 6. Concur with recommendation regarding setting up home health to visit and assist parents in care at home. 5. Patient scheduled to follow-up with me as an outpatient at 1145 on 12 March 2022 in the [facility]. Time Spent With Patient Time with patient: 30 to 49 minutes with 50% spent counseling/coordinating care Critical Care time: I spent a total of [] minutes of critical care time on this patient's care today; this time is exclusive of procedural time. Quality VTE Deep Vein Thrombosis/Pulmonary Embolism Present on Admission: No
[2022-03-05] MEDS: hydrOXYzine pamoate 25 MG CAPSULE 50 MG PO ×2 (12:56→17:48)
--- NOTE | 2022-03-05 13:37 | CM.DPNOTE ---
DC Note Patient is medically cleared by Dr Stahl and Dr Myers this morning for return home. Patient continues with scratching behaviors but they appear to have gotten better and wounds are healing. Met w/patient and her mom Orly in room w/Dr Stahl this morning; reviewed discharge plan. Mom able to understand Thai and speaks in broken Thai, states patient is still scratching and she states concern about this behavior. Patient listening and when asked if she wants to go home, patient nods head and answers yes Between this FRONT DESK WORKER and Dr Stahl, attempted to review patient's medical stay and discuss methods that might help keep patient safely cared for at home. Met w/some resistance as mom continues to say over and over that patient scratches when unsupervised Suggested the following: -Strict medication compliance, reiterated to mom DO NOT STOP medications even when patient becomes sleepy throughout the day -Follow up w/Dr Stahl Mar 12 -Consider inviting a caregiver into the house to provide respite to mom and dad; this needs to be arranged w/DDA Green Chain Operator Elizabeth Jacob -Consider talking with DDA Green Chain Operator Elizabeth Jacob about Adult Family Home or facility placement options for patient, mom said she would discuss with her , patient's father -Attempt less restrictive interventions to keep patient engaged, busy and distracted ie going outside for walks, drawing, folding laundry or playing with cards. Mom says patient watches TV all day Mom asks for patient to remain in the hospital for 3 more days, explained that patient is medically stable and has met goals for medical discharge. Patient's scratching and volatile moods remain and likely are now baseline, per Dr Stahl, d/t patient's mental illness. Patient has improved since admission and is mostly compliant w/care, eating and drinking. Staff have noticed that patient is more compliant with care when mom is not present or stands back Mom Orly inevitably agreeable to patient's discharge home and has updated patient's father Lenin and their friend/otr owner operator truck driver Temo Chavez. According to conversation w/Jose Chavez; he gets off work at 1930, will plan to pick Lenin up and will come to the hospital to bean picker machine operator patient and mom Orly. Asked about pharmacy stop to bean picker machine operator Rx and Temo says the [facility] in [place] will be closed by the time they stop. Suggested [facility] which is located within and Jose felt this would work better Updated RN Jaylyn re pharmacy update and she agreed to assist w/this and discuss w/mom Orly Next note to include efforts made today to secure outpatient supports NIALL Rush
[2022-03-05 14:00] VITALS: BP 105/75; PULSE 91; RESP 17; TEMP 36.3; O2SAT 93
--- NOTE | 2022-03-05 14:01 | CM.DPNOTE ---
Addendum entered by Eliza Vyas RODEO CLOWN 03/05/22 15:08: ADD: [facility] accepts this referral and will provide one nursing visit as a trial to see if [facility] can meet patient's needs. [facility] will not continue care if patient's needs are too acute and/or patient/family are not compliant with care Faxed completed and signed F2F and HH order Updated patient's mother Orly, mom agreeable to plan Suggested to [facility] and to patient/family that [facility] RN show up instead of playing phone tag with family and mom Orly agreeable. [facility] RN will arrive to patient's home March 13 LILLIAN De La O updated with this plan In addition- updated LILLIAN De La O that Selin Mark recommends product Millboro, medical grade super glue GORGE Original Note: DCP Note Patient discharging home today. Attempted to organize outpatient supports: Placed call to Selin Mark, wound care, reviewed this case. Selin suggested HH RN; explains that upon patient's last discharge, she called patient's family to schedule a wound care appt and parents denied need for an appointment, saying it would be too difficult to get patient to the appt and that she didn't need wound care Selin suggests patient leave with no sting barrier pads placed on wounds and that team,family, outpatient supports be educated about a product called Millboro which is medical grade super glue, and is used in the wound care center (nothing can penetrate). This product can be pricey and can be accessed either online at [employer] or any pharmacy. Will plan to update LILLIAN De La O w/this information and agency if one is secured Placed call to vida [facility] and spoke w/[facility]; they have declined this referral stating they are not equipped for this patient's needs Placed call to Elham with [facility], reviewed referral and referral faxed. Now awaiting CB re determination Placed call to DDA Medical Records Receptionist Elizabeth Villareal and she is on vacation. Avionics Systems Repairer is Jose Morgan P [phone] Placed call to Zheng Crockett, tank storage supervisor at [facility] P [phone] F [phone] email: [email or web address] according to our conversation: Zheng sees that a call was placed yesterday to APS however there is no intake or official case yet. Discussed patient at length, reviewed clinical notes and reviewed concerns voiced by collective staff re concern for patient's safety at home, concern about patient/family isolation, lack of knowledge or understanding that medication compliance is paramount in keeping patient's behaviors manageable, and significant caregiver burden d/t patient's high care needs Zheng agrees to watch this closely and will assign this case to APS child welfare social worker Sissy Samuel who has has much experience with DDA cases and will follow closely with DDA complex case manager. Zheng explains that parents need to petition for guardianship or DDA vs APS need to petition because it is not appropriate that patient does not have a guardian currently. Zheng agrees to contact DDA tank storage supervisor Jose Morgan and will place this case as a high level case that will be brought to the monthly community meeting to discuss. This RODEO CLOWN grateful for Zheng's attention on this case Plan: DC home w/family this evening via friend Jose's pov. No HH RN secured yet. Follow up w/ Dr Stahl 03.12.22, DDA Medical Records Receptionist and APS Avionics Systems Repairer involved NIALL Rush
[2022-03-05] MEDS: SENNOSIDES 8.6 MG TABLET 17.2 MG PO (20:35)
[2022-03-05] MEDS: FLUoxetine 10 MG CAPSULE 30 MG PO (20:35)
== END 2022-03-05 20:55 | disposition home or self-care (01) | DRG 602 ==
LOC: ED 10:41 → AC 14:52
PROVIDERS: Neuromusculoskeletal Medicine, Sports Medicine; Admitting Provider Student in an Organized Health Care Education/Training Program; Emergency Provider Emergency Medicine; Referring Provider Emergency Medicine; Visit Provider Student in an Organized Health Care Education/Training Program
DX: L03.211 Cellulitis of face (principal); J18.9 Pneumonia, unspecified organism; E44.0 Moderate protein-calorie malnutrition; Z68.1 Body mass index [BMI] 19.9 or less, adult; E87.20 Acidosis, unspecified; F20.9 Schizophrenia, unspecified; F42.4 Excoriation (skin-picking) disorder; S01.80XA Unspecified open wound of other part of head, initial encounter; S01.00XA Unspecified open wound of scalp, initial encounter; X58.XXXA Exposure to other specified factors, initial encounter; Z20.822 Contact with and (suspected) exposure to COVID-19; R00.0 Tachycardia, unspecified; R03.1 Nonspecific low blood-pressure reading
CPT/HCPCS: 0241U; 36415; 36430; 36592; 62270; 70450; 70487; 70551; 71045; 71260; 74177; 76000; 80048; 80053; 80074; 81001; 82330; 82550; 82553; 82728; 83605; 83615; 83735; 84145; 84155; 84165; 84484; 85025; 85610; 85651; 86038; 86140; 86318; 86430; 86850; 86900; 86901; 87040; 87070; 87075; 87205; 87797; 93005; 93010; 94760; 94762; 96365; 96366; 96367; 96368; 96372; 96375; 99215; 99231; 99232; 99233; 99285; 99291; P9016; J0692; J1200; J1630; J1642; J2060; J2543; Q9967; S0166